=== PATIENT | male | born 1955 | race Caucasian/White ===

== ENCOUNTER 2020-11-24 17:05 | Inpatient (IN) ==
--- NOTE | 2020-11-24 17:19 | DR.FEVERAD ---
HPI Time seen Time Seen by Provider: 11/24/20 17:16 HPI Comment HPI Comment: PATIENT IS 65YR OLD MALE IN ER WITH GENERALIZED WEAKNESS, FEVER AND ANOREXIA TIMES 6 DAYS THAT IS WORSE TODAY. HE HAS HISTORY OF COPD, CAD, DM, HTN AND SLEEP APNEA. HE HAS SLIGHT COUGH AND CONGESTION. NO DYSURIA, NAUSEA,VOMITING OR DIARRHEA. HAVE NOT BEING AROUND SOME ONE SICK WITH COVID 19 VIRUS INFECTION. PATIENT HAVE NOT HAD COVID IMMUNIZATION. Complaints/Symptoms Chief Complaint Doctor Comments: FEVER, POOR APPETITE AND GENERALIZED WEAKNESS TIMES 6 DAYS. COVID-19 Coronavirus risk:travel/contact w/high risk person: No Has patient experienced Coronavirus symptoms: No Coronavirus symptoms experienced: Fever, Coughing and Shortness of Breath Nurses notes reviewed Nurses Notes Review: Yes Source History Provided: Patient Mode of Arrival Mode of Arrival: Wheelchair Timing Came on: Suddenly Duration Duration: Constant Duration: Days Severity Fever Severity/Quality: greater than 100.5 F Context Recent: None Symptoms: Fever and SOB (ON EXERTION.) History of: Diabetes and Chronic Illness Modifying factors Modifying factors: Tylenol Associated signs and symptoms Associated signs and symptoms: Weakness Other history Other history: DM, CAD, COPD, HTN. ROS Review of Systems Constitutional: See HPI, Fever, Malaise, Weakness, Fatigue and Loss of Appetite Eyes: No Symptoms Reported and See HPI ENTM: See HPI and Nose Congestion; negative Nose Discharge Respiratoy: No Symptoms Reported, See HPI, Moist Cough and Short of Breath (ON E XERTION.); negative Wheezing Cardiovascular: No Symptoms Reported and See HPI; negative Chest Pain Gastrointestinal/Abdominal: No Symptoms Reported and See HPI; negative Abdominal Pain, Diarrhea, Nausea and Vomiting Genitourinary: No Symptoms Reported and See HPI; negative Dysuria and Hematuria Neurological: See HPI and Weakness; negative Headache and Dizziness Musculoskeletal: See HPI and Muscle Pain; negative Back Pain Integumentary: No Symptoms Reported and See HPI; negative Change in Color, Rash and Juandice Hematologic/Lymphatic: See HPI, Easy Bleeding and Easy Bruising; negative Swollen Glands Endocrine: No Symptoms Reported and See HPI; negative Increased Thirst and Increased Urine Psychiatric: No Symptoms Reported and See HPI All Other Systems: Reviewed and Negative PE Vital Signs Vitals: Temperature 98.7 F Pulse Rate 69 Respiratory Rate 26 Blood Pressure [Left Arm] 149/71 Blood Pressure 126/70 O2 Sat by Pulse Oximetry 90 General Limitations: No Limitations General Appearance: Alert and In No Apparent Distress Head Head Exam: Normal Inspection; negative Atraumatic Eyes Eye exam: Normal Appearance and PERRL; negative Scleral Icterus and Conjunctival Injection ENT ENT Exam: Normal Exam, Normal Oropharynx, Normal External Ear Exam and TM's Normal Bilaterally External Ear Exam: Normal External Inspection; negative Mastoid Tenderness TM/Canal Exam: Bilateral: Normal Nose Exam: Normal Nose Exam Mouth Exam: Normal Inspection; negative Lip Swelling and Tongue Swelling Teeth Exam: Dental Caries; negative Dental Tenderness # and Gingival Swelling Throat Exam: Normal Inspection; negative Tonsillar Erythema, Tonsillomegaly and Tonsillar Exudate Neck Neck Exam: Normal Inspection and Trachea Midline; negative Tenderness and Lymphadenopathy Respiratory Respiratory Exam: Normal Lung Sounds Bilat; negative Accessory Muscle Use, Chest Wall Tenderness and Respiratory Distress Respiratory Exam: Bilateral: Rhonchi and Lower: Rhonchi Cardiovascular Cardiovascular Exam: Regular Rate, Normal Rhythm and Normal Heart Sounds; negative Systolic Murmur and Diastolic Murmur Abdominal Exam Abdominal Exam: Normal Inspection, Normal Bowel Sounds and Soft; negative Tenderness Extremities Extremities Exam: Normal Inspection and Normal Capillary Refill Back Back Exam: Normal Inspection; negative (R) CVA Tenderness and (L) CVA Tenderness Neurologic Neurological Exam: Alert and Oriented X3; negative Motor Sensory Deficit Psychiatric Psychiatric Exam: Normal Affect and Normal Mood Skin Skin Exam: Dry MDM Differential Diagnosis Differential Diagnosis: Dehydration, Electrolyte disorder, Influenza, Myocardial Infarction, Pneumonia, UTI and Viral syndrome COURSE Treatment Treatment: SEE ORDERS. MORPHIN 4MG IV, ZOFRAN 4MG IV, ROCEPHIN 1GM IVPB AND REMDISIVIR 200MG IVPB IN ER. PATIENT ADMITED TO HOSPITAL FOR FURTHER MANAGEMENT. Consultation Consultation Comments: DISCUSSED PATIENT WITH DR. MUNOZ. SHE WILL ADMIT PATIENT . Education/Counseling Education/Counseling: Patient Educated On: Diagnosis ROR Labs Reviewed Laboratory Results Reviewed?: Yes Result Diagrams: 12/21/20 09:49 12/21/20 09:49 Laboratory: 11/24/20 17:25 Blood Blood Culture - Final 11/24/20 17:25 Blood Blood Culture - Final WBC 4.3 X10^3/uL (3.6-10.0) 11/24/20 17:25 RBC 5.34 X10^6/uL (4.7-6.0) 11/24/20 17:25 Hgb 15.7 g/dL (13.5-18.0) 11/24/20 17:25 Hct 46.1 % (42.0-54.0) 11/24/20 17:25 MCV 86.2 fL (80.0-100.0) 11/24/20 17:25 MCH 29.4 pg (27.0-34.0) 11/24/20 17:25 MCHC 34.1 g/dL (33.0-35.0) 11/24/20 17:25 RDW 14.3 % (11.6-16.5) 11/24/20 17:25 Plt Count 144 X10^3/uL (150.0-450.0) L 11/24/20:25 MPV 8.6 fL (7.4-11.0) 11/24/20 17:25 Neut % (Auto) 73.5 % (42.0-75.0) 11/24/20 17:25 Lymph % (Auto) 14.7 % (21.0-51.0) L 11/24/20 17:25 [place] % (Auto) 11.4 % (0.0-13.0) 11/24/20 17:25 Eos % (Auto) 0.0 % (0.9-2.9) L 11/24/20 17:25 Baso % (Auto) 0.4 % (0.2-1.0) 11/24/20:25 Neut # (Auto) 3.2 x10^3/uL (2.2-4.8) 11/24/20 17:25 Lymph # (Auto) 0.6 X10^3/uL (1.3-2.9) L 11/24/20 17:25 [place] # (Auto) 0.5 x10^3/uL (0.3-0.8) 11/24/20:25 Eos # (Auto) 0.0 x10^3/uL (0.0-0.2) 11/24/20 17:25 Baso # (Auto) 0.0 X10^3/uL (0.0-0.1) 11/24/20 17:25 Absolute Nucleated RBC 0.1 /100WBC 11/24/20 17:25 Sample Site Rr 11/24/20 20:45 ABG pH 7.420 (7.35-7.45) 11/24/20 20:45 ABG pCO2 30.0 mmHg (35.0-45.0) L 11/24/20 20:45 ABG pO2 54.0 mmHg (80.0-100.0) L 11/24/20 20:45 ABG HCO3 19.5 mmol/L (22-26) L 11/24/20 20:45 ABG O2 Saturation 88.0 % (90-100) L 11/24/20 20:45 ABG Base Excess -4.0 mmol/L (-2.0-2.0) L 11/24/20 20:45 Bernardo Test Pos 11/24/20 20:45 A-a Gradient 108.0 mmHg 11/24/20 20:45 FiO2 28.0 11/24/20 20:45 Blood Gas Comments Kandy well sw 11/24/20 20:45 Sodium 133 mmol/L (136-145) L 11/24/20 17:25 Corrected Sodium 136 mmol/L (136-145) 11/24/20 17:25 Potassium 4.7 mmol/L (3.5-5.1) 11/24/20 17:25 Chloride 97 mmol/L (98-107) L 11/24/20 17:25 Carbon Dioxide 22.7 mmol/L (21-32) 11/24/20 17:25 BUN 26 mg/dL (7-18) H 11/24/20 17:25 Creatinine 1.58 mg/dL (0.70-1.30) H 11/24/20 17:25 Est GFR (MDRD) Af Amer 57 (>60) L 11/24/20 17:25 Est GFR (MDRD) Non-Af 47 (>60) L 11/24/20 17:25 Glucose 226 mg/dL (65-99) H 11/24/20 17:25 Lactic Acid 2.0 mmol/L (0.4-2.0) 11/24/20 17:25 Calcium 8.7 mg/dL (8.5-10.1) 11/24/20 17:25 Corrected Calcium TNP 11/24/20 17:25 Total Bilirubin 0.90 mg/dL (0.2-1.0) 11/24/20 17:25 AST 198 Units/L (15-37) H 11/24/20 17:25 ALT 148 Units/L (12-78) H 11/24/20 17:25 Alkaline Phosphatase 88 Units/L (46-116) 11/24/20 17:25 Creatine Kinase 79 Units/L (39-308) 11/24/20 17:25 CK-MB (CK-2) < 1.0 ng/mL (0-4.0) 11/24/20 17:25 CK/CKMB % Calc 1.3 % (<4) 11/24/20 17:25 Troponin I < 0.02 ng/mL (0-1.5) 11/24/20 17:25 Total Protein 7.9 g/dL (6.4-8.2) 11/24/20 17:25 Albumin 3.6 g/dL (3.4-5.0) 11/24/20 17:25 Globulin 4.3 g/dL (2.5-4.5) 11/24/20 17:25 Albumin/Globulin Ratio 0.8 Ratio (1.1-2.1) L 11/24/20 17:25 Amylase 48 Units/L (25-115) 11/24/20 17:25 Lipase 220 Units/L (73-393) 11/24/20 17:25 Specimen Type Clean catch urine 11/24/20 18:16 Urine Color Yellow (YELLOW) 11/24/20 18:16 Urine Appearance Clear (CLEAR) 11/24/20 18:16 Urine pH 5.0 (5.0 - 8.0) 11/24/20 18:16 Ur Specific [place] 1.025 (1.000-1.030) 11/24/20 18:16 Urine Protein 3+ (NEGATIVE) 11/24/20 18:16 Urine Glucose (UA) 4+ (NEGATIVE) 11/24/20 18:16 Urine Ketones 1+ (NEGATIVE) 11/24/20 18:16 Urine Occult Blood Negative (NEGATIVE) 11/24/20 18:16 Urine Nitrite Negative (NEGATIVE) 11/24/20 18:16 Urine Bilirubin Negative (NEGATIVE) 11/24/20 18:16 Urine Urobilinogen Normal (NORMAL) 11/24/20 18:16 Ur Leukocyte Esterase Negative (NEGATIVE) 11/24/20 18:16 Urine RBC None seen /HPF (0-3) 11/24/20 18:16 Urine WBC None seen /HPF (0-5) 11/24/20 18:16 Ur Squamous Epith Cells Rare /HPF (NEGATIVE) 11/24/20 18:16 Urine Bacteria Negative /HPF (NEGATIVE) 11/24/20 18:16 Ur Culture Indicated? No/not indicated 11/24/20 18:16 Acetone, Semi-Quant Negative (NEGATIVE) 11/24/20 17:30 SARS-CoV-2 (PCR) Positive (NEGATIVE) A 11/24/20 20:17 Influenza Type A (PCR) Negative (NEGATIVE) 11/24/20 20:17 Influenza Type B (PCR) Negative (NEGATIVE) 11/24/20 20:17 RSV (PCR) Negative (NEGATIVE) 11/24/20 20:17 S. pyogenes (TEM-PCR) Not detected (NOT DETECT) 11/24/20 20:17 Opioid Opioid Risk Tool Age (Saravanan box if 16-45): No Total: 0 Total Score Risk Category: Low Risk Copyright: [facility] predicting aberrant behaviors Diagnosis Discharge Problem: Suspected COVID-19 virus infection, Hypoxia, Generalized weakness Pneumonia Qualifiers: Pneumonia type: due to unspecified organism Laterality: right Lung location: upper lobe of lung Qualified Code(s): J18.9 - Pneumonia, unspecified organism Instructions Instructions: Viral Respiratory Infection, Eflc-Dp-Ywfr Home Oxygen Use, Adult Hand Washing, Fjjw-be-Cfsp Form - Daily Diabetes Record Type 2 Diabetes Mellitus, Self Care, Adult, Llhu-qk-Jloo Droplet Precautions, Ijrq-au-Uust Contact Precautions, Vbdu-sl-Dggj How to Use a Nebulizer, Adult Hypertension, Bbqg-uo-Xxoy Blood Glucose Monitoring, Adult Community-Acquired Pneumonia, Adult, Janr-nk-Jqjb Forms: Precautions for COVID19 Patient Portal Social Distancing
[2020-11-24 17:53] LABS: BASOPHILS % (AUTO) 0.4 % (0.2-1.0); HEMATOCRIT 46.1 % (42.0-54.0); HEMOGLOBIN 15.7 g/dL (13.5-18.0); LYMPHOCYTES # (AUTO) 0.6 X10^3/uL (1.3-2.9); LYMPHOCYTES % (AUTO) 14.7 % (21.0-51.0); MEAN CORPUSCULAR HEMOGLOBIN 29.4 pg (27.0-34.0); MEAN CORPUSCULAR HGB CONC 34.1 g/dL (33.0-35.0); MEAN CORPUSCULAR VOLUME 86.2 fL (80.0-100.0); MEAN PLATELET VOLUME 8.6 fL (7.4-11.0); MONOCYTES # (AUTO) 0.5 x10^3/uL (0.3-0.8); MONOCYTES % (AUTO) 11.4 % (0.0-13.0); NEUTROPHILS # (AUTO) 3.2 x10^3/uL (2.2-4.8); NEUTROPHILS % (AUTO) 73.5 % (42.0-75.0); PLATELET COUNT 144 X10^3/uL (150.0-450.0); RED BLOOD COUNT 5.34 X10^6/uL (4.7-6.0); RED CELL DISTRIBUTION WIDTH 14.3 % (11.6-16.5); WHITE BLOOD COUNT 4.3 X10^3/uL (3.6-10.0)
[2020-11-24 18:19] LABS: ALANINE AMINOTRANSFERASE 148 Units/L (12-78); ALBUMIN 3.6 g/dL (3.4-5.0); ALKALINE PHOSPHATASE 88 Units/L (46-116); AMYLASE 48 Units/L (25-115); ASPARTATE AMINO TRANSFERASE 198 Units/L (15-37); BLOOD UREA NITROGEN 26 mg/dL (7-18); CALCIUM 8.7 mg/dL (8.5-10.1); CARBON DIOXIDE 22.7 mmol/L (21-32); CHLORIDE 97 mmol/L (98-107); CKMB % 1.3 % (<4); COR NA(FOR HYPERGLY) 136 mmol/L (136-145); CREATINE KINASE 79 Units/L (39-308); CREATINE KINASE MB < 1.0 ng/mL (0-4.0); CREATININE 1.58 mg/dL (0.70-1.30); LIPASE 220 Units/L (73-393); SODIUM 133 mmol/L (136-145); TOTAL PROTEIN 7.9 g/dL (6.4-8.2); TROPONIN I < 0.02 ng/mL (0-1.5); eGFR NON BLACK RACES 47 (>60)
[2020-11-24 18:34] LABS: BILIRUBIN,URINE NEGATIVE (NEGATIVE); BLOOD/HEMOGLOBIN,URINE NEGATIVE (NEGATIVE); GLUCOSE, URINE 4+ (NEGATIVE); KETONES,URINE 1+ (NEGATIVE); LEUKOCYTE ESTERASE ,URINE NEGATIVE (NEGATIVE); NITRITES,URINE NEGATIVE (NEGATIVE); PROTEIN,URINE 3+ (NEGATIVE); UROBILINOGEN,URINE NORMAL (NORMAL)
[2020-11-24 18:50] LABS: APPEARANCE,URINE CLEAR (CLEAR); BACTERIA,URINE NEGATIVE /HPF (NEGATIVE); COLOR,URINE YELLOW (YELLOW); RBC,URINE NONE SEEN /HPF (0-3); SQUAMOUS EPITHELIAL CELL,UR RARE /HPF (NEGATIVE)
[2020-11-24 20:55] LABS: STREP A BY PCR NOT DETECTED (NOT DETECT)
[2020-11-24 21:03] LABS: ABG ALLEN TEST POS; ABG HCO3 19.5 mmol/L (22-26)
--- NOTE | 2020-11-24 21:50 | RAD ---
PROCEDURE: Chest X-ray 1 View .HISTORY: Short of breath and weakness.TECHNIQUE: AP view .COMPARISON: None .TECHNICAL QUALITY: Satisfactory .FINDINGS:Normal size heart with previous sternotomy.Mediastinum and hilar regions show no masses or lymphadenopathy .Normal central vascularity .Patchy consolidation right upper lobe consistent with pneumonia. No pleural fluid or pneumothorax. No pulmonary masses.No acute bony abnormality .IMPRESSION:Right upper lobe pneumonia.Electronically signed by: Vinicius Carpio (Nov 24, 2020 21:48:27)
[2020-11-24] MEDS ORDERED: REMDESIVIR 200 MG in NS 250 ML IV 250 ML IV ONE (22:06)
[2020-11-24] MEDS ORDERED: NS 250 ML IV 250 ML IV ONE (22:21)
[2020-11-24] MEDS ORDERED: REMDESIVIR IV ONE (22:21)
[2020-11-24] MEDS ORDERED: ROCEPHIN VIAL 1 GRAM ONE (23:24)
[2020-11-24] MEDS ORDERED: NS 100 ML IV + SPIKE MINIBAG* 100 ML IV ONE (23:24)
[2020-11-24] MEDS ORDERED: NS 1/2 1000 ML IV 1,000 ML IV ONE (23:25)
[2020-11-24] MEDS: NS 1/2 1000 ML IV 1,000 ML IV SCH (23:25)
[2020-11-24] MEDS: ROCEPHIN 1 GRAM IV PREMIX 1 G/50 ML IV.SOLN. IV SCH (23:25)
[2020-11-25] MEDS ORDERED: ZOCOR TAB 10 MG PO SCH (01:05)
[2020-11-25] MEDS ORDERED: ZOFRAN INJ 4 MG VIAL IVP PRN (02:28)
[2020-11-25] MEDS ORDERED: MORPHINE SULFATE INJ 4 MG IVP PRN (02:29)
[2020-11-25] MEDS ORDERED: MORPHINE SULFATE INJ 4 MG ONE (02:46)
[2020-11-25] MEDS ORDERED: ZOFRAN INJ 4 MG VIAL ONE (02:47)
[2020-11-25] MEDS: ASCORBIC ACID INJ MULTI-DOSE VIAL 1,500 MG in NS 100 ML IV 100 ML IV SCH ×4 (03:20→20:25)
[2020-11-25 04:39] LABS: BASOPHILS % (AUTO) 0.6 % (0.2-1.0); HEMATOCRIT 45.8 % (42.0-54.0); HEMOGLOBIN 15.7 g/dL (13.5-18.0); LYMPHOCYTES # (AUTO) 0.9 X10^3/uL (1.3-2.9); LYMPHOCYTES % (AUTO) 24.4 % (21.0-51.0); MEAN CORPUSCULAR HEMOGLOBIN 29.3 pg (27.0-34.0); MEAN CORPUSCULAR HGB CONC 34.4 g/dL (33.0-35.0); MEAN CORPUSCULAR VOLUME 85.2 fL (80.0-100.0); MEAN PLATELET VOLUME 8.3 fL (7.4-11.0); MONOCYTES # (AUTO) 0.5 x10^3/uL (0.3-0.8); MONOCYTES % (AUTO) 15.3 % (0.0-13.0); NEUTROPHILS # (AUTO) 2.1 x10^3/uL (2.2-4.8); NEUTROPHILS % (AUTO) 59.7 % (42.0-75.0); PLATELET COUNT 139 X10^3/uL (150.0-450.0); RED BLOOD COUNT 5.38 X10^6/uL (4.7-6.0); RED CELL DISTRIBUTION WIDTH 14.5 % (11.6-16.5); WHITE BLOOD COUNT 3.5 X10^3/uL (3.6-10.0)
[2020-11-25 04:50] LABS: ALANINE AMINOTRANSFERASE 166 Units/L (12-78); ALBUMIN 3.3 g/dL (3.4-5.0); ALKALINE PHOSPHATASE 84 Units/L (46-116); ASPARTATE AMINO TRANSFERASE 198 Units/L (15-37); BLOOD UREA NITROGEN 22 mg/dL (7-18); CALCIUM 8.4 mg/dL (8.5-10.1); CARBON DIOXIDE 26.8 mmol/L (21-32); CHLORIDE 99 mmol/L (98-107); COR NA(FOR HYPERGLY) 137 mmol/L (136-145); CREATININE 1.31 mg/dL (0.70-1.30); SODIUM 135 mmol/L (136-145); TOTAL PROTEIN 7.6 g/dL (6.4-8.2); eGFR NON BLACK RACES 59 (>60)
[2020-11-25] MEDS: APRESOLINE TAB 25 MG PO SCH ×2 (06:03→13:42)
[2020-11-25] MEDS ORDERED: VITAMIN D (1.25MG) PO SCH (09:00)
[2020-11-25] MEDS ORDERED: PATIENT'S HOME MEDICATION (Cholecalciferol (Vitamin D3) [Vitamin D3] 50 mcg (2,000 unit) C PO SCH (09:00)
[2020-11-25] MEDS ORDERED: VITAMIN A PO SCH (09:00)
[2020-11-25] MEDS ORDERED: TRICOR TAB 160 MG PO SCH (09:00)
[2020-11-25] MEDS ORDERED: PULMICORT NEB TX 0.5 MG NEB SCH ×2 (09:00)
[2020-11-25] MEDS ORDERED: COREG TAB 25 MG PO SCH (09:00)
[2020-11-25] MEDS ORDERED: ALPHA LIPOIC ACID 200 MG PO SCH (09:00)
[2020-11-25] MEDS ORDERED: THIAMINE HCL INJ IVP SCH (09:00)
[2020-11-25] MEDS: ROBITUSSIN DM PO SCH ×4 (09:08→20:27)
[2020-11-25] MEDS: TUSSIONEX PENNKINETIC SUSP PO PRN (09:08)
[2020-11-25] MEDS: PULMICORT NEB TX 0.5 MG NEB SCH ×2 (09:08→21:23)
[2020-11-25] MEDS: DUONEB 0.5 MG/3 MG (3 mL) NEB SCH ×4 (09:09→21:23)
[2020-11-25] MEDS: ROCEPHIN 1 GRAM IV PREMIX 1 G/50 ML IV.SOLN. IV SCH (09:09)
[2020-11-25] MEDS: DECADRON TAB PO SCH (09:10)
[2020-11-25] MEDS: VSL#3 PO SCH (09:10)
[2020-11-25] MEDS: ZINC SULFATE PO SCH ×2 (09:12→20:27)
[2020-11-25] MEDS: COZAAR PO SCH (09:13)
[2020-11-25] MEDS: LIPITOR TAB 80 MG PO SCH (09:13)
[2020-11-25] MEDS: ISOSORBIDE MONONITRATE ER 24-HR PO SCH (09:14)
[2020-11-25] MEDS: PEPCID TAB 40 MG PO SCH ×2 (09:15→20:27)
[2020-11-25] MEDS: LOVENOX INJ 30 MG SYR SC SCH ×2 (09:16→20:26)
--- NOTE | 2020-11-25 09:16 | DR.H&P ---
H&P History & Physical for Day of: H&P Date: 11/25/20 Chief Complaint Chief Complaint: weakness, dyspnea, cough Allergies Allergies Allergy/AdvReac Type Severity Reaction Status Date / Time No Known Drug Allergies Allergy Verified 11/24/20 20:28 History of Present Illness History of Present Illness: Mr. Mcclure is a 65y/o male with a PMH of CABG, Type2 DM, HTN, HLD, COPD and TEENA presented with generalized weakness, chills and bodyaches. He also felt dizzy with walking. He reports non-productive cough and dyspnea on exertion. His Sx started 1 week ago. He denies sick contact at home, he lives alone. Denies known exposure. Denies recent travel. He has not taken the COVID-19 vaccine. In the ER, he was found to be positive for COVID-19 and admitted to ICU for further management. He is currently on 3L NC. Labs: WBC 3.5 Plt 139 BUN/Cr: 22/1.31 Glucose 204 Lactic acid 2 AST/ALT: 198/166 AB.42/30/54/19.5 on 2L Trop(-) CXR: RUL pneumonia Plan: continue Remdesivir and IV Rocephin. Continue PO decadron. Continue duonebs and pulmicort. Continue vitamin support. Continue gentle hydration. Will check d-dimer and CRP, if d-dimer elevated then follow up with CTA chest to rule out PE. Continue lovenox BID for DVT ppx. Resume home medications. Wean O2 as tolerated to keep sats > 92%. IS as tolerated. Continue telemetry and ICU monitoring. Monitor AM labs and imaging. Time spent for clinical assessment, reviewing labs/imaging, management, physical exam, decision making and documentation greater than 75 mins. Past Medical History Past Medical History: COPD, Coronary Artery Disease, Diabetes, Hypertension and Sleep Apnea Past Surgical History Surgical History: CABG/Valve Surgery, Carotid Endarterectomy and Ortho Surgery Family History Family Medical History: Diabetes Mellitus and Cancer Social History Does patient currently use any type of tobacco product: No Have you used tobacco products in the last 12 months: No Type of Tobacco Use: None Does any household member use tobacco: No Alcohol Use: None Drug Use: None Prescription drug monitoring program results: PDMP reviewed and no concerns identified Medications Home Medications: No Known Drug Allergies Allergy (Verified 11/24/20 20:28) CONTINUE taking the following medications alpha lipoic acid 200 mg PO DAILY 11/24/20 [History] carvedilol [Coreg] 25 mg PO BID 11/24/20 [History] cholecalciferol (vitamin D3) [Vitamin D3] 50 mcg PO DAILY 11/24/20 [History] cinnamon bark [Cinnamon] 500 mg PO DAILY 11/24/20 [History] dapagliflozin [Farxiga] 5 mg PO QAM 11/24/20 [History] hydralazine 50 mg PO TID 11/24/20 [History] isosorbide mononitrate 60 mg PO QAM 11/24/20 [History] losartan 100 mg PO DAILY 11/24/20 [History] simvastatin 10 mg PO QHS 11/24/20 [History] Labs Result Diagrams: 11/25/20 04:18 11/25/20 04:18 Labs: Laboratory WBC 3.5 X10^3/uL (3.6-10.0) L 11/25/20 04:18 RBC 5.38 X10^6/uL (4.7-6.0) 11/25/20 04:18 Hgb 15.7 g/dL (13.5-18.0) 11/25/20 04:18 Hct 45.8 % (42.0-54.0) 11/25/20 04:18 MCV 85.2 fL (80.0-100.0) 11/25/20 04:18 MCH 29.3 pg (27.0-34.0) 11/25/20 04:18 MCHC 34.4 g/dL (33.0-35.0) 11/25/20 04:18 RDW 14.5 % (11.6-16.5) 11/25/20 04:18 Plt Count 139 X10^3/uL (150.0-450.0) L 11/25/20 04:18 MPV 8.3 fL (7.4-11.0) 11/25/20 04:18 Neut % (Auto) 59.7 % (42.0-75.0) 11/25/20 04:18 Lymph % (Auto) 24.4 % (21.0-51.0) 11/25/20 04:18 [place] % (Auto) 15.3 % (0.0-13.0) H 11/25/20 04:18 Eos % (Auto) 0.0 % (0.9-2.9) L 11/25/20 04:18 Baso % (Auto) 0.6 % (0.2-1.0) 11/25/20 04:18 Neut # (Auto) 2.1 x10^3/uL (2.2-4.8) L 11/25/20 04:18 Lymph # (Auto) 0.9 X10^3/uL (1.3-2.9) L 11/25/20 04:18 [place] # (Auto) 0.5 x10^3/uL (0.3-0.8) 11/25/20 04:18 Eos # (Auto) 0.0 x10^3/uL (0.0-0.2) 11/25/20 04:18 Baso # (Auto) 0.0 X10^3/uL (0.0-0.1) 11/25/20 04:18 Absolute Nucleated RBC 0.2 /100WBC 11/25/20 04:18 D-Dimer 1.54 ug/ml (0.0-0.57) H* 11/25/20 08:11 Sample Site Rr 11/24/20 20:45 ABG pH 7.420 (7.35-7.45) 11/24/20 20:45 ABG pCO2 30.0 mmHg (35.0-45.0) L 11/24/20 20:45 ABG pO2 54.0 mmHg (80.0-100.0) L 11/24/20 20:45 ABG HCO3 19.5 mmol/L (22-26) L 11/24/20 20:45 ABG O2 Saturation 88.0 % (90-100) L 11/24/20 20:45 ABG Base Excess -4.0 mmol/L (-2.0-2.0) L 11/24/20 20:45 Bernardo Test Pos 11/24/20 20:45 A-a Gradient 108.0 mmHg 11/24/20 20:45 FiO2 28.0 11/24/20 20:45 Blood Gas Comments Kandy well sw 11/24/20 20:45 Sodium 135 mmol/L (136-145) L 11/25/20 04:18 Corrected Sodium 137 mmol/L (136-145) 11/25/20 04:18 Potassium 4.9 mmol/L (3.5-5.1) 11/25/20 04:18 Chloride 99 mmol/L (98-107) 11/25/20 04:18 Carbon Dioxide 26.8 mmol/L (21-32) 11/25/20 04:18 BUN 22 mg/dL (7-18) H 11/25/20 04:18 Creatinine 1.31 mg/dL (0.70-1.30) H 11/25/20 04:18 Est GFR (MDRD) Af Amer > 60 (>60) 11/25/20 04:18 Est GFR (MDRD) Non-Af 59 (>60) 11/25/20 04:18 Glucose 204 mg/dL (65-99) H 11/25/20 04:18 Lactic Acid 2.0 mmol/L (0.4-2.0) 11/24/20 17:25 Calcium 8.4 mg/dL (8.5-10.1) L 11/25/20 04:18 Corrected Calcium 9.0 mg/dL (8.5-10.1) 11/25/20 04:18 Total Bilirubin 0.70 mg/dL (0.2-1.0) 11/25/20 04:18 AST 198 Units/L (15-37) H 11/25/20 04:18 ALT 166 Units/L (12-78) H 11/25/20 04:18 Alkaline Phosphatase 84 Units/L (46-116) 11/25/20 04:18 Creatine Kinase 79 Units/L (39-308) 11/24/20 17:25 CK-MB (CK-2) < 1.0 ng/mL (0-4.0) 11/24/20 17:25 CK/CKMB % Calc 1.3 % (<4) 11/24/20 17:25 Troponin I < 0.02 ng/mL (0-1.5) 11/24/20 17:25 C-Reactive Protein 22.30 mg/L (0-3.0) H 11/25/20 04:18 Total Protein 7.6 g/dL (6.4-8.2) 11/25/20 04:18 Albumin 3.3 g/dL (3.4-5.0) L 11/25/20 04:18 Globulin 4.3 g/dL (2.5-4.5) 11/25/20 04:18 Albumin/Globulin Ratio 0.8 Ratio (1.1-2.1) L 11/25/20 04:18 Amylase 48 Units/L (25-115) 11/24/20 17:25 Lipase 220 Units/L (73-393) 11/24/20 17:25 Specimen Type Clean catch urine 11/24/20 18:16 Urine Color Yellow (YELLOW) 11/24/20 18:16 Urine Appearance Clear (CLEAR) 11/24/20 18:16 Urine pH 5.0 (5.0 - 8.0) 11/24/20 18:16 Ur Specific [place] 1.025 (1.000-1.030) 11/24/20 18:16 Urine Protein 3+ (NEGATIVE) 11/24/20 18:16 Urine Glucose (UA) 4+ (NEGATIVE) 11/24/20 18:16 Urine Ketones 1+ (NEGATIVE) 11/24/20 18:16 Urine Occult Blood Negative (NEGATIVE) 11/24/20 18:16 Urine Nitrite Negative (NEGATIVE) 11/24/20 18:16 Urine Bilirubin Negative (NEGATIVE) 11/24/20 18:16 Urine Urobilinogen Normal (NORMAL) 11/24/20 18:16 Ur Leukocyte Esterase Negative (NEGATIVE) 11/24/20 18:16 Urine RBC None seen /HPF (0-3) 11/24/20 18:16 Urine WBC None seen /HPF (0-5) 11/24/20 18:16 Ur Squamous Epith Cells Rare /HPF (NEGATIVE) 11/24/20 18:16 Urine Bacteria Negative /HPF (NEGATIVE) 11/24/20 18:16 Ur Culture Indicated? No/not indicated 11/24/20 18:16 Acetone, Semi-Quant Negative (NEGATIVE) 11/24/20 17:30 SARS-CoV-2 (PCR) Positive (NEGATIVE) A 11/24/20 20:17 Influenza Type A (PCR) Negative (NEGATIVE) 11/24/20 20:17 Influenza Type B (PCR) Negative (NEGATIVE) 11/24/20 20:17 RSV (PCR) Negative (NEGATIVE) 11/24/20 20:17 S. pyogenes (TEM-PCR) Not detected (NOT DETECT) 11/24/20 20:17 Review of Systems Constitutional: Fever, Chills, Weakness and Malaise Eyes: No Symptoms Reported ENT: No Symptoms Reported Respiratory: Cough, Shortness of Breath and SOB with Excertion Cardiovascular: No Symptoms Reported Gastrointestinal: Diarrhea Genitourinary: No Symptoms Reported Musculoskeletal: No Symptoms Reported Skin: No Symptoms Reported Neurological: Confusion Physical Exam Vital Signs: Temperature 98.7 F Pulse Rate [Left Brachial] 75 Pulse Rate 71 Respiratory Rate 22 Blood Pressure [Left Arm] 170/74 Blood Pressure 126/70 O2 Sat by Pulse Oximetry 93 Oriented: Normal Eyes: Normal Ear: Normal Nose: Normal Throat: Normal Respiratory: Diminished Throughout Cardiovascular: Normal Auscultation: Bowel Sounds: Normal Palpation: Normal Tenderness: Normal Skin: Normal Mood Description: Calm Affect: Normal Speech Pattern: Clear and Appropriate Assessment/Plan (1) Pneumonia: Qualifiers: Laterality: right Lung location: upper lobe of lung Pneumonia type: due to unspecified organism Qualified Code(s): J18.9 - Pneumonia, unspecified organism Status: Acute (2) COVID-19 virus infection: Status: Acute (3) Acute respiratory failure with hypoxia: Status: Acute (4) HTN (hypertension): Qualifiers: Hypertension type: essential hypertension Qualified Code(s): I10 - Esse ntial (primary) hypertension Status: Acute (5) Hx of CABG: Status: Acute (6) Diabetes: Qualifiers: Diabetes mellitus complication status: without complication Diabetes mellitus [facility] insulin use: without tank terminal gauger use Diabetes mellitus type: type 2 Qualified Code(s): E11.9 - Type 2 diabetes mellitus without complications Status: Acute (7) FRANCIS (acute kidney injury): Status: Acute (8) Thrombocytopenia: Status: Acute Review H&P Reviewed: Yes Patient was examined?: Yes
[2020-11-25] MEDS: PATIENT'S HOME MEDICATION (Cinnamon Bark [Cinnamon] 500 mg Capsule) PO SCH (09:22)
[2020-11-25] MEDS: ALPHA LIPOIC ACID 200 MG PO SCH (09:22)
[2020-11-25] MEDS: PATIENT'S HOME MEDICATION (Dapagliflozin [Farxiga] 5 mg Tablet) PO SCH (09:22)
[2020-11-25] MEDS ORDERED: NS 100 ML IV 100 ML ONE (09:31)
--- NOTE | 2020-11-25 10:59 | CT ---
HISTORYCOVID-19STUDYCTA chest with contrast for pulmonary embolusTechnique: Axial post-contrast images with coronal, sagittal, and 3 dimensional maximum intensity projection images obtained and evaluated. Dose reduction procedures were used with mA/kv adjusted for body size.COMPARISONNoneFINDINGSThere is no evidence for acute pulmonary thromboembolic disease. Examination of the mediastinum demonstrated no evidence for mediastinal masses, no definitely enlarged mediastinal or hilar adenopathy is identified. There are multiple nonenlarged mediastinal sub carinal and right hilar lymph node present. There are likely reactive. No aortic abnormality is identified. Coronary artery calcifications are present. No pleural effusions are identified. No chest wall or axillary abnormality is identified. Those portions of the upper abdominal organs visualized were within normal limits. Examination of the lung russell demonstrated multiple bilateral predominantly peripheral andjuxtafissural ground-glass infiltrates involving the upper and lower lobes bilaterally most prominently in the right upper lobe.. There is subpleural sparing. Findings are consistent with multifocal pneumonia which could be bacterial, viral, or atypical viral in origin. COVID lung involvement can have this appearance. There are no focal areas of consolidation, nodules, masses, or areas of significant bronchiectasis or peribronchial thickening.IMPRESSIONExam negative for acute pulmonary thromboembolic diseaseFindings consistent with multifocal pneumonia which could be bacterial, viral, or atypical viral in origin. COVID lung involvement can have this appearance.Electronically signed by: HENNY BASURTO (Nov 25, 2020 10:56:41)
[2020-11-25] MEDS: NS 1/2 1000 ML IV 1,000 ML IV SCH (13:26)
[2020-11-25] MEDS: NS 1000 ML 1,000 ML IV SCH ×2 (15:00→22:01)
[2020-11-25] MEDS ORDERED: NS 500 ML IV 500 ML IV ONE (17:13)
[2020-11-25] MEDS: HumuLIN R SUBCUT PRN ×2 (17:25→20:27)
[2020-11-25] MEDS: SNACK - Diabetic Appropriate PO SCH (20:25)
[2020-11-25] MEDS: REMDESIVIR 100 MG in NS 250 ML IV 250 ML IV SCH (20:27)
[2020-11-25] MEDS ORDERED: MELATONIN PO SCH (21:00)
[2020-11-26] MEDS: ASCORBIC ACID INJ MULTI-DOSE VIAL 1,500 MG in NS 100 ML IV 100 ML IV SCH ×4 (02:46→20:24)
[2020-11-26 04:59] LABS: BASOPHILS % (AUTO) 0.1 % (0.2-1.0); HEMATOCRIT 40.3 % (42.0-54.0); LYMPHOCYTES # (AUTO) 0.5 X10^3/uL (1.3-2.9); LYMPHOCYTES % (AUTO) 21.5 % (21.0-51.0); MEAN CORPUSCULAR HEMOGLOBIN 29.3 pg (27.0-34.0); MEAN CORPUSCULAR HGB CONC 34.6 g/dL (33.0-35.0); MEAN CORPUSCULAR VOLUME 84.5 fL (80.0-100.0); MEAN PLATELET VOLUME 8.3 fL (7.4-11.0); MONOCYTES # (AUTO) 0.4 x10^3/uL (0.3-0.8); MONOCYTES % (AUTO) 16.6 % (0.0-13.0); NEUTROPHILS # (AUTO) 1.5 x10^3/uL (2.2-4.8); NEUTROPHILS % (AUTO) 61.8 % (42.0-75.0); PLATELET COUNT 140 X10^3/uL (150.0-450.0); RED BLOOD COUNT 4.77 X10^6/uL (4.7-6.0); RED CELL DISTRIBUTION WIDTH 14.5 % (11.6-16.5); WHITE BLOOD COUNT 2.4 X10^3/uL (3.6-10.0)
[2020-11-26 05:13] LABS: ALANINE AMINOTRANSFERASE 126 Units/L (12-78); ALKALINE PHOSPHATASE 79 Units/L (46-116); ASPARTATE AMINO TRANSFERASE 109 Units/L (15-37); BLOOD UREA NITROGEN 23 mg/dL (7-18); CALCIUM 8.3 mg/dL (8.5-10.1); CARBON DIOXIDE 25.2 mmol/L (21-32); CHLORIDE 105 mmol/L (98-107); COR CA(FOR HYPOALB) 9.1 mg/dL (8.5-10.1); COR NA(FOR HYPERGLY) 143 mmol/L (136-145); CREATININE 1.26 mg/dL (0.70-1.30); SODIUM 140 mmol/L (136-145); eGFR NON BLACK RACES > 60 (>60)
[2020-11-26 05:20] LABS: BAND NEUTROPHILS % 4 % (0-10); PLATELET MORPHOLOGY COMMENT NORMAL (NORMAL)
[2020-11-26] MEDS: HumuLIN R SUBCUT PRN ×4 (06:09→20:26)
[2020-11-26] MEDS: NS 1000 ML 1,000 ML IV SCH (08:11)
[2020-11-26] MEDS: ROCEPHIN 1 GRAM IV PREMIX 1 G/50 ML IV.SOLN. IV SCH (08:50)
[2020-11-26] MEDS: PEPCID TAB 40 MG PO SCH ×2 (08:52→20:27)
[2020-11-26] MEDS: VITAMIN D3 125 mcg (5,000 UNITS) PO SCH (08:52)
[2020-11-26] MEDS: LIPITOR TAB 80 MG PO SCH (08:53)
[2020-11-26] MEDS: COZAAR PO SCH (08:53)
[2020-11-26] MEDS: ROBITUSSIN DM PO SCH ×4 (08:54→20:27)
[2020-11-26] MEDS: VSL#3 PO SCH (08:54)
[2020-11-26] MEDS: DECADRON TAB PO SCH (08:55)
[2020-11-26] MEDS: ISOSORBIDE MONONITRATE ER 24-HR PO SCH (08:55)
[2020-11-26] MEDS: ZINC SULFATE PO SCH ×2 (08:55→20:28)
[2020-11-26] MEDS: LOVENOX INJ 30 MG SYR SC SCH ×2 (08:57→20:25)
[2020-11-26] MEDS: PATIENT'S HOME MEDICATION (Dapagliflozin [Farxiga] 5 mg Tablet) PO SCH (08:59)
[2020-11-26] MEDS: ALPHA LIPOIC ACID 200 MG PO SCH (09:00)
[2020-11-26] MEDS: PATIENT'S HOME MEDICATION (Cinnamon Bark [Cinnamon] 500 mg Capsule) PO SCH (09:00)
[2020-11-26] MEDS: ZITHROMAX TAB 250 MG PO SCH (09:01)
[2020-11-26] MEDS: VITAMIN A PO SCH (09:01)
[2020-11-26] MEDS: PULMICORT NEB TX 0.5 MG NEB SCH ×2 (09:19→21:54)
[2020-11-26] MEDS: DUONEB 0.5 MG/3 MG (3 mL) NEB SCH ×4 (09:19→21:54)
--- NOTE | 2020-11-26 11:58 | PCM.PROG ---
Progress Note Progress Note for Day of Date of Exam: 11/26/20 Subjective Subjective: Patient seen at bedside, reports feeling better. He is still on 3L NC. He reports non-productive cough. He states diarrhea is better and is appetite is good. Denies abdominal pain or nausea. He did have low BP yesterday, SBP in the 80s. He was given NS bolus and increased maintenance fluids to 125cc/hr. This morning his BP has improved and has been elevated to 160s. His anti-hypertensives were held in the afternoon yesterday. He did work with PT yesterday and would like to have a walker and ambulate in the room as tolerated. He did not sleep much last night and felt restless. Labs: WBC 2.4 Hgb 14 Plt 140 BUN/Cr: 23/1.26 Glucose 234 AST/ALT: 109/126 CRP 22.30 CTA chest: no PE, bilateral multifocal patchy pneumonia, worse in RUL consistent with COVID-19 infection Plan: Continue Remdesivir and Decadron. Continue Rocephin, will add azithromycin. Continue duonebs and pulmicort. Continue IS. Wean O2 as tolerated. Will resume losartan and isosorbide mononitrate. Patient's HR has been in the 50s, will decrease coreg to 12.5 mg BID and resume this evening. Continue to hold hydralazine. Will DC IVF, patient has been eating all his meals. PT/OT as tolerated. Continue vitamin support. Will add Restoril qHS. Continue to monitor patient in the ICU with telemetry and COVID protocol. Monitor AM labs and imaging. Time spent for clinical assessment, reviewing labs/imaging, physical exam, decision making and documentation greater than 75 mins. Past Medical Family Social History Past Med/Fam/Surg Hx: No changes since H&P Allergies: Allergies No Known Drug Allergies Allergy (Verified 11/24/20 20:28) Review of Systems ROS: No change since H&P Vital Signs and I&O's Vital Signs: Temperature 97.9 F Pulse Rate [Left Brachial] 68 Pulse Rate 62 Respiratory Rate 20 Blood Pressure [Left Arm] 167/72 Blood Pressure 126/70 O2 Sat by Pulse Oximetry 92 Intake and Output: Intake & Output 11/23/20 11/24/20 11/25/20 11/26/20 23:59 23:59 23:59 23:59 Intake Total 7795 / 6495 1264 / 1264 Output Total 2470 / 2470 2100 / 2100 Balance 4025 / 4025 -836 / -836 Physical Exam Oriented: Normal Eyes: Normal Ear: Normal Nose: Normal Throat: Normal Respiratory: Generalized, Diminished and Rales Cardiovascular: Normal Auscultation: Bowel Sounds: Normal Tenderness: Normal Skin: Normal Mood Description: Calm Affect: Normal Speech Pattern: Clear and Appropriate Laboratory and Diagnostics Result Diagrams: 11/26/20 04:16 11/26/20 04:16 Labs: 11/25/20 06:08 Sputum - Expectorated Sputum Sputum Culture - Preliminary 11/25/20 06:08 Sputum - Expectorated Sputum - Final Laboratory WBC 2.4 X10^3/uL (3.6-10.0) L 11/26/20 04:16 RBC 4.77 X10^6/uL (4.7-6.0) 11/26/20 04:16 Hgb 14.0 g/dL (13.5-18.0) 11/26/20 04:16 Hct 40.3 % (42.0-54.0) L 11/26/20 04:16 MCV 84.5 fL (80.0-100.0) 11/26/20 04:16 MCH 29.3 pg (27.0-34.0) 11/26/20 04:16 MCHC 34.6 g/dL (33.0-35.0) 11/26/20 04:16 RDW 14.5 % (11.6-16.5) 11/26/20 04:16 Plt Count 140 X10^3/uL (150.0-450.0) L 11/26/20 04:16 Plt Count Comment Decreased (ADEQUATE) 11/26/20 04:16 MPV 8.3 fL (7.4-11.0) 11/26/20 04:16 Neut % (Auto) 61.8 % (42.0-75.0) 11/26/20 04:16 Lymph % (Auto) 21.5 % (21.0-51.0) 11/26/20 04:16 [place] % (Auto) 16.6 % (0.0-13.0) H 11/26/20 04:16 Eos % (Auto) 0.0 % (0.9-2.9) L 11/26/20 04:16 Baso % (Auto) 0.1 % (0.2-1.0) L 11/26/20 04:16 Neut # (Auto) 1.5 x10^3/uL (2.2-4.8) L 11/26/20 04:16 Lymph # (Auto) 0.5 X10^3/uL (1.3-2.9) L 11/26/20 04:16 [place] # (Auto) 0.4 x10^3/uL (0.3-0.8) 11/26/20 04:16 Eos # (Auto) 0.0 x10^3/uL (0.0-0.2) 11/26/20 04:16 Baso # (Auto) 0.0 X10^3/uL (0.0-0.1) 11/26/20 04:16 Absolute Nucleated RBC 0.1 /100WBC 11/26/20 04:16 Total Counted 100 11/26/20 04:16 Neutrophils % (Manual) 63 % (39-76) 11/26/20 04:16 Band Neutrophils % 4 % (0-10) 11/26/20 04:16 Lymphocytes % (Manual) 18 % (13-43) 11/26/20 04:16 Monocytes % (Manual) 15 % (4-9) H 11/26/20 04:16 Plt Morphology Comment Normal (NORMAL) 11/26/20 04:16 RBC Morphology Normal (NORMAL) 11/26/20 04:16 D-Dimer 1.54 ug/ml (0.0-0.57) H* 11/25/20 08:11 Sample Site Rr 11/24/20 20:45 ABG pH 7.420 (7.35-7.45) 11/24/20 20:45 ABG pCO2 30.0 mmHg (35.0-45.0) L 11/24/20 20:45 ABG pO2 54.0 mmHg (80.0-100.0) L 11/24/20 20:45 ABG HCO3 19.5 mmol/L (22-26) L 11/24/20 20:45 ABG O2 Saturation 88.0 % (90-100) L 11/24/20 20:45 ABG Base Excess -4.0 mmol/L (-2.0-2.0) L 11/24/20 20:45 Bernardo Test Pos 11/24/20 20:45 A-a Gradient 108.0 mmHg 11/24/20 20:45 FiO2 28.0 11/24/20 20:45 Blood Gas Comments Kandy well sw 11/24/20 20:45 Sodium 140 mmol/L (136-145) 11/26/20 04:16 Corrected Sodium 143 mmol/L (136-145) 11/26/20 04:16 Potassium 4.6 mmol/L (3.5-5.1) 11/26/20 04:16 Chloride 105 mmol/L (98-107) 11/26/20 04:16 Carbon Dioxide 25.2 mmol/L (21-32) 11/26/20 04:16 BUN 23 mg/dL (7-18) H 11/26/20 04:16 Creatinine 1.26 mg/dL (0.70-1.30) 11/26/20 04:16 Est GFR (MDRD) Af Amer > 60 (>60) 11/26/20 04:16 Est GFR (MDRD) Non-Af > 60 (>60) 11/26/20 04:16 Glucose 234 mg/dL (65-99) H 11/26/20 04:16 POC Glucose (mg/dL) 227 mg/dL (65-99) H 11/26/20 11:29 Lactic Acid 2.0 mmol/L (0.4-2.0) 11/24/20 17:25 Calcium 8.3 mg/dL (8.5-10.1) L 11/26/20 04:16 Corrected Calcium 9.1 mg/dL (8.5-10.1) 11/26/20 04:16 Total Bilirubin 0.50 mg/dL (0.2-1.0) 11/26/20 04:16 AST 109 Units/L (15-37) H 11/26/20 04:16 ALT 126 Units/L (12-78) H 11/26/20 04:16 Alkaline Phosphatase 79 Units/L (46-116) 11/26/20 04:16 Creatine Kinase 79 Units/L (39-308) 11/24/20 17:25 CK-MB (CK-2) < 1.0 ng/mL (0-4.0) 11/24/20 17:25 CK/CKMB % Calc 1.3 % (<4) 11/24/20 17:25 Troponin I < 0.02 ng/mL (0-1.5) 11/24/20 17:25 C-Reactive Protein 22.30 mg/L (0-3.0) H 11/25/20 04:18 Total Protein 7.0 g/dL (6.4-8.2) 11/26/20 04:16 Albumin 3.0 g/dL (3.4-5.0) L 11/26/20 04:16 Globulin 4.0 g/dL (2.5-4.5) 11/26/20 04:16 Albumin/Globulin Ratio 0.8 Ratio (1.1-2.1) L 11/26/20 04:16 Amylase 48 Units/L (25-115) 11/24/20 17:25 Lipase 220 Units/L (73-393) 11/24/20 17:25 Specimen Type Clean catch urine 11/24/20 18:16 Urine Color Yellow (YELLOW) 11/24/20 18:16 Urine Appearance Clear (CLEAR) 11/24/20 18:16 Urine pH 5.0 (5.0 - 8.0) 11/24/20 18:16 Ur Specific [place] 1.025 (1.000-1.030) 11/24/20 18:16 Urine Protein 3+ (NEGATIVE) 11/24/20 18:16 Urine Glucose (UA) 4+ (NEGATIVE) 11/24/20 18:16 Urine Ketones 1+ (NEGATIVE) 11/24/20 18:16 Urine Occult Blood Negative (NEGATIVE) 11/24/20 18:16 Urine Nitrite Negative (NEGATIVE) 11/24/20 18:16 Urine Bilirubin Negative (NEGATIVE) 11/24/20 18:16 Urine Urobilinogen Normal (NORMAL) 11/24/20 18:16 Ur Leukocyte Esterase Negative (NEGATIVE) 11/24/20 18:16 Urine RBC None seen /HPF (0-3) 11/24/20 18:16 Urine WBC None seen /HPF (0-5) 11/24/20 18:16 Ur Squamous Epith Cells Rare /HPF (NEGATIVE) 11/24/20 18:16 Urine Bacteria Negative /HPF (NEGATIVE) 11/24/20 18:16 Ur Culture Indicated? No/not indicated 11/24/20 18:16 Acetone, Semi-Quant Negative (NEGATIVE) 11/24/20 17:30 SARS-CoV-2 (PCR) Positive (NEGATIVE) A 11/24/20 20:17 Influenza Type A (PCR) Negative (NEGATIVE) 11/24/20 20:17 Influenza Type B (PCR) Negative (NEGATIVE) 11/24/20 20:17 RSV (PCR) Negative (NEGATIVE) 11/24/20 20:17 S. pyogenes (TEM-PCR) Not detected (NOT DETECT) 11/24/20 20:17 Plan (1) Pneumonia: Status: Acute Qualifiers: Laterality: right Lung location: upper lobe of lung Pneumonia type: due to unspecified organism Qualified Code(s): J18.9 - Pneumonia, unspecified organism (2) COVID-19 virus infection: Status: Acute (3) Acute respiratory failure with hypoxia: Status: Acute (4) HTN (hypertension): Status: Acute Qualifiers: Hypertension type: essential hypertension Qualified Code(s): I10 - Essential (primary) hypertension (5) Hx of CABG: Status: Acute (6) Diabetes: Status: Acute Qualifiers: Diabetes mellitus complication status: without complication Diabetes mellitus data entry coordinator insulin use: without [facility] use Diabetes mellitus type: type 2 Qualified Code(s): E11.9 - Type 2 diabetes mellitus without complications (7) FRANCIS (acute kidney injury): Status: Acute (8) Thrombocytopenia: Status: Acute
[2020-11-26] MEDS ORDERED: NS 1000 ML 1,000 ML ONE (14:08)
[2020-11-26] MEDS: SNACK - Diabetic Appropriate PO SCH (20:24)
[2020-11-26] MEDS: COREG TAB 12.5 MG PO SCH (20:25)
[2020-11-26] MEDS: REMDESIVIR 100 MG in NS 250 ML IV 250 ML IV SCH (20:27)
[2020-11-27] MEDS: ASCORBIC ACID INJ MULTI-DOSE VIAL 1,500 MG in NS 100 ML IV 100 ML IV SCH ×4 (03:26→20:40)
[2020-11-27] MEDS: HumuLIN R SUBCUT PRN ×4 (05:59→20:41)
[2020-11-27] MEDS: TUSSIONEX PENNKINETIC SUSP PO PRN (06:01)
[2020-11-27 08:27] LABS: BASOPHILS % (AUTO) 0.1 % (0.2-1.0); HEMATOCRIT 40.8 % (42.0-54.0); HEMOGLOBIN 13.9 g/dL (13.5-18.0); LYMPHOCYTES # (AUTO) 0.5 X10^3/uL (1.3-2.9); LYMPHOCYTES % (AUTO) 12.7 % (21.0-51.0); MEAN CORPUSCULAR HEMOGLOBIN 28.9 pg (27.0-34.0); MEAN CORPUSCULAR HGB CONC 34.1 g/dL (33.0-35.0); MEAN CORPUSCULAR VOLUME 84.9 fL (80.0-100.0); MEAN PLATELET VOLUME 8.3 fL (7.4-11.0); MONOCYTES # (AUTO) 0.5 x10^3/uL (0.3-0.8); MONOCYTES % (AUTO) 11.4 % (0.0-13.0); NEUTROPHILS # (AUTO) 3.3 x10^3/uL (2.2-4.8); NEUTROPHILS % (AUTO) 75.8 % (42.0-75.0); PLATELET COUNT 171 X10^3/uL (150.0-450.0); RED CELL DISTRIBUTION WIDTH 14.7 % (11.6-16.5); WHITE BLOOD COUNT 4.3 X10^3/uL (3.6-10.0)
[2020-11-27 08:38] LABS: ALANINE AMINOTRANSFERASE 92 Units/L (12-78); ALKALINE PHOSPHATASE 76 Units/L (46-116); ASPARTATE AMINO TRANSFERASE 65 Units/L (15-37); BLOOD UREA NITROGEN 20 mg/dL (7-18); CALCIUM 8.4 mg/dL (8.5-10.1); CARBON DIOXIDE 24.6 mmol/L (21-32); CHLORIDE 104 mmol/L (98-107); COR CA(FOR HYPOALB) 9.2 mg/dL (8.5-10.1); COR NA(FOR HYPERGLY) 143 mmol/L (136-145); CREATININE 1.15 mg/dL (0.70-1.30); SODIUM 139 mmol/L (136-145); TOTAL PROTEIN 6.9 g/dL (6.4-8.2); eGFR NON BLACK RACES > 60 (>60)
[2020-11-27] MEDS: ROBITUSSIN DM PO SCH ×4 (08:53→20:43)
[2020-11-27] MEDS: LOVENOX INJ 30 MG SYR SC SCH ×2 (08:54→20:40)
[2020-11-27] MEDS: DECADRON TAB PO SCH (08:55)
[2020-11-27] MEDS: ROCEPHIN 1 GRAM IV PREMIX 1 G/50 ML IV.SOLN. IV SCH (08:55)
[2020-11-27] MEDS: VSL#3 PO SCH (08:56)
[2020-11-27] MEDS: ZINC SULFATE PO SCH ×2 (08:57→20:43)
[2020-11-27] MEDS: APRESOLINE TAB 10 MG PO SCH ×3 (08:57→21:02)
[2020-11-27] MEDS: VITAMIN D3 125 mcg (5,000 UNITS) PO SCH (08:57)
[2020-11-27] MEDS: LIPITOR TAB 80 MG PO SCH (08:57)
[2020-11-27] MEDS: PEPCID TAB 40 MG PO SCH ×2 (08:58→20:42)
[2020-11-27] MEDS: ZITHROMAX TAB 250 MG PO SCH (08:58)
[2020-11-27] MEDS: COZAAR PO SCH (08:58)
[2020-11-27] MEDS: VITAMIN A PO SCH (08:59)
[2020-11-27] MEDS: PATIENT'S HOME MEDICATION (Dapagliflozin [Farxiga] 5 mg Tablet) PO SCH (09:01)
[2020-11-27] MEDS: PATIENT'S HOME MEDICATION (Cinnamon Bark [Cinnamon] 500 mg Capsule) PO SCH (09:01)
[2020-11-27] MEDS: ALPHA LIPOIC ACID 200 MG PO SCH (09:02)
[2020-11-27] MEDS: LASIX IVP SCH (09:05)
[2020-11-27] MEDS: ISOSORBIDE MONONITRATE ER 24-HR PO SCH (09:07)
[2020-11-27] MEDS: COREG TAB 12.5 MG PO SCH ×2 (09:07→20:40)
[2020-11-27] MEDS: PULMICORT NEB TX 0.5 MG NEB SCH ×2 (09:33→21:31)
[2020-11-27] MEDS: DUONEB 0.5 MG/3 MG (3 mL) NEB SCH ×4 (09:33→21:31)
--- NOTE | 2020-11-27 09:53 | RAD ---
HISTORYCOVID PNEUMONIA, HYPOXIASTUDYCHEST, 1 VIEWCOMPARISONPortable chest November 24, 2020FINDINGSThe trachea is midline. The cardiac silhouette is unremarkable. There are sternotomy wires from CABG surgery. The left lung is clear but the infiltrate in the right upper lobe shows increased density/consolidation compared to the film of November 25, 1999 21.. The bony thorax is unremarkable.IMPRESSIONIncreasing consolidation in the right upper lobe compared to the last film November 24, 2020. No pneumothorax or effusions are observed. Status post sternotomy for CABG surgery.Electronically signed by: OTILIA INMAN (Nov 27, 2020 09:51:26)
--- NOTE | 2020-11-27 11:00 | PCM.PROG ---
Progress Note Progress Note for Day of Date of Exam: 11/27/20 Subjective Subjective: Patient seen at bedside, reports feeling well. He has been ambulating in the room and states his dizziness has resolved. He still gets dyspnea on exertion. His O2 was increased to 4L when he got up at night to use the bathroom. He states his cough is loosening up. Denies fever or chills. His appetite is great, denies N/V. He states stool is starting to form and not as watery as before. Labs: WBC 4.3 Plt 171 BUN/Cr: 20/1.15 Glucose 267 AST/ALT:65/92 CRP 8 Sputum: Gram (-) rods, no yeast Blood Cx: negative CTA chest: no PE, bilateral multifocal patchy pneumonia, worse in RUL consistent with COVID-19 infection Plan: Follow up CXR from today, will give one dose IV lasix 20 mg due to signs of overload on exam. Order echo. Continue Remdesivir and Decadron. Continue Rocephin and azithromycin. Continue duonebs and pulmicort. Continue IS. Wean O2 as tolerated. Follow up cultures. Continue losartan and isosorbide mononitrate. Continue low dose coreg and hydralazine.PT/OT as tolerated. Continue to monitor patient in the ICU with telemetry and COVID protocol. Monitor AM labs and imaging. Time spent for clinical assessment, reviewing labs/imaging, physical exam, decision making and documentation greater than 75 mins. Past Medical Family Social History Past Med/Fam/Surg Hx: No changes since H&P Allergies: Allergies No Known Drug Allergies Allergy (Verified 11/24/20 20:28) Review of Systems ROS: No change since H&P Vital Signs and I&O's Vital Signs: Temperature 98.1 F Pulse Rate [Left Brachial] 67 Pulse Rate 65 Respiratory Rate 23 Blood Pressure [Left Arm] 144/66 Blood Pressure 126/70 O2 Sat by Pulse Oximetry 89 Intake and Output: Intake & Output 11/24/20 11/25/20 11/26/20 11/27/20 23:59 23:59 23:59 23:59 Intake Total 6495 / 6495 4451 / 4451 1140 / 1140 Output Total 2470 / 2470 6425 / 6425 1175 / 1175 Balance 4025 / 4025 -1973 / -1973 - / -35 Physical Exam Oriented: Normal Eyes: Normal Ear: Normal Nose: Normal Throat: Normal Respiratory: Right, Left, Generalized and Rales Cardiovascular: Normal Auscultation: Bowel Sounds: Normal Tenderness: Normal Skin: Normal Musculoskeletal: Normal Mood Description: Calm Affect: Normal Speech Pattern: Clear and Appropriate Laboratory and Diagnostics Result Diagrams: 11/27/20 08:10 11/27/20 08:10 Labs: 11/25/20 06:08 Sputum - Expectorated Sputum Sputum Culture - Final Pseudomonas Aeruginosa 11/25/20 06:08 Sputum - Expectorated Sputum - Final 11/24/20 17:25 Blood Blood Culture - Preliminary 11/24/20 17:25 Blood Blood Culture - Preliminary Laboratory WBC 4.3 X10^3/uL (3.6-10.0) 11/27/20 08:10 RBC 4.80 X10^6/uL (4.7-6.0) 11/27/20 08:10 Hgb 13.9 g/dL (13.5-18.0) 11/27/20 08:10 Hct 40.8 % (42.0-54.0) L 11/27/20 08:10 MCV 84.9 fL (80.0-100.0) 11/27/20 08:10 MCH 28.9 pg (27.0-34.0) 11/27/20 08:10 MCHC 34.1 g/dL (33.0-35.0) 11/27/20 08:10 RDW 14.7 % (11.6-16.5) 11/27/20 08:10 Plt Count 171 X10^3/uL (150.0-450.0) 11/27/20 08:10 Plt Count Comment Decreased (ADEQUATE) 11/26/20 04:16 MPV 8.3 fL (7.4-11.0) 11/27/20 08:10 Neut % (Auto) 75.8 % (42.0-75.0) H 11/27/20 08:10 Lymph % (Auto) 12.7 % (21.0-51.0) L 11/27/20 08:10 [place] % (Auto) 11.4 % (0.0-13.0) 11/27/20 08:10 Eos % (Auto) 0.0 % (0.9-2.9) L 11/27/20 08:10 Baso % (Auto) 0.1 % (0.2-1.0) L 11/27/20 08:10 Neut # (Auto) 3.3 x10^3/uL (2.2-4.8) 11/27/20 08:10 Lymph # (Auto) 0.5 X10^3/uL (1.3-2.9) L 11/27/20 08:10 [place] # (Auto) 0.5 x10^3/uL (0.3-0.8) 11/27/20 08:10 Eos # (Auto) 0.0 x10^3/uL (0.0-0.2) 11/27/20 08:10 Baso # (Auto) 0.0 X10^3/uL (0.0-0.1) 11/27/20 08:10 Absolute Nucleated RBC 0.1 /100WBC 11/27/20 08:10 Total Counted 100 11/26/20 04:16 Neutrophils % (Manual) 63 % (39-76) 11/26/20 04:16 Band Neutrophils % 4 % (0-10) 11/26/20 04:16 Lymphocytes % (Manual) 18 % (13-43) 11/26/20 04:16 Monocytes % (Manual) 15 % (4-9) H 11/26/20 04:16 Plt Morphology Comment Normal (NORMAL) 11/26/20 04:16 RBC Morphology Normal (NORMAL) 11/26/20 04:16 D-Dimer 1.54 ug/ml (0.0-0.57) H* 11/25/20 08:11 Sample Site Rr 11/24/20 20:45 ABG pH 7.420 (7.35-7.45) 11/24/20 20:45 ABG pCO2 30.0 mmHg (35.0-45.0) L 11/24/20 20:45 ABG pO2 54.0 mmHg (80.0-100.0) L 11/24/20 20:45 ABG HCO3 19.5 mmol/L (22-26) L 11/24/20 20:45 ABG O2 Saturation 88.0 % (90-100) L 11/24/20 20:45 ABG Base Excess -4.0 mmol/L (-2.0-2.0) L 11/24/20 20:45 Bernardo Test Pos 11/24/20 20:45 A-a Gradient 108.0 mmHg 11/24/20 20:45 FiO2 28.0 11/24/20 20:45 Blood Gas Comments Kandy well sw 11/24/20 20:45 Sodium 139 mmol/L (136-145) 11/27/20 08:10 Corrected Sodium 143 mmol/L (136-145) 11/27/20 08:10 Potassium 4.3 mmol/L (3.5-5.1) 11/27/20 08:10 Chloride 104 mmol/L (98-107) 11/27/20 08:10 Carbon Dioxide 24.6 mmol/L (21-32) 11/27/20 08:10 BUN 20 mg/dL (7-18) H 11/27/20 08:10 Creatinine 1.15 mg/dL (0.70-1.30) 11/27/20 08:10 Est GFR (MDRD) Af Amer > 60 (>60) 11/27/20 08:10 Est GFR (MDRD) Non-Af > 60 (>60) 11/27/20 08:10 Glucose 267 mg/dL (65-99) H 11/27/20 08:10 POC Glucose (mg/dL) 306 mg/dL (65-99) H 11/27/20 05:52 Lactic Acid 2.0 mmol/L (0.4-2.0) 11/24/20 17:25 Calcium 8.4 mg/dL (8.5-10.1) L 11/27/20 08:10 Corrected Calcium 9.2 mg/dL (8.5-10.1) 11/27/20 08:10 Total Bilirubin 0.70 mg/dL (0.2-1.0) 11/27/20 08:10 AST 65 Units/L (15-37) H 11/27/20 08:10 ALT 92 Units/L (12-78) H 11/27/20 08:10 Alkaline Phosphatase 76 Units/L (46-116) 11/27/20 08:10 Creatine Kinase 79 Units/L (39-308) 11/24/20 17:25 CK-MB (CK-2) < 1.0 ng/mL (0-4.0) 11/24/20 17:25 CK/CKMB % Calc 1.3 % (<4) 11/24/20 17:25 Troponin I < 0.02 ng/mL (0-1.5) 11/24/20 17:25 C-Reactive Protein 8.90 mg/L (0-3.0) H 11/27/20 08:10 Total Protein 6.9 g/dL (6.4-8.2) 11/27/20 08:10 Albumin 3.0 g/dL (3.4-5.0) L 11/27/20 08:10 Globulin 3.9 g/dL (2.5-4.5) 11/27/20 08:10 Albumin/Globulin Ratio 0.8 Ratio (1.1-2.1) L 11/27/20 08:10 Amylase 48 Units/L (25-115) 11/24/20 17:25 Lipase 220 Units/L (73-393) 11/24/20 17:25 Specimen Type Clean catch urine 11/24/20 18:16 Urine Color Yellow (YELLOW) 11/24/20 18:16 Urine Appearance Clear (CLEAR) 11/24/20 18:16 Urine pH 5.0 (5.0 - 8.0) 11/24/20 18:16 Ur Specific [place] 1.025 (1.000-1.030) 11/24/20 18:16 Urine Protein 3+ (NEGATIVE) 11/24/20 18:16 Urine Glucose (UA) 4+ (NEGATIVE) 11/24/20 18:16 Urine Ketones 1+ (NEGATIVE) 11/24/20 18:16 Urine Occult Blood Negative (NEGATIVE) 11/24/20 18:16 Urine Nitrite Negative (NEGATIVE) 11/24/20 18:16 Urine Bilirubin Negative (NEGATIVE) 11/24/20 18:16 Urine Urobilinogen Normal (NORMAL) 11/24/20 18:16 Ur Leukocyte Esterase Negative (NEGATIVE) 11/24/20 18:16 Urine RBC None seen /HPF (0-3) 11/24/20 18:16 Urine WBC None seen /HPF (0-5) 11/24/20 18:16 Ur Squamous Epith Cells Rare /HPF (NEGATIVE) 11/24/20 18:16 Urine Bacteria Negative /HPF (NEGATIVE) 11/24/20 18:16 Ur Culture Indicated? No/not indicated 11/24/20 18:16 Acetone, Semi-Quant Negative (NEGATIVE) 11/24/20 17:30 SARS-CoV-2 (PCR) Positive (NEGATIVE) A 11/24/20 20:17 Influenza Type A (PCR) Negative (NEGATIVE) 11/24/20 20:17 Influenza Type B (PCR) Negative (NEGATIVE) 11/24/20 20:17 RSV (PCR) Negative (NEGATIVE) 11/24/20 20:17 S. pyogenes (TEM-PCR) Not detected (NOT DETECT) 11/24/20 20:17 Plan (1) Pulmonary edema: Status: Acute Qualifiers: Chronicity: chronic Qualified Code(s): J81.1 - Chronic pulmonary edema (2) Pneumonia: Status: Acute Qualifiers: Laterality: right Lung location: upper lobe of lung Pneumonia type: due to unspecified organism Qualified Code(s): J18.9 - Pneumonia, unspecified organism (3) COVID-19 virus infection: Status: Acute (4) Acute respiratory failure with hypoxia: Status: Acute (5) HTN (hypertension): Status: Acute Qualifiers: Hypertension type: essential hypertension Qualified Code(s): I10 - Essential (primary) hypertension (6) Hx of CABG: Status: Acute (7) Diabetes: Status: Acute Qualifiers: Diabetes mellitus complication status: without complication Diabetes mellitus bed bug exterminator insulin use: without nursing home use Diabetes mellitus type: type 2 Qualified Code(s): E11.9 - Type 2 diabetes mellitus without complications (8) FRANCIS (acute kidney injury): Status: Acute (9) Thrombocytopenia: Status: Acute
[2020-11-27] MEDS: SNACK - Diabetic Appropriate PO SCH (20:40)
[2020-11-27] MEDS: RESTORIL CAP 15 MG PO PRN (20:42)
[2020-11-27] MEDS: REMDESIVIR 100 MG in NS 250 ML IV 250 ML IV SCH (20:43)
[2020-11-28] MEDS: ASCORBIC ACID INJ MULTI-DOSE VIAL 1,500 MG in NS 100 ML IV 100 ML IV SCH ×4 (02:49→20:45)
[2020-11-28 05:07] LABS: BASOPHILS % (AUTO) 0.3 % (0.2-1.0); HEMOGLOBIN 13.4 g/dL (13.5-18.0); LYMPHOCYTES # (AUTO) 0.4 X10^3/uL (1.3-2.9); LYMPHOCYTES % (AUTO) 9.8 % (21.0-51.0); MEAN CORPUSCULAR HEMOGLOBIN 29.2 pg (27.0-34.0); MEAN CORPUSCULAR HGB CONC 34.3 g/dL (33.0-35.0); MEAN CORPUSCULAR VOLUME 85.1 fL (80.0-100.0); MEAN PLATELET VOLUME 8.7 fL (7.4-11.0); MONOCYTES # (AUTO) 0.7 x10^3/uL (0.3-0.8); MONOCYTES % (AUTO) 15.2 % (0.0-13.0); NEUTROPHILS # (AUTO) 3.4 x10^3/uL (2.2-4.8); NEUTROPHILS % (AUTO) 74.7 % (42.0-75.0); PLATELET COUNT 184 X10^3/uL (150.0-450.0); RED BLOOD COUNT 4.58 X10^6/uL (4.7-6.0); RED CELL DISTRIBUTION WIDTH 14.5 % (11.6-16.5); WHITE BLOOD COUNT 4.5 X10^3/uL (3.6-10.0)
[2020-11-28 05:20] LABS: ALANINE AMINOTRANSFERASE 80 Units/L (12-78); ALBUMIN 2.9 g/dL (3.4-5.0); ALKALINE PHOSPHATASE 74 Units/L (46-116); ASPARTATE AMINO TRANSFERASE 46 Units/L (15-37); BLOOD UREA NITROGEN 24 mg/dL (7-18); CALCIUM 8.6 mg/dL (8.5-10.1); CARBON DIOXIDE 26.8 mmol/L (21-32); CHLORIDE 105 mmol/L (98-107); COR CA(FOR HYPOALB) 9.5 mg/dL (8.5-10.1); COR NA(FOR HYPERGLY) 145 mmol/L (136-145); CREATININE 1.01 mg/dL (0.70-1.30); SODIUM 141 mmol/L (136-145); TOTAL PROTEIN 6.6 g/dL (6.4-8.2); eGFR NON BLACK RACES > 60 (>60)
[2020-11-28] MEDS: APRESOLINE TAB 10 MG PO SCH ×3 (06:05→21:08)
[2020-11-28] MEDS: HumuLIN R SUBCUT PRN ×4 (06:07→21:10)
[2020-11-28] MEDS: PULMICORT NEB TX 0.5 MG NEB SCH ×2 (08:06→21:29)
[2020-11-28] MEDS: DUONEB 0.5 MG/3 MG (3 mL) NEB SCH ×4 (08:06→21:29)
[2020-11-28] MEDS: LOVENOX INJ 30 MG SYR SC SCH ×2 (08:40→21:15)
[2020-11-28] MEDS: ZOSYN VIAL 3.375 GRAMS 3.375 G in NS 100 ML IV + SPIKE MINIBAG* 100 ML IV SCH ×3 (08:42→22:20)
[2020-11-28] MEDS: VSL#3 PO SCH (09:00)
[2020-11-28] MEDS: COZAAR PO SCH (09:00)
[2020-11-28] MEDS: ISOSORBIDE MONONITRATE ER 24-HR PO SCH (09:01)
[2020-11-28] MEDS: ZINC SULFATE PO SCH ×2 (09:01→21:08)
[2020-11-28] MEDS: LASIX IVP SCH (09:01)
[2020-11-28] MEDS: ROBITUSSIN DM PO SCH ×4 (09:02→21:08)
[2020-11-28] MEDS: COREG TAB 12.5 MG PO SCH ×2 (09:02→21:08)
[2020-11-28] MEDS: VITAMIN D3 125 mcg (5,000 UNITS) PO SCH (09:02)
[2020-11-28] MEDS: ZITHROMAX TAB 250 MG PO SCH (09:02)
[2020-11-28] MEDS: LIPITOR TAB 80 MG PO SCH (09:02)
[2020-11-28] MEDS: PATIENT'S HOME MEDICATION (Cinnamon Bark [Cinnamon] 500 mg Capsule) PO SCH (09:12)
[2020-11-28] MEDS: ALPHA LIPOIC ACID 200 MG PO SCH (09:12)
[2020-11-28] MEDS: PEPCID TAB 40 MG PO SCH ×2 (09:13→21:08)
[2020-11-28] MEDS: DECADRON TAB PO SCH (09:13)
[2020-11-28] MEDS: PATIENT'S HOME MEDICATION (Dapagliflozin [Farxiga] 5 mg Tablet) PO SCH (09:13)
[2020-11-28] MEDS: VITAMIN A PO SCH (09:24)
--- NOTE | 2020-11-28 10:29 | PCM.PROG ---
Progress Note Progress Note for Day of Date of Exam: 11/28/20 Subjective Subjective: Patient seen at bedside, reports feeling about the same as yesterday. He is currently on 3L and sats have been between 86-92%. His sats drop to 85% with ambulation and he was put on 4L for that. He has been coughing up sputum. His appetite is great. Denies fever or chills. Labs: WBC 4.5 Plt 184 BUN/Cr: 24/1.01 Glucose 247 AST/ALT: 46/80 CRP 8 Sputum: Pseudomonas Blood Cx: negative CXR(11/27/20): worsening of the RUL consolidation, increase in size. ECHO: EF 60%, normal global wall motion, mild pulmonary HTN CTA chest: no PE, bilateral multifocal patchy pneumonia, worse in RUL consistent with COVID-19 infection Plan: Will DC Rocephin, start Zosyn. Continue Remdesivir, Azithromycin and Decadron. Continue IV lasix 20 mg. Wean O2 as tolerated to keep sats between 88-92%. Continue duonebs and pulmicort. Continue IS. Wean O2 as tolerated. Continue losartan and isosorbide mononitrate. Continue low dose coreg and hydralazine. Continue Lovenox 30 mg BID and vitamin support. PT/OT as tolerated. Continue to monitor patient in the ICU with telemetry and COVID protocol. Monitor AM labs and imaging. Time spent for clinical assessment, reviewing labs/imaging, physical exam, decision making and documentation greater than 75 mins. Past Medical Family Social History Past Med/Fam/Surg Hx: No changes since H&P Allergies: Allergies No Known Drug Allergies Allergy (Verified 11/24/20 20:28) Review of Systems ROS: No change since H&P Vital Signs and I&O's Vital Signs: Temperature 97.7 F Pulse Rate [Left Brachial] 68 Pulse Rate 77 Respiratory Rate 26 Blood Pressure [Left Arm] 147/77 Blood Pressure 126/70 O2 Sat by Pulse Oximetry 86 Intake and Output: Intake & Output 11/25/20 11/26/20 11/27/20 11/28/20 23:59 23:59 23:59 23:59 Intake Total 6495 / 6495 4451 / 4451 3704 / 3704 340 / 340 Output Total 2470 / 2470 6425 / 6425 3625 / 3625 1150 / 1150 Balance 4025 / 4025 -1973 / -1973 79 / 79 -810 / -810 Physical Exam Oriented: Normal Eyes: Normal Ear: Normal Nose: Normal Throat: Normal Respiratory: Generalized and Diminished Cardiovascular: Normal Auscultation: Bowel Sounds: Normal Tenderness: Normal Skin: Normal Musculoskeletal: Normal Mood Description: Calm Affect: Normal Speech Pattern: Clear and Appropriate Laboratory and Diagnostics Result Diagrams: 11/28/20 04:31 11/28/20 04:31 Labs: 11/25/20 06:08 Sputum - Expectorated Sputum Sputum Culture - Final Pseudomonas Aeruginosa 11/25/20 06:08 Sputum - Expectorated Sputum - Final 11/24/20 17:25 Blood Blood Culture - Preliminary 11/24/20 17:25 Blood Blood Culture - Preliminary Laboratory WBC 4.5 X10^3/uL (3.6-10.0) 11/28/20 04:31 RBC 4.58 X10^6/uL (4.7-6.0) L 11/28/20 04:31 Hgb 13.4 g/dL (13.5-18.0) L 11/28/20 04:31 Hct 39.0 % (42.0-54.0) L 11/28/20 04:31 MCV 85.1 fL (80.0-100.0) 11/28/20 04:31 MCH 29.2 pg (27.0-34.0) 11/28/20 04:31 MCHC 34.3 g/dL (33.0-35.0) 11/28/20 04:31 RDW 14.5 % (11.6-16.5) 11/28/20 04:31 Plt Count 184 X10^3/uL (150.0-450.0) 11/28/20 04:31 Plt Count Comment Decreased (ADEQUATE) 11/26/20 04:16 MPV 8.7 fL (7.4-11.0) 11/28/20 04:31 Neut % (Auto) 74.7 % (42.0-75.0) 11/28/20 04:31 Lymph % (Auto) 9.8 % (21.0-51.0) L 11/28/20 04:31 [place] % (Auto) 15.2 % (0.0-13.0) H 11/28/20 04:31 Eos % (Auto) 0.0 % (0.9-2.9) L 11/28/20 04:31 Baso % (Auto) 0.3 % (0.2-1.0) 11/28/20 04:31 Neut # (Auto) 3.4 x10^3/uL (2.2-4.8) 11/28/20 04:31 Lymph # (Auto) 0.4 X10^3/uL (1.3-2.9) L 11/28/20 04:31 [place] # (Auto) 0.7 x10^3/uL (0.3-0.8) 11/28/20 04:31 Eos # (Auto) 0.0 x10^3/uL (0.0-0.2) 11/28/20 04:31 Baso # (Auto) 0.0 X10^3/uL (0.0-0.1) 11/28/20 04:31 Absolute Nucleated RBC 0.0 /100WBC 11/28/20 04:31 Total Counted 100 11/26/20 04:16 Neutrophils % (Manual) 63 % (39-76) 11/26/20 04:16 Band Neutrophils % 4 % (0-10) 11/26/20 04:16 Lymphocytes % (Manual) 18 % (13-43) 11/26/20 04:16 Monocytes % (Manual) 15 % (4-9) H 11/26/20 04:16 Plt Morphology Comment Normal (NORMAL) 11/26/20 04:16 RBC Morphology Normal (NORMAL) 11/26/20 04:16 D-Dimer 1.54 ug/ml (0.0-0.57) H* 11/25/20 08:11 Sample Site Rr 11/24/20 20:45 ABG pH 7.420 (7.35-7.45) 11/24/20 20:45 ABG pCO2 30.0 mmHg (35.0-45.0) L 11/24/20 20:45 ABG pO2 54.0 mmHg (80.0-100.0) L 11/24/20 20:45 ABG HCO3 19.5 mmol/L (22-26) L 11/24/20 20:45 ABG O2 Saturation 88.0 % (90-100) L 11/24/20 20:45 ABG Base Excess -4.0 mmol/L (-2.0-2.0) L 11/24/20 20:45 Bernardo Test Pos 11/24/20 20:45 A-a Gradient 108.0 mmHg 11/24/20 20:45 FiO2 28.0 11/24/20 20:45 Blood Gas Comments Kandy well sw 11/24/20 20:45 Sodium 141 mmol/L (136-145) 11/28/20 04:31 Corrected Sodium 145 mmol/L (136-145) 11/28/20 04:31 Potassium 4.5 mmol/L (3.5-5.1) 11/28/20 04:31 Chloride 105 mmol/L (98-107) 11/28/20 04:31 Carbon Dioxide 26.8 mmol/L (21-32) 11/28/20 04:31 BUN 24 mg/dL (7-18) H 11/28/20 04:31 Creatinine 1.01 mg/dL (0.70-1.30) 11/28/20 04:31 Est GFR (MDRD) Af Amer > 60 (>60) 11/28/20 04:31 Est GFR (MDRD) Non-Af > 60 (>60) 11/28/20 04:31 Glucose 247 mg/dL (65-99) H 11/28/20 04:31 POC Glucose (mg/dL) 332 mg/dL (65-99) H 11/27/20 19:33 Lactic Acid 2.0 mmol/L (0.4-2.0) 11/24/20 17:25 Calcium 8.6 mg/dL (8.5-10.1) 11/28/20 04:31 Corrected Calcium 9.5 mg/dL (8.5-10.1) 11/28/20 04:31 Total Bilirubin 0.70 mg/dL (0.2-1.0) 11/28/20 04:31 AST 46 Units/L (15-37) H 11/28/20 04:31 ALT 80 Units/L (12-78) H 11/28/20 04:31 Alkaline Phosphatase 74 Units/L (46-116) 11/28/20 04:31 Creatine Kinase 79 Units/L (39-308) 11/24/20 17:25 CK-MB (CK-2) < 1.0 ng/mL (0-4.0) 11/24/20 17:25 CK/CKMB % Calc 1.3 % (<4) 11/24/20 17:25 Troponin I < 0.02 ng/mL (0-1.5) 11/24/20 17:25 C-Reactive Protein 8.90 mg/L (0-3.0) H 11/27/20 08:10 Total Protein 6.6 g/dL (6.4-8.2) 11/28/20 04:31 Albumin 2.9 g/dL (3.4-5.0) L 11/28/20 04:31 Globulin 3.7 g/dL (2.5-4.5) 11/28/20 04:31 Albumin/Globulin Ratio 0.8 Ratio (1.1-2.1) L 11/28/20 04:31 Amylase 48 Units/L (25-115) 11/24/20 17:25 Lipase 220 Units/L (73-393) 11/24/20 17:25 Specimen Type Clean catch urine 11/24/20 18:16 Urine Color Yellow (YELLOW) 11/24/20 18:16 Urine Appearance Clear (CLEAR) 11/24/20 18:16 Urine pH 5.0 (5.0 - 8.0) 11/24/20 18:16 Ur Specific [place] 1.025 (1.000-1.030) 11/24/20 18:16 Urine Protein 3+ (NEGATIVE) 11/24/20 18:16 Urine Glucose (UA) 4+ (NEGATIVE) 11/24/20 18:16 Urine Ketones 1+ (NEGATIVE) 11/24/20 18:16 Urine Occult Blood Negative (NEGATIVE) 11/24/20 18:16 Urine Nitrite Negative (NEGATIVE) 11/24/20 18:16 Urine Bilirubin Negative (NEGATIVE) 11/24/20 18:16 Urine Urobilinogen Normal (NORMAL) 11/24/20 18:16 Ur Leukocyte Esterase Negative (NEGATIVE) 11/24/20 18:16 Urine RBC None seen /HPF (0-3) 11/24/20 18:16 Urine WBC None seen /HPF (0-5) 11/24/20 18:16 Ur Squamous Epith Cells Rare /HPF (NEGATIVE) 11/24/20 18:16 Urine Bacteria Negative /HPF (NEGATIVE) 11/24/20 18:16 Ur Culture Indicated? No/not indicated 11/24/20 18:16 Acetone, Semi-Quant Negative (NEGATIVE) 11/24/20 17:30 SARS-CoV-2 (PCR) Positive (NEGATIVE) A 11/24/20 20:17 Influenza Type A (PCR) Negative (NEGATIVE) 11/24/20 20:17 Influenza Type B (PCR) Negative (NEGATIVE) 11/24/20 20:17 RSV (PCR) Negative (NEGATIVE) 11/24/20 20:17 S. pyogenes (TEM-PCR) Not detected (NOT DETECT) 11/24/20 20:17 Plan (1) Pulmonary edema: Status: Acute Qualifiers: Chronicity: chronic Qualified Code(s): J81.1 - Chronic pulmonary edema (2) Pneumonia: Status: Acute Qualifiers: Laterality: right Lung location: upper lobe of lung Pneumonia type: due to unspecified organism Qualified Code(s): J18.9 - Pneumonia, unspecified organism (3) COVID-19 virus infection: Status: Acute (4) Acute respiratory failure with hypoxia: Status: Acute (5) HTN (hypertension): Status: Acute Qualifiers: Hypertension type: essential hypertension Qualified Code(s): I10 - Essential (primary) hypertension (6) Hx of CABG: Status: Acute (7) Diabetes: Status: Acute Qualifiers: Diabetes mellitus complication status: without complication Diabetes mellitus community service technician insulin use: without fdc use Diabetes mellitus type: type 2 Qualified Code(s): E11.9 - Type 2 diabetes mellitus without complication s (8) FRANCIS (acute kidney injury): Status: Acute (9) Thrombocytopenia: Status: Acute
[2020-11-28] MEDS: SNACK - Diabetic Appropriate PO SCH (20:00)
[2020-11-28] MEDS: REMDESIVIR 100 MG in NS 250 ML IV 250 ML IV SCH (21:07)
[2020-11-28] MEDS: RESTORIL CAP 15 MG PO PRN (21:08)
[2020-11-29] MEDS: RESTORIL CAP 15 MG PO PRN (01:26)
[2020-11-29] MEDS: ASCORBIC ACID INJ MULTI-DOSE VIAL 1,500 MG in NS 100 ML IV 100 ML IV SCH ×4 (03:42→21:15)
[2020-11-29 04:34] LABS: BASOPHILS % (AUTO) 0 % (0.2-1.0); EOSINOPHILS % (AUTO) 0.1 % (0.9-2.9); HEMOGLOBIN 13.4 g/dL (13.5-18.0); LYMPHOCYTES # (AUTO) 0.4 X10^3/uL (1.3-2.9); LYMPHOCYTES % (AUTO) 6.9 % (21.0-51.0); MEAN CORPUSCULAR HEMOGLOBIN 29.4 pg (27.0-34.0); MEAN CORPUSCULAR HGB CONC 34.4 g/dL (33.0-35.0); MEAN CORPUSCULAR VOLUME 85.4 fL (80.0-100.0); MEAN PLATELET VOLUME 8.9 fL (7.4-11.0); MONOCYTES # (AUTO) 0.8 x10^3/uL (0.3-0.8); MONOCYTES % (AUTO) 14.5 % (0.0-13.0); NEUTROPHILS # (AUTO) 4.4 x10^3/uL (2.2-4.8); NEUTROPHILS % (AUTO) 78.5 % (42.0-75.0); PLATELET COUNT 206 X10^3/uL (150.0-450.0); RED BLOOD COUNT 4.57 X10^6/uL (4.7-6.0); RED CELL DISTRIBUTION WIDTH 14.1 % (11.6-16.5); WHITE BLOOD COUNT 5.7 X10^3/uL (3.6-10.0)
[2020-11-29 05:05] LABS: ALANINE AMINOTRANSFERASE 62 Units/L (12-78); ALBUMIN 2.9 g/dL (3.4-5.0); ALKALINE PHOSPHATASE 82 Units/L (46-116); ASPARTATE AMINO TRANSFERASE 33 Units/L (15-37); BLOOD UREA NITROGEN 25 mg/dL (7-18); CALCIUM 8.3 mg/dL (8.5-10.1); CARBON DIOXIDE 26.1 mmol/L (21-32); CHLORIDE 105 mmol/L (98-107); COR CA(FOR HYPOALB) 9.2 mg/dL (8.5-10.1); COR NA(FOR HYPERGLY) 147 mmol/L (136-145); CREATININE 1.34 mg/dL (0.70-1.30); SODIUM 142 mmol/L (136-145); TOTAL PROTEIN 6.4 g/dL (6.4-8.2); eGFR NON BLACK RACES 57 (>60)
[2020-11-29] MEDS: HumuLIN R SUBCUT PRN ×4 (05:51→21:30)
[2020-11-29] MEDS: ZOSYN VIAL 3.375 GRAMS 3.375 G in NS 100 ML IV + SPIKE MINIBAG* 100 ML IV SCH ×3 (05:52→22:00)
[2020-11-29] MEDS: APRESOLINE TAB 10 MG PO SCH ×3 (05:55→21:55)
[2020-11-29] MEDS: PULMICORT NEB TX 0.5 MG NEB SCH ×2 (08:44→21:00)
[2020-11-29] MEDS: DUONEB 0.5 MG/3 MG (3 mL) NEB SCH ×4 (08:44→21:00)
[2020-11-29] MEDS: PATIENT'S HOME MEDICATION (Cinnamon Bark [Cinnamon] 500 mg Capsule) PO SCH (09:07)
[2020-11-29] MEDS: VITAMIN A PO SCH (09:08)
[2020-11-29] MEDS: ALPHA LIPOIC ACID 200 MG PO SCH (09:09)
[2020-11-29] MEDS: ZyrTEC SYRUP 1 MG/ML 5ml unit dose PO SCH (09:20)
[2020-11-29] MEDS: FLONASE NASAL SPRAY ENOSTRIL SCH (09:21)
[2020-11-29] MEDS: SOLU-Medrol 40 MG VIAL IVP SCH ×3 (09:23→22:18)
--- NOTE | 2020-11-29 09:31 | PCM.PROG ---
Progress Note Progress Note for Day of Date of Exam: 11/29/20 Subjective Subjective: Patient seen at bedside, patient was slightly restless last night and took Restoril to sleep. He states he feels ok this morning. He is currently on 3L with sats in the low 80s. He states his nose is stuffed up and he doesn't feel the O2 going in. O2 increased to 5L, sats mid 80s. He is not in any respiratory distress. He has been coughing up sputum. He states he still feels short of breath with exertion. He did not work with PT yesterday. Labs: WBC 5.7 Plt 206 BUN/Cr: 25/1.34 Glucose 311 LFTs normal, CRP 4 Sputum: Pseudomonas Blood Cx: negative CXR(11/27/20): worsening of the RUL consolidation, increase in size. ECHO: EF 60%, normal global wall motion, mild pulmonary HTN CTA chest: no PE, bilateral multifocal patchy pneumonia, worse in RUL consistent with COVID-19 infection Plan: Follow up CXR and ABG. Will let RT know to check nasal canula and if patient's sats continue to remain in mid 80s then titrate O2 up to keep sats between 88-92%. Continue Zosyn and Zithromax. Continue Remdesivir. Will DC Decadron and switch to Solumedrol. Add flonase and Cetirizine. DC IV lasix. Continue duonebs and pulmicort. Continue IS. Continue losartan and isosorbide mononitrate. Continue low dose coreg and hydralazine. Continue Lovenox 30 mg BID and vitamin support. PT/OT as tolerated. Continue to monitor patient in the ICU with telemetry and COVID protocol. Monitor AM labs and imaging. Time spent for clinical assessment, reviewing labs/imaging, physical exam, deci angie making and documentation greater than 75 mins. Past Medical Family Social History Past Med/Fam/Surg Hx: No changes since H&P Allergies: Allergies No Known Drug Allergies Allergy (Verified 11/24/20 20:28) Review of Systems ROS: No change since H&P Vital Signs and I&O's Vital Signs: Temperature 98.1 F Pulse Rate [Left Brachial] 62 Pulse Rate 60 Respiratory Rate 26 Blood Pressure [Left Arm] 182/81 Blood Pressure 126/70 O2 Sat by Pulse Oximetry 84 Intake and Output: Intake & Output 11/26/20 11/27/20 11/28/20 11/29/20 23:59 23:59 23:59 23:59 Intake Total 4451 / 4451 3704 / 3704 2150 / 2150 430 / 430 Output Total 6425 / 6425 3625 / 3625 4050 / 4050 1450 / 1450 Balance -1973 / -1973 79 / 79 -1900 / -1900 -1020 / -1020 Physical Exam Oriented: Normal Eyes: Normal Ear: Normal Nose: Normal Throat: Normal Respiratory: Generalized and Diminished Cardiovascular: Normal Auscultation: Bowel Sounds: Normal Tenderness: Normal Skin: Normal Musculoskeletal: Normal Mood Description: Calm Affect: Normal Speech Pattern: Clear and Appropriate Laboratory and Diagnostics Result Diagrams: 11/29/20 04:03 11/29/20 04:03 Labs: 11/25/20 06:08 Sputum - Expectorated Sputum Sputum Culture - Final Pseudomonas Aeruginosa 11/25/20 06:08 Sputum - Expectorated Sputum - Final 11/24/20 17:25 Blood Blood Culture - Preliminary 11/24/20 17:25 Blood Blood Culture - Preliminary Laboratory WBC 5.7 X10^3/uL (3.6-10.0) 11/29/20 04:03 RBC 4.57 X10^6/uL (4.7-6.0) L 11/29/20 04:03 Hgb 13.4 g/dL (13.5-18.0) L 11/29/20 04:03 Hct 39.0 % (42.0-54.0) L 11/29/20 04:03 MCV 85.4 fL (80.0-100.0) 11/29/20 04:03 MCH 29.4 pg (27.0-34.0) 11/29/20 04:03 MCHC 34.4 g/dL (33.0-35.0) 11/29/20 04:03 RDW 14.1 % (11.6-16.5) 11/29/20 04:03 Plt Count 206 X10^3/uL (150.0-450.0) 11/29/20 04:03 Plt Count Comment Decreased (ADEQUATE) 11/26/20 04:16 MPV 8.9 fL (7.4-11.0) 11/29/20 04:03 Neut % (Auto) 78.5 % (42.0-75.0) H 11/29/20 04:03 Lymph % (Auto) 6.9 % (21.0-51.0) L 11/29/20 04:03 [place] % (Auto) 14.5 % (0.0-13.0) H 11/29/20 04:03 Eos % (Auto) 0.1 % (0.9-2.9) L 11/29/20 04:03 Baso % (Auto) 0 % (0.2-1.0) L 11/29/20 04:03 Neut # (Auto) 4.4 x10^3/uL (2.2-4.8) 11/29/20 04:03 Lymph # (Auto) 0.4 X10^3/uL (1.3-2.9) L 11/29/20 04:03 [place] # (Auto) 0.8 x10^3/uL (0.3-0.8) 11/29/20 04:03 Eos # (Auto) 0.0 x10^3/uL (0.0-0.2) 11/29/20 04:03 Baso # (Auto) 0.0 X10^3/uL (0.0-0.1) 11/29/20 04:03 Absolute Nucleated RBC 0.0 /100WBC 11/29/20 04:03 Total Counted 100 11/26/20 04:16 Neutrophils % (Manual) 63 % (39-76) 11/26/20 04:16 Band Neutrophils % 4 % (0-10) 11/26/20 04:16 Lymphocytes % (Manual) 18 % (13-43) 11/26/20 04:16 Monocytes % (Manual) 15 % (4-9) H 11/26/20 04:16 Plt Morphology Comment Normal (NORMAL) 11/26/20 04:16 RBC Morphology Normal (NORMAL) 11/26/20 04:16 D-Dimer 1.54 ug/ml (0.0-0.57) H* 11/25/20 08:11 Sample Site Rr 11/24/20 20:45 ABG pH 7.420 (7.35-7.45) 11/24/20 20:45 ABG pCO2 30.0 mmHg (35.0-45.0) L 11/24/20 20:45 ABG pO2 54.0 mmHg (80.0-100.0) L 11/24/20 20:45 ABG HCO3 19.5 mmol/L (22-26) L 11/24/20 20:45 ABG O2 Saturation 88.0 % (90-100) L 11/24/20 20:45 ABG Base Excess -4.0 mmol/L (-2.0-2.0) L 11/24/20 20:45 Bernardo Test Pos 11/24/20 20:45 A-a Gradient 108.0 mmHg 11/24/20 20:45 FiO2 28.0 11/24/20 20:45 Blood Gas Comments Kandy well sw 11/24/20 20:45 Sodium 142 mmol/L (136-145) 11/29/20 04:03 Corrected Sodium 147 mmol/L (136-145) H 11/29/20 04:03 Potassium 4.3 mmol/L (3.5-5.1) 11/29/20 04:03 Chloride 105 mmol/L (98-107) 11/29/20 04:03 Carbon Dioxide 26.1 mmol/L (21-32) 11/29/20 04:03 BUN 25 mg/dL (7-18) H 11/29/20 04:03 Creatinine 1.34 mg/dL (0.70-1.30) H 11/29/20 04:03 Est GFR (MDRD) Af Amer > 60 (>60) 11/29/20 04:03 Est GFR (MDRD) Non-Af 57 (>60) L 11/29/20 04:03 Glucose 311 mg/dL (65-99) H 11/29/20 04:03 POC Glucose (mg/dL) 372 mg/dL (65-99) H 11/28/20 20:41 Lactic Acid 2.0 mmol/L (0.4-2.0) 11/24/20 17:25 Calcium 8.3 mg/dL (8.5-10.1) L 11/29/20 04:03 Corrected Calcium 9.2 mg/dL (8.5-10.1) 11/29/20 04:03 Total Bilirubin 0.80 mg/dL (0.2-1.0) 11/29/20 04:03 AST 33 Units/L (15-37) 11/29/20 04:03 ALT 62 Units/L (12-78) 11/29/20 04:03 Alkaline Phosphatase 82 Units/L (46-116) 11/29/20 04:03 Creatine Kinase 79 Units/L (39-308) 11/24/20 17:25 CK-MB (CK-2) < 1.0 ng/mL (0-4.0) 11/24/20 17:25 CK/CKMB % Calc 1.3 % (<4) 11/24/20 17:25 Troponin I < 0.02 ng/mL (0-1.5) 11/24/20 17:25 C-Reactive Protein 4.10 mg/L (0-3.0) H 11/29/20 04:03 Total Protein 6.4 g/dL (6.4-8.2) 11/29/20 04:03 Albumin 2.9 g/dL (3.4-5.0) L 11/29/20 04:03 Globulin 3.5 g/dL (2.5-4.5) 11/29/20 04:03 Albumin/Globulin Ratio 0.8 Ratio (1.1-2.1) L 11/29/20 04:03 Amylase 48 Units/L (25-115) 11/24/20 17:25 Lipase 220 Units/L (73-393) 11/24/20 17:25 Specimen Type Clean catch urine 11/24/20 18:16 Urine Color Yellow (YELLOW) 11/24/20 18:16 Urine Appearance Clear (CLEAR) 11/24/20 18:16 Urine pH 5.0 (5.0 - 8.0) 11/24/20 18:16 Ur Specific [place] 1.025 (1.000-1.030) 11/24/20 18:16 Urine Protein 3+ (NEGATIVE) 11/24/20 18:16 Urine Glucose (UA) 4+ (NEGATIVE) 11/24/20 18:16 Urine Ketones 1+ (NEGATIVE) 11/24/20 18:16 Urine Occult Blood Negative (NEGATIVE) 11/24/20 18:16 Urine Nitrite Negative (NEGATIVE) 11/24/20 18:16 Urine Bilirubin Negative (NEGATIVE) 11/24/20 18:16 Urine Urobilinogen Normal (NORMAL) 11/24/20 18:16 Ur Leukocyte Esterase Negative (NEGATIVE) 11/24/20 18:16 Urine RBC None seen /HPF (0-3) 11/24/20 18:16 Urine WBC None seen /HPF (0-5) 11/24/20 18:16 Ur Squamous Epith Cells Rare /HPF (NEGATIVE) 11/24/20 18:16 Urine Bacteria Negative /HPF (NEGATIVE) 11/24/20 18:16 Ur Culture Indicated? No/not indicated 11/24/20 18:16 Acetone, Semi-Quant Negative (NEGATIVE) 11/24/20 17:30 SARS-CoV-2 (PCR) Positive (NEGATIVE) A 11/24/20 20:17 Influenza Type A (PCR) Negative (NEGATIVE) 11/24/20 20:17 Influenza Type B (PCR) Negative (NEGATIVE) 11/24/20 20:17 RSV (PCR) Negative (NEGATIVE) 11/24/20 20:17 S. pyogenes (TEM-PCR) Not detected (NOT DETECT) 11/24/20 20:17 Plan (1) COVID-19 virus infection: Status: Acute (2) Pulmonary edema: Status: Acute Qualifiers: Chronicity: chronic Qualified Code(s): J81.1 - Chronic pulmonary edema (3) Pneumonia: Status: Acute Qualifiers: Laterality: right Lung location: upper lobe of lung Pneumonia type: due to unspecified organism Qualified Code(s): J18.9 - Pneumonia, unspecified organism (4) Acute respiratory failure with hypoxia: Status: Acute (5) HTN (hypertension): Status: Acute Qualifiers: Hypertension type: essential hypertension Qualified Code(s): I10 - Essential (primary) hypertension (6) Hx of CABG: Status: Acute (7) Diabetes: Status: Acute Qualifiers: Diabetes mellitus complication status: without complication Diabetes mellitus terminal manager insulin use: without senior care use Diabetes mellitus type: type 2 Qualified Code(s): E11.9 - Type 2 diabetes mellitus without complications (8) FRANCIS (acute kidney injury): Status: Acute (9) Thrombocytopenia: Status: Acute
[2020-11-29 09:32] LABS: ABG ALLEN TEST POS; ABG BASE EXCESS 3.3 mmol/L (-2.0-2.0); ABG HCO3 26.8 mmol/L (22-26)
[2020-11-29] MEDS: ROBITUSSIN DM PO SCH ×4 (09:40→21:55)
[2020-11-29] MEDS: LIPITOR TAB 80 MG PO SCH (09:40)
[2020-11-29] MEDS: VSL#3 PO SCH (09:40)
[2020-11-29] MEDS: ZINC SULFATE PO SCH ×2 (09:41→21:55)
[2020-11-29] MEDS: LOVENOX INJ 30 MG SYR SC SCH ×2 (09:41→21:52)
[2020-11-29] MEDS: VITAMIN D3 125 mcg (5,000 UNITS) PO SCH (09:41)
[2020-11-29] MEDS: ZITHROMAX TAB 250 MG PO SCH (09:41)
[2020-11-29] MEDS: PEPCID TAB 40 MG PO SCH ×2 (09:42→21:55)
[2020-11-29] MEDS: COZAAR PO SCH (09:42)
[2020-11-29] MEDS: COREG TAB 12.5 MG PO SCH ×2 (09:42→21:55)
[2020-11-29] MEDS: ISOSORBIDE MONONITRATE ER 24-HR PO SCH (09:42)
[2020-11-29] MEDS: LANTUS SC SCH (10:00)
[2020-11-29] MEDS: PATIENT'S HOME MEDICATION (Dapagliflozin [Farxiga] 5 mg Tablet) PO SCH (10:02)
--- NOTE | 2020-11-29 10:15 | RAD ---
CHEST, 1 VIEWHISTORY: COVID PNEUMONIA, HYPOXIAStudy: Single view of the chest.Comparison:11/27/2020Findings:Cardiomegaly.Possible mild improvement of the right lung aeration . Osseous structures demonstrate no acute abnormality.IMPRESSION:1. Possible mild improvement of righ t lung opacity.Electronically signed by: ZAY CAMERON (Nov 29, 2020 10:13:47)
[2020-11-29] MEDS: SNACK - Diabetic Appropriate PO SCH (20:00)
[2020-11-29] MEDS ORDERED: SNACK - Diabetic Appropriate PO SCH (20:00)
[2020-11-30] MEDS: ASCORBIC ACID INJ MULTI-DOSE VIAL 1,500 MG in NS 100 ML IV 100 ML IV SCH ×4 (03:08→21:28)
[2020-11-30] MEDS: HumuLIN R SUBCUT PRN ×4 (06:00→21:16)
[2020-11-30] MEDS: ZOSYN VIAL 3.375 GRAMS 3.375 G in NS 100 ML IV + SPIKE MINIBAG* 100 ML IV SCH ×3 (06:00→21:30)
[2020-11-30] MEDS: SOLU-Medrol 40 MG VIAL IVP SCH ×3 (06:00→21:16)
[2020-11-30] MEDS: APRESOLINE TAB 10 MG PO SCH ×3 (06:00→23:02)
[2020-11-30] MEDS: PATIENT'S HOME MEDICATION (Dapagliflozin [Farxiga] 5 mg Tablet) PO SCH (09:01)
[2020-11-30] MEDS: PATIENT'S HOME MEDICATION (Cinnamon Bark [Cinnamon] 500 mg Capsule) PO SCH (09:03)
[2020-11-30] MEDS: ALPHA LIPOIC ACID 200 MG PO SCH ×3 (09:05→21:17)
[2020-11-30] MEDS: ZyrTEC SYRUP 1 MG/ML 5ml unit dose PO SCH (09:08)
[2020-11-30] MEDS: VSL#3 PO SCH (09:10)
[2020-11-30] MEDS: ROBITUSSIN DM PO SCH ×4 (09:10→21:16)
[2020-11-30] MEDS: LANTUS SC SCH (09:11)
[2020-11-30] MEDS: VITAMIN D3 125 mcg (5,000 UNITS) PO SCH (09:11)
[2020-11-30] MEDS: ZITHROMAX TAB 250 MG PO SCH (09:14)
[2020-11-30] MEDS: FLONASE NASAL SPRAY ENOSTRIL SCH (09:15)
[2020-11-30] MEDS: LIPITOR TAB 80 MG PO SCH ×2 (09:15→21:15)
[2020-11-30] MEDS: PEPCID TAB 40 MG PO SCH ×2 (09:15→21:14)
[2020-11-30] MEDS: COREG TAB 12.5 MG PO SCH ×2 (09:15→21:15)
[2020-11-30] MEDS: ZINC SULFATE PO SCH ×2 (09:16→21:14)
[2020-11-30] MEDS: COZAAR PO SCH (09:16)
[2020-11-30] MEDS: VITAMIN A PO SCH (09:17)
[2020-11-30] MEDS: LOVENOX INJ 30 MG SYR SC SCH ×2 (09:17→21:15)
[2020-11-30] MEDS: ISOSORBIDE MONONITRATE ER 24-HR PO SCH (09:22)
[2020-11-30] MEDS: PULMICORT NEB TX 0.5 MG NEB SCH ×2 (09:52→21:30)
[2020-11-30] MEDS: DUONEB 0.5 MG/3 MG (3 mL) NEB SCH ×4 (09:52→21:30)
--- NOTE | 2020-11-30 17:21 | PCM.PROG ---
Progress Note Progress Note for Day of Date of Exam: 11/30/20 Subjective Subjective: In bed on phone with twin sister; still sob with exertion; no cough, fever or chills; he is eating well. Labs: WBC 5.7 Plt 206 BUN/Cr: 25/1.34 Glucose 311 LFTs normal, CRP 4 Sputum: Pseudomonas Blood Cx: negative CXR(11/27/20): worsening of the RUL consolidation, increase in size. ECHO: EF 60%, normal global wall motion, mild pulmonary HTN CTA chest: no PE, bilateral multifocal patchy pneumonia, worse in RUL consistent with COVID-19 infection Plan: Follow up CXR and ABG. Will let RT know to check nasal canula and if patient's sats continue to remain in mid 80s then titrate O2 up to keep sats between 88-92%. Continue Zosyn and Zithromax. Continue Remdesivir. Continue duonebs and pulmicort. Continue IS. Continue losartan and isosorbide mononitrate. Continue low dose coreg and hydralazine. Continue Lovenox 30 mg BID and vitamin support. PT/OT as tolerated. Continue to monitor patient in the ICU with telemetry and COVID protocol. Monitor AM labs and imaging. Past Medical Family Social History Past Med/Fam/Surg Hx: No changes since H&P Allergies: Allergies No Known Drug Allergies Allergy (Verified 11/24/20 20:28) Review of Systems ROS: No change since H&P Vital Signs and I&O's Vital Signs: Temperature 98.5 F Pulse Rate [Left Brachial] 74 Pulse Rate 70 Respiratory Rate 21 Blood Pressure [Left Arm] 121/58 Blood Pressure 126/70 O2 Sat by Pulse Oximetry 90 Intake and Output: Intake & Output 11/27/20 11/28/20 11/29/20 11/30/20 23:59 23:59 23:59 23:59 Intake Total 3704 / 3704 2150 / 2150 2250 / 2250 420 / 420 Output Total 3625 / 3625 4050 / 4050 4000 / 4000 1150 / 1150 Balance 79 / 79 -1900 / -1900 -1750 / -1750 -730 / -730 Physical Exam Oriented: Normal Eyes: Normal Ear: Normal Nose: Normal Throat: Normal Respiratory: Generalized and Diminished Cardiovascular: Normal Auscultation: Bowel Sounds: Normal Tenderness: Normal Skin: Normal Musculoskeletal: Normal Mood Description: Calm Affect: Normal Speech Pattern: Clear and Appropriate Laboratory and Diagnostics Result Diagrams: 11/29/20 04:03 11/29/20 04:03 Labs: 11/24/20 17:25 Blood Blood Culture - Final 11/24/20 17:25 Blood Blood Culture - Final 11/25/20 06:08 Sputum - Expectorated Sputum Sputum Culture - Final Pseudomonas Aeruginosa 11/25/20 06:08 Sputum - Expectorated Sputum - Final Laboratory WBC 5.7 X10^3/uL (3.6-10.0) 11/29/20 04:03 RBC 4.57 X10^6/uL (4.7-6.0) L 11/29/20 04:03 Hgb 13.4 g/dL (13.5-18.0) L 11/29/20 04:03 Hct 39.0 % (42.0-54.0) L 11/29/20 04:03 MCV 85.4 fL (80.0-100.0) 11/29/20 04:03 MCH 29.4 pg (27.0-34.0) 11/29/20 04:03 MCHC 34.4 g/dL (33.0-35.0) 11/29/20 04:03 RDW 14.1 % (11.6-16.5) 11/29/20 04:03 Plt Count 206 X10^3/uL (150.0-450.0) 11/29/20 04:03 Plt Count Comment Decreased (ADEQUATE) 11/26/20 04:16 MPV 8.9 fL (7.4-11.0) 11/29/20 04:03 Neut % (Auto) 78.5 % (42.0-75.0) H 11/29/20 04:03 Lymph % (Auto) 6.9 % (21.0-51.0) L 11/29/20 04:03 [place] % (Auto) 14.5 % (0.0-13.0) H 11/29/20 04:03 Eos % (Auto) 0.1 % (0.9-2.9) L 11/29/20 04:03 Baso % (Auto) 0 % (0.2-1.0) L 11/29/20 04:03 Neut # (Auto) 4.4 x10^3/uL (2.2-4.8) 11/29/20 04:03 Lymph # (Auto) 0.4 X10^3/uL (1.3-2.9) L 11/29/20 04:03 [place] # (Auto) 0.8 x10^3/uL (0.3-0.8) 11/29/20 04:03 Eos # (Auto) 0.0 x10^3/uL (0.0-0.2) 11/29/20 04:03 Baso # (Auto) 0.0 X10^3/uL (0.0-0.1) 11/29/20 04:03 Absolute Nucleated RBC 0.0 /100WBC 11/29/20 04:03 Total Counted 100 11/26/20 04:16 Neutrophils % (Manual) 63 % (39-76) 11/26/20 04:16 Band Neutrophils % 4 % (0-10) 11/26/20 04:16 Lymphocytes % (Manual) 18 % (13-43) 11/26/20 04:16 Monocytes % (Manual) 15 % (4-9) H 11/26/20 04:16 Plt Morphology Comment Normal (NORMAL) 11/26/20 04:16 RBC Morphology Normal (NORMAL) 11/26/20 04:16 D-Dimer 1.54 ug/ml (0.0-0.57) H* 11/25/20 08:11 Sample Site Rr 11/29/20 09:26 ABG pH 7.480 (7.35-7.45) H 11/29/20 09:26 ABG pCO2 36.0 mmHg (35.0-45.0) 11/29/20 09:26 ABG pO2 49.0 mmHg (80.0-100.0) L* 11/29/20 09:26 ABG HCO3 26.8 mmol/L (22-26) H 11/29/20 09:26 ABG O2 Saturation 87.0 % (90-100) L 11/29/20 09:26 ABG Base Excess 3.3 mmol/L (-2.0-2.0) H 11/29/20 09:26 Bernardo Test Pos 11/29/20 09:26 A-a Gradient 134.0 mmHg 11/29/20 09:26 FiO2 32.0 11/29/20 09:26 Blood Gas Comments Pt galina well cdn 11/29/20 09:26 Sodium 142 mmol/L (136-145) 11/29/20 04:03 Corrected Sodium 147 mmol/L (136-145) H 11/29/20 04:03 Potassium 4.3 mmol/L (3.5-5.1) 11/29/20 04:03 Chloride 105 mmol/L (98-107) 11/29/20 04:03 Carbon Dioxide 26.1 mmol/L (21-32) 11/29/20 04:03 BUN 25 mg/dL (7-18) H 11/29/20 04:03 Creatinine 1.34 mg/dL (0.70-1.30) H 11/29/20 04:03 Est GFR (MDRD) Af Amer > 60 (>60) 11/29/20 04:03 Est GFR (MDRD) Non-Af 57 (>60) L 11/29/20 04:03 Glucose 311 mg/dL (65-99) H 11/29/20 04:03 POC Glucose (mg/dL) 296 mg/dL (65-99) H 11/30/20 16:25 Lactic Acid 2.0 mmol/L (0.4-2.0) 11/24/20 17:25 Calcium 8.3 mg/dL (8.5-10.1) L 11/29/20 04:03 Corrected Calcium 9.2 mg/dL (8.5-10.1) 11/29/20 04:03 Total Bilirubin 0.80 mg/dL (0.2-1.0) 11/29/20 04:03 AST 33 Units/L (15-37) 11/29/20 04:03 ALT 62 Units/L (12-78) 11/29/20 04:03 Alkaline Phosphatase 82 Units/L (46-116) 11/29/20 04:03 Creatine Kinase 79 Units/L (39-308) 11/24/20 17:25 CK-MB (CK-2) < 1.0 ng/mL (0-4.0) 11/24/20 17:25 CK/CKMB % Calc 1.3 % (<4) 11/24/20 17:25 Troponin I < 0.02 ng/mL (0-1.5) 11/24/20 17:25 C-Reactive Protein 4.10 mg/L (0-3.0) H 11/29/20 04:03 Total Protein 6.4 g/dL (6.4-8.2) 11/29/20 04:03 Albumin 2.9 g/dL (3.4-5.0) L 11/29/20 04:03 Globulin 3.5 g/dL (2.5-4.5) 11/29/20 04:03 Albumin/Globulin Ratio 0.8 Ratio (1.1-2.1) L 11/29/20 04:03 Amylase 48 Units/L (25-115) 11/24/20 17:25 Lipase 220 Units/L (73-393) 11/24/20 17:25 Specimen Type Clean catch urine 11/24/20 18:16 Urine Color Yellow (YELLOW) 11/24/20 18:16 Urine Appearance Clear (CLEAR) 11/24/20 18:16 Urine pH 5.0 (5.0 - 8.0) 11/24/20 18:16 Ur Specific [place] 1.025 (1.000-1.030) 11/24/20 18:16 Urine Protein 3+ (NEGATIVE) 11/24/20 18:16 Urine Glucose (UA) 4+ (NEGATIVE) 11/24/20 18:16 Urine Ketones 1+ (NEGATIVE) 11/24/20 18:16 Urine Occult Blood Negative (NEGATIVE) 11/24/20 18:16 Urine Nitrite Negative (NEGATIVE) 11/24/20 18:16 Urine Bilirubin Negative (NEGATIVE) 11/24/20 18:16 Urine Urobilinogen Normal (NORMAL) 11/24/20 18:16 Ur Leukocyte Esterase Negative (NEGATIVE) 11/24/20 18:16 Urine RBC None seen /HPF (0-3) 11/24/20 18:16 Urine WBC None seen /HPF (0-5) 11/24/20 18:16 Ur Squamous Epith Cells Rare /HPF (NEGATIVE) 11/24/20 18:16 Urine Bacteria Negative /HPF (NEGATIVE) 11/24/20 18:16 Ur Culture Indicated? No/not indicated 11/24/20 18:16 Acetone, Semi-Quant Negative (NEGATIVE) 11/24/20 17:30 SARS-CoV-2 (PCR) Positive (NEGATIVE) A 11/24/20 20:17 Influenza Type A (PCR) Negative (NEGATIVE) 11/24/20 20:17 Influenza Type B (PCR) Negative (NEGATIVE) 11/24/20 20:17 RSV (PCR) Negative (NEGATIVE) 11/24/20 20:17 S. pyogenes (TEM-PCR) Not detected (NOT DETECT) 11/24/20 20:17 Plan (1) COVID-19 virus infection: Status: Acute Plan: Still hypoxic and sob; unable to wean oxygen; continue current mgmt. (2) Pulmonary edema: Status: Acute Qualifiers: Chronicity: chronic Qualified Code(s): J81.1 - Chronic pulmonary edema (3) Pneumonia: Status: Acute Qualifiers: Laterality: right Lung location: upper lobe of lung Pneumonia type: due to unspecified organism Qualified Code(s): J18.9 - Pneumonia, unspecified organism (4) Acute respiratory failure with hypoxia: Status: Acute (5) HTN (hypertension): Status: Acute Qualifiers: Hypertension type: essential hypertension Qualified Code(s): I10 - Essential (primary) hypertension Plan: Remains elevated; increase apresoline and follow. (6) Hx of CABG: Status: Acute (7) Diabetes: Status: Acute Qualifiers: Diabetes mellitus type: type 2 Diabetes mellitus correction insulin use: without bed bug exterminator use Diabetes mellitus complication status: without complication Qualified Code(s): E11.9 - Type 2 diabetes mellitus without complications (8) FRANCIS (acute kidney injury): Status: Acute (9) Thrombocytopenia: Status: Acute
[2020-11-30] MEDS: SNACK - Diabetic Appropriate PO SCH (19:21)
[2020-11-30] MEDS: CINNAMON BARK 1000 MG PO SCH (21:17)
[2020-12-01] MEDS: ASCORBIC ACID INJ MULTI-DOSE VIAL 1,500 MG in NS 100 ML IV 100 ML IV SCH ×4 (02:16→20:56)
[2020-12-01 05:18] LABS: BASOPHILS % (AUTO) 0.1 % (0.2-1.0); EOSINOPHILS % (AUTO) 0.6 % (0.9-2.9); HEMATOCRIT 39.9 % (42.0-54.0); HEMOGLOBIN 13.6 g/dL (13.5-18.0); LYMPHOCYTES # (AUTO) 0.3 X10^3/uL (1.3-2.9); LYMPHOCYTES % (AUTO) 4.1 % (21.0-51.0); MEAN CORPUSCULAR HEMOGLOBIN 29.3 pg (27.0-34.0); MEAN CORPUSCULAR VOLUME 86.4 fL (80.0-100.0); MEAN PLATELET VOLUME 8.8 fL (7.4-11.0); MONOCYTES # (AUTO) 0.5 x10^3/uL (0.3-0.8); MONOCYTES % (AUTO) 6.6 % (0.0-13.0); NEUTROPHILS # (AUTO) 7.1 x10^3/uL (2.2-4.8); NEUTROPHILS % (AUTO) 88.6 % (42.0-75.0); PLATELET COUNT 238 X10^3/uL (150.0-450.0); RED BLOOD COUNT 4.62 X10^6/uL (4.7-6.0); RED CELL DISTRIBUTION WIDTH 14.3 % (11.6-16.5)
[2020-12-01] MEDS: APRESOLINE TAB 10 MG PO SCH ×3 (05:31→22:04)
[2020-12-01] MEDS: ALPHA LIPOIC ACID 200 MG PO SCH ×3 (05:31→21:00)
[2020-12-01] MEDS: SOLU-Medrol 40 MG VIAL IVP SCH ×3 (05:32→21:00)
[2020-12-01] MEDS: ZOSYN VIAL 3.375 GRAMS 3.375 G in NS 100 ML IV + SPIKE MINIBAG* 100 ML IV SCH ×3 (05:32→21:49)
[2020-12-01 05:43] LABS: ALANINE AMINOTRANSFERASE 56 Units/L (12-78); ALBUMIN 2.8 g/dL (3.4-5.0); ALKALINE PHOSPHATASE 83 Units/L (46-116); ASPARTATE AMINO TRANSFERASE 35 Units/L (15-37); BLOOD UREA NITROGEN 24 mg/dL (7-18); CALCIUM 8.3 mg/dL (8.5-10.1); CARBON DIOXIDE 25.2 mmol/L (21-32); CHLORIDE 107 mmol/L (98-107); COR CA(FOR HYPOALB) 9.3 mg/dL (8.5-10.1); COR NA(FOR HYPERGLY) 147 mmol/L (136-145); CREATININE 1.25 mg/dL (0.70-1.30); SODIUM 141 mmol/L (136-145); TOTAL PROTEIN 6.3 g/dL (6.4-8.2); eGFR NON BLACK RACES > 60 (>60)
[2020-12-01] MEDS: HumuLIN R SUBCUT PRN ×4 (05:55→20:57)
[2020-12-01] MEDS: APRESOLINE INJ 20 MG VIAL IVP PRN (06:32)
[2020-12-01] MEDS ORDERED: NS 100 ML IV 100 ML ONE (08:10)
[2020-12-01] MEDS: DAPAGLIFLOZIN 5 MG PO SCH (08:45)
[2020-12-01] MEDS: FLONASE NASAL SPRAY ENOSTRIL SCH (08:46)
[2020-12-01] MEDS: CINNAMON BARK 1000 MG PO SCH ×2 (08:47→20:58)
[2020-12-01] MEDS: VSL#3 PO SCH (09:09)
[2020-12-01] MEDS: ROBITUSSIN DM PO SCH ×4 (09:15→20:56)
[2020-12-01] MEDS: ZyrTEC SYRUP 1 MG/ML 5ml unit dose PO SCH (09:16)
[2020-12-01] MEDS: LANTUS SC SCH (09:17)
[2020-12-01] MEDS: COZAAR PO SCH (09:17)
[2020-12-01] MEDS: LOVENOX INJ 30 MG SYR SC SCH ×2 (09:17→20:57)
[2020-12-01] MEDS: COREG TAB 12.5 MG PO SCH ×2 (09:18→20:56)
[2020-12-01] MEDS: ZITHROMAX TAB 250 MG PO SCH (09:18)
[2020-12-01] MEDS: PEPCID TAB 40 MG PO SCH ×2 (09:18→20:56)
[2020-12-01] MEDS: ISOSORBIDE MONONITRATE ER 24-HR PO SCH (09:18)
[2020-12-01] MEDS: ZINC SULFATE PO SCH ×2 (09:18→20:56)
[2020-12-01] MEDS: VITAMIN D3 125 mcg (5,000 UNITS) PO SCH (09:19)
[2020-12-01] MEDS: VITAMIN A PO SCH (09:20)
[2020-12-01] MEDS: DUONEB 0.5 MG/3 MG (3 mL) NEB SCH ×4 (09:31→21:37)
[2020-12-01] MEDS: PULMICORT NEB TX 0.5 MG NEB SCH ×2 (09:31→21:37)
--- NOTE | 2020-12-01 16:45 | PCM.PROG ---
Progress Note Progress Note for Day of Date of Exam: 12/01/20 Subjective Subjective: Resting quietly in bed; still on high flow oxygen with sob with exertion; no cough, fever or chills; no abd pain, n/v/d; last bm today wnl. Labs: WBC 5.7 Plt 206 BUN/Cr: 25/1.34 Glucose 311 LFTs normal, CRP 4 Sputum: Pseudomonas Blood Cx: negative CXR(11/27/20): worsening of the RUL consolidation, increase in size. ECHO: EF 60%, normal global wall motion, mild pulmonary HTN CTA chest: no PE, bilateral multifocal patchy pneumonia, worse in RUL consistent with COVID-19 infection Plan: Follow up CXR and ABG. Will let RT know to check nasal canula and if patient's sats continue to remain in mid 80s then titrate O2 up to keep sats between 88-92%. Continue Zosyn and Zithromax. Continue Remdesivir. Continue duonebs and pulmicort. Continue IS. Continue losartan and isosorbide mononitrate. Continue low dose coreg and hydralazine. Continue Lovenox 30 mg BID and vitamin support. PT/OT as tolerated. Continue to monitor patient in the ICU with telemetry and COVID protocol. Monitor AM labs and imaging. Past Medical Family Social History Past Med/Fam/Surg Hx: No changes since H&P Allergies: Allergies No Known Drug Allergies Allergy (Verified 11/24/20 20:28) Review of Systems ROS: No change since H&P Vital Signs and I&O's Vital Signs: Temperature 98.1 F Pulse Rate [Left Brachial] 54 Pulse Rate 63 Respiratory Rate 19 Blood Pressure [Left Arm] 163/77 Blood Pressure 126/70 O2 Sat by Pulse Oximetry 92 Intake and Output: Intake & Output 11/28/20 11/29/20 11/30/20 12/01/20 23:59 23:59 23:59 23:59 Intake Total 2150 / 2150 2250 / 2250 3040 / 3040 575 / 575 Output Total 4050 / 4050 4000 / 4000 3750 / 3750 1100 / 1100 Balance -1900 / -1900 -1750 / -1750 -710 / -710 -525 / -525 Physical Exam Oriented: Normal Eyes: Normal Ear: Normal Nose: Normal Throat: Normal Respiratory: Generalized and Diminished Cardiovascular: Normal Auscultation: Bowel Sounds: Normal Tenderness: Normal Skin: Normal Musculoskeletal: Normal Mood Description: Calm Affect: Normal Speech Pattern: Clear and Appropriate Laboratory and Diagnostics Result Diagrams: 12/01/20 04:40 12/01/20 04:40 Labs: 11/24/20 17:25 Blood Blood Culture - Final 11/24/20 17:25 Blood Blood Culture - Final 11/25/20 06:08 Sputum - Expectorated Sputum Sputum Culture - Final Pseudomonas Aeruginosa 11/25/20 06:08 Sputum - Expectorated Sputum - Final Laboratory WBC 8.0 X10^3/uL (3.6-10.0) 12/01/20 04:40 RBC 4.62 X10^6/uL (4.7-6.0) L 12/01/20 04:40 Hgb 13.6 g/dL (13.5-18.0) 12/01/20 04:40 Hct 39.9 % (42.0-54.0) L 12/01/20 04:40 MCV 86.4 fL (80.0-100.0) 12/01/20 04:40 MCH 29.3 pg (27.0-34.0) 12/01/20 04:40 MCHC 34.0 g/dL (33.0-35.0) 12/01/20 04:40 RDW 14.3 % (11.6-16.5) 12/01/20 04:40 Plt Count 238 X10^3/uL (150.0-450.0) 12/01/20 04:40 Plt Count Comment Decreased (ADEQUATE) 11/26/20 04:16 MPV 8.8 fL (7.4-11.0) 12/01/20 04:40 Neut % (Auto) 88.6 % (42.0-75.0) H 12/01/20 04:40 Lymph % (Auto) 4.1 % (21.0-51.0) L 12/01/20 04:40 [place] % (Auto) 6.6 % (0.0-13.0) 12/01/20 04:40 Eos % (Auto) 0.6 % (0.9-2.9) L 12/01/20 04:40 Baso % (Auto) 0.1 % (0.2-1.0) L 12/01/20 04:40 Neut # (Auto) 7.1 x10^3/uL (2.2-4.8) H 12/01/20 04:40 Lymph # (Auto) 0.3 X10^3/uL (1.3-2.9) L 12/01/20 04:40 [place] # (Auto) 0.5 x10^3/uL (0.3-0.8) 12/01/20 04:40 Eos # (Auto) 0.0 x10^3/uL (0.0-0.2) 12/01/20 04:40 Baso # (Auto) 0.0 X10^3/uL (0.0-0.1) 12/01/20 04:40 Absolute Nucleated RBC 0.0 /100WBC 12/01/20 04:40 Total Counted 100 11/26/20 04:16 Neutrophils % (Manual) 63 % (39-76) 11/26/20 04:16 Band Neutrophils % 4 % (0-10) 11/26/20 04:16 Lymphocytes % (Manual) 18 % (13-43) 11/26/20 04:16 Monocytes % (Manual) 15 % (4-9) H 11/26/20 04:16 Plt Morphology Comment Normal (NORMAL) 11/26/20 04:16 RBC Morphology Normal (NORMAL) 11/26/20 04:16 D-Dimer 1.54 ug/ml (0.0-0.57) H* 11/25/20 08:11 Sample Site Rr 11/29/20 09:26 ABG pH 7.480 (7.35-7.45) H 11/29/20 09:26 ABG pCO2 36.0 mmHg (35.0-45.0) 11/29/20 09: ABG pO2 49.0 mmHg (80.0-100.0) L* 11/29/20 09:26 ABG HCO3 26.8 mmol/L (22-26) H 11/29/20 09:26 ABG O2 Saturation 87.0 % (90-100) L 11/29/20 09:26 ABG Base Excess 3.3 mmol/L (-2.0-2.0) H 11/29/20 09:26 Bernardo Test Pos 11/29/20 09:26 A-a Gradient 134.0 mmHg 11/29/20 09:26 FiO2 32.0 11/29/20 09:26 Blood Gas Comments Pt galina well cdn 11/29/20 09:26 Sodium 141 mmol/L (136-145) 12/01/20 04:40 Corrected Sodium 147 mmol/L (136-145) H 12/01/20 04:40 Potassium 4.2 mmol/L (3.5-5.1) 12/01/20 04:40 Chloride 107 mmol/L (98-107) 12/01/20 04:40 Carbon Dioxide 25.2 mmol/L (21-32) 12/01/20 04:40 BUN 24 mg/dL (7-18) H 12/01/20 04:40 Creatinine 1.25 mg/dL (0.70-1.30) 12/01/20 04:40 Est GFR (MDRD) Af Amer > 60 (>60) 12/01/20 04:40 Est GFR (MDRD) Non-Af > 60 (>60) 12/01/20 04:40 Glucose 353 mg/dL (65-99) H 12/01/20 04:40 POC Glucose (mg/dL) 321 mg/dL (65-99) H 12/01/20 11:35 Lactic Acid 2.0 mmol/L (0.4-2.0) 11/24/20 17:25 Calcium 8.3 mg/dL (8.5-10.1) L 12/01/20 04:40 Corrected Calcium 9.3 mg/dL (8.5-10.1) 12/01/20 04:40 Total Bilirubin 1.00 mg/dL (0.2-1.0) 12/01/20 04:40 AST 35 Units/L (15-37) 12/01/20 04:40 ALT 56 Units/L (12-78) 12/01/20 04:40 Alkaline Phosphatase 83 Units/L (46-116) 12/01/20 04:40 Creatine Kinase 79 Units/L (39-308) 11/24/20 17:25 CK-MB (CK-2) < 1.0 ng/mL (0-4.0) 11/24/20 17:25 CK/CKMB % Calc 1.3 % (<4) 11/24/20 17:25 Troponin I < 0.02 ng/mL (0-1.5) 11/24/20 17:25 C-Reactive Protein 4.10 mg/L (0-3.0) H 11/29/20 04:03 Total Protein 6.3 g/dL (6.4-8.2) L 12/01/20 04:40 Albumin 2.8 g/dL (3.4-5.0) L 12/01/20 04:40 Globulin 3.5 g/dL (2.5-4.5) 12/01/20 04:40 Albumin/Globulin Ratio 0.8 Ratio (1.1-2.1) L 12/01/20 04:40 Amylase 48 Units/L (25-115) 11/24/20 17:25 Lipase 220 Units/L (73-393) 11/24/20 17:25 Specimen Type Clean catch urine 11/24/20 18:16 Urine Color Yellow (YELLOW) 11/24/20 18:16 Urine Appearance Clear (CLEAR) 11/24/20 18:16 Urine pH 5.0 (5.0 - 8.0) 11/24/20 18:16 Ur Specific [place] 1.025 (1.000-1.030) 11/24/20 18:16 Urine Protein 3+ (NEGATIVE) 11/24/20 18:16 Urine Glucose (UA) 4+ (NEGATIVE) 11/24/20 18:16 Urine Ketones 1+ (NEGATIVE) 11/24/20 18:16 Urine Occult Blood Negative (NEGATIVE) 11/24/20 18:16 Urine Nitrite Negative (NEGATIVE) 11/24/20 18:16 Urine Bilirubin Negative (NEGATIVE) 11/24/20 18:16 Urine Urobilinogen Normal (NORMAL) 11/24/20 18:16 Ur Leukocyte Esterase Negative (NEGATIVE) 11/24/20 18:16 Urine RBC None seen /HPF (0-3) 11/24/20 18:16 Urine WBC None seen /HPF (0-5) 11/24/20 18:16 Ur Squamous Epith Cells Rare /HPF (NEGATIVE) 11/24/20 18:16 Urine Bacteria Negative /HPF (NEGATIVE) 11/24/20 18:16 Ur Culture Indicated? No/not indicated 11/24/20 18:16 Acetone, Semi-Quant Negative (NEGATIVE) 11/24/20 17:30 SARS-CoV-2 (PCR) Positive (NEGATIVE) A 11/24/20 20:17 Influenza Type A (PCR) Negative (NEGATIVE) 11/24/20 20:17 Influenza Type B (PCR) Negative (NEGATIVE) 11/24/20 20:17 RSV (PCR) Negative (NEGATIVE) 11/24/20 20:17 S. pyogenes (TEM-PCR) Not detected (NOT DETECT) 11/24/20 20:17 Plan (1) COVID-19 virus infection: Status: Acute Plan: Still hypoxic and sob; unable to wean oxygen; repeat cxr; continue current mgmt. (2) Pulmonary edema: Status: Acute Qualifiers: Chronicity: chronic Qualified Code(s): J81.1 - Chronic pulmonary edema (3) Pneumonia: Status: Acute Qualifiers: Laterality: right Lung location: upper lobe of lung Pneumonia type: due to unspecified organism Qualified Code(s): J18.9 - Pneumonia, unspecified organism (4) Acute respiratory failure with hypoxia: Status: Acute Plan: Improving slowly; wean oxygen as tolerated. (5) HTN (hypertension): Status: Acute Qualifiers: Hypertension type: essential hypertension Qualified Code(s): I10 - Essential (primary) hypertension Plan: Remains elevated; increase apresoline and follow. (6) Hx of CABG: Status: Acute (7) Diabetes: Status: Acute Qualifiers: Diabetes mellitus type: type 2 Diabetes mellitus hairspring assembler insulin use: without jail use Diabetes mellitus complication status: without complication Qualified Code(s): E11.9 - Type 2 diabetes mellitus without complications (8) FRANCIS (acute kidney injury): Status: Acute (9) Thrombocytopenia: Status: Acute
[2020-12-01] MEDS: LIPITOR TAB 80 MG PO SCH (20:56)
[2020-12-01] MEDS: SNACK - Diabetic Appropriate PO SCH (20:58)
[2020-12-01] MEDS: RESTORIL CAP 15 MG PO PRN (23:09)
[2020-12-02] MEDS: ASCORBIC ACID INJ MULTI-DOSE VIAL 1,500 MG in NS 100 ML IV 100 ML IV SCH ×4 (02:50→21:09)
--- NOTE | 2020-12-02 05:23 | RAD ---
PROCEDURE: Chest X-ray 1 View .HISTORY: HYPOXIA .TECHNIQUE: AP view .COMPARISON: 11/29/2020.TECHNICAL QUALITY: Poor inspiratory effort.FINDINGS:Unchanged heart size upper limits of normal may be related to poor inspiration with previous sternotomy.Normal central vascularity.Pneumonia left upper lobe appears increased since previous study. Probably unchanged on the right allowing for technical differences. No pleural fluid or pneumothorax.IMPRESSION:Increase pneumonia on the left and unchanged on the right.Electronically signed by: Vinicius Carpio (Dec 02, 2020 05:21:27)
[2020-12-02] MEDS: APRESOLINE TAB 10 MG PO SCH ×3 (05:34→22:02)
[2020-12-02] MEDS: ALPHA LIPOIC ACID 200 MG PO SCH ×3 (05:34→21:15)
[2020-12-02] MEDS: SOLU-Medrol 40 MG VIAL IVP SCH ×2 (05:34→21:16)
[2020-12-02] MEDS: ZOSYN VIAL 3.375 GRAMS 3.375 G in NS 100 ML IV + SPIKE MINIBAG* 100 ML IV SCH (05:35)
[2020-12-02] MEDS: HumuLIN R SUBCUT PRN ×4 (05:44→21:35)
[2020-12-02] MEDS ORDERED: FORTAZ or TAZICEF VIAL INJ 1 G in NS 100 ML IV + SPIKE MINIBAG* 100 ML IV SCH (08:01)
[2020-12-02] MEDS: PULMICORT NEB TX 0.5 MG NEB SCH ×2 (08:27→21:31)
[2020-12-02] MEDS: DUONEB 0.5 MG/3 MG (3 mL) NEB SCH ×4 (08:27→21:31)
[2020-12-02 08:33] LABS: BASOPHILS % (AUTO) 0.1 % (0.2-1.0); HEMATOCRIT 40.5 % (42.0-54.0); HEMOGLOBIN 13.9 g/dL (13.5-18.0); LYMPHOCYTES # (AUTO) 0.2 X10^3/uL (1.3-2.9); LYMPHOCYTES % (AUTO) 3.2 % (21.0-51.0); MEAN CORPUSCULAR HEMOGLOBIN 29.6 pg (27.0-34.0); MEAN CORPUSCULAR HGB CONC 34.2 g/dL (33.0-35.0); MEAN CORPUSCULAR VOLUME 86.6 fL (80.0-100.0); MEAN PLATELET VOLUME 8.2 fL (7.4-11.0); MONOCYTES # (AUTO) 0.6 x10^3/uL (0.3-0.8); MONOCYTES % (AUTO) 7.7 % (0.0-13.0); NEUTROPHILS # (AUTO) 6.6 x10^3/uL (2.2-4.8); PLATELET COUNT 215 X10^3/uL (150.0-450.0); RED BLOOD COUNT 4.67 X10^6/uL (4.7-6.0); RED CELL DISTRIBUTION WIDTH 14.4 % (11.6-16.5); WHITE BLOOD COUNT 7.4 X10^3/uL (3.6-10.0)
[2020-12-02 08:47] LABS: ALANINE AMINOTRANSFERASE 53 Units/L (12-78); ALBUMIN 2.8 g/dL (3.4-5.0); ALKALINE PHOSPHATASE 81 Units/L (46-116); ASPARTATE AMINO TRANSFERASE 31 Units/L (15-37); BLOOD UREA NITROGEN 25 mg/dL (7-18); CALCIUM 8.3 mg/dL (8.5-10.1); CARBON DIOXIDE 25.3 mmol/L (21-32); CHLORIDE 108 mmol/L (98-107); COR CA(FOR HYPOALB) 9.3 mg/dL (8.5-10.1); COR NA(FOR HYPERGLY) 146 mmol/L (136-145); SODIUM 142 mmol/L (136-145); TOTAL PROTEIN 6.3 g/dL (6.4-8.2); eGFR NON BLACK RACES > 60 (>60)
--- NOTE | 2020-12-02 09:11 | PCM.PROG ---
Progress Note Progress Note for Day of Date of Exam: 12/02/20 Subjective Subjective: Patient seen at bedside, no acute events overnight. Patient's BP was elevated earlier this morning and he did receive IV hydralazine. Patient was placed on HHFNC over the weekend, currently on FiO2 70% with sats between 90- 91%, RR in 20s. He denies any respiratory distress. He is still having productive cough. He has been afebrile, no chills. He seems to be upset about being on HHFNC as it restricts his movement in the room. He would like to be placed back on the nasal canula so he can get up and move around. His appetite has been normal. Labs pending Sputum: Pseudomonas Blood Cx: negative CXR(12/02/20): worsening of the left consolidation, right similar size. ECHO: EF 60%, normal global wall motion, mild pulmonary HTN CTA chest: no PE, bilateral multifocal patchy pneumonia, worse in RUL consistent with COVID-19 infection Plan: morning labs pending. Wean O2 as tolerated to keep sats > 88%. Will check with RT to try placing patient back on nasal canula and see how he does. Encouraged patient to ambulate in the room, sit up on the chair and work with PT/OT as tolerated. Patient completed course of Remdesivir and Azithromycin. Will switch Zosyn to Fortaz. Continue solumedrol. Continue duonebs and pulmicort. Continue IS. Continue losartan and isosorbide mononitrate. Continue low dose coreg and hydralazine 20 mg TID. Continue Lovenox 30 mg BID and vitamin support. PT/OT as tolerated. Continue to monitor patient in the ICU with telemetry and COVID protocol. Monitor AM labs and imaging. Time spent for clinical assessment, reviewing labs/imaging, physical exam, management, decision making and documentation greater than 75 mins. Past Medical Family Social History Past Med/Fam/Surg Hx: No changes since H&P Allergies: Allergies No Known Drug Allergies Allergy (Verified 11/24/20 20:28) Review of Systems ROS: No change since H&P Vital Signs and I&O's Vital Signs: Temperature 97.8 F Pulse Rate [Left Brachial] 53 Pulse Rate 56 Respiratory Rate 21 Blood Pressure [Left Arm] 167/70 Blood Pressure 126/70 O2 Sat by Pulse Oximetry 90 Intake and Output: Intake & Output 11/29/20 11/30/20 12/01/20 12/02/20 23:59 23:59 23:59 23:59 Intake Total 2250 / 2250 3040 / 3040 3740 / 3740 695 / 695 Output Total 4000 / 4000 3750 / 3750 4200 / 4200 1300 / 1300 Balance -1750 / -1750 -710 / -710 -460 / -460 -605 / -605 Physical Exam Oriented: Normal Eyes: Normal Ear: Normal Nose: Normal Throat: Normal Respiratory: Generalized and Diminished Cardiovascular: Normal Auscultation: Bowel Sounds: Normal Tenderness: Normal Skin: Normal Musculoskeletal: Normal Mood Description: Calm Affect: Normal Speech Pattern: Clear and Appropriate Laboratory and Diagnostics Result Diagrams: 12/02/20 08:23 12/02/20 08:23 Labs: 11/24/20 17:25 Blood Blood Culture - Final 11/24/20 17:25 Blood Blood Culture - Final 11/25/20 06:08 Sputum - Expectorated Sputum Sputum Culture - Final Pseudomonas Aeruginosa 11/25/20 06:08 Sputum - Expectorated Sputum - Final Laboratory WBC 8.0 X10^3/uL (3.6-10.0) 12/01/20 04:40 RBC 4.62 X10^6/uL (4.7-6.0) L 12/01/20 04:40 Hgb 13.6 g/dL (13.5-18.0) 12/01/20 04:40 Hct 39.9 % (42.0-54.0) L 12/01/20 04:40 MCV 86.4 fL (80.0-100.0) 12/01/20 04:40 MCH 29.3 pg (27.0-34.0) 12/01/20 04:40 MCHC 34.0 g/dL (33.0-35.0) 12/01/20 04:40 RDW 14.3 % (11.6-16.5) 12/01/20 04:40 Plt Count 238 X10^3/uL (150.0-450.0) 12/01/20 04:40 Plt Count Comment Decreased (ADEQUATE) 11/26/20 04:16 MPV 8.8 fL (7.4-11.0) 12/01/20 04:40 Neut % (Auto) 88.6 % (42.0-75.0) H 12/01/20 04:40 Lymph % (Auto) 4.1 % (21.0-51.0) L 12/01/20 04:40 [place] % (Auto) 6.6 % (0.0-13.0) 12/01/20 04:40 Eos % (Auto) 0.6 % (0.9-2.9) L 12/01/20 04:40 Baso % (Auto) 0.1 % (0.2-1.0) L 12/01/20 04:40 Neut # (Auto) 7.1 x10^3/uL (2.2-4.8) H 12/01/20 04:40 Lymph # (Auto) 0.3 X10^3/uL (1.3-2.9) L 12/01/20 04:40 [place] # (Auto) 0.5 x10^3/uL (0.3-0.8) 12/01/20 04:40 Eos # (Auto) 0.0 x10^3/uL (0.0-0.2) 12/01/20 04:40 Baso # (Auto) 0.0 X10^3/uL (0.0-0.1) 12/01/20 04:40 Absolute Nucleated RBC 0.0 /100WBC 12/01/20 04:40 Total Counted 100 11/26/20 04:16 Neutrophils % (Manual) 63 % (39-76) 11/26/20 04:16 Band Neutrophils % 4 % (0-10) 11/26/20 04:16 Lymphocytes % (Manual) 18 % (13-43) 11/26/20 04:16 Monocytes % (Manual) 15 % (4-9) H 11/26/20 04:16 Plt Morphology Comment Normal (NORMAL) 11/26/20 04:16 RBC Morphology Normal (NORMAL) 11/26/20 04:16 D-Dimer 1.54 ug/ml (0.0-0.57) H* 11/25/20 08:11 Sample Site Rr 11/29/20 09:26 ABG pH 7.480 (7.35-7.45) H 11/29/20 09:26 ABG pCO2 36.0 mmHg (35.0-45.0) 11/29/20 09:26 ABG pO2 49.0 mmHg (80.0-100.0) L* 11/29/20 09:26 ABG HCO3 26.8 mmol/L (22-26) H 11/29/20 09:26 ABG O2 Saturation 87.0 % (90-100) L 11/29/20 09:26 ABG Base Excess 3.3 mmol/L (-2.0-2.0) H 11/29/20 09:26 Bernardo Test Pos 11/29/20 09:26 A-a Gradient 134.0 mmHg 11/29/20 09:26 FiO2 32.0 11/29/20 09:26 Blood Gas Comments Pt galina well cdn 11/29/20 09:26 Sodium 142 mmol/L (136-145) 12/02/20 08:23 Corrected Sodium 146 mmol/L (136-145) H 12/02/20 08:23 Potassium 4.4 mmol/L (3.5-5.1) 12/02/20 08:23 Chloride 108 mmol/L (98-107) H 12/02/20 08:23 Carbon Dioxide 25.3 mmol/L (21-32) 12/02/20 08:23 BUN 25 mg/dL (7-18) H 12/02/20 08:23 Creatinine 1.10 mg/dL (0.70-1.30) 12/02/20 08:23 Est GFR (MDRD) Af Amer > 60 (>60) 12/02/20 08:23 Est GFR (MDRD) Non-Af > 60 (>60) 12/02/20 08:23 Glucose 279 mg/dL (65-99) H 12/02/20 08:23 POC Glucose (mg/dL) 320 mg/dL (65-99) H 12/02/20 05:42 Lactic Acid 2.0 mmol/L (0.4-2.0) 11/24/20 17:25 Calcium 8.3 mg/dL (8.5-10.1) L 12/02/20 08:23 Corrected Calcium 9.3 mg/dL (8.5-10.1) 12/02/20 08:23 Total Bilirubin 1.10 mg/dL (0.2-1.0) H 12/02/20 08:23 AST 31 Units/L (15-37) 12/02/20 08:23 ALT 53 Units/L (12-78) 12/02/20 08:23 Alkaline Phosphatase 81 Units/L (46-116) 12/02/20 08:23 Creatine Kinase 79 Units/L (39-308) 11/24/20 17:25 CK-MB (CK-2) < 1.0 ng/mL (0-4.0) 11/24/20 17:25 CK/CKMB % Calc 1.3 % (<4) 11/24/20 17:25 Troponin I < 0.02 ng/mL (0-1.5) 11/24/20 17:25 C-Reactive Protein 1.00 mg/L (0-3.0) 12/02/20 08:23 Total Protein 6.3 g/dL (6.4-8.2) L 12/02/20 08:23 Albumin 2.8 g/dL (3.4-5.0) L 12/02/20 08:23 Globulin 3.5 g/dL (2.5-4.5) 12/02/20 08:23 Albumin/Globulin Ratio 0.8 Ratio (1.1-2.1) L 12/02/20 08:23 Amylase 48 Units/L (25-115) 11/24/20 17:25 Lipase 220 Units/L (73-393) 11/24/20 17:25 Specimen Type Clean catch urine 11/24/20 18:16 Urine Color Yellow (YELLOW) 11/24/20 18:16 Urine Appearance Clear (CLEAR) 11/24/20 18:16 Urine pH 5.0 (5.0 - 8.0) 11/24/20 18:16 Ur Specific [place] 1.025 (1.000-1.030) 11/24/20 18:16 Urine Protein 3+ (NEGATIVE) 11/24/20 18:16 Urine Glucose (UA) 4+ (NEGATIVE) 11/24/20 18:16 Urine Ketones 1+ (NEGATIVE) 11/24/20 18:16 Urine Occult Blood Negative (NEGATIVE) 11/24/20 18:16 Urine Nitrite Negative (NEGATIVE) 11/24/20 18:16 Urine Bilirubin Negative (NEGATIVE) 11/24/20 18:16 Urine Urobilinogen Normal (NORMAL) 11/24/20 18:16 Ur Leukocyte Esterase Negative (NEGATIVE) 11/24/20 18:16 Urine RBC None seen /HPF (0-3) 11/24/20 18:16 Urine WBC None seen /HPF (0-5) 11/24/20 18:16 Ur Squamous Epith Cells Rare /HPF (NEGATIVE) 11/24/20 18:16 Urine Bacteria Negative /HPF (NEGATIVE) 11/24/20 18:16 Ur Culture Indicated? No/not indicated 11/24/20 18:16 Acetone, Semi-Quant Negative (NEGATIVE) 11/24/20 17:30 SARS-CoV-2 (PCR) Positive (NEGATIVE) A 11/24/20 20:17 Influenza Type A (PCR) Negative (NEGATIVE) 11/24/20 20:17 Influenza Type B (PCR) Negative (NEGATIVE) 11/24/20 20:17 RSV (PCR) Negative (NEGATIVE) 11/24/20 20:17 S. pyogenes (TEM-PCR) Not detected (NOT DETECT) 11/24/20 20:17 Plan (1) COVID-19 virus infection: Status: Acute Plan: Still hypoxic and sob; unable to wean oxygen; repeat cxr; continue current mgmt. (2) Pulmonary edema: Status: Acute Qualifiers: Chronicity: chronic Qualified Code(s): J81.1 - Chronic pulmonary edema (3) Pneumonia: Status: Acute Qualifiers: Laterality: right Lung location: upper lobe of lung Pneumonia type: due to unspecified organism Qualified Code(s): J18.9 - Pneumonia, unspecified organism (4) Acute respiratory failure with hypoxia: Status: Acute Plan: Improving slowly; wean oxygen as tolerated. (5) HTN (hypertension): Status: Acute Qualifiers: Hypertension type: essential hypertension Qualified Code(s): I10 - Essential (primary) hypertension Plan: Remains elevated; increase apresoline and follow. (6) Hx of CABG: Status: Acute (7) Diabetes: Status: Acute Qualifiers: Diabetes mellitus complication status: without complication Diabetes mellitus custodial insulin use: without custodial use Diabetes mellitus type: type 2 Qualified Code(s): E11.9 - Type 2 diabetes mellitus without complications (8) FRANCIS (acute kidney injury): Status: Acute (9) Thrombocytopenia: Status: Acute
[2020-12-02 09:41] VITALS: BMI 31.5
[2020-12-02] MEDS: VITAMIN D3 125 mcg (5,000 UNITS) PO SCH (10:00)
[2020-12-02] MEDS: ZyrTEC SYRUP 1 MG/ML 5ml unit dose PO SCH (10:00)
[2020-12-02] MEDS: ZINC SULFATE PO SCH ×2 (10:00→21:14)
[2020-12-02] MEDS: ROBITUSSIN DM PO SCH ×4 (10:00→21:12)
[2020-12-02] MEDS: COREG TAB 12.5 MG PO SCH ×2 (10:00→21:13)
[2020-12-02] MEDS: DAPAGLIFLOZIN 5 MG PO SCH (10:00)
[2020-12-02] MEDS: COZAAR PO SCH (10:00)
[2020-12-02] MEDS: CINNAMON BARK 1000 MG PO SCH ×2 (10:00→21:15)
[2020-12-02] MEDS: FLONASE NASAL SPRAY ENOSTRIL SCH (10:00)
[2020-12-02] MEDS: ISOSORBIDE MONONITRATE ER 24-HR PO SCH (10:00)
[2020-12-02] MEDS: VITAMIN A PO SCH (10:00)
[2020-12-02] MEDS: PEPCID TAB 40 MG PO SCH ×2 (10:00→21:14)
[2020-12-02] MEDS: VSL#3 PO SCH (10:22)
[2020-12-02] MEDS: LOVENOX INJ 30 MG SYR SC SCH ×2 (10:23→21:33)
[2020-12-02] MEDS: LANTUS SC SCH (10:25)
[2020-12-02] MEDS: FORTAZ or TAZICEF VIAL INJ 2 G in NS 100 ML IV + SPIKE MINIBAG* 100 ML IV SCH ×3 (10:30→22:02)
[2020-12-02] MEDS: APRESOLINE INJ 20 MG VIAL IVP PRN (14:24)
[2020-12-02] MEDS: SNACK - Diabetic Appropriate PO SCH (21:08)
[2020-12-02] MEDS: LIPITOR TAB 80 MG PO SCH (21:14)
[2020-12-03] MEDS: APRESOLINE INJ 20 MG VIAL IVP PRN (00:04)
[2020-12-03] MEDS: ASCORBIC ACID INJ MULTI-DOSE VIAL 1,500 MG in NS 100 ML IV 100 ML IV SCH ×4 (02:35→20:05)
[2020-12-03] MEDS ORDERED: NS 100 ML IV 100 ML ONE (05:33)
[2020-12-03] MEDS: ALPHA LIPOIC ACID 200 MG PO SCH ×3 (05:50→21:01)
[2020-12-03] MEDS: APRESOLINE TAB 10 MG PO SCH ×3 (05:50→21:01)
[2020-12-03] MEDS: FORTAZ or TAZICEF VIAL INJ 2 G in NS 100 ML IV + SPIKE MINIBAG* 100 ML IV SCH ×3 (05:51→21:01)
[2020-12-03] MEDS: HumuLIN R SUBCUT PRN ×4 (06:12→20:13)
[2020-12-03] MEDS: DUONEB 0.5 MG/3 MG (3 mL) NEB SCH ×4 (08:06→21:40)
[2020-12-03] MEDS: PULMICORT NEB TX 0.5 MG NEB SCH ×2 (08:06→21:40)
[2020-12-03 08:19] LABS: BASOPHILS % (AUTO) 0.1 % (0.2-1.0); EOSINOPHILS % (AUTO) 0.1 % (0.9-2.9); HEMATOCRIT 41.9 % (42.0-54.0); HEMOGLOBIN 14.2 g/dL (13.5-18.0); LYMPHOCYTES # (AUTO) 0.2 X10^3/uL (1.3-2.9); LYMPHOCYTES % (AUTO) 2.7 % (21.0-51.0); MEAN CORPUSCULAR HEMOGLOBIN 29.4 pg (27.0-34.0); MEAN CORPUSCULAR HGB CONC 33.9 g/dL (33.0-35.0); MEAN CORPUSCULAR VOLUME 86.7 fL (80.0-100.0); MEAN PLATELET VOLUME 8.2 fL (7.4-11.0); MONOCYTES # (AUTO) 0.5 x10^3/uL (0.3-0.8); MONOCYTES % (AUTO) 6.2 % (0.0-13.0); NEUTROPHILS # (AUTO) 7.9 x10^3/uL (2.2-4.8); NEUTROPHILS % (AUTO) 90.9 % (42.0-75.0); PLATELET COUNT 235 X10^3/uL (150.0-450.0); RED BLOOD COUNT 4.84 X10^6/uL (4.7-6.0); RED CELL DISTRIBUTION WIDTH 14.5 % (11.6-16.5); WHITE BLOOD COUNT 8.7 X10^3/uL (3.6-10.0)
[2020-12-03] MEDS: COZAAR PO SCH (08:23)
[2020-12-03] MEDS: VITAMIN D3 125 mcg (5,000 UNITS) PO SCH (08:23)
[2020-12-03] MEDS: VSL#3 PO SCH (08:23)
[2020-12-03] MEDS: ISOSORBIDE MONONITRATE ER 24-HR PO SCH (08:23)
[2020-12-03] MEDS: ZINC SULFATE PO SCH ×2 (08:24→20:10)
[2020-12-03] MEDS: SOLU-Medrol 40 MG VIAL IVP SCH (08:24)
[2020-12-03] MEDS: COREG TAB 12.5 MG PO SCH ×2 (08:24→20:06)
[2020-12-03] MEDS: ROBITUSSIN DM PO SCH ×4 (08:24→20:09)
[2020-12-03] MEDS: ZyrTEC SYRUP 1 MG/ML 5ml unit dose PO SCH (08:25)
[2020-12-03] MEDS: LOVENOX INJ 30 MG SYR SC SCH ×2 (08:25→20:07)
[2020-12-03] MEDS: VITAMIN A PO SCH (08:27)
[2020-12-03] MEDS: FLONASE NASAL SPRAY ENOSTRIL SCH (08:27)
[2020-12-03] MEDS: CINNAMON BARK 1000 MG PO SCH ×2 (08:27→20:06)
[2020-12-03] MEDS: PEPCID TAB 40 MG PO SCH ×2 (08:27→20:08)
[2020-12-03] MEDS: DAPAGLIFLOZIN 10 MG PO SCH (08:27)
[2020-12-03 08:32] LABS: ALANINE AMINOTRANSFERASE 59 Units/L (12-78); ALBUMIN 2.8 g/dL (3.4-5.0); ALKALINE PHOSPHATASE 92 Units/L (46-116); ASPARTATE AMINO TRANSFERASE 31 Units/L (15-37); BLOOD UREA NITROGEN 22 mg/dL (7-18); CALCIUM 8.4 mg/dL (8.5-10.1); CARBON DIOXIDE 26.3 mmol/L (21-32); CHLORIDE 106 mmol/L (98-107); COR CA(FOR HYPOALB) 9.4 mg/dL (8.5-10.1); COR NA(FOR HYPERGLY) 148 mmol/L (136-145); CREATININE 1.23 mg/dL (0.70-1.30); PLATELET MORPHOLOGY COMMENT NORMAL (NORMAL); SODIUM 142 mmol/L (136-145); TOTAL PROTEIN 6.5 g/dL (6.4-8.2); eGFR NON BLACK RACES > 60 (>60)
[2020-12-03] MEDS ORDERED: LANTUS SC SCH (09:00)
[2020-12-03] MEDS ORDERED: LASIX IVP ONE (09:29)
--- NOTE | 2020-12-03 11:36 | PCM.PROG ---
Progress Note Progress Note for Day of Date of Exam: 12/03/20 Subjective Subjective: Patient seen at bedside, no acute events overnight. He states he feels much better today. He slept on the recliner. He has been on 3-4L NC since yesterday morning. His sats have been between 84-91% depending on what he's doing. He is no respiratory distress, RR has been in the 20s. He is currently on 3L NC at sats in mid 80s. He has been afebrile. He did work with PT/OT and has been mobile in the room. He has been doing light exercises. Labs pending Sputum: Pseudomonas Blood Cx: negative CXR(12/02/20): worsening of the left consolidation, right similar size. ECHO: EF 60%, normal global wall motion, mild pulmonary HTN CTA chest: no PE, bilateral multifocal patchy pneumonia, worse in RUL consistent with COVID-19 infection Plan: morning labs pending. Wean O2 as tolerated to keep sats > 88%. Will give one dose of IV lasix due to crackles on exam, worse on the right side. Encouraged patient to ambulate in the room, sit up on the chair and work with PT/OT as tolerated. Patient completed course of Remdesivir and Azithromycin. Continue Fortaz. Continue solumedrol, taper to daily dose. Continue duonebs and pulmicort. Continue IS. Continue losartan and isosorbide mononitrate. Continue low dose coreg and hydralazine 20 mg TID. Continue Lovenox 30 mg BID and vitamin support. Increase Lantus to 15 units QAM, increase Farxiga to 10 mg daily. Continue to monitor patient in the ICU with telemetry and COVID protocol. Monitor AM labs and imaging. Time spent for clinical assessment, reviewing labs/imaging, physical exam, management, decision making and documentation greater than 75 mins. Past Medical Family Social History Past Med/Fam/Surg Hx: No changes since H&P Allergies: Allergies No Known Drug Allergies Allergy (Verified 11/24/20 20:28) Review of Systems ROS: No change since H&P Vital Signs and I&O's Vital Signs: Temperature 97.8 F Pulse Rate [Left Brachial] 79 Pulse Rate 78 Respiratory Rate 30 Blood Pressure [Left Arm] 178/81 Blood Pressure 126/70 O2 Sat by Pulse Oximetry 87 Intake and Output: Intake & Output 11/30/20 12/01/20 12/02/20 12/03/20 23:59 23:59 23:59 23:59 Intake Total 3040 / 3040 3740 / 3740 2361 / 2361 580 / 580 Output Total 3750 / 3750 4200 / 4200 4150 / 4150 700 / 700 Balance -710 / -710 -460 / -460 -1789 / -1789 -120 / -120 Physical Exam Oriented: Normal Eyes: Normal Ear: Normal Nose: Normal Throat: Normal Respiratory: Right, Generalized, Inferior, Diminished and [place] Cardiovascular: Normal Auscultation: Bowel Sounds: Normal Tenderness: Normal Skin: Normal Musculoskeletal: Normal Mood Description: Calm Affect: Normal Speech Pattern: Clear and Appropriate Laboratory and Diagnostics Result Diagrams: 12/03/20 08:12 12/03/20 08:12 Labs: 11/24/20 17:25 Blood Blood Culture - Final 11/24/20 17:25 Blood Blood Culture - Final 11/25/20 06:08 Sputum - Expectorated Sputum Sputum Culture - Final Pseudomonas Aeruginosa 11/25/20 06:08 Sputum - Expectorated Sputum - Final Laboratory WBC 8.7 X10^3/uL (3.6-10.0) 12/03/20 08:12 RBC 4.84 X10^6/uL (4.7-6.0) 12/03/20 08:12 Hgb 14.2 g/dL (13.5-18.0) 12/03/20 08:12 Hct 41.9 % (42.0-54.0) L 12/03/20 08:12 MCV 86.7 fL (80.0-100.0) 12/03/20 08:12 MCH 29.4 pg (27.0-34.0) 12/03/20 08:12 MCHC 33.9 g/dL (33.0-35.0) 12/03/20 08:12 RDW 14.5 % (11.6-16.5) 12/03/20 08:12 Plt Count 235 X10^3/uL (150.0-450.0) 12/03/20 08:12 Plt Count Comment Adequate (ADEQUATE) 12/03/20 08:12 MPV 8.2 fL (7.4-11.0) 12/03/20 08:12 Neut % (Auto) 90.9 % (42.0-75.0) H 12/03/20 08:12 Lymph % (Auto) 2.7 % (21.0-51.0) L 12/03/20 08:12 [place] % (Auto) 6.2 % (0.0-13.0) 12/03/20 08:12 Eos % (Auto) 0.1 % (0.9-2.9) L 12/03/20 08:12 Baso % (Auto) 0.1 % (0.2-1.0) L 12/03/20 08:12 Neut # (Auto) 7.9 x10^3/uL (2.2-4.8) H 12/03/20 08:12 Lymph # (Auto) 0.2 X10^3/uL (1.3-2.9) L 12/03/20 08:12 [place] # (Auto) 0.5 x10^3/uL (0.3-0.8) 12/03/20 08:12 Eos # (Auto) 0.0 x10^3/uL (0.0-0.2) 12/03/20 08:12 Baso # (Auto) 0.0 X10^3/uL (0.0-0.1) 12/03/20 08:12 Absolute Nucleated RBC 0.1 /100WBC 12/03/20 08:12 Total Counted 100 12/03/20 08:12 Neutrophils % (Manual) 92 % (39-76) H 12/03/20 08:12 Band Neutrophils % 4 % (0-10) 11/26/20 04:16 Lymphocytes % (Manual) 4 % (13-43) L 12/03/20 08:12 Monocytes % (Manual) 4 % (4-9) 12/03/20 08:12 Plt Morphology Comment Normal (NORMAL) 12/03/20 08:12 RBC Morphology Normal (NORMAL) 12/03/20 08:12 D-Dimer 1.54 ug/ml (0.0-0.57) H* 11/25/20 08:11 Sample Site Rr 11/29/20 09:26 ABG pH 7.480 (7.35-7.45) H 11/29/20 09:26 ABG pCO2 36.0 mmHg (35.0-45.0) 11/29/20 09:26 ABG pO2 49.0 mmHg (80.0-100.0) L* 11/29/20 09:26 ABG HCO3 26.8 mmol/L (22-26) H 11/29/20 09:26 ABG O2 Saturation 87.0 % (90-100) L 11/29/20 09:26 ABG Base Excess 3.3 mmol/L (-2.0-2.0) H 11/29/20 09:26 Bernardo Test Pos 11/29/20 09:26 A-a Gradient 134.0 mmHg 11/29/20 09:26 FiO2 32.0 11/29/20 09:26 Blood Gas Comments Pt galina well cdn 11/29/20 09:26 Sodium 142 mmol/L (136-145) 12/03/20 08:12 Corrected Sodium 148 mmol/L (136-145) H 12/03/20 08:12 Potassium 4.4 mmol/L (3.5-5.1) 12/03/20 08:12 Chloride 106 mmol/L (98-107) 12/03/20 08:12 Carbon Dioxide 26.3 mmol/L (21-32) 12/03/20 08:12 BUN 22 mg/dL (7-18) H 12/03/20 08:12 Creatinine 1.23 mg/dL (0.70-1.30) 12/03/20 08:12 Est GFR (MDRD) Af Amer > 60 (>60) 12/03/20 08:12 Est GFR (MDRD) Non-Af > 60 (>60) 12/03/20 08:12 Glucose 362 mg/dL (65-99) H 12/03/20 08:12 POC Glucose (mg/dL) 364 mg/dL (65-99) H 12/03/20 11:13 Lactic Acid 2.0 mmol/L (0.4-2.0) 11/24/20 17:25 Calcium 8.4 mg/dL (8.5-10.1) L 12/03/20 08:12 Corrected Calcium 9.4 mg/dL (8.5-10.1) 12/03/20 08:12 Total Bilirubin 1.00 mg/dL (0.2-1.0) 12/03/20 08:12 AST 31 Units/L (15-37) 12/03/20 08:12 ALT 59 Units/L (12-78) 12/03/20 08:12 Alkaline Phosphatase 92 Units/L (46-116) 12/03/20 08:12 Creatine Kinase 79 Units/L (39-308) 11/24/20 17:25 CK-MB (CK-2) < 1.0 ng/mL (0-4.0) 11/24/20 17:25 CK/CKMB % Calc 1.3 % (<4) 11/24/20 17:25 Troponin I < 0.02 ng/mL (0-1.5) 11/24/20 17:25 C-Reactive Protein 1.00 mg/L (0-3.0) 12/02/20 08:23 Total Protein 6.5 g/dL (6.4-8.2) 12/03/20 08:12 Albumin 2.8 g/dL (3.4-5.0) L 12/03/20 08:12 Globulin 3.7 g/dL (2.5-4.5) 12/03/20 08:12 Albumin/Globulin Ratio 0.8 Ratio (1.1-2.1) L 12/03/20 08:12 Amylase 48 Units/L (25-115) 11/24/20 17:25 Lipase 220 Units/L (73-393) 11/24/20 17:25 Specimen Type Clean catch urine 11/24/20 18:16 Urine Color Yellow (YELLOW) 11/24/20 18:16 Urine Appearance Clear (CLEAR) 11/24/20 18:16 Urine pH 5.0 (5.0 - 8.0) 11/24/20 18:16 Ur Specific [place] 1.025 (1.000-1.030) 11/24/20 18:16 Urine Protein 3+ (NEGATIVE) 11/24/20 18:16 Urine Glucose (UA) 4+ (NEGATIVE) 11/24/20 18:16 Urine Ketones 1+ (NEGATIVE) 11/24/20 18:16 Urine Occult Blood Negative (NEGATIVE) 11/24/20 18:16 Urine Nitrite Negative (NEGATIVE) 11/24/20 18:16 Urine Bilirubin Negative (NEGATIVE) 11/24/20 18:16 Urine Urobilinogen Normal (NORMAL) 11/24/20 18:16 Ur Leukocyte Esterase Negative (NEGATIVE) 11/24/20 18:16 Urine RBC None seen /HPF (0-3) 11/24/20 18:16 Urine WBC None seen /HPF (0-5) 11/24/20 18:16 Ur Squamous Epith Cells Rare /HPF (NEGATIVE) 11/24/20 18:16 Urine Bacteria Negative /HPF (NEGATIVE) 11/24/20 18:16 Ur Culture Indicated? No/not indicated 11/24/20 18:16 Acetone, Semi-Quant Negative (NEGATIVE) 11/24/20 17:30 SARS-CoV-2 (PCR) Positive (NEGATIVE) A 11/24/20 20:17 Influenza Type A (PCR) Negative (NEGATIVE) 11/24/20 20:17 Influenza Type B (PCR) Negative (NEGATIVE) 11/24/20 20:17 RSV (PCR) Negative (NEGATIVE) 11/24/20 20:17 S. pyogenes (TEM-PCR) Not detected (NOT DETECT) 11/24/20 20:17 Plan (1) COVID-19 virus infection: Status: Acute Plan: Still hypoxic and sob; unable to wean oxygen; repeat cxr; continue current mgmt. (2) Pulmonary edema: Status: Acute Qualifiers: Chronicity: chronic Qualified Code(s): J81.1 - Chronic pulmonary edema (3) Pneumonia: Status: Acute Qualifiers: Laterality: right Lung location: upper lobe of lung Pneumonia type: due to unspecified organism Qualified Code(s): J18.9 - Pneumonia, unspecified organism (4) Acute respiratory failure with hypoxia: Status: Acute Plan: Improving slowly; wean oxygen as tolerated. (5) HTN (hypertension): Status: Acute Qualifiers: Hypertension type: essential hypertension Qualified Code(s): I10 - Essential (primary) hypertension Plan: Remains elevated; increase apresoline and follow. (6) Hx of CABG: Status: Acute (7) Diabetes: Status: Acute Qualifiers: Diabetes mellitus complication status: without complication Diabetes mellitus long-term insulin use: without long-term use Diabetes mellitus type: type 2 Qualified Code(s): E11.9 - Type 2 diabetes mellitus without complications (8) FRANCIS (acute kidney injury): Status: Acute (9) Thrombocytopenia: Status: Acute
[2020-12-03] MEDS: SNACK - Diabetic Appropriate PO SCH (20:04)
[2020-12-03] MEDS: LIPITOR TAB 80 MG PO SCH (20:07)
[2020-12-04] MEDS ORDERED: NS 100 ML IV 100 ML ONE ×3 (01:29→20:17)
[2020-12-04] MEDS: ASCORBIC ACID INJ MULTI-DOSE VIAL 1,500 MG in NS 100 ML IV 100 ML IV SCH ×4 (02:19→20:19)
[2020-12-04 05:14] LABS: BASOPHILS % (AUTO) 0.1 % (0.2-1.0); EOSINOPHILS % (AUTO) 0.2 % (0.9-2.9); HEMATOCRIT 40.1 % (42.0-54.0); HEMOGLOBIN 13.6 g/dL (13.5-18.0); LYMPHOCYTES # (AUTO) 0.5 X10^3/uL (1.3-2.9); LYMPHOCYTES % (AUTO) 6.7 % (21.0-51.0); MEAN CORPUSCULAR HEMOGLOBIN 29.4 pg (27.0-34.0); MEAN CORPUSCULAR VOLUME 86.3 fL (80.0-100.0); MEAN PLATELET VOLUME 8.6 fL (7.4-11.0); MONOCYTES # (AUTO) 0.4 x10^3/uL (0.3-0.8); MONOCYTES % (AUTO) 4.9 % (0.0-13.0); NEUTROPHILS % (AUTO) 88.1 % (42.0-75.0); PLATELET COUNT 200 X10^3/uL (150.0-450.0); RED BLOOD COUNT 4.64 X10^6/uL (4.7-6.0); RED CELL DISTRIBUTION WIDTH 14.3 % (11.6-16.5); WHITE BLOOD COUNT 7.9 X10^3/uL (3.6-10.0)
[2020-12-04] MEDS ORDERED: NS 100 ML IV + SPIKE MINIBAG* 100 ML IV ONE (05:16)
[2020-12-04 05:20] LABS: ALANINE AMINOTRANSFERASE 56 Units/L (12-78); ALBUMIN 2.5 g/dL (3.4-5.0); ALKALINE PHOSPHATASE 77 Units/L (46-116); ASPARTATE AMINO TRANSFERASE 30 Units/L (15-37); BLOOD UREA NITROGEN 25 mg/dL (7-18); CALCIUM 8.2 mg/dL (8.5-10.1); CARBON DIOXIDE 26.5 mmol/L (21-32); CHLORIDE 107 mmol/L (98-107); COR CA(FOR HYPOALB) 9.4 mg/dL (8.5-10.1); COR NA(FOR HYPERGLY) 145 mmol/L (136-145); CREATININE 0.92 mg/dL (0.70-1.30); SODIUM 141 mmol/L (136-145); eGFR NON BLACK RACES > 60 (>60)
[2020-12-04] MEDS: ALPHA LIPOIC ACID 200 MG PO SCH ×3 (05:23→21:17)
[2020-12-04] MEDS: FORTAZ or TAZICEF VIAL INJ 2 G in NS 100 ML IV + SPIKE MINIBAG* 100 ML IV SCH ×3 (05:24→21:17)
[2020-12-04] MEDS: APRESOLINE TAB 10 MG PO SCH ×3 (05:24→21:17)
[2020-12-04] MEDS: HumuLIN R SUBCUT PRN ×4 (05:44→20:27)
[2020-12-04] MEDS: DUONEB 0.5 MG/3 MG (3 mL) NEB SCH ×4 (08:08→20:23)
[2020-12-04] MEDS: PULMICORT NEB TX 0.5 MG NEB SCH ×2 (08:09→20:23)
[2020-12-04] MEDS: CINNAMON BARK 1000 MG PO SCH ×2 (08:51→20:21)
[2020-12-04] MEDS: VSL#3 PO SCH (08:53)
[2020-12-04] MEDS: SOLU-Medrol 40 MG VIAL IVP SCH (08:54)
[2020-12-04] MEDS: LOVENOX INJ 30 MG SYR SC SCH ×2 (08:54→20:23)
[2020-12-04] MEDS: PEPCID TAB 40 MG PO SCH ×2 (08:55→20:25)
[2020-12-04] MEDS: COREG TAB 12.5 MG PO SCH ×2 (08:55→20:21)
[2020-12-04] MEDS: VITAMIN D3 125 mcg (5,000 UNITS) PO SCH (08:55)
[2020-12-04] MEDS: COZAAR PO SCH (08:55)
[2020-12-04] MEDS: ZINC SULFATE PO SCH ×2 (08:55→20:25)
[2020-12-04] MEDS: ZyrTEC TAB 10 MG PO SCH (08:56)
[2020-12-04] MEDS: ISOSORBIDE MONONITRATE ER 24-HR PO SCH (08:56)
[2020-12-04] MEDS: LANTUS SC SCH (08:57)
[2020-12-04] MEDS: DAPAGLIFLOZIN 10 MG PO SCH (08:57)
[2020-12-04] MEDS: FLONASE NASAL SPRAY ENOSTRIL SCH (08:58)
[2020-12-04] MEDS: VITAMIN A PO SCH (09:19)
[2020-12-04] MEDS: ROBITUSSIN DM PO SCH ×4 (09:19→20:25)
--- NOTE | 2020-12-04 11:28 | RAD ---
HISTORYHYPOXIA, COVID PNEUMONIASTUDYCHEST x-ray, 1 VIEWCOMPARISONX-ray 12/02/2020FINDINGSBilateral lung infiltrates are seen with predilection towards the periphery of the lungs. Findings suggest COVID-19 pneumonia. Appearance is unchanged from prior study. Prior cardiac surgery. Heart is probably normal in size. No pneumothorax or pleural effusion is seen.IMPRESSIONAppearance of the chest is unchanged.Electronically signed by: Stephane Gonzalez (Dec 04, 2020 11:27:07)
--- NOTE | 2020-12-04 12:21 | PCM.PROG ---
Progress Note Progress Note for Day of Date of Exam: 12/04/20 Subjective Subjective: Patient seen at bedside, no acute events overnight. He states he feels better. His sats have been in the mid 80son 3L. He feels dyspnea on exertion. His sats drop into the high 70s with ambulation but he recovers back quickly. He states his cough is almost gone, not coughing up sputum. He has been afebrile. He continues to work with PT/OT and RT. He has been doing exercises on the recliner as well as ambulating in the room. He has normal appetite. Labs WBC 13.6 BUN/Cr: 25/0.92 Sputum: Pseudomonas Blood Cx: negative ECHO: EF 60%, normal global wall motion, mild pulmonary HTN CTA chest: no PE, bilateral multifocal patchy pneumonia, worse in RUL consistent with COVID-19 infection Plan: Will repeat CXR, patient continues to improve slowly. He appears to be in no respiratory distress. His sats do increase if he is just sitting and resting. He does still have some dyspnea on exertion. Titrate O2 as tolerated to keep sats > 88%. Continue to ambulate in the room, sit up on the chair and work with PT/OT as tolerated. Patient completed course of Remdesivir and Azithromycin. Continue Fortaz. Continue solumedrol 60 mg IV daily. Continue duonebs and pulmicort. Continue IS. Continue losartan and isosorbide mononitrate. Continue low dose coreg and hydralazine 20 mg TID. Continue Lovenox 30 mg BID and vitamin support. Increase Lantus to 18 units QAM, continue Farxiga 10 mg daily. Continue to monitor patient in the ICU with telemetry and COVID protocol. Monitor AM labs and imaging. Time spent for clinical assessment, reviewing labs/imaging, physical exam, management, decision making and documentation greater than 75 mins. Past Medical Family Social History Past Med/Fam/Surg Hx: No changes since H&P Allergies: Allergies No Known Drug Allergies Allergy (Verified 11/24/20 20:28) Review of Systems ROS: No change since H&P Vital Signs and I&O's Vital Signs: Temperature 98.3 F Pulse Rate [Left] 74 Pulse Rate [Left Brachial] 60 Pulse Rate 69 Respiratory Rate 21 Blood Pressure [Left Arm] 151/70 Blood Pressure 126/70 O2 Sat by Pulse Oximetry 85 Intake and Output: Intake & Output 12/01/20 12/02/20 12/03/20 12/04/20 23:59 23:59 23:59 23:59 Intake Total 3740 / 3740 2361 / 2361 3175 / 3175 838 / 838 Output Total 4200 / 4200 4150 / 4150 4850 / 4850 700 / 700 Balance -460 / -460 -1789 / -1789 -1675 / -1675 138 / 138 Physical Exam Oriented: Normal Eyes: Normal Ear: Normal Nose: Normal Throat: Normal Respiratory: Generalized and Diminished Cardiovascular: Normal Auscultation: Bowel Sounds: Normal Tenderness: Normal Skin: Normal Musculoskeletal: Normal Mood Description: Calm Affect: Normal Speech Pattern: Clear and Appropriate Laboratory and Diagnostics Result Diagrams: 12/04/20 04:45 12/04/20 04:45 Labs: 11/24/20 17:25 Blood Blood Culture - Final 11/24/20 17:25 Blood Blood Culture - Final 11/25/20 06:08 Sputum - Expectorated Sputum Sputum Culture - Final Pseudomonas Aeruginosa 11/25/20 06:08 Sputum - Expectorated Sputum - Final Laboratory WBC 7.9 X10^3/uL (3.6-10.0) 12/04/20 04:45 RBC 4.64 X10^6/uL (4.7-6.0) L 12/04/20 04:45 Hgb 13.6 g/dL (13.5-18.0) 12/04/20 04:45 Hct 40.1 % (42.0-54.0) L 12/04/20 04:45 MCV 86.3 fL (80.0-100.0) 12/04/20 04:45 MCH 29.4 pg (27.0-34.0) 12/04/20 04:45 MCHC 34.0 g/dL (33.0-35.0) 12/04/20 04:45 RDW 14.3 % (11.6-16.5) 12/04/20 04:45 Plt Count 200 X10^3/uL (150.0-450.0) 12/04/20 04:45 Plt Count Comment Adequate (ADEQUATE) 12/03/20 08:12 MPV 8.6 fL (7.4-11.0) 12/04/20 04:45 Neut % (Auto) 88.1 % (42.0-75.0) H 12/04/20 04:45 Lymph % (Auto) 6.7 % (21.0-51.0) L 12/04/20 04:45 [place] % (Auto) 4.9 % (0.0-13.0) 12/04/20 04:45 Eos % (Auto) 0.2 % (0.9-2.9) L 12/04/20 04:45 Baso % (Auto) 0.1 % (0.2-1.0) L 12/04/20 04:45 Neut # (Auto) 7.0 x10^3/uL (2.2-4.8) H 12/04/20 04:45 Lymph # (Auto) 0.5 X10^3/uL (1.3-2.9) L 12/04/20 04:45 [place] # (Auto) 0.4 x10^3/uL (0.3-0.8) 12/04/20 04:45 Eos # (Auto) 0.0 x10^3/uL (0.0-0.2) 12/04/20 04:45 Baso # (Auto) 0.0 X10^3/uL (0.0-0.1) 12/04/20 04:45 Absolute Nucleated RBC 0.1 /100WBC 12/04/20 04:45 Total Counted 100 12/03/20 08:12 Neutrophils % (Manual) 92 % (39-76) H 12/03/20 08:12 Band Neutrophils % 4 % (0-10) 11/26/20 04:16 Lymphocytes % (Manual) 4 % (13-43) L 12/03/20 08:12 Monocytes % (Manual) 4 % (4-9) 12/03/20 08:12 Plt Morphology Comment Normal (NORMAL) 12/03/20 08:12 RBC Morphology Normal (NORMAL) 12/03/20 08:12 D-Dimer 1.54 ug/ml (0.0-0.57) H* 11/25/20 08:11 Sample Site Rr 11/29/20 09:26 ABG pH 7.480 (7.35-7.45) H 11/29/20 09:26 ABG pCO2 36.0 mmHg (35.0-45.0) 11/29/20 09:26 ABG pO2 49.0 mmHg (80.0-100.0) L* 11/29/20 09:26 ABG HCO3 26.8 mmol/L (22-26) H 11/29/20 09:26 ABG O2 Saturation 87.0 % (90-100) L 11/29/20 09:26 ABG Base Excess 3.3 mmol/L (-2.0-2.0) H 11/29/20 09:26 Bernardo Test Pos 11/29/20 09:26 A-a Gradient 134.0 mmHg 11/29/20 09:26 FiO2 32.0 11/29/20 09:26 Blood Gas Comments Pt galina well cdn 11/29/20 09:26 Sodium 141 mmol/L (136-145) 12/04/20 04:45 Corrected Sodium 145 mmol/L (136-145) 12/04/20 04:45 Potassium 4.0 mmol/L (3.5-5.1) 12/04/20 04:45 Chloride 107 mmol/L (98-107) 12/04/20 04:45 Carbon Dioxide 26.5 mmol/L (21-32) 12/04/20 04:45 BUN 25 mg/dL (7-18) H 12/04/20 04:45 Creatinine 0.92 mg/dL (0.70-1.30) 12/04/20 04:45 Est GFR (MDRD) Af Amer > 60 (>60) 12/04/20 04:45 Est GFR (MDRD) Non-Af > 60 (>60) 12/04/20 04:45 Glucose 281 mg/dL (65-99) H 12/04/20 04:45 POC Glucose (mg/dL) 227 mg/dL (65-99) H 12/04/20 11:43 Lactic Acid 2.0 mmol/L (0.4-2.0) 11/24/20 17:25 Calcium 8.2 mg/dL (8.5-10.1) L 12/04/20 04:45 Corrected Calcium 9.4 mg/dL (8.5-10.1) 12/04/20 04:45 Total Bilirubin 0.90 mg/dL (0.2-1.0) 12/04/20 04:45 AST 30 Units/L (15-37) 12/04/20 04:45 ALT 56 Units/L (12-78) 12/04/20 04:45 Alkaline Phosphatase 77 Units/L (46-116) 12/04/20 04:45 Creatine Kinase 79 Units/L (39-308) 11/24/20 17:25 CK-MB (CK-2) < 1.0 ng/mL (0-4.0) 11/24/20 17:25 CK/CKMB % Calc 1.3 % (<4) 11/24/20 17:25 Troponin I < 0.02 ng/mL (0-1.5) 11/24/20 17:25 C-Reactive Protein 1.00 mg/L (0-3.0) 12/02/20 08:23 Total Protein 6.0 g/dL (6.4-8.2) L 12/04/20 04:45 Albumin 2.5 g/dL (3.4-5.0) L 12/04/20 04:45 Globulin 3.5 g/dL (2.5-4.5) 12/04/20 04:45 Albumin/Globulin Ratio 0.7 Ratio (1.1-2.1) L 12/04/20 04:45 Amylase 48 Units/L (25-115) 11/24/20 17:25 Lipase 220 Units/L (73-393) 11/24/20 17:25 Specimen Type Clean catch urine 11/24/20 18:16 Urine Color Yellow (YELLOW) 11/24/20 18:16 Urine Appearance Clear (CLEAR) 11/24/20 18:16 Urine pH 5.0 (5.0 - 8.0) 11/24/20 18:16 Ur Specific [place] 1.025 (1.000-1.030) 11/24/20 18:16 Urine Protein 3+ (NEGATIVE) 11/24/20 18:16 Urine Glucose (UA) 4+ (NEGATIVE) 11/24/20 18:16 Urine Ketones 1+ (NEGATIVE) 11/24/20 18:16 Urine Occult Blood Negative (NEGATIVE) 11/24/20 18:16 Urine Nitrite Negative (NEGATIVE) 11/24/20 18:16 Urine Bilirubin Negative (NEGATIVE) 11/24/20 18:16 Urine Urobilinogen Normal (NORMAL) 11/24/20 18:16 Ur Leukocyte Esterase Negative (NEGATIVE) 11/24/20 18:16 Urine RBC None seen /HPF (0-3) 11/24/20 18:16 Urine WBC None seen /HPF (0-5) 11/24/20 18:16 Ur Squamous Epith Cells Rare /HPF (NEGATIVE) 11/24/20 18:16 Urine Bacteria Negative /HPF (NEGATIVE) 11/24/20 18:16 Ur Culture Indicated? No/not indicated 11/24/20 18:16 Acetone, Semi-Quant Negative (NEGATIVE) 11/24/20 17:30 SARS-CoV-2 (PCR) Positive (NEGATIVE) A 11/24/20 20:17 Influenza Type A (PCR) Negative (NEGATIVE) 11/24/20 20:17 Influenza Type B (PCR) Negative (NEGATIVE) 11/24/20 20:17 RSV (PCR) Negative (NEGATIVE) 11/24/20 20:17 S. pyogenes (TEM-PCR) Not detected (NOT DETECT) 11/24/20 20:17 Plan (1) Acute respiratory failure with hypoxia: Status: Acute Plan: Improving slowly; wean oxygen as tolerated. (2) COVID-19 virus infection: Status: Acute Plan: Still hypoxic and sob; unable to wean oxygen; repeat cxr; continue current mgmt. (3) Pulmonary edema: Status: Acute Qualifiers: Chronicity: chronic Qualified Code(s): J81.1 - Chronic pulmonary edema (4) Pneumonia: Status: Acute Qualifiers: Laterality: right Lung location: upper lobe of lung Pneumonia type: due to unspecified organism Qualified Code(s): J18.9 - Pneumonia, unspecified organism (5) HTN (hypertension): Status: Acute Qualifiers: Hypertension type: essential hypertension Qualified Code(s): I10 - Esse ntial (primary) hypertension Plan: Remains elevated; increase apresoline and follow. (6) Hx of CABG: Status: Acute (7) Diabetes: Status: Acute Qualifiers: Diabetes mellitus complication status: without complication Diabetes mellitus snf insulin use: without superintendent container terminal use Diabetes mellitus type: type 2 Qualified Code(s): E11.9 - Type 2 diabetes mellitus without complications (8) FRANCIS (acute kidney injury): Status: Acute (9) Thrombocytopenia: Status: Acute
[2020-12-04] MEDS: SNACK - Diabetic Appropriate PO SCH (20:19)
[2020-12-04] MEDS: LIPITOR TAB 80 MG PO SCH (20:22)
[2020-12-04] MEDS ORDERED: FORTAZ or TAZICEF VIAL INJ ONE (20:31)
[2020-12-05] MEDS: ASCORBIC ACID INJ MULTI-DOSE VIAL 1,500 MG in NS 100 ML IV 100 ML IV SCH ×2 (03:02→09:05)
[2020-12-05] MEDS: TUSSIONEX PENNKINETIC SUSP PO PRN (03:11)
[2020-12-05] MEDS: APRESOLINE TAB 10 MG PO SCH ×3 (06:20→21:05)
[2020-12-05] MEDS: ALPHA LIPOIC ACID 200 MG PO SCH ×3 (06:20→21:05)
[2020-12-05 06:22] LABS: BASOPHILS % (AUTO) 0.2 % (0.2-1.0); EOSINOPHILS % (AUTO) 0.7 % (0.9-2.9); HEMATOCRIT 39.1 % (42.0-54.0); HEMOGLOBIN 13.4 g/dL (13.5-18.0); LYMPHOCYTES # (AUTO) 0.6 X10^3/uL (1.3-2.9); LYMPHOCYTES % (AUTO) 8.1 % (21.0-51.0); MEAN CORPUSCULAR HEMOGLOBIN 29.6 pg (27.0-34.0); MEAN CORPUSCULAR HGB CONC 34.2 g/dL (33.0-35.0); MEAN CORPUSCULAR VOLUME 86.5 fL (80.0-100.0); MEAN PLATELET VOLUME 8.7 fL (7.4-11.0); MONOCYTES # (AUTO) 0.4 x10^3/uL (0.3-0.8); MONOCYTES % (AUTO) 5.1 % (0.0-13.0); NEUTROPHILS # (AUTO) 6.1 x10^3/uL (2.2-4.8); NEUTROPHILS % (AUTO) 85.9 % (42.0-75.0); PLATELET COUNT 188 X10^3/uL (150.0-450.0); RED BLOOD COUNT 4.52 X10^6/uL (4.7-6.0); RED CELL DISTRIBUTION WIDTH 14.7 % (11.6-16.5); WHITE BLOOD COUNT 7.1 X10^3/uL (3.6-10.0)
[2020-12-05] MEDS: FORTAZ or TAZICEF VIAL INJ 2 G in NS 100 ML IV + SPIKE MINIBAG* 100 ML IV SCH ×3 (06:22→21:05)
[2020-12-05] MEDS: HumuLIN R SUBCUT PRN ×4 (06:39→20:53)
[2020-12-05 06:55] LABS: ALANINE AMINOTRANSFERASE 58 Units/L (12-78); ALBUMIN 2.4 g/dL (3.4-5.0); ALKALINE PHOSPHATASE 71 Units/L (46-116); ASPARTATE AMINO TRANSFERASE 28 Units/L (15-37); BLOOD UREA NITROGEN 24 mg/dL (7-18); CALCIUM 8.2 mg/dL (8.5-10.1); CARBON DIOXIDE 27.9 mmol/L (21-32); CHLORIDE 107 mmol/L (98-107); COR CA(FOR HYPOALB) 9.5 mg/dL (8.5-10.1); COR NA(FOR HYPERGLY) 144 mmol/L (136-145); SODIUM 142 mmol/L (136-145); TOTAL PROTEIN 5.9 g/dL (6.4-8.2); eGFR NON BLACK RACES > 60 (>60)
[2020-12-05] MEDS: VSL#3 PO SCH (09:05)
[2020-12-05] MEDS: ROBITUSSIN DM PO SCH ×4 (09:05→20:55)
[2020-12-05] MEDS: ISOSORBIDE MONONITRATE ER 24-HR PO SCH (09:06)
[2020-12-05] MEDS: COZAAR PO SCH (09:06)
[2020-12-05] MEDS: VITAMIN D3 125 mcg (5,000 UNITS) PO SCH (09:07)
[2020-12-05] MEDS: COREG TAB 12.5 MG PO SCH ×2 (09:08→20:52)
[2020-12-05] MEDS: ZyrTEC TAB 10 MG PO SCH (09:08)
[2020-12-05] MEDS: SOLU-Medrol 40 MG VIAL IVP SCH (09:08)
[2020-12-05] MEDS: ZINC SULFATE PO SCH ×2 (09:09→20:54)
[2020-12-05] MEDS: VITAMIN A PO SCH (09:09)
[2020-12-05] MEDS: LANTUS SC SCH (09:10)
[2020-12-05] MEDS: PEPCID TAB 40 MG PO SCH ×2 (09:10→20:52)
[2020-12-05] MEDS: FLONASE NASAL SPRAY ENOSTRIL SCH (09:11)
[2020-12-05] MEDS: LOVENOX INJ 30 MG SYR SC SCH ×2 (09:12→21:05)
[2020-12-05] MEDS: CINNAMON BARK 1000 MG PO SCH ×2 (09:13→21:04)
[2020-12-05] MEDS: DAPAGLIFLOZIN 10 MG PO SCH (09:13)
[2020-12-05] MEDS: PULMICORT NEB TX 0.5 MG NEB SCH ×2 (09:39→20:38)
[2020-12-05] MEDS: DUONEB 0.5 MG/3 MG (3 mL) NEB SCH ×4 (09:39→20:38)
[2020-12-05] MEDS ORDERED: NS 100 ML IV 100 ML ONE (11:22)
--- NOTE | 2020-12-05 12:36 | CT ---
HISTORYCOVID +STUDYCTA CHESTCOMPARISONChest radiograph from 12/04/2020.TECHNIQUECTA chest protocol with axial images from the thoracic inlet to upper abdomen with IV contrast. Sagittal and coronal reformats and MIP images were created. Automated exposure control was utilized.FINDINGSThe visualized thyroid gland appears benign. Mildly atherosclerotic normal caliber thoracic aorta. Pulmonary artery is normal in caliber centrally. No filling defect is identified to suggest pulmonary embolism. Heart is borderline in size. Status post median sternotomy and CABG.No pericardial effusion. Mildly enlarged right hilar lymph node measuring 1 cm short axis image 57 series 4. Left paratracheal 1.1 cm short axis lymph node image 45 series 4. Cholecystectomy. The trachea and mainstem bronchi appear patent. No acute osseous abnormality. Moderate bilateral mainly peripheral distribution of ground-glass opacities. No pleural effusion or pneumothorax.IMPRESSIONNegative for pulmonary embolism. Moderate peripheral ground-glass opacities consistent with COVID 19. Likely reactive mild mediastinal and hilar adenopathy.Electronically signed by: Scott Vogel (Dec 05, 2020 12:33:55)
--- NOTE | 2020-12-05 13:04 | PCM.PROG ---
Progress Note Progress Note for Day of Date of Exam: 12/05/20 Subjective Subjective: Patient seen at bedside, no acute events overnight. His O2 was turned up to 4 and then 5L overnight due to sats remaining in the low to mid 80s. His sats came up to 93% on 5L and then was weaned down to 4.5L nasal canula. He is currently eating breakfast, sats in the mid 80s. He denies SOB at rest or any respiratory distress. He still does have dyspnea on exertion. He continues to work with PT and RT. He has been doing exercises while sitting. He continues to use the spirometer. He has been afebrile. His appetite is normal. Labs Hgb 13.4 WBC:7.1 BUN/Cr: 27/0.80 Sputum: Pseudomonas Blood Cx: negative ECHO: EF 60%, normal global wall motion, mild pulmonary HTN CXR (12/04/20): unchanged from prev imaging. Plan: Will repeat d-dimer and if continues to remain elevated then repeat CTA to rule out PE. Patient continues to improve very slowly. He appears to be in no respiratory distress. His sats do increase if he is just sitting and resting. He does still have some dyspnea on exertion. Titrate O2 as tolerated to keep sats > 88%. Continue to ambulate in the room, sit up on the chair and work with PT/OT as tolerated. Patient completed course of Remdesivir and Azithromycin. Continue Fortaz. Continue solumedrol 60 mg IV daily. Continue duonebs and pulmicort. Continue IS. Continue losartan and isosorbide mononitrate. Continue low dose coreg and hydralazine 20 mg TID. Continue Lovenox 30 mg BID and vitamin support. Continue Lantus 18 units QAM, continue Farxiga 10 mg daily. Continue to monitor patient in the ICU with telemetry and COVID protocol. CM working on setting up home oxygen. Patient does live alone. Monitor AM labs and imaging. Time spent for clinical assessment, reviewing labs/imaging, physical exam, management, decision making and documentation greater than 75 mins. Past Medical Family Social History Past Med/Fam/Surg Hx: No changes since H&P Allergies: Allergies No Known Drug Allergies Allergy (Verified 11/24/20 20:28) Review of Systems ROS: No change since H&P Vital Signs and I&O's Vital Signs: Temperature 97.3 F Pulse Rate [Left] 87 Pulse Rate [Left Brachial] 60 Pulse Rate 73 Respiratory Rate 24 Blood Pressure [Left Arm] 127/70 Blood Pressure 126/70 O2 Sat by Pulse Oximetry 89 Intake and Output: Intake & Output 12/02/20 12/03/20 12/04/20 12/05/20 23:59 23:59 23:59 23:59 Intake Total 2361 / 2361 3175 / 3175 3245 / 3245 871 / 871 Output Total 4150 / 4150 4850 / 4850 3225 / 3225 950 / 950 Balance -1789 / -1789 -1675 / -1675 / Physical Exam Oriented: Normal Eyes: Normal Ear: Normal Nose: Normal Throat: Normal Respiratory: Generalized, Diminished and Rales Cardiovascular: Normal; negative Edema Auscultation: Bowel Sounds: Normal Tenderness: Normal Skin: Normal Musculoskeletal: Normal Mood Description: Calm Affect: Normal Speech Pattern: Clear and Appropriate Laboratory and Diagnostics Result Diagrams: 12/05/20 04:55 12/05/20 04:55 Labs: 11/24/20 17:25 Blood Blood Culture - Final 11/24/20 17:25 Blood Blood Culture - Final 11/25/20 06:08 Sputum - Expectorated Sputum Sputum Culture - Final Pseudomonas Aeruginosa 11/25/20 06:08 Sputum - Expectorated Sputum - Final Laboratory WBC 7.1 X10^3/uL (3.6-10.0) 12/05/20 04:55 RBC 4.52 X10^6/uL (4.7-6.0) L 12/05/20 04:55 Hgb 13.4 g/dL (13.5-18.0) L 12/05/20 04:55 Hct 39.1 % (42.0-54.0) L 12/05/20 04:55 MCV 86.5 fL (80.0-100.0) 12/05/20 04:55 MCH 29.6 pg (27.0-34.0) 12/05/20 04:55 MCHC 34.2 g/dL (33.0-35.0) 12/05/20 04:55 RDW 14.7 % (11.6-16.5) 12/05/20 04:55 Plt Count 188 X10^3/uL (150.0-450.0) 12/05/20 04:55 Plt Count Comment Adequate (ADEQUATE) 12/03/20 08:12 MPV 8.7 fL (7.4-11.0) 12/05/20 04:55 Neut % (Auto) 85.9 % (42.0-75.0) H 12/05/20 04:55 Lymph % (Auto) 8.1 % (21.0-51.0) L 12/05/20 04:55 [place] % (Auto) 5.1 % (0.0-13.0) 12/05/20 04:55 Eos % (Auto) 0.7 % (0.9-2.9) L 12/05/20 04:55 Baso % (Auto) 0.2 % (0.2-1.0) 12/05/20 04:55 Neut # (Auto) 6.1 x10^3/uL (2.2-4.8) H 12/05/20 04:55 Lymph # (Auto) 0.6 X10^3/uL (1.3-2.9) L 12/05/20 04:55 [place] # (Auto) 0.4 x10^3/uL (0.3-0.8) 12/05/20 04:55 Eos # (Auto) 0.0 x10^3/uL (0.0-0.2) 12/05/20 04:55 Baso # (Auto) 0.0 X10^3/uL (0.0-0.1) 12/05/20 04:55 Absolute Nucleated RBC 0.1 /100WBC 12/05/20 04:55 Total Counted 100 12/03/20 08:12 Neutrophils % (Manual) 92 % (39-76) H 12/03/20 08:12 Band Neutrophils % 4 % (0-10) 11/26/20 04:16 Lymphocytes % (Manual) 4 % (13-43) L 12/03/20 08:12 Monocytes % (Manual) 4 % (4-9) 12/03/20 08:12 Plt Morphology Comment Normal (NORMAL) 12/03/20 08:12 RBC Morphology Normal (NORMAL) 12/03/20 08:12 D-Dimer 1.13 ug/ml (0.0-0.57) H* 12/05/20 08:47 Sample Site Rr 11/29/20 09:26 ABG pH 7.480 (7.35-7.45) H 11/29/20 09:26 ABG pCO2 36.0 mmHg (35.0-45.0) 11/29/20 09:26 ABG pO2 49.0 mmHg (80.0-100.0) L* 11/29/20 09:26 ABG HCO3 26.8 mmol/L (22-26) H 11/29/20 09:26 ABG O2 Saturation 87.0 % (90-100) L 11/29/20 09:26 ABG Base Excess 3.3 mmol/L (-2.0-2.0) H 11/29/20 09:26 Bernardo Test Pos 11/29/20 09:26 A-a Gradient 134.0 mmHg 11/29/20 09:26 FiO2 32.0 11/29/20 09:26 Blood Gas Comments Pt galina well cdn 11/29/20 09:26 Sodium 142 mmol/L (136-145) 12/05/20 04:55 Corrected Sodium 144 mmol/L (136-145) 12/05/20 04:55 Potassium 3.9 mmol/L (3.5-5.1) 12/05/20 04:55 Chloride 107 mmol/L (98-107) 12/05/20 04:55 Carbon Dioxide 27.9 mmol/L (21-32) 12/05/20 04:55 BUN 24 mg/dL (7-18) H 12/05/20 04:55 Creatinine 0.80 mg/dL (0.70-1.30) 12/05/20 04:55 Est GFR (MDRD) Af Amer > 60 (>60) 12/05/20 04:55 Est GFR (MDRD) Non-Af > 60 (>60) 12/05/20 04:55 Glucose 203 mg/dL (65-99) H 12/05/20 04:55 POC Glucose (mg/dL) 235 mg/dL (65-99) H 12/05/20 11:26 Lactic Acid 2.0 mmol/L (0.4-2.0) 11/24/20 17:25 Calcium 8.2 mg/dL (8.5-10.1) L 12/05/20 04:55 Corrected Calcium 9.5 mg/dL (8.5-10.1) 12/05/20 04:55 Total Bilirubin 0.90 mg/dL (0.2-1.0) 12/05/20 04:55 AST 28 Units/L (15-37) 12/05/20 04:55 ALT 58 Units/L (12-78) 12/05/20 04:55 Alkaline Phosphatase 71 Units/L (46-116) 12/05/20 04:55 Creatine Kinase 79 Units/L (39-308) 11/24/20 17:25 CK-MB (CK-2) < 1.0 ng/mL (0-4.0) 11/24/20 17:25 CK/CKMB % Calc 1.3 % (<4) 11/24/20 17:25 Troponin I < 0.02 ng/mL (0-1.5) 11/24/20 17:25 C-Reactive Protein 1.00 mg/L (0-3.0) 12/02/20 08:23 Total Protein 5.9 g/dL (6.4-8.2) L 12/05/20 04:55 Albumin 2.4 g/dL (3.4-5.0) L 12/05/20 04:55 Globulin 3.5 g/dL (2.5-4.5) 12/05/20 04:55 Albumin/Globulin Ratio 0.7 Ratio (1.1-2.1) L 12/05/20 04:55 Amylase 48 Units/L (25-115) 11/24/20 17:25 Lipase 220 Units/L (73-393) 11/24/20 17:25 Specimen Type Clean catch urine 11/24/20 18:16 Urine Color Yellow (YELLOW) 11/24/20 18:16 Urine Appearance Clear (CLEAR) 11/24/20 18:16 Urine pH 5.0 (5.0 - 8.0) 11/24/20 18:16 Ur Specific [place] 1.025 (1.000-1.030) 11/24/20 18:16 Urine Protein 3+ (NEGATIVE) 11/24/20 18:16 Urine Glucose (UA) 4+ (NEGATIVE) 11/24/20 18:16 Urine Ketones 1+ (NEGATIVE) 11/24/20 18:16 Urine Occult Blood Negative (NEGATIVE) 11/24/20 18:16 Urine Nitrite Negative (NEGATIVE) 11/24/20 18:16 Urine Bilirubin Negative (NEGATIVE) 11/24/20 18:16 Urine Urobilinogen Normal (NORMAL) 11/24/20 18:16 Ur Leukocyte Esterase Negative (NEGATIVE) 11/24/20 18:16 Urine RBC None seen /HPF (0-3) 11/24/20 18:16 Urine WBC None seen /HPF (0-5) 11/24/20 18:16 Ur Squamous Epith Cells Rare /HPF (NEGATIVE) 11/24/20 18:16 Urine Bacteria Negative /HPF (NEGATIVE) 11/24/20 18:16 Ur Culture Indicated? No/not indicated 11/24/20 18:16 Acetone, Semi-Quant Negative (NEGATIVE) 11/24/20 17:30 SARS-CoV-2 (PCR) Positive (NEGATIVE) A 11/24/20 20:17 Influenza Type A (PCR) Negative (NEGATIVE) 11/24/20 20:17 Influenza Type B (PCR) Negative (NEGATIVE) 11/24/20 20:17 RSV (PCR) Negative (NEGATIVE) 11/24/20 20:17 S. pyogenes (TEM-PCR) Not detected (NOT DETECT) 11/24/20 20:17 Plan (1) Acute respiratory failure with hypoxia: Status: Acute Plan: Improving slowly; wean oxygen as tolerated. (2) COVID-19 virus infection: Status: Acute Plan: Still hypoxic and sob; unable to wean oxygen; repeat cxr; continue current mgmt. (3) Pulmonary edema: Status: Acute Qualifiers: Chronicity: chronic Qualified Code(s): J81.1 - Chronic pulmonary edema (4) Pneumonia: Status: Acute Qualifiers: Laterality: right Lung location: upper lobe of lung Pneumonia type: due to unspecified organism Qualified Code(s): J18.9 - Pneumonia, unspecified organism (5) HTN (hypertension): Status: Acute Qualifiers: Hypertension type: essential hypertension Qualified Code(s): I10 - Essential (primary) hypertension Plan: Remains elevated; increase apresoline and follow. (6) Hx of CABG: Status: Acute (7) Diabetes: Status: Acute Qualifiers: Diabetes mellitus complication status: without complication Diabetes mellitus intermediate insulin use: without continuous churn buttermaker use Diabetes mellitus type: type 2 Qualified Code(s): E11.9 - Type 2 diabetes mellitus without complications (8) FRANCIS (acute kidney injury): Status: Acute (9) Thrombocytopenia: Status: Acute
[2020-12-05] MEDS: SNACK - Diabetic Appropriate PO SCH (20:52)
[2020-12-05] MEDS: LIPITOR TAB 80 MG PO SCH (21:05)
[2020-12-05] MEDS: RESTORIL CAP 15 MG PO PRN (21:25)
[2020-12-06] MEDS: FORTAZ or TAZICEF VIAL INJ 2 G in NS 100 ML IV + SPIKE MINIBAG* 100 ML IV SCH ×3 (05:05→21:08)
[2020-12-06] MEDS: ALPHA LIPOIC ACID 200 MG PO SCH ×3 (05:05→21:08)
[2020-12-06] MEDS: APRESOLINE TAB 10 MG PO SCH ×3 (05:05→21:55)
[2020-12-06 05:11] LABS: BASOPHILS % (AUTO) 0.1 % (0.2-1.0); EOSINOPHILS % (AUTO) 0.2 % (0.9-2.9); HEMATOCRIT 40.2 % (42.0-54.0); HEMOGLOBIN 13.8 g/dL (13.5-18.0); LYMPHOCYTES # (AUTO) 0.5 X10^3/uL (1.3-2.9); LYMPHOCYTES % (AUTO) 5.9 % (21.0-51.0); MEAN CORPUSCULAR HEMOGLOBIN 29.4 pg (27.0-34.0); MEAN CORPUSCULAR HGB CONC 34.2 g/dL (33.0-35.0); MONOCYTES # (AUTO) 0.5 x10^3/uL (0.3-0.8); NEUTROPHILS # (AUTO) 7.8 x10^3/uL (2.2-4.8); NEUTROPHILS % (AUTO) 87.8 % (42.0-75.0); PLATELET COUNT 181 X10^3/uL (150.0-450.0); RED BLOOD COUNT 4.68 X10^6/uL (4.7-6.0); RED CELL DISTRIBUTION WIDTH 14.6 % (11.6-16.5); WHITE BLOOD COUNT 8.9 X10^3/uL (3.6-10.0)
[2020-12-06 05:25] LABS: ALANINE AMINOTRANSFERASE 55 Units/L (12-78); ALBUMIN 2.4 g/dL (3.4-5.0); ALKALINE PHOSPHATASE 72 Units/L (46-116); ASPARTATE AMINO TRANSFERASE 24 Units/L (15-37); BLOOD UREA NITROGEN 24 mg/dL (7-18); CALCIUM 8.5 mg/dL (8.5-10.1); CARBON DIOXIDE 26.3 mmol/L (21-32); CHLORIDE 106 mmol/L (98-107); COR CA(FOR HYPOALB) 9.8 mg/dL (8.5-10.1); COR NA(FOR HYPERGLY) 143 mmol/L (136-145); CREATININE 0.71 mg/dL (0.70-1.30); SODIUM 141 mmol/L (136-145); TOTAL PROTEIN 6.2 g/dL (6.4-8.2); eGFR NON BLACK RACES > 60 (>60)
[2020-12-06] MEDS: HumuLIN R SUBCUT PRN ×4 (05:46→21:09)
[2020-12-06] MEDS: VITAMIN C PO SCH (09:13)
[2020-12-06] MEDS: ROBITUSSIN DM PO SCH ×4 (09:13→20:50)
[2020-12-06] MEDS: VSL#3 PO SCH (09:13)
[2020-12-06] MEDS: ZINC SULFATE PO SCH ×2 (09:14→20:49)
[2020-12-06] MEDS: ZyrTEC TAB 10 MG PO SCH (09:14)
[2020-12-06] MEDS: PEPCID TAB 40 MG PO SCH ×2 (09:14→20:50)
[2020-12-06] MEDS: COREG TAB 12.5 MG PO SCH ×2 (09:14→20:48)
[2020-12-06] MEDS: ISOSORBIDE MONONITRATE ER 24-HR PO SCH (09:14)
[2020-12-06] MEDS: COZAAR PO SCH (09:15)
[2020-12-06] MEDS: VITAMIN D3 125 mcg (5,000 UNITS) PO SCH (09:16)
[2020-12-06] MEDS: DUONEB 0.5 MG/3 MG (3 mL) NEB SCH ×4 (09:21→20:15)
[2020-12-06] MEDS: PULMICORT NEB TX 0.5 MG NEB SCH ×2 (09:21→20:15)
[2020-12-06] MEDS: CINNAMON BARK 1000 MG PO SCH ×2 (09:22→20:47)
[2020-12-06] MEDS: LOVENOX INJ 30 MG SYR SC SCH ×2 (09:28→20:50)
[2020-12-06] MEDS: LANTUS SC SCH (09:29)
[2020-12-06] MEDS: DAPAGLIFLOZIN 10 MG PO SCH (09:29)
[2020-12-06] MEDS: FLONASE NASAL SPRAY ENOSTRIL SCH (09:30)
[2020-12-06] MEDS: VITAMIN A PO SCH (09:30)
--- NOTE | 2020-12-06 11:55 | W.DIS.FURT ---
Summary of Discharge Admission Diagnosis Patient Problems (Updated 12/04/20 @ 12:54 by Peggy Hopson) Pneumonia (Acute) J18.9 Vital Signs: Vital Signs (72 hours) 12/03/20 12:00 12/03/20 12:19 12/03/20 13:00 Temperature 98.0 F Pulse Rate Pulse Rate [Left Brachial] 80 79 Pulse Rate [Left] Respiratory Rate 28 H 27 H Blood Pressure [Left Arm] 150/67 142/69 O2 Sat by Pulse Oximetry 85 L 86 L 84 L 12/03/20 14:00 12/03/20 15:01 12/03/20 16:00 Temperature 97.9 F Pulse Rate Pulse Rate [Left Brachial] 73 72 72 Pulse Rate [Left] Respiratory Rate 22 21 28 H Blood Pressure [Left Arm] 149/68 151/67 160/74 O2 Sat by Pulse Oximetry 89 L 88 L 92 L 12/03/20 16:08 12/03/20 17:00 12/03/20 18:00 Temperature Pulse Rate Pulse Rate [Left Brachial] 75 73 Pulse Rate [Left] Respiratory Rate 29 H 23 Blood Pressure [Left Arm] 136/66 118/73 O2 Sat by Pulse Oximetry 86 L 85 L 87 L 12/03/20 19:00 12/03/20 20:00 12/03/20 21:00 Temperature 97.7 F Pulse Rate Pulse Rate [Left Brachial] 75 83 77 Pulse Rate [Left] Respiratory Rate 17 23 25 H Blood Pressure [Left Arm] 129/61 155/71 156/72 O2 Sat by Pulse Oximetry 87 L 87 L 87 L 12/03/20 21:41 12/03/20 22:00 12/03/20 23:00 Temperature Pulse Rate 69 Pulse Rate [Left Brachial] 61 70 Pulse Rate [Left] Respiratory Rate 18 20 Blood Pressure [Left Arm] 151/70 160/72 O2 Sat by Pulse Oximetry 88 L 85 L 85 L 12/04/20 00:00 12/04/20 01:00 12/04/20 02:00 Temperature 97.5 F L Pulse Rate Pulse Rate [Left Brachial] 61 56 L 61 Pulse Rate [Left] Respiratory Rate 15 13 17 Blood Pressure [Left Arm] 168/78 173/83 172/81 O2 Sat by Pulse Oximetry 88 L 88 L 87 L 12/04/20 03:00 12/04/20 04:00 12/04/20 05:00 Temperature 98.1 F Pulse Rate Pulse Rate [Left Brachial] 60 61 60 Pulse Rate [Left] Respiratory Rate 14 14 24 Blood Pressure [Left Arm] 176/80 144/67 153/70 O2 Sat by Pulse Oximetry 88 L 88 L 88 L 12/04/20 06:00 12/04/20 07:00 12/04/20 08:00 Temperature 98.3 F Pulse Rate Pulse Rate [Left Brachial] 60 Pulse Rate [Left] 77 78 Respiratory Rate 18 18 21 Blood Pressure [Left Arm] 162/75 173/81 153/69 O2 Sat by Pulse Oximetry 87 L 88 L 91 L 12/04/20 09:00 12/04/20 10:00 12/04/20 11:00 Temperature Pulse Rate Pulse Rate [Left Brachial] Pulse Rate [Left] 80 76 74 Respiratory Rate 27 H 21 21 Blood Pressure [Left Arm] 153/66 146/70 151/70 O2 Sat by Pulse Oximetry 85 L 85 L 85 L 12/04/20 12:00 12/04/20 13:00 12/04/20 14:00 Temperature 98.2 F Pulse Rate Pulse Rate [Left Brachial] Pulse Rate [Left] 88 82 78 Respiratory Rate 21 21 23 Blood Pressure [Left Arm] 143/70 121/56 119/56 O2 Sat by Pulse Oximetry 85 L 86 L 85 L 12/04/20 15:00 12/04/20 16:00 12/04/20 17:00 Temperature 97.9 F Pulse Rate Pulse Rate [Left Brachial] Pulse Rate [Left] 74 71 70 Respiratory Rate 17 13 17 Blood Pressure [Left Arm] 122/60 134/69 154/74 O2 Sat by Pulse Oximetry 89 L 94 L 88 L 12/04/20 18:00 12/04/20 19:00 12/04/20 20:00 Temperature 97.7 F Pulse Rate Pulse Rate [Left Brachial] Pulse Rate [Left] 73 72 76 Respiratory Rate 20 20 24 Blood Pressure [Left Arm] 142/69 153/66 140/67 O2 Sat by Pulse Oximetry 88 L 85 L 82 L 12/04/20 20:24 12/04/20 21:00 12/04/20 22:00 Temperature Pulse Rate 75 Pulse Rate [Left Brachial] Pulse Rate [Left] 80 66 Respiratory Rate 20 18 Blood Pressure [Left Arm] 165/75 156/74 O2 Sat by Pulse Oximetry 87 L 93 L 90 L 12/04/20 23:00 12/05/20 00:00 12/05/20 01:00 Temperature 98.2 F Pulse Rate Pulse Rate [Left Brachial] Pulse Rate [Left] 69 63 60 Respiratory Rate 23 15 16 Blood Pressure [Left Arm] 167/85 154/77 169/77 O2 Sat by Pulse Oximetry 89 L 90 L 88 L 12/05/20 02:00 12/05/20 03:00 12/05/20 04:00 Temperature 98 F Pulse Rate Pulse Rate [Left Brachial] Pulse Rate [Left] 60 65 56 L Respiratory Rate 15 19 12 Blood Pressure [Left Arm] 154/74 151/75 162/74 O2 Sat by Pulse Oximetry 89 L 87 L 89 L 12/05/20 05:00 12/05/20 06:00 12/05/20 07:00 Temperature Pulse Rate Pulse Rate [Left Brachial] Pulse Rate [Left] 52 L 53 L 56 L Respiratory Rate 12 13 16 Blood Pressure [Left Arm] 157/74 153/71 146/71 O2 Sat by Pulse Oximetry 86 L 87 L 88 L 12/05/20 08:00 12/05/20 09:00 12/05/20 09:39 Temperature 97.3 F L Pulse Rate 73 Pulse Rate [Left Brachial] Pulse Rate [Left] 75 74 Respiratory Rate 22 21 Blood Pressure [Left Arm] 172/80 131/58 O2 Sat by Pulse Oximetry 84 L 86 L 81 L 12/05/20 10:00 12/05/20 11:00 12/05/20 12:00 Temperature 98.3 F Pulse Rate Pulse Rate [Left Brachial] Pulse Rate [Left] 71 80 87 Respiratory Rate 18 20 24 Blood Pressure [Left Arm] 142/65 140/65 127/70 O2 Sat by Pulse Oximetry 86 L 84 L 89 L 12/05/20 13:00 12/05/20 14:00 12/05/20 15:00 Temperature Pulse Rate 85 Pulse Rate [Left Brachial] Pulse Rate [Left] 81 77 75 Respiratory Rate 20 22 23 Blood Pressure [Left Arm] 123/58 119/59 121/60 O2 Sat by Pulse Oximetry 91 L 89 L 90 L 12/05/20 16:00 12/05/20 17:00 12/05/20 17:03 Temperature 98.0 F Pulse Rate 73 Pulse Rate [Left Brachial] Pulse Rate [Left] 76 73 Respiratory Rate 20 23 Blood Pressure [Left Arm] 125/60 131/60 O2 Sat by Pulse Oximetry 92 L 92 L 92 L 12/05/20 18:00 12/05/20 19:00 12/05/20 20:00 Temperature 97.7 F Pulse Rate Pulse Rate [Left Brachial] Pulse Rate [Left] 77 77 71 Respiratory Rate 22 19 18 Blood Pressure [Left Arm] 124/76 127/58 140/64 O2 Sat by Pulse Oximetry 90 L 92 L 92 L 12/05/20 20:38 12/05/20 21:00 12/05/20 22:00 Temperature Pulse Rate 71 Pulse Rate [Left Brachial] Pulse Rate [Left] 75 74 Respiratory Rate 16 21 Blood Pressure [Left Arm] 130/63 145/70 O2 Sat by Pulse Oximetry 92 L 90 L 91 L 12/05/20 23:00 12/06/20 00:00 12/06/20 01:00 Temperature 97.6 F Pulse Rate Pulse Rate [Left Brachial] Pulse Rate [Left] 66 64 64 Respiratory Rate 17 17 18 Blood Pressure [Left Arm] 147/72 156/76 140/67 O2 Sat by Pulse Oximetry 92 L 90 L 91 L 12/06/20 02:00 12/06/20 03:00 12/06/20 04:00 Temperature Pulse Rate Pulse Rate [Left Brachial] Pulse Rate [Left] 60 58 L 59 L Respiratory Rate 16 21 17 Blood Pressure [Left Arm] 159/77 181/83 151/72 O2 Sat by Pulse Oximetry 91 L 91 L 91 L 12/06/20 05:00 12/06/20 06:00 12/06/20 07:00 Temperature 97.7 F Pulse Rate Pulse Rate [Left Brachial] Pulse Rate [Left] 63 61 64 Respiratory Rate 20 17 18 Blood Pressure [Left Arm] 152/72 136/66 146/67 O2 Sat by Pulse Oximetry 89 L 91 L 90 L 12/06/20 08:00 12/06/20 09:00 12/06/20 09:21 Temperature 97.8 F Pulse Rate 62 Pulse Rate [Left Brachial] Pulse Rate [Left] 74 72 Respiratory Rate 25 H 33 H Blood Pressure [Left Arm] 161/77 137/63 O2 Sat by Pulse Oximetry 85 L 83 L 88 L Labs: Laboratory Last Values WBC 8.9 X10^3/uL (3.6-10.0) 12/06/20 04:25 RBC 4.68 X10^6/uL (4.7-6.0) L 12/06/20 04:25 Hgb 13.8 g/dL (13.5-18.0) 12/06/20 04:25 Hct 40.2 % (42.0-54.0) L 12/06/20 04:25 MCV 86.0 fL (80.0-100.0) 12/06/20 04:25 MCH 29.4 pg (27.0-34.0) 12/06/20 04:25 MCHC 34.2 g/dL (33.0-35.0) 12/06/20 04:25 RDW 14.6 % (11.6-16.5) 12/06/20 04:25 Plt Count 181 X10^3/uL (150.0-450.0) 12/06/20 04:25 Plt Count Comment Adequate (ADEQUATE) 12/03/20 08:12 MPV 9.0 fL (7.4-11.0) 12/06/20 04:25 Neut % (Auto) 87.8 % (42.0-75.0) H 12/06/20 04:25 Lymph % (Auto) 5.9 % (21.0-51.0) L 12/06/20 04:25 [place] % (Auto) 6.0 % (0.0-13.0) 12/06/20 04:25 Eos % (Auto) 0.2 % (0.9-2.9) L 12/06/20 04:25 Baso % (Auto) 0.1 % (0.2-1.0) L 12/06/20 04:25 Neut # (Auto) 7.8 x10^3/uL (2.2-4.8) H 12/06/20 04:25 Lymph # (Auto) 0.5 X10^3/uL (1.3-2.9) L 12/06/20 04:25 [place] # (Auto) 0.5 x10^3/uL (0.3-0.8) 12/06/20 04:25 Eos # (Auto) 0.0 x10^3/uL (0.0-0.2) 12/06/20 04:25 Baso # (Auto) 0.0 X10^3/uL (0.0-0.1) 12/06/20 04:25 Absolute Nucleated RBC 0.0 /100WBC 12/06/20 04:25 Total Counted 100 12/03/20 08:12 Neutrophils % (Manual) 92 % (39-76) H 12/03/20 08:12 Band Neutrophils % 4 % (0-10) 11/26/20 04:16 Lymphocytes % (Manual) 4 % (13-43) L 12/03/20 08:12 Monocytes % (Manual) 4 % (4-9) 12/03/20 08:12 Plt Morphology Comment Normal (NORMAL) 12/03/20 08:12 RBC Morphology Normal (NORMAL) 12/03/20 08:12 D-Dimer 1.13 ug/ml (0.0-0.57) H* 12/05/20 08:47 Sample Site Rr 11/29/20 09:26 ABG pH 7.480 (7.35-7.45) H 11/29/20 09:26 ABG pCO2 36.0 mmHg (35.0-45.0) 11/29/20 09:26 ABG pO2 49.0 mmHg (80.0-100.0) L* 11/29/20 09:26 ABG HCO3 26.8 mmol/L (22-26) H 11/29/20 09:26 ABG O2 Saturation 87.0 % (90-100) L 11/29/20 09:26 ABG Base Excess 3.3 mmol/L (-2.0-2.0) H 11/29/20 09:26 Bernardo Test Pos 11/29/20 09:26 A-a Gradient 134.0 mmHg 11/29/20 09:26 FiO2 32.0 11/29/20 09:26 Blood Gas Comments Pt galina well cdn 11/29/20 09:26 Sodium 141 mmol/L (136-145) 12/06/20 04:25 Corrected Sodium 143 mmol/L (136-145) 12/06/20 04:25 Potassium 4.0 mmol/L (3.5-5.1) 12/06/20 04:25 Chloride 106 mmol/L (98-107) 12/06/20 04:25 Carbon Dioxide 26.3 mmol/L (21-32) 12/06/20 04:25 BUN 24 mg/dL (7-18) H 12/06/20 04:25 Creatinine 0.71 mg/dL (0.70-1.30) 12/06/20 04:25 Est GFR (MDRD) Af Amer > 60 (>60) 12/06/20 04:25 Est GFR (MDRD) Non-Af > 60 (>60) 12/06/20 04:25 Glucose 203 mg/dL (65-99) H 12/06/20 04:25 POC Glucose (mg/dL) 232 mg/dL (65-99) H 12/06/20 11:08 Lactic Acid 2.0 mmol/L (0.4-2.0) 11/24/20 17:25 Calcium 8.5 mg/dL (8.5-10.1) 12/06/20 04:25 Corrected Calcium 9.8 mg/dL (8.5-10.1) 12/06/20 04:25 Total Bilirubin 0.90 mg/dL (0.2-1.0) 12/06/20 04:25 AST 24 Units/L (15-37) 12/06/20 04:25 ALT 55 Units/L (12-78) 12/06/20 04:25 Alkaline Phosphatase 72 Units/L (46-116) 12/06/20 04:25 Creatine Kinase 79 Units/L (39-308) 11/24/20 17:25 CK-MB (CK-2) < 1.0 ng/mL (0-4.0) 11/24/20 17:25 CK/CKMB % Calc 1.3 % (<4) 11/24/20 17:25 Troponin I < 0.02 ng/mL (0-1.5) 11/24/20 17:25 C-Reactive Protein 1.00 mg/L (0-3.0) 12/02/20 08:23 Total Protein 6.2 g/dL (6.4-8.2) L 12/06/20 04:25 Albumin 2.4 g/dL (3.4-5.0) L 12/06/20 04:25 Globulin 3.8 g/dL (2.5-4.5) 12/06/20 04:25 Albumin/Globulin Ratio 0.6 Ratio (1.1-2.1) L 12/06/20 04:25 Amylase 48 Units/L (25-115) 11/24/20 17:25 Lipase 220 Units/L (73-393) 11/24/20 17:25 Specimen Type Clean catch urine 11/24/20 18:16 Urine Color Yellow (YELLOW) 11/24/20 18:16 Urine Appearance Clear (CLEAR) 11/24/20 18:16 Urine pH 5.0 (5.0 - 8.0) 11/24/20 18:16 Ur Specific [place] 1.025 (1.000-1.030) 11/24/20 18:16 Urine Protein 3+ (NEGATIVE) 11/24/20 18:16 Urine Glucose (UA) 4+ (NEGATIVE) 11/24/20 18:16 Urine Ketones 1+ (NEGATIVE) 11/24/20 18:16 Urine Occult Blood Negative (NEGATIVE) 11/24/20 18:16 Urine Nitrite Negative (NEGATIVE) 11/24/20 18:16 Urine Bilirubin Negative (NEGATIVE) 11/24/20 18:16 Urine Urobilinogen Normal (NORMAL) 11/24/20 18:16 Ur Leukocyte Esterase Negative (NEGATIVE) 11/24/20 18:16 Urine RBC None seen /HPF (0-3) 11/24/20 18:16 Urine WBC None seen /HPF (0-5) 11/24/20 18:16 Ur Squamous Epith Cells Rare /HPF (NEGATIVE) 11/24/20 18:16 Urine Bacteria Negative /HPF (NEGATIVE) 11/24/20 18:16 Ur Culture Indicated? No/not indicated 11/24/20 18:16 Acetone, Semi-Quant Negative (NEGATIVE) 11/24/20 17:30 SARS-CoV-2 (PCR) Positive (NEGATIVE) A 11/24/20 20:17 Influenza Type A (PCR) Negative (NEGATIVE) 11/24/20 20:17 Influenza Type B (PCR) Negative (NEGATIVE) 11/24/20 20:17 RSV (PCR) Negative (NEGATIVE) 11/24/20 20:17 S. pyogenes (TEM-PCR) Not detected (NOT DETECT) 11/24/20 20:17 Reason For Visit: PNEUMONIA, COVID 19 VIRUS INFECTION, HYPOXIA, GENE Discharge Diagnosis All Active Problems (Updated 12/04/20 @ 12:54 by Peggy Hopson) Pulmonary edema (Acute) Thrombocytopenia (Acute) FRANCIS (acute kidney injury) (Acute) Diabetes (Acute) Hx of CABG (Acute) HTN (hypertension) (Acute) Acute respiratory failure with hypoxia (Acute) COVID-19 virus infection (Acute) Pneumonia (Acute) Plan of Treatment: Continue with present treatment and follow up plan. Pt is to keep follow up appointment as instructed and take medications as ordered. Discharge Medications Discharge Medications: No Known Drug Allergies Allergy (Verified 11/24/20 20:28) CONTINUE taking the following medications alpha lipoic acid 200 mg PO DAILY 11/24/20 [History] cholecalciferol (vitamin D3) [Vitamin D3] 50 mcg PO DAILY 11/24/20 [History] cinnamon bark [Cinnamon] 500 mg PO DAILY 11/24/20 [History] isosorbide mononitrate 60 mg PO QAM 11/24/20 [History] losartan 100 mg PO DAILY 11/24/20 [History] simvastatin 10 mg PO QHS 11/24/20 [History] New Prescriptions Dapagliflozin [Farxiga] 10 mg PO QAM 30 Days #30 tab 12/06/20 [Rx] albuterol sulfate 2 puff INHALATION Q4-6H PRN #6.7 g 12/06/20 [Rx] carvedilol 12.5 mg PO BID 30 Days #60 tab 12/06/20 [Rx] glipizide 5 mg PO BID 30 Days #60 tab 12/06/20 [Rx] hydralazine 25 mg PO TID 30 Days #90 tab 12/06/20 [Rx] ipratropium-albuterol 3 ml NEB QID 30 Days #30 vial 12/06/20 [Rx] Discharge Plan Discharge Plan Patient Disposition: 01 HOME, SELF-CARE Condition: Stable Health Concerns: Post Hospitalization: new medications and changes needed to prevent readmission or further decline. Pt educated and given instructions on all concerns. Care Plan Goals: Problem: Respiratory Complications Goal: Improved Uncomplicated Respiratory Status Instructions: Follow provided instructions. Follow up with primary physician as directed. Contact primary care physician or report to the closest Emergency Room if condition worsens. Plan of Treatment: Continue with present treatment and follow up plan. Pt is to keep follow up appointment as instructed and take medications as ordered. Prescription drug monitoring program results: PDMP reviewed and no concerns identified Prescriptions: New Dapagliflozin [Farxiga] 10 mg PO QAM 30 Days Qty: 30 RF: 1 hydralazine 25 mg tablet 25 mg PO TID 30 Days Qty: 90 RF: 1 carvedilol 12.5 mg Tablet 12.5 mg PO BID 30 Days Qty: 60 RF: 1 ipratropium-albuterol 0.5 mg-3 mg(2.5 mg base)/3 mL Solution For Nebulization 3 ml NEB QID 30 Days Qty: 30 RF: 1 glipizide 5 mg tablet 5 mg PO BID 30 Days Qty: 60 RF: 1 albuterol sulfate 90 mcg/actuation HFA aerosol inhaler 2 puff inhalation Q4-6H PRN (Reason: shortness of breath or wheezing) Qty: 6.7 RF: 1 Continued simvastatin 10 mg Tablet 10 mg PO QHS RF: 0 isosorbide mononitrate 60 mg Tablet Extended Release 24 Hr 60 mg PO QAM RF: 0 losartan 100 mg Tablet 100 mg PO DAILY RF: 0 cinnamon bark [Cinnamon] 500 mg Capsule 500 mg PO DAILY RF: 0 cholecalciferol (vitamin D3) [Vitamin D3] 50 mcg (2,000 unit) Capsule 50 mcg PO DAILY RF: 0 alpha lipoic acid 200 mg Capsule 200 mg PO DAILY RF: 0 Discontinued carvedilol [Coreg] 25 mg Tablet 25 mg PO BID RF: 0 hydralazine 50 mg Tablet 50 mg PO TID RF: 0 Farxiga 5 mg Tablet 5 mg PO QAM RF: 0 Follow ups/Referrals Follow ups/Referrals: LYNNE ALDRIDGE [Primary Care Provider] - 12/10/20 10:00 am (telemedicine visit for 12/10/20 for hospital follow up and diabetes management ) Instructions Activity Restrictions/Additional Instructions: Take Farxiga 10 mg daily Take glipizide 5 mg twice a day with food Check finger stick glucose twice a day and discuss with primary care provider during the telemed visit Continue to take over the counter vitamins including Vitamin C and D. Can also take Zinc daily. Return to ER if having worsening shortness of breath, chest pain or tightness. Stand Alone Forms: Excuse From Work or School, Precautions for COVID19, Patient Portal, Social Distancing
[2020-12-06] MEDS: SNACK - Diabetic Appropriate PO SCH (20:06)
[2020-12-06] MEDS: LIPITOR TAB 80 MG PO SCH (20:48)
[2020-12-07] MEDS ORDERED: NS 100 ML IV 100 ML ONE (04:36)
[2020-12-07] MEDS: ALPHA LIPOIC ACID 200 MG PO SCH ×3 (06:05→21:24)
[2020-12-07] MEDS: FORTAZ or TAZICEF VIAL INJ 2 G in NS 100 ML IV + SPIKE MINIBAG* 100 ML IV SCH ×3 (06:05→21:24)
[2020-12-07] MEDS: APRESOLINE TAB 10 MG PO SCH ×2 (06:29→14:26)
[2020-12-07] MEDS: DAPAGLIFLOZIN 10 MG PO SCH (08:27)
[2020-12-07] MEDS: CINNAMON BARK 1000 MG PO SCH ×2 (08:27→20:23)
[2020-12-07] MEDS: VITAMIN A PO SCH (08:28)
[2020-12-07] MEDS: FLONASE NASAL SPRAY ENOSTRIL SCH (08:28)
[2020-12-07] MEDS: LOVENOX INJ 30 MG SYR SC SCH (08:32)
[2020-12-07] MEDS: LANTUS SC SCH (08:32)
[2020-12-07] MEDS: ZINC SULFATE PO SCH ×2 (08:50→20:10)
[2020-12-07] MEDS: VSL#3 PO SCH (08:50)
[2020-12-07] MEDS: COZAAR PO SCH (08:51)
[2020-12-07] MEDS: ZyrTEC TAB 10 MG PO SCH (08:51)
[2020-12-07] MEDS: ISOSORBIDE MONONITRATE ER 24-HR PO SCH (08:51)
[2020-12-07] MEDS: PEPCID TAB 40 MG PO SCH ×2 (08:51→20:09)
[2020-12-07] MEDS: VITAMIN D3 125 mcg (5,000 UNITS) PO SCH (08:52)
[2020-12-07] MEDS: COREG TAB 12.5 MG PO SCH ×2 (08:52→20:10)
[2020-12-07] MEDS: VITAMIN C PO SCH (08:52)
[2020-12-07] MEDS: PULMICORT NEB TX 0.5 MG NEB SCH ×2 (08:59→20:20)
[2020-12-07] MEDS: DUONEB 0.5 MG/3 MG (3 mL) NEB SCH ×4 (08:59→20:20)
[2020-12-07] MEDS: ROBITUSSIN DM PO SCH ×4 (09:00→20:10)
[2020-12-07] MEDS ORDERED: IVERMECTIN PO ONE (12:48)
[2020-12-07] MEDS ORDERED: LANTUS SC SCH (12:54)
[2020-12-07 13:11] LABS: BASOPHILS % (AUTO) 0.2 % (0.2-1.0); EOSINOPHILS # (AUTO) 0.2 x10^3/uL (0.0-0.2); EOSINOPHILS % (AUTO) 1.5 % (0.9-2.9); HEMATOCRIT 44.6 % (42.0-54.0); HEMOGLOBIN 15.1 g/dL (13.5-18.0); LYMPHOCYTES # (AUTO) 0.7 X10^3/uL (1.3-2.9); LYMPHOCYTES % (AUTO) 7.3 % (21.0-51.0); MEAN CORPUSCULAR HEMOGLOBIN 29.2 pg (27.0-34.0); MEAN CORPUSCULAR VOLUME 86.1 fL (80.0-100.0); MONOCYTES # (AUTO) 0.5 x10^3/uL (0.3-0.8); MONOCYTES % (AUTO) 5.2 % (0.0-13.0); NEUTROPHILS # (AUTO) 8.6 x10^3/uL (2.2-4.8); NEUTROPHILS % (AUTO) 85.8 % (42.0-75.0); PLATELET COUNT 187 X10^3/uL (150.0-450.0); RED BLOOD COUNT 5.18 X10^6/uL (4.7-6.0); RED CELL DISTRIBUTION WIDTH 14.6 % (11.6-16.5)
[2020-12-07 13:19] LABS: ALANINE AMINOTRANSFERASE 70 Units/L (12-78); ALBUMIN 2.4 g/dL (3.4-5.0); ALKALINE PHOSPHATASE 95 Units/L (46-116); ASPARTATE AMINO TRANSFERASE 33 Units/L (15-37); BLOOD UREA NITROGEN 20 mg/dL (7-18); CALCIUM 8.2 mg/dL (8.5-10.1); CHLORIDE 106 mmol/L (98-107); COR CA(FOR HYPOALB) 9.5 mg/dL (8.5-10.1); COR NA(FOR HYPERGLY) 143 mmol/L (136-145); CREATININE 0.88 mg/dL (0.70-1.30); SODIUM 141 mmol/L (136-145); TOTAL PROTEIN 6.3 g/dL (6.4-8.2); eGFR NON BLACK RACES > 60 (>60)
[2020-12-07] MEDS: ELIQUIS PO SCH ×2 (14:26→20:10)
[2020-12-07] MEDS: ACTOS PO SCH (14:26)
[2020-12-07] MEDS: CIPRO TAB 500 MG PO SCH ×2 (14:27→20:10)
[2020-12-07] MEDS: GLUCOPHAGE XR 24-HR PO SCH ×3 (14:41→20:25)
[2020-12-07] MEDS: HumuLIN R SUBCUT PRN ×2 (16:54→20:28)
[2020-12-07] MEDS: LIPITOR TAB 80 MG PO SCH (20:10)
[2020-12-07] MEDS: SNACK - Diabetic Appropriate PO SCH (20:23)
[2020-12-07] MEDS: TYLENOL 325 MG TAB PO PRN (22:00)
[2020-12-08] MEDS: APRESOLINE TAB 10 MG PO SCH ×3 (01:18→21:17)
[2020-12-08 04:43] LABS: BASOPHILS % (AUTO) 0.4 % (0.2-1.0); EOSINOPHILS # (AUTO) 0.1 x10^3/uL (0.0-0.2); HEMATOCRIT 40.4 % (42.0-54.0); HEMOGLOBIN 13.8 g/dL (13.5-18.0); LYMPHOCYTES # (AUTO) 0.9 X10^3/uL (1.3-2.9); LYMPHOCYTES % (AUTO) 12.3 % (21.0-51.0); MEAN CORPUSCULAR HEMOGLOBIN 29.4 pg (27.0-34.0); MEAN CORPUSCULAR HGB CONC 34.2 g/dL (33.0-35.0); MEAN CORPUSCULAR VOLUME 86.2 fL (80.0-100.0); MEAN PLATELET VOLUME 9.1 fL (7.4-11.0); MONOCYTES # (AUTO) 0.4 x10^3/uL (0.3-0.8); NEUTROPHILS # (AUTO) 5.9 x10^3/uL (2.2-4.8); NEUTROPHILS % (AUTO) 79.3 % (42.0-75.0); PLATELET COUNT 161 X10^3/uL (150.0-450.0); RED BLOOD COUNT 4.69 X10^6/uL (4.7-6.0); RED CELL DISTRIBUTION WIDTH 14.5 % (11.6-16.5); WHITE BLOOD COUNT 7.5 X10^3/uL (3.6-10.0)
[2020-12-08 04:52] LABS: ALANINE AMINOTRANSFERASE 61 Units/L (12-78); ALBUMIN 2.2 g/dL (3.4-5.0); ALKALINE PHOSPHATASE 81 Units/L (46-116); ASPARTATE AMINO TRANSFERASE 27 Units/L (15-37); BLOOD UREA NITROGEN 20 mg/dL (7-18); CALCIUM 8.3 mg/dL (8.5-10.1); CARBON DIOXIDE 29.9 mmol/L (21-32); CHLORIDE 108 mmol/L (98-107); COR CA(FOR HYPOALB) 9.7 mg/dL (8.5-10.1); COR NA(FOR HYPERGLY) 147 mmol/L (136-145); SODIUM 146 mmol/L (136-145); eGFR NON BLACK RACES > 60 (>60)
[2020-12-08] MEDS: ALPHA LIPOIC ACID 200 MG PO SCH ×3 (05:04→21:18)
[2020-12-08] MEDS: FORTAZ or TAZICEF VIAL INJ 2 G in NS 100 ML IV + SPIKE MINIBAG* 100 ML IV SCH ×3 (05:05→21:18)
[2020-12-08] MEDS: CINNAMON BARK 1000 MG PO SCH ×2 (09:19→20:40)
[2020-12-08] MEDS: DAPAGLIFLOZIN 10 MG PO SCH (09:20)
[2020-12-08] MEDS: VITAMIN A PO SCH (09:21)
[2020-12-08] MEDS: ACTOS PO SCH (09:22)
[2020-12-08] MEDS: CIPRO TAB 500 MG PO SCH ×2 (09:23→20:36)
[2020-12-08] MEDS: COZAAR PO SCH (09:24)
[2020-12-08] MEDS: COREG TAB 12.5 MG PO SCH ×2 (09:24→20:41)
[2020-12-08] MEDS: ZyrTEC TAB 10 MG PO SCH (09:26)
[2020-12-08] MEDS: VITAMIN C PO SCH (09:26)
[2020-12-08] MEDS: VITAMIN D3 125 mcg (5,000 UNITS) PO SCH (09:27)
[2020-12-08] MEDS: ZINC SULFATE PO SCH ×2 (09:27→20:40)
[2020-12-08] MEDS: ROBITUSSIN DM PO SCH ×4 (09:28→20:38)
[2020-12-08] MEDS: VSL#3 PO SCH (09:28)
[2020-12-08] MEDS: PEPCID TAB 40 MG PO SCH ×2 (09:29→20:37)
[2020-12-08] MEDS: ELIQUIS PO SCH ×2 (09:31→20:41)
[2020-12-08] MEDS: ISOSORBIDE MONONITRATE ER 24-HR PO SCH (09:33)
[2020-12-08] MEDS: FLONASE NASAL SPRAY ENOSTRIL SCH (09:34)
[2020-12-08] MEDS: PULMICORT NEB TX 0.5 MG NEB SCH ×2 (09:37→20:30)
[2020-12-08] MEDS: DUONEB 0.5 MG/3 MG (3 mL) NEB SCH ×4 (09:37→20:30)
[2020-12-08] MEDS: TYLENOL 325 MG TAB PO PRN (11:00)
[2020-12-08] MEDS ORDERED: POTASSIUM CHL 60 MEQ/NS 0.45% 500 ML IV PRN (15:02)
[2020-12-08] MEDS ORDERED: KLOR-CON PO PRN (15:02)
[2020-12-08] MEDS ORDERED: MICRO K EXTEN CAP 10 MEQ PO PRN (15:02)
[2020-12-08] MEDS ORDERED: K-DUR TAB 20 MEQ PO PRN (15:02)
[2020-12-08] MEDS ORDERED: POTASSIUM CHL 40 MEQ/NS 0.45% 500 ML IV PRN (15:02)
[2020-12-08] MEDS ORDERED: POTASSIUM CHLORIDE LIQ 20 MEQ UDC PO PRN (15:02)
[2020-12-08] MEDS ORDERED: K-RIDER 10 MEQ/NS 100 ML 10 MEQ/100 ML BAG IV PRN (15:02)
[2020-12-08] MEDS: MAGNESIUM SULFATE 1 GRAM/100 mL PREMIX 1 G/100 ML BAG IV SCH ×2 (15:55→17:00)
[2020-12-08] MEDS: TUSSIONEX PENNKINETIC SUSP PO PRN (20:06)
[2020-12-08] MEDS: SNACK - Diabetic Appropriate PO SCH (20:38)
[2020-12-08] MEDS: RESTORIL CAP 15 MG PO PRN (20:39)
[2020-12-08] MEDS: LIPITOR TAB 80 MG PO SCH (20:41)
[2020-12-09] MEDS: ALPHA LIPOIC ACID 200 MG PO SCH ×3 (05:39→21:05)
[2020-12-09] MEDS: FORTAZ or TAZICEF VIAL INJ 2 G in NS 100 ML IV + SPIKE MINIBAG* 100 ML IV SCH ×3 (05:39→21:04)
[2020-12-09] MEDS: APRESOLINE TAB 10 MG PO SCH ×4 (05:39→21:04)
[2020-12-09] MEDS: HumuLIN R SUBCUT PRN ×4 (05:40→21:07)
[2020-12-09 05:42] LABS: BASOPHILS % (AUTO) 0.4 % (0.2-1.0); EOSINOPHILS # (AUTO) 0.2 x10^3/uL (0.0-0.2); HEMATOCRIT 40.2 % (42.0-54.0); HEMOGLOBIN 13.8 g/dL (13.5-18.0); LYMPHOCYTES # (AUTO) 0.9 X10^3/uL (1.3-2.9); LYMPHOCYTES % (AUTO) 10.7 % (21.0-51.0); MEAN CORPUSCULAR HEMOGLOBIN 29.6 pg (27.0-34.0); MEAN CORPUSCULAR HGB CONC 34.3 g/dL (33.0-35.0); MEAN CORPUSCULAR VOLUME 86.4 fL (80.0-100.0); MEAN PLATELET VOLUME 8.9 fL (7.4-11.0); MONOCYTES # (AUTO) 0.5 x10^3/uL (0.3-0.8); MONOCYTES % (AUTO) 6.3 % (0.0-13.0); NEUTROPHILS # (AUTO) 6.5 x10^3/uL (2.2-4.8); NEUTROPHILS % (AUTO) 80.6 % (42.0-75.0); PLATELET COUNT 164 X10^3/uL (150.0-450.0); RED BLOOD COUNT 4.66 X10^6/uL (4.7-6.0); RED CELL DISTRIBUTION WIDTH 14.5 % (11.6-16.5)
[2020-12-09 05:53] LABS: ALANINE AMINOTRANSFERASE 50 Units/L (12-78); ALBUMIN 2.2 g/dL (3.4-5.0); ALKALINE PHOSPHATASE 86 Units/L (46-116); ASPARTATE AMINO TRANSFERASE 23 Units/L (15-37); BLOOD UREA NITROGEN 17 mg/dL (7-18); CARBON DIOXIDE 27.7 mmol/L (21-32); CHLORIDE 106 mmol/L (98-107); COR CA(FOR HYPOALB) 9.4 mg/dL (8.5-10.1); COR NA(FOR HYPERGLY) 144 mmol/L (136-145); CREATININE 0.87 mg/dL (0.70-1.30); SODIUM 141 mmol/L (136-145); TOTAL PROTEIN 6.1 g/dL (6.4-8.2); eGFR NON BLACK RACES > 60 (>60)
[2020-12-09] MEDS: TYLENOL 325 MG TAB PO PRN ×2 (06:12→21:08)
[2020-12-09] MEDS: VITAMIN C PO SCH (08:35)
[2020-12-09] MEDS: COZAAR PO SCH (08:35)
[2020-12-09] MEDS: ROBITUSSIN DM PO SCH ×4 (08:35→21:06)
[2020-12-09] MEDS: ACTOS PO SCH (08:35)
[2020-12-09] MEDS: ZINC SULFATE PO SCH ×2 (08:36→21:06)
[2020-12-09] MEDS: ZyrTEC TAB 10 MG PO SCH (08:36)
[2020-12-09] MEDS: ELIQUIS PO SCH ×2 (08:37→21:05)
[2020-12-09] MEDS: COREG TAB 12.5 MG PO SCH ×2 (08:37→21:05)
[2020-12-09] MEDS: CIPRO TAB 500 MG PO SCH ×2 (08:37→21:05)
[2020-12-09] MEDS: ISOSORBIDE MONONITRATE ER 24-HR PO SCH (08:37)
[2020-12-09] MEDS: VITAMIN D3 125 mcg (5,000 UNITS) PO SCH (08:37)
[2020-12-09] MEDS: PEPCID TAB 40 MG PO SCH ×2 (08:37→21:06)
[2020-12-09] MEDS: DAPAGLIFLOZIN 10 MG PO SCH (08:38)
[2020-12-09] MEDS: CINNAMON BARK 1000 MG PO SCH ×2 (08:38→21:04)
[2020-12-09] MEDS: FLONASE NASAL SPRAY ENOSTRIL SCH (08:38)
[2020-12-09] MEDS: VITAMIN A PO SCH (08:38)
[2020-12-09] MEDS: VSL#3 PO SCH (08:39)
[2020-12-09] MEDS: DUONEB 0.5 MG/3 MG (3 mL) NEB SCH ×5 (09:10→20:20)
[2020-12-09] MEDS: PULMICORT NEB TX 0.5 MG NEB SCH ×2 (09:10→20:20)
[2020-12-09] MEDS: DECADRON TAB PO SCH (09:30)
[2020-12-09] MEDS: TUSSIONEX PENNKINETIC SUSP PO PRN (09:31)
[2020-12-09] MEDS: SNACK - Diabetic Appropriate PO SCH (21:04)
[2020-12-09] MEDS: LIPITOR TAB 80 MG PO SCH (21:06)
[2020-12-09] MEDS: RESTORIL CAP 15 MG PO PRN (21:08)
[2020-12-10] MEDS ORDERED: BUTT CREAM (COMPOUND) ONE (05:30)
[2020-12-10 05:33] LABS: BASOPHILS % (AUTO) 0.4 % (0.2-1.0); HEMATOCRIT 41.9 % (42.0-54.0); HEMOGLOBIN 14.4 g/dL (13.5-18.0); LYMPHOCYTES # (AUTO) 0.5 X10^3/uL (1.3-2.9); LYMPHOCYTES % (AUTO) 5.1 % (21.0-51.0); MEAN CORPUSCULAR HEMOGLOBIN 29.7 pg (27.0-34.0); MEAN CORPUSCULAR HGB CONC 34.4 g/dL (33.0-35.0); MEAN CORPUSCULAR VOLUME 86.5 fL (80.0-100.0); MONOCYTES # (AUTO) 0.3 x10^3/uL (0.3-0.8); MONOCYTES % (AUTO) 2.9 % (0.0-13.0); NEUTROPHILS # (AUTO) 8.2 x10^3/uL (2.2-4.8); NEUTROPHILS % (AUTO) 91.6 % (42.0-75.0); PLATELET COUNT 182 X10^3/uL (150.0-450.0); RED BLOOD COUNT 4.85 X10^6/uL (4.7-6.0); RED CELL DISTRIBUTION WIDTH 14.7 % (11.6-16.5); WHITE BLOOD COUNT 8.9 X10^3/uL (3.6-10.0)
[2020-12-10 05:42] LABS: ALANINE AMINOTRANSFERASE 53 Units/L (12-78); ALBUMIN 2.3 g/dL (3.4-5.0); ALKALINE PHOSPHATASE 108 Units/L (46-116); ASPARTATE AMINO TRANSFERASE 29 Units/L (15-37); BLOOD UREA NITROGEN 23 mg/dL (7-18); CALCIUM 8.6 mg/dL (8.5-10.1); CARBON DIOXIDE 27.1 mmol/L (21-32); CHLORIDE 104 mmol/L (98-107); COR NA(FOR HYPERGLY) 141 mmol/L (136-145); CREATININE 1.04 mg/dL (0.70-1.30); SODIUM 137 mmol/L (136-145); TOTAL PROTEIN 6.9 g/dL (6.4-8.2); eGFR NON BLACK RACES > 60 (>60)
[2020-12-10 05:52] LABS: BAND NEUTROPHILS % 4 % (0-10); PLATELET MORPHOLOGY COMMENT NORMAL (NORMAL)
[2020-12-10] MEDS: ALPHA LIPOIC ACID 200 MG PO SCH ×2 (06:04→13:08)
[2020-12-10] MEDS: APRESOLINE TAB 10 MG PO SCH ×3 (06:05→21:00)
[2020-12-10] MEDS: FORTAZ or TAZICEF VIAL INJ 2 G in NS 100 ML IV + SPIKE MINIBAG* 100 ML IV SCH ×3 (06:06→21:00)
[2020-12-10] MEDS: HumuLIN R SUBCUT PRN ×4 (06:07→21:00)
[2020-12-10] MEDS: BUTT CREAM (COMPOUND) TOP PRN (06:09)
--- NOTE | 2020-12-10 07:37 | RAD ---
HISTORYPNEUMONIASTUDYCHEST, 1 [id number]/30/2021.TECHNIQUEAP view of the chestFINDINGSCardiac and mediastinal contours are within normal limits. Post median sternotomy and CABG. Similar appearance of bilateral airspace and interstitial opacities worse on the right. No definite pleural effusion or pneumothorax. Soft tissue attenuation limits evaluation.IMPRESSIONNo significant change in bilateral pneumonia.Electronically signed by: Scott Vogel (Dec 10, 2020 07:35:57)
[2020-12-10] MEDS: ACTOS PO SCH (08:20)
[2020-12-10] MEDS: ROBITUSSIN DM PO SCH ×4 (08:20→20:40)
[2020-12-10] MEDS: CINNAMON BARK 1000 MG PO SCH ×2 (08:21→20:38)
[2020-12-10] MEDS: CIPRO TAB 500 MG PO SCH ×2 (08:21→20:39)
[2020-12-10] MEDS: DECADRON TAB PO SCH ×2 (08:21→08:45)
[2020-12-10] MEDS: ZINC SULFATE PO SCH ×2 (08:22→20:40)
[2020-12-10] MEDS: ZyrTEC TAB 10 MG PO SCH (08:22)
[2020-12-10] MEDS: VITAMIN C PO SCH (08:23)
[2020-12-10] MEDS: ISOSORBIDE MONONITRATE ER 24-HR PO SCH (08:23)
[2020-12-10] MEDS: VITAMIN D3 125 mcg (5,000 UNITS) PO SCH (08:23)
[2020-12-10] MEDS: FLONASE NASAL SPRAY ENOSTRIL SCH (08:24)
[2020-12-10] MEDS: ELIQUIS PO SCH ×2 (08:24→20:40)
[2020-12-10] MEDS: VITAMIN A PO SCH (08:24)
[2020-12-10] MEDS: COZAAR PO SCH (08:25)
[2020-12-10] MEDS: PEPCID TAB 40 MG PO SCH ×2 (08:25→20:41)
[2020-12-10] MEDS: COREG TAB 12.5 MG PO SCH ×2 (08:25→20:39)
[2020-12-10] MEDS: VSL#3 PO SCH (08:26)
[2020-12-10] MEDS: DAPAGLIFLOZIN 10 MG PO SCH (08:26)
[2020-12-10] MEDS: DUONEB 0.5 MG/3 MG (3 mL) NEB SCH ×4 (09:33→20:59)
[2020-12-10] MEDS: PULMICORT NEB TX 0.5 MG NEB SCH ×2 (09:33→20:59)
[2020-12-10] MEDS: VISTARIL PO PRN ×2 (13:07→20:38)
[2020-12-10] MEDS ORDERED: NS 250 ML IV 250 ML IV PRN (13:36)
[2020-12-10] MEDS ORDERED: NS 250 ML IV 250 ML IV ONE (13:38)
--- NOTE | 2020-12-10 14:43 | PCM.PROG ---
Progress Note Progress Note for Day of Date of Exam: 12/10/20 Subjective Subjective: Patient seen at bedside, no acute events overnight. Over the weekend, patient's O2 had to be increased to 5L due to low saturations. Patient desaturates to the 70s with exertion. He has been remaining in mid 80s to 91% on 5L. He denies respiratory distress. He states he is feeling better. He still has some productive cough. He was restarted on decadron over the weekend and Cipro was also added for double Pseudomonal coverage. He was also started on Eliquis. Labs: WBC 8.9 Hgb: 14.4 Plt 182 K: 5.1 BUN/Cr: 23/1.04 Sputum: Pseudomonas Blood Cx: negative ECHO: EF 60%, normal global wall motion, mild pulmonary HTN CXR (12/10/20): stable bilateral pneumonia CTA (12/06/20): neg for PE, multifocal pneumonia present Plan: Wean O2 as tolerated. Continue current treatment with Decadron, IV Fortaz and Ciprofloxacin. Continue Eliquis. PT/OT as tolerated. Encouraged patient to a mbulate in the room. Will check with RT about adding smart vest. Continue duonebs and pulmicort treatments. Continue vitamin support. Continue to monitor patient in the ICU with telemetry and COVID protocol. Time spent for clinical assessment, reviewing labs/imaging, physical exam, management, decision making and documentation greater than 75 mins. Past Medical Family Social History Past Med/Fam/Surg Hx: No changes since H&P Allergies: Allergies No Known Drug Allergies Allergy (Verified 11/24/20 20:28) Review of Systems ROS: No change since H&P Vital Signs and I&O's Vital Signs: Temperature 97.3 F Pulse Rate [Left] 66 Pulse Rate [Left Brachial] 60 Pulse Rate 64 Respiratory Rate 21 Blood Pressure [Left Arm] 118/55 Blood Pressure 126/70 O2 Sat by Pulse Oximetry 89 Intake and Output: Intake & Output 12/07/20 12/08/20 12/09/20 12/10/20 23:59 23:59 23:59 23:59 Intake Total 1590 / 1590 1905 / 1905 3703 / 3703 635 / 635 Output Total 2350 / 2350 2150 / 2150 3250 / 3250 3125 / 3125 Balance -760 / -760 -245 / -245 453 / 453 -2490 / -2490 Physical Exam Oriented: Normal Eyes: Normal Ear: Normal Nose: Normal Throat: Normal Respiratory: Generalized, Diminished and [place] Cardiovascular: Normal; negative Edema Auscultation: Bowel Sounds: Normal Tenderness: Normal Skin: Normal Musculoskeletal: Normal Mood Description: Calm Affect: Normal Speech Pattern: Clear and Appropriate Laboratory and Diagnostics Result Diagrams: 12/10/20 04:57 12/10/20 04:57 Labs: 11/24/20 17:25 Blood Blood Culture - Final 11/24/20 17:25 Blood Blood Culture - Final 11/25/20 06:08 Sputum - Expectorated Sputum Sputum Culture - Final Pseudomonas Aeruginosa 11/25/20 06:08 Sputum - Expectorated Sputum - Final Laboratory WBC 8.9 X10^3/uL (3.6-10.0) 12/10/20 04:57 RBC 4.85 X10^6/uL (4.7-6.0) 12/10/20 04:57 Hgb 14.4 g/dL (13.5-18.0) 12/10/20 04:57 Hct 41.9 % (42.0-54.0) L 12/10/20 04:57 MCV 86.5 fL (80.0-100.0) 12/10/20 04:57 MCH 29.7 pg (27.0-34.0) 12/10/20 04:57 MCHC 34.4 g/dL (33.0-35.0) 12/10/20 04:57 RDW 14.7 % (11.6-16.5) 12/10/20 04:57 Plt Count 182 X10^3/uL (150.0-450.0) 12/10/20 04:57 Plt Count Comment Adequate (ADEQUATE) 12/10/20 04:57 MPV 9.0 fL (7.4-11.0) 12/10/20 04:57 Neut % (Auto) 91.6 % (42.0-75.0) H 12/10/20 04:57 Lymph % (Auto) 5.1 % (21.0-51.0) L 12/10/20 04:57 [place] % (Auto) 2.9 % (0.0-13.0) 12/10/20 04:57 Eos % (Auto) 0.0 % (0.9-2.9) L 12/10/20 04:57 Baso % (Auto) 0.4 % (0.2-1.0) 12/10/20 04:57 Neut # (Auto) 8.2 x10^3/uL (2.2-4.8) H 12/10/20 04:57 Lymph # (Auto) 0.5 X10^3/uL (1.3-2.9) L 12/10/20 04:57 [place] # (Auto) 0.3 x10^3/uL (0.3-0.8) 12/10/20 04:57 Eos # (Auto) 0.0 x10^3/uL (0.0-0.2) 12/10/20 04:57 Baso # (Auto) 0.0 X10^3/uL (0.0-0.1) 12/10/20 04:57 Absolute Nucleated RBC 0.0 /100WBC 12/10/20 04:57 Total Counted 100 12/10/20 04:57 Neutrophils % (Manual) 89 % (39-76) H 12/10/20 04:57 Band Neutrophils % 4 % (0-10) 12/10/20 04:57 Lymphocytes % (Manual) 4 % (13-43) L 12/10/20 04:57 Monocytes % (Manual) 3 % (4-9) L 12/10/20 04:57 Plt Morphology Comment Normal (NORMAL) 12/10/20 04:57 RBC Morphology Normal (NORMAL) 12/10/20 04:57 D-Dimer 1.13 ug/ml (0.0-0.57) H* 12/05/20 08:47 Sample Site Rr 11/29/20 09:26 ABG pH 7.480 (7.35-7.45) H 11/29/20 09:26 ABG pCO2 36.0 mmHg (35.0-45.0) 11/29/20 09:26 ABG pO2 49.0 mmHg (80.0-100.0) L* 11/29/20 09:26 ABG HCO3 26.8 mmol/L (22-26) H 11/29/20 09:26 ABG O2 Saturation 87.0 % (90-100) L 11/29/20 09:26 ABG Base Excess 3.3 mmol/L (-2.0-2.0) H 11/29/20 09:26 Bernardo Test Pos 11/29/20 09:26 A-a Gradient 134.0 mmHg 11/29/20 09:26 FiO2 32.0 11/29/20 09:26 Blood Gas Comments Pt galina well cdn 11/29/20 09:26 Sodium 137 mmol/L (136-145) 12/10/20 04:57 Corrected Sodium 141 mmol/L (136-145) 12/10/20 04:57 Potassium 5.1 mmol/L (3.5-5.1) 12/10/20 04:57 Chloride 104 mmol/L (98-107) 12/10/20 04:57 Carbon Dioxide 27.1 mmol/L (21-32) 12/10/20 04:57 BUN 23 mg/dL (7-18) H 12/10/20 04:57 Creatinine 1.04 mg/dL (0.70-1.30) 12/10/20 04:57 Est GFR (MDRD) Af Amer > 60 (>60) 12/10/20 04:57 Est GFR (MDRD) Non-Af > 60 (>60) 12/10/20 04:57 Glucose 258 mg/dL (65-99) H 12/10/20 04:57 POC Glucose (mg/dL) 216 mg/dL (65-99) H 12/10/20 11:07 Lactic Acid 2.0 mmol/L (0.4-2.0) 11/24/20 17:25 Calcium 8.6 mg/dL (8.5-10.1) 12/10/20 04:57 Corrected Calcium 10.0 mg/dL (8.5-10.1) 12/10/20 04:57 Magnesium 2.0 mg/dL (1.7-2.9) 12/09/20 05:13 Total Bilirubin 0.90 mg/dL (0.2-1.0) 12/10/20 04:57 AST 29 Units/L (15-37) 12/10/20 04:57 ALT 53 Units/L (12-78) 12/10/20 04:57 Alkaline Phosphatase 108 Units/L (46-116) 12/10/20 04:57 Creatine Kinase 79 Units/L (39-308) 11/24/20 17:25 CK-MB (CK-2) < 1.0 ng/mL (0-4.0) 11/24/20 17:25 CK/CKMB % Calc 1.3 % (<4) 11/24/20 17:25 Troponin I < 0.02 ng/mL (0-1.5) 11/24/20 17:25 C-Reactive Protein 1.00 mg/L (0-3.0) 12/02/20 08:23 Total Protein 6.9 g/dL (6.4-8.2) 12/10/20 04:57 Albumin 2.3 g/dL (3.4-5.0) L 12/10/20 04:57 Globulin 4.6 g/dL (2.5-4.5) H 12/10/20 04:57 Albumin/Globulin Ratio 0.5 Ratio (1.1-2.1) L 12/10/20 04:57 Amylase 48 Units/L (25-115) 11/24/20 17:25 Lipase 220 Units/L (73-393) 11/24/20 17:25 Specimen Type Clean catch urine 11/24/20 18:16 Urine Color Yellow (YELLOW) 11/24/20 18:16 Urine Appearance Clear (CLEAR) 11/24/20 18:16 Urine pH 5.0 (5.0 - 8.0) 11/24/20 18:16 Ur Specific [place] 1.025 (1.000-1.030) 11/24/20 18:16 Urine Protein 3+ (NEGATIVE) 11/24/20 18:16 Urine Glucose (UA) 4+ (NEGATIVE) 11/24/20 18:16 Urine Ketones 1+ (NEGATIVE) 11/24/20 18:16 Urine Occult Blood Negative (NEGATIVE) 11/24/20 18:16 Urine Nitrite Negative (NEGATIVE) 11/24/20 18:16 Urine Bilirubin Negative (NEGATIVE) 11/24/20 18:16 Urine Urobilinogen Normal (NORMAL) 11/24/20 18:16 Ur Leukocyte Esterase Negative (NEGATIVE) 11/24/20 18:16 Urine RBC None seen /HPF (0-3) 11/24/20 18:16 Urine WBC None seen /HPF (0-5) 11/24/20 18:16 Ur Squamous Epith Cells Rare /HPF (NEGATIVE) 11/24/20 18:16 Urine Bacteria Negative /HPF (NEGATIVE) 11/24/20 18:16 Ur Culture Indicated? No/not indicated 11/24/20 18:16 Acetone, Semi-Quant Negative (NEGATIVE) 11/24/20 17:30 SARS-CoV-2 (PCR) Positive (NEGATIVE) A 11/24/20 20:17 Influenza Type A (PCR) Negative (NEGATIVE) 11/24/20 20:17 Influenza Type B (PCR) Negative (NEGATIVE) 11/24/20 20:17 RSV (PCR) Negative (NEGATIVE) 11/24/20 20:17 S. pyogenes (TEM-PCR) Not detected (NOT DETECT) 11/24/20 20:17 Plan (1) Acute respiratory failure with hypoxia: Status: Acute Plan: Improving slowly; wean oxygen as tolerated. (2) COVID-19 virus infection: Status: Acute Plan: Still hypoxic and sob; unable to wean oxygen; repeat cxr; continue current mgmt. (3) Pulmonary edema: Status: Acute Qualifiers: Chronicity: chronic Qualified Code(s): J81.1 - Chronic pulmonary edema (4) Pneumonia: Status: Acute Qualifiers: Laterality: right Lung location: upper lobe of lung Pneumonia type: due to unspecified organism Qualified Code(s): J18.9 - Pneumonia, unspecified organism (5) HTN (hypertension): Status: Acute Qualifiers: Hypertension type: essential hypertension Qualified Code(s): I10 - Essential (primary) hypertension Plan: Remains elevated; increase apresoline and follow. (6) Hx of CABG: Status: Acute (7) Diabetes: Status: Acute Qualifiers: Diabetes mellitus complication status: without complication Diabetes mellitus mcc insulin use: without mcc use Diabetes mellitus type: type 2 Qualified Code(s): E11.9 - Type 2 diabetes mellitus without complications (8) FRANCIS (acute kidney injury): Status: Acute (9) Thrombocytopenia: Status: Acute
[2020-12-10] MEDS: SNACK - Diabetic Appropriate PO SCH (20:38)
[2020-12-10] MEDS: RESTORIL CAP 15 MG PO PRN (20:38)
[2020-12-10] MEDS: LIPITOR TAB 80 MG PO SCH (20:40)
[2020-12-11] MEDS: ALPHA LIPOIC ACID 200 MG PO SCH ×2 (00:26→05:57)
[2020-12-11] MEDS ORDERED: DUONEB 0.5 MG/3 MG (3 mL) NEB ONE (05:45)
[2020-12-11] MEDS: TUSSIONEX PENNKINETIC SUSP PO PRN ×2 (05:50→21:38)
[2020-12-11] MEDS: FORTAZ or TAZICEF VIAL INJ 2 G in NS 100 ML IV + SPIKE MINIBAG* 100 ML IV SCH (05:57)
[2020-12-11] MEDS: APRESOLINE TAB 10 MG PO SCH ×3 (05:57→21:38)
[2020-12-11] MEDS: DUONEB 0.5 MG/3 MG (3 mL) NEB SCH ×5 (06:00→21:45)
[2020-12-11] MEDS: HumuLIN R SUBCUT PRN ×4 (06:04→21:58)
[2020-12-11] MEDS: CIPRO TAB 500 MG PO SCH ×2 (08:13→21:38)
[2020-12-11] MEDS: ZyrTEC TAB 10 MG PO SCH (08:13)
[2020-12-11] MEDS: VITAMIN C PO SCH (08:13)
[2020-12-11] MEDS: ACTOS PO SCH (08:23)
[2020-12-11] MEDS: ROBITUSSIN DM PO SCH ×4 (08:23→21:38)
[2020-12-11] MEDS: ZINC SULFATE PO SCH ×2 (08:24→21:38)
[2020-12-11] MEDS: ISOSORBIDE MONONITRATE ER 24-HR PO SCH (08:24)
[2020-12-11] MEDS: COREG TAB 12.5 MG PO SCH ×2 (08:24→21:38)
[2020-12-11] MEDS: VITAMIN D3 125 mcg (5,000 UNITS) PO SCH (08:25)
[2020-12-11] MEDS: ELIQUIS PO SCH ×2 (08:25→21:38)
[2020-12-11] MEDS: DECADRON TAB PO SCH (08:25)
[2020-12-11] MEDS: COZAAR PO SCH (08:26)
[2020-12-11] MEDS: CINNAMON BARK 1000 MG PO SCH ×2 (08:26→21:38)
[2020-12-11] MEDS: PEPCID TAB 40 MG PO SCH ×2 (08:26→21:38)
[2020-12-11] MEDS: DAPAGLIFLOZIN 10 MG PO SCH (08:27)
[2020-12-11] MEDS: FLONASE NASAL SPRAY ENOSTRIL SCH (08:27)
[2020-12-11] MEDS: VITAMIN A PO SCH (08:27)
[2020-12-11] MEDS: VSL#3 PO SCH (08:28)
[2020-12-11] MEDS: PULMICORT NEB TX 0.5 MG NEB SCH ×2 (10:04→21:45)
[2020-12-11] MEDS: VISTARIL PO PRN ×2 (13:10→21:38)
--- NOTE | 2020-12-11 13:14 | PCM.PROG ---
Progress Note Progress Note for Day of Date of Exam: 12/11/20 Subjective Subjective: Patient seen at bedside, no acute events overnight. He states he feels better today after using the smart vest yesterday. He states he felt some discomfort in his chest but the smart vest helped and he doesn't feel it anymore. He has been having dry cough. He remains on 5L, sats between 85-91%. Patient's sats drop with any exertion. He did not work much with PT yesterday, sats dropped to mid 70s. He denies any respiratory distress or SOB. Labs: WBC 8.9 Hgb: 14.4 Plt 182 K: 5.1 BUN/Cr: 23/1.04 Sputum: Pseudomonas Blood Cx: negative ECHO: EF 60%, normal global wall motion, mild pulmonary HTN CXR (12/10/20): stable bilateral pneumonia CTA (12/06/20): neg for PE, multifocal pneumonia present Plan: Wean O2 as tolerated. Continue current treatment with Decadron and Ciprof loxacin. Will DC Fortaz. Continue Eliquis. PT/OT as tolerated. Encouraged patient to ambulate in the room. Continue smart vest as per RT. Continue duonebs and pulmicort treatments. Continue vitamin support. Continue to monitor patient in the ICU with telemetry and COVID protocol. Patient does not want to go into any alf or rehab. He would like to go home once he is stable. Time spent for clinical assessment, reviewing labs/imaging, physical exam, management, decision making and documentation greater than 75 mins. Past Medical Family Social History Past Med/Fam/Surg Hx: No changes since H&P Allergies: Allergies No Known Drug Allergies Allergy (Verified 11/24/20 20:28) Review of Systems ROS: No change since H&P Vital Signs and I&O's Vital Signs: Temperature 97.3 F Pulse Rate [Left] 75 Pulse Rate [Left Brachial] 60 Pulse Rate 64 Respiratory Rate 25 Blood Pressure [Left Arm] 149/67 Blood Pressure 126/70 O2 Sat by Pulse Oximetry 84 Intake and Output: Intake & Output 12/08/20 12/09/20 12/10/20 12/11/20 23:59 23:59 23:59 23:59 Intake Total 1905 / 1905 3703 / 3703 1638 / 1638 100 / 100 Output Total 2150 / 2150 3250 / 3250 4875 / 4875 2575 / 2575 Balance -245 / -245 453 / 453 -3237 / -3237 -2475 / -2475 Physical Exam Oriented: Normal Eyes: Normal Ear: Normal Nose: Normal Throat: Normal Respiratory: Generalized and Diminished (improved air entry ) Cardiovascular: Normal; negative Edema Auscultation: Bowel Sounds: Normal Tenderness: Normal Skin: Normal Musculoskeletal: Normal Mood Description: Calm Affect: Normal Speech Pattern: Clear and Appropriate Laboratory and Diagnostics Result Diagrams: 12/10/20 04:57 12/10/20 04:57 Labs: 11/24/20 17:25 Blood Blood Culture - Final 11/24/20 17:25 Blood Blood Culture - Final 11/25/20 06:08 Sputum - Expectorated Sputum Sputum Culture - Final Pseudomonas Aeruginosa 11/25/20 06:08 Sputum - Expectorated Sputum - Final Laboratory WBC 8.9 X10^3/uL (3.6-10.0) 12/10/20 04:57 RBC 4.85 X10^6/uL (4.7-6.0) 12/10/20 04:57 Hgb 14.4 g/dL (13.5-18.0) 12/10/20 04:57 Hct 41.9 % (42.0-54.0) L 12/10/20 04:57 MCV 86.5 fL (80.0-100.0) 12/10/20 04:57 MCH 29.7 pg (27.0-34.0) 12/10/20 04:57 MCHC 34.4 g/dL (33.0-35.0) 12/10/20 04:57 RDW 14.7 % (11.6-16.5) 12/10/20 04:57 Plt Count 182 X10^3/uL (150.0-450.0) 12/10/20 04:57 Plt Count Comment Adequate (ADEQUATE) 12/10/20 04:57 MPV 9.0 fL (7.4-11.0) 12/10/20 04:57 Neut % (Auto) 91.6 % (42.0-75.0) H 12/10/20 04:57 Lymph % (Auto) 5.1 % (21.0-51.0) L 12/10/20 04:57 [place] % (Auto) 2.9 % (0.0-13.0) 12/10/20 04:57 Eos % (Auto) 0.0 % (0.9-2.9) L 12/10/20 04:57 Baso % (Auto) 0.4 % (0.2-1.0) 12/10/20 04:57 Neut # (Auto) 8.2 x10^3/uL (2.2-4.8) H 12/10/20 04:57 Lymph # (Auto) 0.5 X10^3/uL (1.3-2.9) L 12/10/20 04:57 [place] # (Auto) 0.3 x10^3/uL (0.3-0.8) 12/10/20 04:57 Eos # (Auto) 0.0 x10^3/uL (0.0-0.2) 12/10/20 04:57 Baso # (Auto) 0.0 X10^3/uL (0.0-0.1) 12/10/20 04:57 Absolute Nucleated RBC 0.0 /100WBC 12/10/20 04:57 Total Counted 100 12/10/20 04:57 Neutrophils % (Manual) 89 % (39-76) H 12/10/20 04:57 Band Neutrophils % 4 % (0-10) 12/10/20 04:57 Lymphocytes % (Manual) 4 % (13-43) L 12/10/20 04:57 Monocytes % (Manual) 3 % (4-9) L 12/10/20 04:57 Plt Morphology Comment Normal (NORMAL) 12/10/20 04:57 RBC Morphology Normal (NORMAL) 12/10/20 04:57 D-Dimer 1.13 ug/ml (0.0-0.57) H* 12/05/20 08:47 Sample Site Rr 11/29/20 09:26 ABG pH 7.480 (7.35-7.45) H 11/29/20 09:26 ABG pCO2 36.0 mmHg (35.0-45.0) 11/29/20 09:26 ABG pO2 49.0 mmHg (80.0-100.0) L* 11/29/20 09:26 ABG HCO3 26.8 mmol/L (22-26) H 11/29/20 09:26 ABG O2 Saturation 87.0 % (90-100) L 11/29/20 09:26 ABG Base Excess 3.3 mmol/L (-2.0-2.0) H 11/29/20 09:26 Bernardo Test Pos 11/29/20 09:26 A-a Gradient 134.0 mmHg 11/29/20 09:26 FiO2 32.0 11/29/20 09:26 Blood Gas Comments Pt galina well cdn 11/29/20 09:26 Sodium 137 mmol/L (136-145) 12/10/20 04:57 Corrected Sodium 141 mmol/L (136-145) 12/10/20 04:57 Potassium 5.1 mmol/L (3.5-5.1) 12/10/20 04:57 Chloride 104 mmol/L (98-107) 12/10/20 04:57 Carbon Dioxide 27.1 mmol/L (21-32) 12/10/20 04:57 BUN 23 mg/dL (7-18) H 12/10/20 04:57 Creatinine 1.04 mg/dL (0.70-1.30) 12/10/20 04:57 Est GFR (MDRD) Af Amer > 60 (>60) 12/10/20 04:57 Est GFR (MDRD) Non-Af > 60 (>60) 12/10/20 04:57 Glucose 258 mg/dL (65-99) H 12/10/20 04:57 POC Glucose (mg/dL) 251 mg/dL (65-99) H 12/11/20 11:13 Lactic Acid 2.0 mmol/L (0.4-2.0) 11/24/20 17:25 Calcium 8.6 mg/dL (8.5-10.1) 12/10/20 04:57 Corrected Calcium 10.0 mg/dL (8.5-10.1) 12/10/20 04:57 Magnesium 2.0 mg/dL (1.7-2.9) 12/09/20 05:13 Total Bilirubin 0.90 mg/dL (0.2-1.0) 12/10/20 04:57 AST 29 Units/L (15-37) 12/10/20 04:57 ALT 53 Units/L (12-78) 12/10/20 04:57 Alkaline Phosphatase 108 Units/L (46-116) 12/10/20 04:57 Creatine Kinase 79 Units/L (39-308) 11/24/20 17:25 CK-MB (CK-2) < 1.0 ng/mL (0-4.0) 11/24/20 17:25 CK/CKMB % Calc 1.3 % (<4) 11/24/20 17:25 Troponin I < 0.02 ng/mL (0-1.5) 11/24/20 17:25 C-Reactive Protein 1.00 mg/L (0-3.0) 12/02/20 08:23 Total Protein 6.9 g/dL (6.4-8.2) 12/10/20 04:57 Albumin 2.3 g/dL (3.4-5.0) L 12/10/20 04:57 Globulin 4.6 g/dL (2.5-4.5) H 12/10/20 04:57 Albumin/Globulin Ratio 0.5 Ratio (1.1-2.1) L 12/10/20 04:57 Amylase 48 Units/L (25-115) 11/24/20 17:25 Lipase 220 Units/L (73-393) 11/24/20 17:25 Specimen Type Clean catch urine 11/24/20 18:16 Urine Color Yellow (YELLOW) 11/24/20 18:16 Urine Appearance Clear (CLEAR) 11/24/20 18:16 Urine pH 5.0 (5.0 - 8.0) 11/24/20 18:16 Ur Specific [place] 1.025 (1.000-1.030) 11/24/20 18:16 Urine Protein 3+ (NEGATIVE) 11/24/20 18:16 Urine Glucose (UA) 4+ (NEGATIVE) 11/24/20 18:16 Urine Ketones 1+ (NEGATIVE) 11/24/20 18:16 Urine Occult Blood Negative (NEGATIVE) 11/24/20 18:16 Urine Nitrite Negative (NEGATIVE) 11/24/20 18:16 Urine Bilirubin Negative (NEGATIVE) 11/24/20 18:16 Urine Urobilinogen Normal (NORMAL) 11/24/20 18:16 Ur Leukocyte Esterase Negative (NEGATIVE) 11/24/20 18:16 Urine RBC None seen /HPF (0-3) 11/24/20 18:16 Urine WBC None seen /HPF (0-5) 11/24/20 18:16 Ur Squamous Epith Cells Rare /HPF (NEGATIVE) 11/24/20 18:16 Urine Bacteria Negative /HPF (NEGATIVE) 11/24/20 18:16 Ur Culture Indicated? No/not indicated 11/24/20 18:16 Acetone, Semi-Quant Negative (NEGATIVE) 11/24/20 17:30 SARS-CoV-2 (PCR) Positive (NEGATIVE) A 11/24/20 20:17 Influenza Type A (PCR) Negative (NEGATIVE) 11/24/20 20:17 Influenza Type B (PCR) Negative (NEGATIVE) 11/24/20 20:17 RSV (PCR) Negative (NEGATIVE) 11/24/20 20:17 S. pyogenes (TEM-PCR) Not detected (NOT DETECT) 11/24/20 20:17 Plan (1) Acute respiratory failure with hypoxia: Status: Acute Plan: Improving slowly; wean oxygen as tolerated. (2) Pseudomonal pneumonia: Status: Acute Qualifiers: Laterality: bilateral Lung location: unspecified part of lung Qualified Code(s): J15.1 - Pneumonia due to Pseudomonas (3) COVID-19 virus infection: Status: Acute Plan: Still hypoxic and sob; unable to wean oxygen; repeat cxr; continue current mgmt. (4) Pulmonary edema: Status: Acute Qualifiers: Chronicity: chronic Qualified Code(s): J81.1 - Chronic pulmonary edema (5) HTN (hypertension): Status: Acute Qualifiers: Hypertension type: essential hypertension Qualified Code(s): I10 - Essential (primary) hypertension Plan: Remains elevated; increase apresoline and follow. (6) Hx of CABG: Status: Acute (7) Diabetes: Status: Acute Qualifiers: Diabetes mellitus type: type 2 Diabetes mellitus detention insulin use: without detention use Diabetes mellitus complication status: without complication Qualified Code(s): E11.9 - Type 2 diabetes mellitus without complications (8) FRANCIS (acute kidney injury): Status: Acute (9) Thrombocytopenia: Status: Acute (10) Oxygen dependent: Status: Acute
[2020-12-11] MEDS: TYLENOL 325 MG TAB PO PRN (21:38)
[2020-12-11] MEDS: LIPITOR TAB 80 MG PO SCH (21:38)
[2020-12-11] MEDS: RESTORIL CAP 15 MG PO PRN (21:38)
[2020-12-11] MEDS: BUTT CREAM (COMPOUND) TOP PRN (21:38)
[2020-12-11] MEDS: SNACK - Diabetic Appropriate PO SCH (22:07)
[2020-12-12] MEDS: APRESOLINE TAB 10 MG PO SCH ×3 (05:54→21:01)
[2020-12-12 06:33] LABS: BASOPHILS % (AUTO) 0.3 % (0.2-1.0); EOSINOPHILS % (AUTO) 0.1 % (0.9-2.9); HEMATOCRIT 41.6 % (42.0-54.0); HEMOGLOBIN 14.2 g/dL (13.5-18.0); LYMPHOCYTES # (AUTO) 0.8 X10^3/uL (1.3-2.9); LYMPHOCYTES % (AUTO) 7.5 % (21.0-51.0); MEAN CORPUSCULAR HEMOGLOBIN 29.7 pg (27.0-34.0); MEAN CORPUSCULAR VOLUME 87.4 fL (80.0-100.0); MEAN PLATELET VOLUME 8.7 fL (7.4-11.0); MONOCYTES # (AUTO) 0.7 x10^3/uL (0.3-0.8); MONOCYTES % (AUTO) 6.8 % (0.0-13.0); NEUTROPHILS # (AUTO) 9.3 x10^3/uL (2.2-4.8); NEUTROPHILS % (AUTO) 85.3 % (42.0-75.0); PLATELET COUNT 192 X10^3/uL (150.0-450.0); RED BLOOD COUNT 4.76 X10^6/uL (4.7-6.0); RED CELL DISTRIBUTION WIDTH 14.4 % (11.6-16.5); WHITE BLOOD COUNT 10.9 X10^3/uL (3.6-10.0)
[2020-12-12] MEDS: HumuLIN R SUBCUT PRN ×4 (06:35→20:26)
[2020-12-12 06:46] LABS: ALANINE AMINOTRANSFERASE 60 Units/L (12-78); ALBUMIN 2.6 g/dL (3.4-5.0); ALKALINE PHOSPHATASE 99 Units/L (46-116); ASPARTATE AMINO TRANSFERASE 28 Units/L (15-37); BLOOD UREA NITROGEN 31 mg/dL (7-18); CARBON DIOXIDE 27.6 mmol/L (21-32); CHLORIDE 104 mmol/L (98-107); COR CA(FOR HYPOALB) 10.1 mg/dL (8.5-10.1); COR NA(FOR HYPERGLY) 141 mmol/L (136-145); CREATININE 1.01 mg/dL (0.70-1.30); SODIUM 138 mmol/L (136-145); TOTAL PROTEIN 6.8 g/dL (6.4-8.2); eGFR NON BLACK RACES > 60 (>60)
[2020-12-12] MEDS: ACTOS PO SCH (08:42)
[2020-12-12] MEDS: CIPRO TAB 500 MG PO SCH ×2 (08:43→20:24)
[2020-12-12] MEDS: COZAAR PO SCH (08:43)
[2020-12-12] MEDS: COREG TAB 12.5 MG PO SCH ×2 (08:43→20:25)
[2020-12-12] MEDS: ISOSORBIDE MONONITRATE ER 24-HR PO SCH (08:43)
[2020-12-12] MEDS: VITAMIN D3 125 mcg (5,000 UNITS) PO SCH (08:43)
[2020-12-12] MEDS: ZINC SULFATE PO SCH ×2 (08:43→20:26)
[2020-12-12] MEDS: VITAMIN C PO SCH (08:44)
[2020-12-12] MEDS: ZyrTEC TAB 10 MG PO SCH (08:44)
[2020-12-12] MEDS: PEPCID TAB 40 MG PO SCH ×2 (08:45→20:26)
[2020-12-12] MEDS: CINNAMON BARK 1000 MG PO SCH ×2 (08:45→20:24)
[2020-12-12] MEDS: ROBITUSSIN DM PO SCH ×4 (08:45→20:26)
[2020-12-12] MEDS: ELIQUIS PO SCH ×2 (08:45→20:25)
[2020-12-12] MEDS: VSL#3 PO SCH (08:46)
[2020-12-12] MEDS: DAPAGLIFLOZIN 10 MG PO SCH (08:46)
[2020-12-12] MEDS: VITAMIN A PO SCH (08:48)
[2020-12-12] MEDS: FLONASE NASAL SPRAY ENOSTRIL SCH (08:48)
[2020-12-12] MEDS: DECADRON TAB PO SCH (08:52)
[2020-12-12] MEDS: DUONEB 0.5 MG/3 MG (3 mL) NEB SCH ×4 (08:55→21:00)
[2020-12-12] MEDS: PULMICORT NEB TX 0.5 MG NEB SCH ×2 (08:56→21:00)
--- NOTE | 2020-12-12 09:23 | PCM.PROG ---
Progress Note Progress Note for Day of Date of Exam: 12/12/20 Subjective Subjective: Patient seen at bedside, no acute events overnight. Patient states yesterday evening was a little but rough. He went to have a BM and his sats dropped into the 50s. It took a while for him to recover. He states he felt tired yesterday. He remains on 5L, sats 85-91%. He states it was 93% earlier this morning. He still has dry cough. He has been using the smart vest and IS. He denies respiratory distress. His sats during exam remained between 83-87%. They tend to drop with minimal exertion. His appetite is normal. He did work with PT a little bit but sats dropped into 70s so therapy was ended. Labs: WBC 10.9 Hgb: 14.2 Plt 182 K: 5.1 BUN/Cr: 31/1.01 Sputum: Pseudomonas Blood Cx: negative ECHO: EF 60%, normal global wall motion, mild pulmonary HTN CXR (12/10/20): stable bilateral pneumonia CTA (12/06/20): neg for PE, multifocal pneumonia present Plan: Repeat CXR. Wean O2 as tolerated. Continue current treatment with tapered Decadron and Ciprofloxacin. Continue Eliquis. PT/OT as tolerated. Encouraged patient to ambulate in the room. Continue smart vest as per RT. Continue duonebs and pulmicort treatments. Continue vitamin support. Patient can be removed from isolation room since it's been Day 18 since admission. He will remain in the ICU for closer monitoring. Patient does not want to go into any [facility] or rehab. He would like to go home once he is stable. Time spent for clinical assessment, reviewing labs/imaging, physical exam, management, decision making and documentation greater than 75 mins. Past Medical Family Social History Past Med/Fam/Surg Hx: No changes since H&P Allergies: Allergies No Known Drug Allergies Allergy (Verified 11/24/20 20:28) Review of Systems ROS: No change since H&P Vital Signs and I&O's Vital Signs: Temperature 97.7 F Pulse Rate [Left] 64 Pulse Rate [Left Brachial] 60 Pulse Rate 76 Respiratory Rate 26 Blood Pressure [Left Arm] 156/74 Blood Pressure 126/70 O2 Sat by Pulse Oximetry 85 Intake and Output: Intake & Output 07/10/2512/10/20 12/11/20 12/12/20 23:59 23:59 23:59 23:59 Intake Total 3703 / 3703 1638 / 1638 1040 / 1040 480 / 480 Output Total 3250 / 3250 4875 / 4875 3400 / 3400 1000 / 1000 Balance 453 / 453 -3237 / -3237 -2360 / -2360 -520 / -520 Physical Exam Oriented: Normal Eyes: Normal Ear: Normal Nose: Normal Throat: Normal Respiratory: Generalized, Diminished (improved air entry ) and [place] Cardiovascular: Normal; negative Edema Auscultation: Bowel Sounds: Normal Tenderness: Normal Skin: Normal Musculoskeletal: Normal Mood Description: Calm Affect: Normal Speech Pattern: Clear and Appropriate Laboratory and Diagnostics Result Diagrams: 12/12/20 05:25 12/12/20 05:25 Labs: 11/24/20 17:25 Blood Blood Culture - Final 11/24/20 17:25 Blood Blood Culture - Final 11/25/20 06:08 Sputum - Expectorated Sputum Sputum Culture - Final Pseudomonas Aeruginosa 11/25/20 06:08 Sputum - Expectorated Sputum - Final Laboratory WBC 10.9 X10^3/uL (3.6-10.0) H 12/12/20 05:25 RBC 4.76 X10^6/uL (4.7-6.0) 12/12/20 05:25 Hgb 14.2 g/dL (13.5-18.0) 12/12/20 05:25 Hct 41.6 % (42.0-54.0) L 12/12/20 05:25 MCV 87.4 fL (80.0-100.0) 12/12/20 05:25 MCH 29.7 pg (27.0-34.0) 12/12/20 05:25 MCHC 34.0 g/dL (33.0-35.0) 12/12/20 05:25 RDW 14.4 % (11.6-16.5) 12/12/20 05:25 Plt Count 192 X10^3/uL (150.0-450.0) 12/12/20 05:25 Plt Count Comment Adequate (ADEQUATE) 12/10/20 04:57 MPV 8.7 fL (7.4-11.0) 12/12/20 05:25 Neut % (Auto) 85.3 % (42.0-75.0) H 12/12/20 05:25 Lymph % (Auto) 7.5 % (21.0-51.0) L 12/12/20 05:25 [place] % (Auto) 6.8 % (0.0-13.0) 12/12/20 05:25 Eos % (Auto) 0.1 % (0.9-2.9) L 12/12/20 05:25 Baso % (Auto) 0.3 % (0.2-1.0) 12/12/20 05:25 Neut # (Auto) 9.3 x10^3/uL (2.2-4.8) H 12/12/20 05:25 Lymph # (Auto) 0.8 X10^3/uL (1.3-2.9) L 12/12/20 05:25 [place] # (Auto) 0.7 x10^3/uL (0.3-0.8) 12/12/20 05:25 Eos # (Auto) 0.0 x10^3/uL (0.0-0.2) 12/12/20 05:25 Baso # (Auto) 0.0 X10^3/uL (0.0-0.1) 12/12/20 05:25 Absolute Nucleated RBC 0.0 /100WBC 12/12/20 05:25 Total Counted 100 12/10/20 04:57 Neutrophils % (Manual) 89 % (39-76) H 12/10/20 04:57 Band Neutrophils % 4 % (0-10) 12/10/20 04:57 Lymphocytes % (Manual) 4 % (13-43) L 12/10/20 04:57 Monocytes % (Manual) 3 % (4-9) L 12/10/20 04:57 Plt Morphology Comment Normal (NORMAL) 12/10/20 04:57 RBC Morphology Normal (NORMAL) 12/10/20 04:57 D-Dimer 1.13 ug/ml (0.0-0.57) H* 12/05/20 08:47 Sample Site Rr 11/29/20 09:26 ABG pH 7.480 (7.35-7.45) H 11/29/20 09:26 ABG pCO2 36.0 mmHg (35.0-45.0) 11/29/20 09:26 ABG pO2 49.0 mmHg (80.0-100.0) L* 11/29/20 09:26 ABG HCO3 26.8 mmol/L (22-26) H 11/29/20 09:26 ABG O2 Saturation 87.0 % (90-100) L 11/29/20 09:26 ABG Base Excess 3.3 mmol/L (-2.0-2.0) H 11/29/20 09:26 Bernardo Test Pos 11/29/20 09:26 A-a Gradient 134.0 mmHg 11/29/20 09:26 FiO2 32.0 11/29/20 09:26 Blood Gas Comments Pt galina well cdn 11/29/20 09:26 Sodium 138 mmol/L (136-145) 12/12/20 05:25 Corrected Sodium 141 mmol/L (136-145) 12/12/20 05:25 Potassium 5.1 mmol/L (3.5-5.1) 12/12/20 05:25 Chloride 104 mmol/L (98-107) 12/12/20 05:25 Carbon Dioxide 27.6 mmol/L (21-32) 12/12/20 05:25 BUN 31 mg/dL (7-18) H 12/12/20 05:25 Creatinine 1.01 mg/dL (0.70-1.30) 12/12/20 05:25 Est GFR (MDRD) Af Amer > 60 (>60) 12/12/20 05:25 Est GFR (MDRD) Non-Af > 60 (>60) 12/12/20 05:25 Glucose 214 mg/dL (65-99) H 12/12/20 05:25 POC Glucose (mg/dL) 279 mg/dL (65-99) H 12/12/20 05:52 Lactic Acid 2.0 mmol/L (0.4-2.0) 11/24/20 17:25 Calcium 9.0 mg/dL (8.5-10.1) 12/12/20 05:25 Corrected Calcium 10.1 mg/dL (8.5-10.1) 12/12/20 05:25 Magnesium 2.0 mg/dL (1.7-2.9) 12/09/20 05:13 Total Bilirubin 0.60 mg/dL (0.2-1.0) 12/12/20 05:25 AST 28 Units/L (15-37) 12/12/20 05:25 ALT 60 Units/L (12-78) 12/12/20 05:25 Alkaline Phosphatase 99 Units/L (46-116) 12/12/20 05:25 Creatine Kinase 79 Units/L (39-308) 11/24/20 17:25 CK-MB (CK-2) < 1.0 ng/mL (0-4.0) 11/24/20 17:25 CK/CKMB % Calc 1.3 % (<4) 11/24/20 17:25 Troponin I < 0.02 ng/mL (0-1.5) 11/24/20 17:25 C-Reactive Protein 1.00 mg/L (0-3.0) 12/02/20 08:23 Total Protein 6.8 g/dL (6.4-8.2) 12/12/20 05:25 Albumin 2.6 g/dL (3.4-5.0) L 12/12/20 05:25 Globulin 4.2 g/dL (2.5-4.5) 12/12/20 05:25 Albumin/Globulin Ratio 0.6 Ratio (1.1-2.1) L 12/12/20 05:25 Amylase 48 Units/L (25-115) 11/24/20 17:25 Lipase 220 Units/L (73-393) 11/24/20 17:25 Specimen Type Clean catch urine 11/24/20 18:16 Urine Color Yellow (YELLOW) 11/24/20 18:16 Urine Appearance Clear (CLEAR) 11/24/20 18:16 Urine pH 5.0 (5.0 - 8.0) 11/24/20 18:16 Ur Specific [place] 1.025 (1.000-1.030) 11/24/20 18:16 Urine Protein 3+ (NEGATIVE) 11/24/20 18:16 Urine Glucose (UA) 4+ (NEGATIVE) 11/24/20 18:16 Urine Ketones 1+ (NEGATIVE) 11/24/20 18:16 Urine Occult Blood Negative (NEGATIVE) 11/24/20 18:16 Urine Nitrite Negative (NEGATIVE) 11/24/20 18:16 Urine Bilirubin Negative (NEGATIVE) 11/24/20 18:16 Urine Urobilinogen Normal (NORMAL) 11/24/20 18:16 Ur Leukocyte Esterase Negative (NEGATIVE) 11/24/20 18:16 Urine RBC None seen /HPF (0-3) 11/24/20 18:16 Urine WBC None seen /HPF (0-5) 11/24/20 18:16 Ur Squamous Epith Cells Rare /HPF (NEGATIVE) 11/24/20 18:16 Urine Bacteria Negative /HPF (NEGATIVE) 11/24/20 18:16 Ur Culture Indicated? No/not indicated 11/24/20 18:16 Acetone, Semi-Quant Negative (NEGATIVE) 11/24/20 17:30 SARS-CoV-2 (PCR) Positive (NEGATIVE) A 11/24/20 20:17 Influenza Type A (PCR) Negative (NEGATIVE) 11/24/20 20:17 Influenza Type B (PCR) Negative (NEGATIVE) 11/24/20 20:17 RSV (PCR) Negative (NEGATIVE) 11/24/20 20:17 S. pyogenes (TEM-PCR) Not detected (NOT DETECT) 11/24/20 20:17 Plan (1) Acute respiratory failure with hypoxia: Status: Acute Plan: Improving slowly; wean oxygen as tolerated. (2) Pseudomonal pneumonia: Status: Acute Qualifiers: Laterality: bilateral Lung location: unspecified part of lung Qualified Code(s): J15.1 - Pneumonia due to Pseudomonas (3) COVID-19 virus infection: Status: Acute Plan: Still hypoxic and sob; unable to wean oxygen; repeat cxr; continue current mgmt. (4) Pulmonary edema: Status: Acute Qualifiers: Chronicity: chronic Qualified Code(s): J81.1 - Chronic pulmonary edema (5) HTN (hypertension): Status: Acute Qualifiers: Hypertension type: essential hypertension Qualified Code(s): I10 - Essential (primary) hypertension Plan: Remains elevated; increase apresoline and follow. (6) Hx of CABG: Status: Acute (7) Diabetes: Status: Acute Qualifiers: Diabetes mellitus complication status: without complication Diabetes mellitus retirement insulin use: without slasher use Diabetes mellitus type: type 2 Qualified Code(s): E11.9 - Type 2 diabetes mellitus without complications (8) FRANCIS (acute kidney injury): Status: Acute (9) Thrombocytopenia: Status: Acute (10) Oxygen dependent: Status: Acute
--- NOTE | 2020-12-12 10:40 | RAD ---
HISTORYPNEUMONIA/ [facility] VIEWCOMPARISONX-ray 12/10/2020FINDINGSBilateral lung infiltrates have a peripheral distribution as can be seen with COVID-19 pneumonia findings are similar to prior study given differences in technique. Prior cardiac surgery. Borderline CHF changes. Patient is slightly rotated to the right. Small left pleural effusion may be present. No pneumothorax is seen.IMPRESSIONProminent bilateral COVID-19 pneumonia is suspected, similar to prior study.Electronically signed by: Stephane Gonzalez (Dec 12, 2020 10:39:20)
[2020-12-12] MEDS: VISTARIL PO PRN (11:52)
[2020-12-12] MEDS ORDERED: LASIX IVP ONE (12:15)
[2020-12-12] MEDS ORDERED: PEPCID TAB 20 MG PO PRN (12:17)
[2020-12-12] MEDS: LEVSIN/MAALOX/LIDOC VISC PO PRN (12:46)
[2020-12-12 12:49] LABS: ABG BASE EXCESS 0.9 mmol/L (-2.0-2.0); ABG HCO3 23.8 mmol/L (22-26)
[2020-12-12] MEDS: PROTONIX TAB 40 MG PO SCH (12:50)
[2020-12-12 12:51] LABS: ABG ALLEN TEST N
[2020-12-12] MEDS: SNACK - Diabetic Appropriate PO SCH (20:24)
[2020-12-12] MEDS: LIPITOR TAB 80 MG PO SCH (20:25)
[2020-12-13] MEDS: APRESOLINE TAB 10 MG PO SCH ×3 (06:00→21:57)
[2020-12-13] MEDS: HumuLIN R SUBCUT PRN ×3 (06:06→17:00)
[2020-12-13] MEDS: PEPCID TAB 40 MG PO SCH ×2 (08:27→21:56)
[2020-12-13] MEDS: CIPRO TAB 500 MG PO SCH ×2 (08:27→21:55)
[2020-12-13] MEDS: ZyrTEC TAB 10 MG PO SCH (08:28)
[2020-12-13] MEDS: ACTOS PO SCH (08:28)
[2020-12-13] MEDS: ZINC SULFATE PO SCH ×2 (08:28→21:56)
[2020-12-13] MEDS: COZAAR PO SCH (08:28)
[2020-12-13] MEDS: COREG TAB 12.5 MG PO SCH ×2 (08:28→21:55)
[2020-12-13] MEDS: ISOSORBIDE MONONITRATE ER 24-HR PO SCH (08:28)
[2020-12-13] MEDS: VITAMIN C PO SCH (08:29)
[2020-12-13] MEDS: DECADRON TAB PO SCH (08:29)
[2020-12-13] MEDS: ELIQUIS PO SCH ×2 (08:29→21:56)
[2020-12-13] MEDS: FLONASE NASAL SPRAY ENOSTRIL SCH (08:30)
[2020-12-13] MEDS: PULMICORT NEB TX 0.5 MG NEB SCH ×2 (08:30→20:00)
[2020-12-13] MEDS: DUONEB 0.5 MG/3 MG (3 mL) NEB SCH ×4 (08:30→20:00)
[2020-12-13] MEDS: CINNAMON BARK 1000 MG PO SCH ×2 (08:30→21:55)
[2020-12-13] MEDS: ROBITUSSIN DM PO SCH ×5 (08:30→21:56)
[2020-12-13] MEDS: PROTONIX TAB 40 MG PO SCH (08:30)
[2020-12-13] MEDS: VSL#3 PO SCH (08:31)
[2020-12-13] MEDS: VISTARIL PO PRN (08:32)
[2020-12-13] MEDS: VITAMIN A PO SCH (08:32)
[2020-12-13] MEDS: VITAMIN D3 125 mcg (5,000 UNITS) PO SCH (08:34)
[2020-12-13] MEDS ORDERED: LASIX IVP ONE (10:18)
--- NOTE | 2020-12-13 11:11 | PCM.PROG ---
Progress Note Progress Note for Day of Date of Exam: 12/13/20 Subjective Subjective: Patient seen at bedside. He was placed on HHFNC yesterday evening due to sats remaining in the low 80s. He is currently on 40% FiO2. He states he feels short of breath with any movement or exertion. He did not eat much breakfast this morning due to sats dropping into the high 70s with eating. He feels like he is not getting enough O2 via the nasal canula. He states he had a traumatic nose injury to his right nostril so it's partially open. He has been trying to breath from his left side. He still has non productive cough. He was not able to work much with PT yesterday. He continues to use smart vest. He denies being in respiratory distress at this time. Labs: WBC 10.9 Hgb: 14.2 Plt 182 K: 5.1 BUN/Cr: 31/1.01 Sputum: Pseudomonas Blood Cx: negative ECHO: EF 60%, normal global wall motion, mild pulmonary HTN CXR (12/12/20): stable bilateral pneumonia, no changes noted CTA (12/06/20): neg for PE, multifocal pneumonia present Plan: Patient's sats remained in low 80s during exam ( 81-83%), discussed with RT to adjust FiO2 or to change to NRB if able to tolerate that better. Wean O2 as tolerated. Continue current treatment with tapered Decadron and Ciprofloxacin. Will give another dose of lasix IV 40 mg today. Continue Eliquis. PT/OT as tolerated. Encouraged patient to ambulate in the room. Continue smart vest as per RT. Continue duonebs and pulmicort treatments. Continue vitamin support. Time spent for clinical assessment, reviewing labs/imaging, physical exam, management, decision making and documentation greater than 75 mins. Past Medical Family Social History Past Med/Fam/Surg Hx: No changes since H&P Allergies: Allergies No Known Drug Allergies Allergy (Verified 11/24/20 20:28) Review of Systems ROS: No change since H&P Vital Signs and I&O's Vital Signs: Temperature 97.1 F Pulse Rate [Left] 56 Pulse Rate [Left Brachial] 60 Pulse Rate 76 Respiratory Rate 19 Blood Pressure [Left Arm] 153/71 Blood Pressure 126/70 O2 Sat by Pulse Oximetry 90 Intake and Output: Intake & Output 12/10/20 12/11/20 12/12/20 12/13/20 23:59 23:59 23:59 23:59 Intake Total 1638 / 1638 1040 / 1040 960 / 960 350 / 350 Output Total 4875 / 4875 3400 / 3400 4580 / 4580 200 / 200 Balance -3237 / -3237 -2360 / -2360 -3620 / -3620 150 / 150 Physical Exam Oriented: Normal Eyes: Normal Ear: Normal Nose: Normal Throat: Normal Respiratory: Generalized, Diminished and Rales Cardiovascular: Normal; negative Edema Auscultation: Bowel Sounds: Normal Tenderness: Normal Skin: Normal Musculoskeletal: Normal Mood Description: Calm Affect: Normal Speech Pattern: Clear and Appropriate Laboratory and Diagnostics Result Diagrams: 12/12/20 05:25 12/12/20 05:25 Labs: 11/24/20 17:25 Blood Blood Culture - Final 11/24/20 17:25 Blood Blood Culture - Final 11/25/20 06:08 Sputum - Expectorated Sputum Sputum Culture - Final Pseudomonas Aeruginosa 11/25/20 06:08 Sputum - Expectorated Sputum - Final Laboratory WBC 10.9 X10^3/uL (3.6-10.0) H 12/12/20 05:25 RBC 4.76 X10^6/uL (4.7-6.0) 12/12/20 05:25 Hgb 14.2 g/dL (13.5-18.0) 12/12/20 05:25 Hct 41.6 % (42.0-54.0) L 12/12/20 05:25 MCV 87.4 fL (80.0-100.0) 12/12/20 05:25 MCH 29.7 pg (27.0-34.0) 12/12/20 05:25 MCHC 34.0 g/dL (33.0-35.0) 12/12/20 05:25 RDW 14.4 % (11.6-16.5) 12/12/20 05:25 Plt Count 192 X10^3/uL (150.0-450.0) 12/12/20 05:25 Plt Count Comment Adequate (ADEQUATE) 12/10/20 04:57 MPV 8.7 fL (7.4-11.0) 12/12/20 05:25 Neut % (Auto) 85.3 % (42.0-75.0) H 12/12/20 05:25 Lymph % (Auto) 7.5 % (21.0-51.0) L 12/12/20 05:25 Mccormick % (Auto) 6.8 % (0.0-13.0) 12/12/20 05:25 Eos % (Auto) 0.1 % (0.9-2.9) L 12/12/20 05:25 Baso % (Auto) 0.3 % (0.2-1.0) 12/12/20 05:25 Neut # (Auto) 9.3 x10^3/uL (2.2-4.8) H 12/12/20 05:25 Lymph # (Auto) 0.8 X10^3/uL (1.3-2.9) L 12/12/20 05:25 Mccormick # (Auto) 0.7 x10^3/uL (0.3-0.8) 12/12/20 05:25 Eos # (Auto) 0.0 x10^3/uL (0.0-0.2) 12/12/20 05:25 Baso # (Auto) 0.0 X10^3/uL (0.0-0.1) 12/12/20 05:25 Absolute Nucleated RBC 0.0 /100WBC 12/12/20 05:25 Total Counted 100 12/10/20 04:57 Neutrophils % (Manual) 89 % (39-76) H 12/10/20 04:57 Band Neutrophils % 4 % (0-10) 12/10/20 04:57 Lymphocytes % (Manual) 4 % (13-43) L 12/10/20 04:57 Monocytes % (Manual) 3 % (4-9) L 12/10/20 04:57 Plt Morphology Comment Normal (NORMAL) 12/10/20 04:57 RBC Morphology Normal (NORMAL) 12/10/20 04:57 D-Dimer 1.13 ug/ml (0.0-0.57) H* 12/05/20 08:47 Sample Site Lb 12/12/20 12:40 ABG pH 7.480 (7.35-7.45) H 12/12/20 12:40 ABG pCO2 32.0 mmHg (35.0-45.0) L 12/12/20 12:40 ABG pO2 44.0 mmHg (80.0-100.0) L* 12/12/20 12:40 ABG HCO3 23.8 mmol/L (22-26) 12/12/20 12:40 ABG O2 Saturation 83.0 % (90-100) L* 12/12/20 12:40 ABG Base Excess 0.9 mmol/L (-2.0-2.0) 12/12/20 12:40 Bernardo Test N 12/12/20 12:40 A-a Gradient 201.0 mmHg 12/12/20 12:40 FiO2 40.0 12/12/20 12:40 Blood Gas Comments 12/12/20 12:40 Sodium 138 mmol/L (136-145) 12/12/20 05:25 Corrected Sodium 141 mmol/L (136-145) 12/12/20 05:25 Potassium 5.1 mmol/L (3.5-5.1) 12/12/20 05:25 Chloride 104 mmol/L (98-107) 12/12/20 05:25 Carbon Dioxide 27.6 mmol/L (21-32) 12/12/20 05:25 BUN 31 mg/dL (7-18) H 12/12/20 05:25 Creatinine 1.01 mg/dL (0.70-1.30) 12/12/20 05:25 Est GFR (MDRD) Af Amer > 60 (>60) 12/12/20 05:25 Est GFR (MDRD) Non-Af > 60 (>60) 12/12/20 05:25 Glucose 214 mg/dL (65-99) H 12/12/20 05:25 POC Glucose (mg/dL) 202 mg/dL (65-99) H 12/13/20 05:58 Lactic Acid 2.0 mmol/L (0.4-2.0) 11/24/20 17:25 Calcium 9.0 mg/dL (8.5-10.1) 12/12/20 05:25 Corrected Calcium 10.1 mg/dL (8.5-10.1) 12/12/20 05:25 Magnesium 2.0 mg/dL (1.7-2.9) 12/09/20 05:13 Total Bilirubin 0.60 mg/dL (0.2-1.0) 12/12/20 05:25 AST 28 Units/L (15-37) 12/12/20 05:25 ALT 60 Units/L (12-78) 12/12/20 05:25 Alkaline Phosphatase 99 Units/L (46-116) 12/12/20 05:25 Creatine Kinase 79 Units/L (39-308) 11/24/20 17:25 CK-MB (CK-2) < 1.0 ng/mL (0-4.0) 11/24/20 17:25 CK/CKMB % Calc 1.3 % (<4) 11/24/20 17:25 Troponin I < 0.02 ng/mL (0-1.5) 11/24/20 17:25 C-Reactive Protein 1.00 mg/L (0-3.0) 12/02/20 08:23 Total Protein 6.8 g/dL (6.4-8.2) 12/12/20 05:25 Albumin 2.6 g/dL (3.4-5.0) L 12/12/20 05:25 Globulin 4.2 g/dL (2.5-4.5) 12/12/20 05:25 Albumin/Globulin Ratio 0.6 Ratio (1.1-2.1) L 12/12/20 05:25 Amylase 48 Units/L (25-115) 11/24/20 17:25 Lipase 220 Units/L (73-393) 11/24/20 17:25 Specimen Type Clean catch urine 11/24/20 18:16 Urine Color Yellow (YELLOW) 11/24/20 18:16 Urine Appearance Clear (CLEAR) 11/24/20 18:16 Urine pH 5.0 (5.0 - 8.0) 11/24/20 18:16 Ur Specific Fred 1.025 (1.000-1.030) 11/24/20 18:16 Urine Protein 3+ (NEGATIVE) 11/24/20 18:16 Urine Glucose (UA) 4+ (NEGATIVE) 11/24/20 18:16 Urine Ketones 1+ (NEGATIVE) 11/24/20 18:16 Urine Occult Blood Negative (NEGATIVE) 11/24/20 18:16 Urine Nitrite Negative (NEGATIVE) 11/24/20 18:16 Urine Bilirubin Negative (NEGATIVE) 11/24/20 18:16 Urine Urobilinogen Normal (NORMAL) 11/24/20 18:16 Ur Leukocyte Esterase Negative (NEGATIVE) 11/24/20 18:16 Urine RBC None seen /HPF (0-3) 11/24/20 18:16 Urine WBC None seen /HPF (0-5) 11/24/20 18:16 Ur Squamous Epith Cells Rare /HPF (NEGATIVE) 11/24/20 18:16 Urine Bacteria Negative /HPF (NEGATIVE) 11/24/20 18:16 Ur Culture Indicated? No/not indicated 11/24/20 18:16 Acetone, Semi-Quant Negative (NEGATIVE) 11/24/20 17:30 SARS-CoV-2 (PCR) Positive (NEGATIVE) A 11/24/20 20:17 Influenza Type A (PCR) Negative (NEGATIVE) 11/24/20 20:17 Influenza Type B (PCR) Negative (NEGATIVE) 11/24/20 20:17 RSV (PCR) Negative (NEGATIVE) 11/24/20 20:17 S. pyogenes (TEM-PCR) Not detected (NOT DETECT) 11/24/20 20:17 Plan (1) Acute respiratory failure with hypoxia: Status: Acute Plan: Improving slowly; wean oxygen as tolerated. (2) Pseudomonal pneumonia: Status: Acute Qualifiers: Laterality: bilateral Lung location: unspecified part of lung Qualified Code(s): J15.1 - Pneumonia due to Pseudomonas (3) COVID-19 virus infection: Status: Acute Plan: Still hypoxic and sob; unable to wean oxygen; repeat cxr; continue current mgmt. (4) Pulmonary edema: Status: Acute Qualifiers: Chronicity: chronic Qualified Code(s): J81.1 - Chronic pulmonary edema (5) HTN (hypertension): Status: Acute Qualifiers: Hypertension type: essential hypertension Qualified Code(s): I10 - Essential (primary) hypertension Plan: Remains elevated; increase apresoline and follow. (6) Hx of CABG: Status: Acute (7) Diabetes: Status: Acute Qualifiers: Diabetes mellitus complication status: without complication Diabetes mellitus exterminator termite insulin use: without chcf use Diabetes mellitus type: type 2 Qualified Code(s): E11.9 - Type 2 diabetes mellitus without complications (8) FRANCIS (acute kidney injury): Status: Acute (9) Thrombocytopenia: Status: Acute (10) Oxygen dependent: Status: Acute
[2020-12-13] MEDS: INVOKANA PO SCH (12:17)
[2020-12-13 13:46] LABS: ABG BASE EXCESS 3.6 mmol/L (-2.0-2.0); ABG HCO3 26.3 mmol/L (22-26)
[2020-12-13 13:47] LABS: ABG ALLEN TEST POS
[2020-12-13] MEDS: SNACK - Diabetic Appropriate PO SCH (20:30)
[2020-12-13] MEDS: LIPITOR TAB 80 MG PO SCH (21:56)
[2020-12-14 04:38] LABS: BASOPHILS % (AUTO) 0.4 % (0.2-1.0); EOSINOPHILS # (AUTO) 0.1 x10^3/uL (0.0-0.2); EOSINOPHILS % (AUTO) 1.3 % (0.9-2.9); HEMATOCRIT 45.2 % (42.0-54.0); HEMOGLOBIN 15.5 g/dL (13.5-18.0); LYMPHOCYTES % (AUTO) 9.8 % (21.0-51.0); MEAN CORPUSCULAR HEMOGLOBIN 29.6 pg (27.0-34.0); MEAN CORPUSCULAR HGB CONC 34.3 g/dL (33.0-35.0); MEAN CORPUSCULAR VOLUME 86.3 fL (80.0-100.0); MEAN PLATELET VOLUME 8.5 fL (7.4-11.0); MONOCYTES # (AUTO) 0.5 x10^3/uL (0.3-0.8); MONOCYTES % (AUTO) 4.9 % (0.0-13.0); NEUTROPHILS # (AUTO) 8.9 x10^3/uL (2.2-4.8); NEUTROPHILS % (AUTO) 83.6 % (42.0-75.0); PLATELET COUNT 182 X10^3/uL (150.0-450.0); RED BLOOD COUNT 5.24 X10^6/uL (4.7-6.0); RED CELL DISTRIBUTION WIDTH 14.8 % (11.6-16.5); WHITE BLOOD COUNT 10.7 X10^3/uL (3.6-10.0)
[2020-12-14 04:46] LABS: BLOOD UREA NITROGEN 42 mg/dL (7-18); CARBON DIOXIDE 29.3 mmol/L (21-32); CHLORIDE 102 mmol/L (98-107); COR NA(FOR HYPERGLY) 140 mmol/L (136-145); CREATININE 1.06 mg/dL (0.70-1.30); SODIUM 139 mmol/L (136-145); eGFR NON BLACK RACES > 60 (>60)
[2020-12-14 04:56] LABS: ABG BASE EXCESS 1.3 mmol/L (-2.0-2.0); ABG HCO3 24.9 mmol/L (22-26)
[2020-12-14 04:57] LABS: ABG ALLEN TEST POS
[2020-12-14] MEDS: APRESOLINE TAB 10 MG PO SCH ×3 (06:14→21:11)
[2020-12-14] MEDS: HumuLIN R SUBCUT PRN ×4 (06:15→20:55)
--- NOTE | 2020-12-14 06:18 | RAD ---
HISTORYCOVID PNEUMONIA, HYPOXIASTUDYCHEST, 1 VIEWCOMPARISONChest radiograph dated December 12, 2020.FINDINGSThe trachea is midline. The cardiomediastinal silhouette is enlarged; status post median sternotomy. Patchy bilateral airspace and interstitial opacities are observed which would imply pneumonia; probably reflecting COVID in this setting. Radiographic follow-up to complete resolution is recommended. The lungs are somewhat underinflated as well. No pneumothorax or other changes seen. The bones are stable.IMPRESSIONStable chest with findings of pneumonia without other cardiopulmonary changes.Electronically signed by: LEELA ORDAZ III (Dec 14, 2020 06:16:31)
[2020-12-14] MEDS: ACTOS PO SCH (09:37)
[2020-12-14] MEDS: DECADRON TAB PO SCH (09:37)
[2020-12-14] MEDS: INVOKANA PO SCH (09:37)
[2020-12-14] MEDS: COZAAR PO SCH (09:37)
[2020-12-14] MEDS: PEPCID TAB 40 MG PO SCH ×2 (09:37→20:54)
[2020-12-14] MEDS: CIPRO TAB 500 MG PO SCH ×2 (09:37→20:53)
[2020-12-14] MEDS: VITAMIN C PO SCH (09:37)
[2020-12-14] MEDS: ZINC SULFATE PO SCH ×2 (09:38→20:54)
[2020-12-14] MEDS: ISOSORBIDE MONONITRATE ER 24-HR PO SCH (09:38)
[2020-12-14] MEDS: VITAMIN D3 125 mcg (5,000 UNITS) PO SCH (09:38)
[2020-12-14] MEDS: COREG TAB 12.5 MG PO SCH ×2 (09:38→20:53)
[2020-12-14] MEDS: PROTONIX TAB 40 MG PO SCH (09:38)
[2020-12-14] MEDS: VITAMIN A PO SCH (09:39)
[2020-12-14] MEDS ORDERED: SOLU-Medrol 125 MG VIAL IVP ONE (09:39)
[2020-12-14] MEDS: ROBITUSSIN DM PO SCH ×4 (09:40→20:54)
[2020-12-14] MEDS: VSL#3 PO SCH (09:40)
[2020-12-14] MEDS: CINNAMON BARK 1000 MG PO SCH ×2 (09:42→20:52)
[2020-12-14] MEDS: ZyrTEC TAB 10 MG PO SCH (09:43)
[2020-12-14] MEDS: FLONASE NASAL SPRAY ENOSTRIL SCH (09:44)
[2020-12-14] MEDS: ELIQUIS PO SCH ×2 (09:50→20:53)
[2020-12-14] MEDS: DUONEB 0.5 MG/3 MG (3 mL) NEB SCH ×4 (09:56→20:30)
[2020-12-14] MEDS: PULMICORT NEB TX 0.5 MG NEB SCH ×2 (09:56→20:30)
[2020-12-14] MEDS: SOLU-Medrol 40 MG VIAL IVP SCH ×2 (15:00→21:10)
[2020-12-14] MEDS: SNACK - Diabetic Appropriate PO SCH (19:52)
[2020-12-14] MEDS: LIPITOR TAB 80 MG PO SCH (20:53)
[2020-12-14] MEDS: RESTORIL CAP 15 MG PO PRN (20:55)
[2020-12-14] MEDS: VISTARIL PO PRN (20:56)
[2020-12-15 05:09] LABS: BASOPHILS % (AUTO) 0.2 % (0.2-1.0); EOSINOPHILS % (AUTO) 0.1 % (0.9-2.9); HEMATOCRIT 44.9 % (42.0-54.0); HEMOGLOBIN 15.2 g/dL (13.5-18.0); LYMPHOCYTES # (AUTO) 0.6 X10^3/uL (1.3-2.9); MEAN CORPUSCULAR HEMOGLOBIN 29.2 pg (27.0-34.0); MEAN CORPUSCULAR HGB CONC 33.9 g/dL (33.0-35.0); MEAN PLATELET VOLUME 8.5 fL (7.4-11.0); MONOCYTES # (AUTO) 0.4 x10^3/uL (0.3-0.8); MONOCYTES % (AUTO) 2.6 % (0.0-13.0); NEUTROPHILS # (AUTO) 14.4 x10^3/uL (2.2-4.8); NEUTROPHILS % (AUTO) 93.1 % (42.0-75.0); PLATELET COUNT 178 X10^3/uL (150.0-450.0); RED BLOOD COUNT 5.21 X10^6/uL (4.7-6.0); RED CELL DISTRIBUTION WIDTH 14.8 % (11.6-16.5); WHITE BLOOD COUNT 15.4 X10^3/uL (3.6-10.0)
[2020-12-15 05:26] LABS: ALANINE AMINOTRANSFERASE 77 Units/L (12-78); ALBUMIN 2.7 g/dL (3.4-5.0); ALKALINE PHOSPHATASE 112 Units/L (46-116); ASPARTATE AMINO TRANSFERASE 26 Units/L (15-37); BLOOD UREA NITROGEN 44 mg/dL (7-18); CARBON DIOXIDE 22.4 mmol/L (21-32); CHLORIDE 101 mmol/L (98-107); COR NA(FOR HYPERGLY) 141 mmol/L (136-145); CREATININE 1.12 mg/dL (0.70-1.30); SODIUM 137 mmol/L (136-145); TOTAL PROTEIN 7.1 g/dL (6.4-8.2); eGFR NON BLACK RACES > 60 (>60)
[2020-12-15 06:02] LABS: ABG HCO3 21.6 mmol/L (22-26)
[2020-12-15 06:03] LABS: ABG ALLEN TEST POS
[2020-12-15 06:25] LABS: PLATELET MORPHOLOGY COMMENT NORMAL (NORMAL)
--- NOTE | 2020-12-15 06:33 | RAD ---
HISTORYCOVID PNEUMONIA, HYPOXIASTUDYCHEST, 1 VIEWCOMPARISONChest radiograph dated December 12, 2020.FINDINGSThe trachea is midline. The cardiomediastinal silhouette is enlarged; status post median sternotomy. Patchy bilateral airspace and interstitial opacities are again observed which would imply pneumonia; probably reflecting COVID in this setting. Radiographic follow-up to complete resolution is recommended. There is some improvement of the airspace and interstitial disease in the left lung. The right lung is relatively unchanged from prior, however. No pneumothorax or other acute cardiopulmonary changes seen. The bones are stable.IMPRESSIONSlightly improved left lung ground-glass, interstitial, and airspace disease.Unchanged parenchymal disease and interstitial disease throughout the right lung.Cardiomegaly status post median sternotomy.Electronically signed by: LEELA ORDAZ III (Dec 15, 2020 06:30:39)
[2020-12-15] MEDS: SOLU-Medrol 40 MG VIAL IVP SCH ×3 (06:39→21:45)
[2020-12-15] MEDS: APRESOLINE TAB 10 MG PO SCH ×3 (06:39→21:45)
[2020-12-15] MEDS: HumuLIN R SUBCUT PRN ×4 (06:42→21:00)
[2020-12-15] MEDS: ZINC SULFATE PO SCH ×2 (09:10→21:43)
[2020-12-15] MEDS: ACTOS PO SCH (09:10)
[2020-12-15] MEDS: VSL#3 PO SCH (09:10)
[2020-12-15] MEDS: VITAMIN D3 125 mcg (5,000 UNITS) PO SCH (09:10)
[2020-12-15] MEDS: ZyrTEC TAB 10 MG PO SCH (09:11)
[2020-12-15] MEDS: VITAMIN C PO SCH (09:11)
[2020-12-15] MEDS: PROTONIX TAB 40 MG PO SCH (09:12)
[2020-12-15] MEDS: VITAMIN A PO SCH (09:12)
[2020-12-15] MEDS: PEPCID TAB 40 MG PO SCH ×2 (09:12→21:44)
[2020-12-15] MEDS: ROBITUSSIN DM PO SCH ×4 (09:35→21:45)
[2020-12-15] MEDS: FLONASE NASAL SPRAY ENOSTRIL SCH (09:35)
[2020-12-15] MEDS: ISOSORBIDE MONONITRATE ER 24-HR PO SCH (09:35)
[2020-12-15] MEDS: INVOKANA PO SCH (09:35)
[2020-12-15] MEDS: ELIQUIS PO SCH ×2 (09:36→21:44)
[2020-12-15] MEDS: COREG TAB 12.5 MG PO SCH ×2 (09:37→21:44)
[2020-12-15] MEDS: COZAAR PO SCH (09:37)
[2020-12-15] MEDS: CIPRO TAB 500 MG PO SCH ×2 (09:38→21:43)
[2020-12-15] MEDS: CINNAMON BARK 1000 MG PO SCH (09:39)
[2020-12-15] MEDS: TUSSIONEX PENNKINETIC SUSP PO PRN (09:41)
[2020-12-15] MEDS: PULMICORT NEB TX 0.5 MG NEB SCH ×2 (09:48→21:40)
[2020-12-15] MEDS: DUONEB 0.5 MG/3 MG (3 mL) NEB SCH ×4 (09:48→21:40)
--- NOTE | 2020-12-15 10:31 | PCM.PROG ---
Progress Note - Progress Note for Day of Date of Exam: 12/14/20 - Subjective Subjective: IS A 65 YEAR OLD PATIENT OF . HE HAS BEEN IN THE HOSPITAL SINCE 11/24/20. HE IS BEING TREATED FOR PNEUMONIA DUE TO COVID-19 AND HYPOXIA. HIS PMH INCLUDES: CABG, DM II, HTN, COPD, TEENA, HLD. HE IS CURRENTLY ON HEATED HIGH FLOW OXYGEN AT 93%. PATIENT REPORTS MODERATE SHORTNESS OF BREATH WITH ANY MOVEMENT OR EXERTION. STAFF REPORTS THAT WHILE AMBULATING OR WHEN OXYGEN IS REMOVED, THAT HIS SATURATIONS DROP TO THE LOW 80s AND OCCASIONALLY INTO THE 70s. ON EXAMINATION, HEART IS REGULAR IN RATE AND RHYTHM. BILATERAL LUNGS ARE NOTED TO HAVE DIMINISHED LUNG SOUNDS THROUGHOUT. ABDOMEN IS ROUND, SOFT, AND NON-TENDER WITH NORMAL BOWEL SOUNDS NOTED IN ALL QUADRANTS. BLE TRACE EDEMA NOTED. HIS VITALS THIS MORNING ARE: 98.2-60-18-92%HHF-141/66. LABS WERE OBTAINED. ABNORMAL LAB VALUES INCLUDE THE FOLLOWING: WBC 10.7, BUN 42, GLUCOSE 160, CRP 7.80. ABG REVEALED: PH 7.460, PC02 35, P02 58, HC03 24.9, 02 SAT 91, A- A GRADIENT 561, FI02 93.0. A CHEST XRAY WAS OBTAINED AND REVEALED: Stable chest with findings of pneumonia without other cardiopulmonary changes. TODAY, WE WILL DISCONTINUE THE DECADRON THAT HE IS CURRENTLY ON AND ADD SOLU-MEDROL 80MG IV Q8H. WE WILL ALSO RESTART ELIQUIS 5MG PO BID. OTHERWISE, WE WILL CONTINUE WITH NEB TX, ANTIBIOTICS, AND HIS CURRENT PLAN OF CARE. WE WILL FOLLOW UP WITH AM LABS AND CHEST XRAY AND CONTINUE TO MONITOR. TIME SPENT ON CLINICAL ASSESSMENT, REVIEWING LABS AND IMAGING, DECISION MAKING, AND DOCUMENTATION GREATER THAN 45 MINUTES. - Past Medical Family Social History Past Med/Fam/Surg Hx: No changes since H&P Allergies: Allergies No Known Drug Allergies Allergy (Verified 11/24/20 20:28) - Review of Systems ROS: No change since H&P - Vital Signs and I&O's Vital Signs: Temperature 97.0 F Pulse Rate [Left] 78 Pulse Rate [Left Brachial] 60 Pulse Rate 81 Respiratory Rate 23 Blood Pressure [Left Arm] 149/75 Blood Pressure 126/70 O2 Sat by Pulse Oximetry 88 Intake and Output: Intake & Output 12/12/20 12/13/20 12/14/20 12/15/20 11:59 11:59 11:59 11:59 Intake Total 1450 / 1450 810 / 810 2040 / 2040 1860 / 1860 Output Total 2900 / 2900 3540 / 3540 1351 / 1351 1999 Balance -1450 / -1450 -2730 / -2730 689 / 689 -140 / -140 - Physical Exam Oriented: Normal Eyes: Normal Ear: Normal Nose: Normal Throat: Normal Respiratory: Generalized, Diminished Cardiovascular: Normal. negative: Edema Auscultation: Bowel Sounds: Normal Palpation: Normal Tenderness: Normal Skin: Normal Musculoskeletal: Normal Mood Description: Calm Affect: Normal Speech Pattern: Clear, Appropriate - Laboratory and Diagnostics Result Diagrams: 12/15/20 04:25 12/15/20 04:25 Labs: 11/24/20 17:25 Blood Blood Culture - Final 11/24/20 17:25 Blood Blood Culture - Final 11/25/20 06:08 Sputum - Expectorated Sputum Sputum Culture - Final Pseudomonas Aeruginosa 11/25/20 06:08 Sputum - Expectorated Sputum - Final Laboratory WBC 15.4 X10^3/uL (3.6-10.0) H 12/15/20 04:25 RBC 5.21 X10^6/uL (4.7-6.0) 12/15/20 04:25 Hgb 15.2 g/dL (13.5-18.0) 12/15/20 04:25 Hct 44.9 % (42.0-54.0) 12/15/20 04:25 MCV 86.0 fL (80.0-100.0) 12/15/20 04:25 MCH 29.2 pg (27.0-34.0) 12/15/20 04:25 MCHC 33.9 g/dL (33.0-35.0) 12/15/20 04:25 RDW 14.8 % (11.6-16.5) 12/15/20 04:25 Plt Count 178 X10^3/uL (150.0-450.0) 12/15/20 04:25 Plt Count Comment Adequate (ADEQUATE) 12/15/20 04:25 MPV 8.5 fL (7.4-11.0) 12/15/20 04:25 Neut % (Auto) 93.1 % (42.0-75.0) H 12/15/20 04:25 Lymph % (Auto) 4.0 % (21.0-51.0) L 12/15/20 04:25 [place] % (Auto) 2.6 % (0.0-13.0) 12/15/20 04:25 Eos % (Auto) 0.1 % (0.9-2.9) L 12/15/20 04:25 Baso % (Auto) 0.2 % (0.2-1.0) 12/15/20 04:25 Neut # (Auto) 14.4 x10^3/uL (2.2-4.8) H 12/15/20 04:25 Lymph # (Auto) 0.6 X10^3/uL (1.3-2.9) L 12/15/20 04:25 [place] # (Auto) 0.4 x10^3/uL (0.3-0.8) 12/15/20 04:25 Eos # (Auto) 0.0 x10^3/uL (0.0-0.2) 12/15/20 04:25 Baso # (Auto) 0.0 X10^3/uL (0.0-0.1) 12/15/20 04:25 Absolute Nucleated RBC 0.0 /100WBC 12/15/20 04:25 Total Counted 100 12/15/20 04:25 Neutrophils % (Manual) 94 % (39-76) H 12/15/20 04:25 Band Neutrophils % 4 % (0-10) 12/10/20 04:57 Lymphocytes % (Manual) 3 % (13-43) L 12/15/20 04:25 Monocytes % (Manual) 3 % (4-9) L 12/15/20 04:25 Plt Morphology Comment Normal (NORMAL) 12/15/20 04:25 RBC Morphology Normal (NORMAL) 12/15/20 04:25 D-Dimer 0.34 ug/ml (0.0-0.57) 12/15/20 04:25 Sample Site Rr 12/15/20 05:00 ABG pH 7.480 (7.35-7.45) H 12/15/20 05:00 ABG pCO2 29.0 mmHg (35.0-45.0) L 12/15/20 05:00 ABG pO2 50.0 mmHg (80.0-100.0) L 12/15/20 05:00 ABG HCO3 21.6 mmol/L (22-26) L 12/15/20 05:00 ABG O2 Saturation 88.0 % (90-100) L 12/15/20 05:00 ABG Base Excess -1.0 mmol/L (-2.0-2.0) 12/15/20 05:00 Bernardo Test Pos 12/15/20 05:00 A-a Gradient 570.0 mmHg 12/15/20 05:00 FiO2 92.0 12/15/20 05:00 Blood Gas Comments Kandy well sw 12/15/20 05:00 Sodium 137 mmol/L (136-145) 12/15/20 04:25 Corrected Sodium 141 mmol/L (136-145) 12/15/20 04:25 Potassium 4.4 mmol/L (3.5-5.1) 12/15/20 04:25 Chloride 101 mmol/L (98-107) 12/15/20 04:25 Carbon Dioxide 22.4 mmol/L (21-32) 12/15/20 04:25 BUN 44 mg/dL (7-18) H 12/15/20 04:25 Creatinine 1.12 mg/dL (0.70-1.30) 12/15/20 04:25 Est GFR (MDRD) Af Amer > 60 (>60) 12/15/20 04:25 Est GFR (MDRD) Non-Af > 60 (>60) 12/15/20 04:25 Glucose 254 mg/dL (65-99) H 12/15/20 04:25 POC Glucose (mg/dL) 263 mg/dL (65-99) H 12/14/20 20:05 Lactic Acid 2.0 mmol/L (0.4-2.0) 11/24/20 17:25 Calcium 9.0 mg/dL (8.5-10.1) 12/15/20 04:25 Corrected Calcium 10.0 mg/dL (8.5-10.1) 12/15/20 04:25 Magnesium 2.0 mg/dL (1.7-2.9) 12/09/20 05:13 Total Bilirubin 1.40 mg/dL (0.2-1.0) H 12/15/20 04:25 AST 26 Units/L (15-37) 12/15/20 04:25 ALT 77 Units/L (12-78) 12/15/20 04:25 Alkaline Phosphatase 112 Units/L (46-116) 12/15/20 04:25 Creatine Kinase 79 Units/L (39-308) 11/24/20 17:25 CK-MB (CK-2) < 1.0 ng/mL (0-4.0) 11/24/20 17:25 CK/CKMB % Calc 1.3 % (<4) 11/24/20 17:25 Troponin I < 0.02 ng/mL (0-1.5) 11/24/20 17:25 C-Reactive Protein 12.80 mg/L (0-3.0) H 12/15/20 04:25 B-Natriuretic Peptide 103 pg/mL (0-79) H 12/15/20 04:25 Total Protein 7.1 g/dL (6.4-8.2) 12/15/20 04:25 Albumin 2.7 g/dL (3.4-5.0) L 12/15/20 04:25 Globulin 4.4 g/dL (2.5-4.5) 12/15/20 04:25 Albumin/Globulin Ratio 0.6 Ratio (1.1-2.1) L 12/15/20 04:25 Amylase 48 Units/L (25-115) 11/24/20 17:25 Lipase 220 Units/L (73-393) 11/24/20 17:25 Specimen Type Clean catch urine 11/24/20 18:16 Urine Color Yellow (YELLOW) 11/24/20 18:16 Urine Appearance Clear (CLEAR) 11/24/20 18:16 Urine pH 5.0 (5.0 - 8.0) 11/24/20 18:16 Ur Specific Galt 1.025 (1.000-1.030) 11/24/20 18:16 Urine Protein 3+ (NEGATIVE) 11/24/20 18:16 Urine Glucose (UA) 4+ (NEGATIVE) 11/24/20 18:16 Urine Ketones 1+ (NEGATIVE) 11/24/20 18:16 Urine Occult Blood Negative (NEGATIVE) 11/24/20 18:16 Urine Nitrite Negative (NEGATIVE) 11/24/20 18:16 Urine Bilirubin Negative (NEGATIVE) 11/24/20 18:16 Urine Urobilinogen Normal (NORMAL) 11/24/20 18:16 Ur Leukocyte Esterase Negative (NEGATIVE) 11/24/20 18:16 Urine RBC None seen /HPF (0-3) 11/24/20 18:16 Urine WBC None seen /HPF (0-5) 11/24/20 18:16 Ur Squamous Epith Cells Rare /HPF (NEGATIVE) 11/24/20 18:16 Urine Bacteria Negative /HPF (NEGATIVE) 11/24/20 18:16 Ur Culture Indicated? No/not indicated 11/24/20 18:16 Acetone, Semi-Quant Negative (NEGATIVE) 11/24/20 17:30 SARS-CoV-2 (PCR) Positive (NEGATIVE) A 11/24/20 20:17 Influenza Type A (PCR) Negative (NEGATIVE) 11/24/20 20:17 Influenza Type B (PCR) Negative (NEGATIVE) 11/24/20 20:17 RSV (PCR) Negative (NEGATIVE) 11/24/20 20:17 S. pyogenes (TEM-PCR) Not detected (NOT DETECT) 11/24/20 20:17
--- NOTE | 2020-12-15 10:53 | PCM.PROG ---
Progress Note - Progress Note for Day of Date of Exam: 12/15/20 - Subjective Subjective: IS A 65 YEAR OLD PATIENT OF . HE HAS BEEN IN THE HOSPITAL SINCE 11/24/20. HE IS BEING TREATED FOR PNEUMONIA DUE TO COVID-19 AND HYPOXIA. HIS PMH INCLUDES: CABG, DM II, HTN, COPD, TEENA, HLD. HE IS CURRENTLY ON HEATED HIGH FLOW OXYGEN AT 92%. PATIENT CONTINUES TO REPORT MODERATE SHORTNESS OF BREATH WITH ANY MOVEMENT OR EXERTION. HE REPORTS SLIGHT IMPROVEMENT SINCE YESTERDAY. HE DOES ADMIT TO BEING ABLE TO BREATHE BETTER WHEN HE IS IN THE PRONE POSITION. STAFF REPORTS THAT WHILE AMBULATING OR WHEN OXYGEN IS REMOVED, THAT HIS SATURATIONS DROP TO THE LOW 80s AND OCCASIONALLY INTO THE 70s. ON EXAMINATION, HEART IS REGULAR IN RATE AND RHYTHM. BILATERAL LUNGS ARE NOTED TO HAVE DIMINISHED LUNG SOUNDS THROUGHOUT. ABDOMEN IS ROUND, SOFT, AND NON-TENDER WITH NORMAL BOWEL SOUNDS NOTED IN ALL QUADRANTS. BLE TRACE EDEMA NOTED. HIS VITALS THIS MORNING ARE: 97.0-63-22-84%-166/85. LABS WERE OBTAINED. ABNORMAL LAB VALUES INCLUDE THE FOLLOWING: WBC 15.4, BUN 44, GLUCOSE 254, TOTAL BILI 1.40, CRP 12.80, BNP 103, ALBUMIN 2.7. ABG REVEALED: PH 7.480, PC02 29, P02 50, HC03 21.6, 02 SAT 88, A-A GRADIENT 570, FI02 92.0. A CHEST XRAY WAS OBTAINED AND REVEALED: Slightly improved left lung ground-glass, interstitial, and airspace disease. Unchanged parenchymal disease and interstitial disease throughout the right lung. Cardiomegaly status post median sternotomy. TODAY, WE WILL CONTINUE WITH IV SOLU-MEDROL, NEB TX, ANTIBIOTICS, AND CURRENT PLAN OF CARE. OTHERWISE, WE WILL FOLLOW UP WITH AM LABS AND CHEST XRAY AND CONTINUE TO MONITOR. TIME SPENT ON CLINICAL ASSESSMENT, REVIEWING LABS AND IMAGING, DECISION MAKING, AND DOCUMENTATION GREATER THAN 45 MINUTES. - Past Medical Family Social History Past Med/Fam/Surg Hx: No changes since H&P Allergies: Allergies No Known Drug Allergies Allergy (Verified 11/24/20 20:28) - Review of Systems ROS: No change since H&P - Vital Signs and I&O's Vital Signs: Temperature 97.0 F Pulse Rate [Left] 78 Pulse Rate [Left Brachial] 60 Pulse Rate 81 Respiratory Rate 23 Blood Pressure [Left Arm] 149/75 Blood Pressure 126/70 O2 Sat by Pulse Oximetry 88 Intake and Output: Intake & Output 12/12/20 12/13/20 12/14/20 12/15/20 11:59 11:59 11:59 11:59 Intake Total 1450 / 1450 810 / 810 2040 / 2040 1860 / 1860 Output Total 2900 / 2900 3540 / 3540 1351 / 1351 1999 Balance -1450 / -1450 -2730 / -2730 689 / 689 -140 / -140 - Physical Exam Oriented: Normal Eyes: Normal Ear: Normal Nose: Normal Throat: Normal Respiratory: Generalized, Diminished Cardiovascular: Normal. negative: Edema Auscultation: Bowel Sounds: Normal Tenderness: Normal Skin: Normal Musculoskeletal: Normal Mood Description: Calm Affect: Normal Speech Pattern: Clear, Appropriate - Laboratory and Diagnostics Result Diagrams: 12/15/20 04:25 12/15/20 04:25 Labs: 11/24/20 17:25 Blood Blood Culture - Final 11/24/20 17:25 Blood Blood Culture - Final 11/25/20 06:08 Sputum - Expectorated Sputum Sputum Culture - Final Pseudomonas Aeruginosa 11/25/20 06:08 Sputum - Expectorated Sputum - Final Laboratory WBC 15.4 X10^3/uL (3.6-10.0) H 12/15/20 04:25 RBC 5.21 X10^6/uL (4.7-6.0) 12/15/20 04:25 Hgb 15.2 g/dL (13.5-18.0) 12/15/20 04:25 Hct 44.9 % (42.0-54.0) 12/15/20 04:25 MCV 86.0 fL (80.0-100.0) 12/15/20 04:25 MCH 29.2 pg (27.0-34.0) 12/15/20 04:25 MCHC 33.9 g/dL (33.0-35.0) 12/15/20 04:25 RDW 14.8 % (11.6-16.5) 12/15/20 04:25 Plt Count 178 X10^3/uL (150.0-450.0) 12/15/20 04:25 Plt Count Comment Adequate (ADEQUATE) 12/15/20 04:25 MPV 8.5 fL (7.4-11.0) 12/15/20 04:25 Neut % (Auto) 93.1 % (42.0-75.0) H 12/15/20 04:25 Lymph % (Auto) 4.0 % (21.0-51.0) L 12/15/20 04:25 [place] % (Auto) 2.6 % (0.0-13.0) 12/15/20 04:25 Eos % (Auto) 0.1 % (0.9-2.9) L 12/15/20 04:25 Baso % (Auto) 0.2 % (0.2-1.0) 12/15/20 04:25 Neut # (Auto) 14.4 x10^3/uL (2.2-4.8) H 12/15/20 04:25 Lymph # (Auto) 0.6 X10^3/uL (1.3-2.9) L 12/15/20 04:25 [place] # (Auto) 0.4 x10^3/uL (0.3-0.8) 12/15/20 04:25 Eos # (Auto) 0.0 x10^3/uL (0.0-0.2) 12/15/20 04:25 Baso # (Auto) 0.0 X10^3/uL (0.0-0.1) 12/15/20 04:25 Absolute Nucleated RBC 0.0 /100WBC 12/15/20 04:25 Total Counted 100 12/15/20 04:25 Neutrophils % (Manual) 94 % (39-76) H 12/15/20 04:25 Band Neutrophils % 4 % (0-10) 12/10/20 04:57 Lymphocytes % (Manual) 3 % (13-43) L 12/15/20 04:25 Monocytes % (Manual) 3 % (4-9) L 12/15/20 04:25 Plt Morphology Comment Normal (NORMAL) 12/15/20 04:25 RBC Morphology Normal (NORMAL) 12/15/20 04:25 D-Dimer 0.34 ug/ml (0.0-0.57) 12/15/20 04:25 Sample Site Rr 12/15/20 05:00 ABG pH 7.480 (7.35-7.45) H 12/15/20 05:00 ABG pCO2 29.0 mmHg (35.0-45.0) L 12/15/20 05:00 ABG pO2 50.0 mmHg (80.0-100.0) L 12/15/20 05:00 ABG HCO3 21.6 mmol/L (22-26) L 12/15/20 05:00 ABG O2 Saturation 88.0 % (90-100) L 12/15/20 05:00 ABG Base Excess -1.0 mmol/L (-2.0-2.0) 12/15/20 05:00 Bernardo Test Pos 12/15/20 05:00 A-a Gradient 570.0 mmHg 12/15/20 05:00 FiO2 92.0 12/15/20 05:00 Blood Gas Comments Kandy well sw 12/15/20 05:00 Sodium 137 mmol/L (136-145) 12/15/20 04:25 Corrected Sodium 141 mmol/L (136-145) 12/15/20 04:25 Potassium 4.4 mmol/L (3.5-5.1) 12/15/20 04:25 Chloride 101 mmol/L (98-107) 12/15/20 04:25 Carbon Dioxide 22.4 mmol/L (21-32) 12/15/20 04:25 BUN 44 mg/dL (7-18) H 12/15/20 04:25 Creatinine 1.12 mg/dL (0.70-1.30) 12/15/20 04:25 Est GFR (MDRD) Af Amer > 60 (>60) 12/15/20 04:25 Est GFR (MDRD) Non-Af > 60 (>60) 12/15/20 04:25 Glucose 254 mg/dL (65-99) H 12/15/20 04:25 POC Glucose (mg/dL) 263 mg/dL (65-99) H 12/14/20 20:05 Lactic Acid 2.0 mmol/L (0.4-2.0) 11/24/20 17:25 Calcium 9.0 mg/dL (8.5-10.1) 12/15/20 04:25 Corrected Calcium 10.0 mg/dL (8.5-10.1) 12/15/20 04:25 Magnesium 2.0 mg/dL (1.7-2.9) 12/09/20 05:13 Total Bilirubin 1.40 mg/dL (0.2-1.0) H 12/15/20 04:25 AST 26 Units/L (15-37) 12/15/20 04:25 ALT 77 Units/L (12-78) 12/15/20 04:25 Alkaline Phosphatase 112 Units/L (46-116) 12/15/20 04:25 Creatine Kinase 79 Units/L (39-308) 11/24/20 17:25 CK-MB (CK-2) < 1.0 ng/mL (0-4.0) 11/24/20 17:25 CK/CKMB % Calc 1.3 % (<4) 11/24/20 17:25 Troponin I < 0.02 ng/mL (0-1.5) 11/24/20 17:25 C-Reactive Protein 12.80 mg/L (0-3.0) H 12/15/20 04:25 B-Natriuretic Peptide 103 pg/mL (0-79) H 12/15/20 04:25 Total Protein 7.1 g/dL (6.4-8.2) 12/15/20 04:25 Albumin 2.7 g/dL (3.4-5.0) L 12/15/20 04:25 Globulin 4.4 g/dL (2.5-4.5) 12/15/20 04:25 Albumin/Globulin Ratio 0.6 Ratio (1.1-2.1) L 12/15/20 04:25 Amylase 48 Units/L (25-115) 11/24/20 17:25 Lipase 220 Units/L (73-393) 11/24/20 17:25 Specimen Type Clean catch urine 11/24/20 18:16 Urine Color Yellow (YELLOW) 11/24/20 18:16 Urine Appearance Clear (CLEAR) 11/24/20 18:16 Urine pH 5.0 (5.0 - 8.0) 11/24/20 18:16 Ur Specific [place] 1.025 (1.000-1.030) 11/24/20 18:16 Urine Protein 3+ (NEGATIVE) 11/24/20 18:16 Urine Glucose (UA) 4+ (NEGATIVE) 11/24/20 18:16 Urine Ketones 1+ (NEGATIVE) 11/24/20 18:16 Urine Occult Blood Negative (NEGATIVE) 11/24/20 18:16 Urine Nitrite Negative (NEGATIVE) 11/24/20 18:16 Urine Bilirubin Negative (NEGATIVE) 11/24/20 18:16 Urine Urobilinogen Normal (NORMAL) 11/24/20 18:16 Ur Leukocyte Esterase Negative (NEGATIVE) 11/24/20 18:16 Urine RBC None seen /HPF (0-3) 11/24/20 18:16 Urine WBC None seen /HPF (0-5) 11/24/20 18:16 Ur Squamous Epith Cells Rare /HPF (NEGATIVE) 11/24/20 18:16 Urine Bacteria Negative /HPF (NEGATIVE) 11/24/20 18:16 Ur Culture Indicated? No/not indicated 11/24/20 18:16 Acetone, Semi-Quant Negative (NEGATIVE) 11/24/20 17:30 SARS-CoV-2 (PCR) Positive (NEGATIVE) A 11/24/20 20:17 Influenza Type A (PCR) Negative (NEGATIVE) 11/24/20 20:17 Influenza Type B (PCR) Negative (NEGATIVE) 11/24/20 20:17 RSV (PCR) Negative (NEGATIVE) 11/24/20 20:17 S. pyogenes (TEM-PCR) Not detected (NOT DETECT) 11/24/20 20:17
[2020-12-15] MEDS: CYMBALTA PO SCH (12:08)
[2020-12-15] MEDS: SNACK - Diabetic Appropriate PO SCH (20:00)
[2020-12-15] MEDS: LIPITOR TAB 80 MG PO SCH (21:44)
[2020-12-16 05:13] LABS: BASOPHILS % (AUTO) 0.1 % (0.2-1.0); HEMATOCRIT 44.4 % (42.0-54.0); HEMOGLOBIN 15.3 g/dL (13.5-18.0); LYMPHOCYTES # (AUTO) 0.6 X10^3/uL (1.3-2.9); LYMPHOCYTES % (AUTO) 4.2 % (21.0-51.0); MEAN CORPUSCULAR HEMOGLOBIN 29.3 pg (27.0-34.0); MEAN CORPUSCULAR HGB CONC 34.4 g/dL (33.0-35.0); MEAN PLATELET VOLUME 8.2 fL (7.4-11.0); MONOCYTES # (AUTO) 0.4 x10^3/uL (0.3-0.8); MONOCYTES % (AUTO) 2.8 % (0.0-13.0); NEUTROPHILS # (AUTO) 12.3 x10^3/uL (2.2-4.8); NEUTROPHILS % (AUTO) 92.9 % (42.0-75.0); PLATELET COUNT 162 X10^3/uL (150.0-450.0); RED BLOOD COUNT 5.22 X10^6/uL (4.7-6.0); RED CELL DISTRIBUTION WIDTH 14.3 % (11.6-16.5); WHITE BLOOD COUNT 13.2 X10^3/uL (3.6-10.0)
[2020-12-16 05:20] LABS: ALANINE AMINOTRANSFERASE 111 Units/L (12-78); ALBUMIN 2.7 g/dL (3.4-5.0); ALKALINE PHOSPHATASE 125 Units/L (46-116); ASPARTATE AMINO TRANSFERASE 48 Units/L (15-37); BLOOD UREA NITROGEN 36 mg/dL (7-18); CALCIUM 8.8 mg/dL (8.5-10.1); CARBON DIOXIDE 24.3 mmol/L (21-32); CHLORIDE 102 mmol/L (98-107); COR CA(FOR HYPOALB) 9.8 mg/dL (8.5-10.1); COR NA(FOR HYPERGLY) 139 mmol/L (136-145); CREATININE 0.99 mg/dL (0.70-1.30); SODIUM 136 mmol/L (136-145); TOTAL PROTEIN 6.9 g/dL (6.4-8.2); eGFR NON BLACK RACES > 60 (>60)
[2020-12-16 05:53] LABS: ABG BASE EXCESS -1.1 mmol/L (-2.0-2.0)
[2020-12-16 06:04] LABS: PLATELET MORPHOLOGY COMMENT NORMAL (NORMAL)
[2020-12-16] MEDS: SOLU-Medrol 40 MG VIAL IVP SCH ×3 (06:24→21:51)
[2020-12-16] MEDS: APRESOLINE TAB 10 MG PO SCH ×3 (06:24→21:50)
[2020-12-16] MEDS: HumuLIN R SUBCUT PRN ×4 (06:26→21:00)
--- NOTE | 2020-12-16 07:57 | RAD ---
HISTORYSOB, COVID pneumoniaSTUDYCHEST x-ray, 1 VIEWCOMPARISONX-ray 12/15/2020FINDINGSBilateral peripheral infiltrates are similar to prior study. Patient has had prior cardiac surgery. There is borderline cardiomegaly. No pneumothorax or pleural effusion is seen.IMPRESSIONAppearance of the chest is unchanged.Electronically signed by: Stephane Gonzalez (Dec 16, 2020 07:54:30)
[2020-12-16] MEDS: VSL#3 PO SCH (09:10)
[2020-12-16] MEDS: ZINC SULFATE PO SCH ×2 (09:10→21:50)
[2020-12-16] MEDS: VITAMIN D3 125 mcg (5,000 UNITS) PO SCH (09:10)
[2020-12-16] MEDS: ACTOS PO SCH (09:10)
[2020-12-16] MEDS: PEPCID TAB 40 MG PO SCH ×2 (09:10→21:49)
[2020-12-16] MEDS: VITAMIN C PO SCH (09:10)
[2020-12-16] MEDS: PROTONIX TAB 40 MG PO SCH (09:11)
[2020-12-16] MEDS: VITAMIN A PO SCH (09:11)
[2020-12-16] MEDS: ISOSORBIDE MONONITRATE ER 24-HR PO SCH (09:12)
[2020-12-16] MEDS: ZyrTEC TAB 10 MG PO SCH (09:12)
[2020-12-16] MEDS: ROBITUSSIN DM PO SCH ×4 (09:12→21:49)
[2020-12-16] MEDS: ELIQUIS PO SCH ×2 (09:12→21:48)
[2020-12-16] MEDS: INVOKANA PO SCH (09:13)
[2020-12-16] MEDS: CYMBALTA PO SCH (09:13)
[2020-12-16] MEDS: CIPRO TAB 500 MG PO SCH (09:13)
[2020-12-16] MEDS: COZAAR PO SCH (09:13)
[2020-12-16] MEDS: FLONASE NASAL SPRAY ENOSTRIL SCH (09:14)
[2020-12-16] MEDS: COREG TAB 12.5 MG PO SCH ×2 (09:14→21:46)
--- NOTE | 2020-12-16 09:37 | PCM.PROG ---
Progress Note Progress Note for Day of Date of Exam: 12/16/20 Subjective Subjective: Patient seen at bedside, no acute overnight events. He remains on HHFNC at FiO2 93% with sats between 87-91%. He does go down to mid 80s or even 70s with ambulation or minimal exertion. He states he does feel slightly better. He states he laid on his left side and also his abdomen and that helped him cough up sputum. His appetite is normal. He has been doing light stretches while in bed. He has been afebrile. He was restarted on solumedrol over the weekend. Patient states he does feel slightly better overall. Labs: Hgb 15.3 WBC:13.2 BUN/Cr: 36/0.99 Glucose 241 ALT:111 AST: 48 CRP:12.80 CXR (12/16/20): stable bilateral pneumonia, no changes noted CXR (12/15/20): slight improvement on the left side AB.46/ sats 90% on FiO2 93% Plan: continue solumedrol 80mg q8hrs, Wean O2 as tolerated to keep sats > 88%. Continue smart vest as per RT. PT/OT as tolerated. Encouraged patient to ambulate between chair and bed. Will try prone positioning again to help improve aeration. Will DC Cipro, patient has completed a long course of abx with Mainor, rBian and Opalro. Continue nebs, pulmicort and IS. CM working on LTAC placement, awaiting to hear back from facility. Continue eliquis. Continue vitamin support. Time spent for clinical assessment, reviewing labs and imaging, physical exam, decision making and documentation greater than 75 mins. Past Medical Family Social History Past Med/Fam/Surg Hx: No changes since H&P Allergies: Allergies No Known Drug Allergies Allergy (Verified 11/24/20 20:28) Review of Systems ROS: No change since H&P Vital Signs and I&O's Vital Signs: Temperature 98.0 F Pulse Rate [Left] 69 Pulse Rate [Left Brachial] 60 Pulse Rate 82 Respiratory Rate 22 Blood Pressure [Left Arm] 151/69 Blood Pressure 126/70 O2 Sat by Pulse Oximetry 91 Intake and Output: Intake & Output 12/13/20 12/14/20 12/15/20 12/16/20 23:59 23:59 23:59 23:59 Intake Total 1690 / 1690 2090 / 2090 980 / 980 380 / 380 Output Total 1610 / 1610 1901 / 1901 1400 / 1400 800 / 800 Balance 80 / 80 189 / 189 -420 / -420 -420 / -420 Physical Exam Oriented: Normal Eyes: Normal Ear: Normal Nose: Normal Throat: Normal Respiratory: Generalized, Diminished (improved air entry ) and [place] Cardiovascular: Normal; negative Edema Auscultation: Bowel Sounds: Normal Tenderness: Normal Skin: Normal Musculoskeletal: Normal Mood Description: Calm Affect: Normal Speech Pattern: Clear and Appropriate Laboratory and Diagnostics Result Diagrams: 12/16/20 04:25 12/16/20 04:25 Labs: 11/24/20 17:25 Blood Blood Culture - Final 11/24/20 17:25 Blood Blood Culture - Final 11/25/20 06:08 Sputum - Expectorated Sputum Sputum Culture - Final Pseudomonas Aeruginosa 11/25/20 06:08 Sputum - Expectorated Sputum - Final Laboratory WBC 13.2 X10^3/uL (3.6-10.0) H 12/16/20 04:25 RBC 5.22 X10^6/uL (4.7-6.0) 12/16/20 04:25 Hgb 15.3 g/dL (13.5-18.0) 12/16/20 04:25 Hct 44.4 % (42.0-54.0) 12/16/20 04:25 MCV 85.0 fL (80.0-100.0) 12/16/20 04:25 MCH 29.3 pg (27.0-34.0) 12/16/20 04:25 MCHC 34.4 g/dL (33.0-35.0) 12/16/20 04:25 RDW 14.3 % (11.6-16.5) 12/16/20 04:25 Plt Count 162 X10^3/uL (150.0-450.0) 12/16/20 04:25 Plt Count Comment Adequate (ADEQUATE) 12/16/20 04:25 MPV 8.2 fL (7.4-11.0) 12/16/20 04:25 Neut % (Auto) 92.9 % (42.0-75.0) H 12/16/20 04:25 Lymph % (Auto) 4.2 % (21.0-51.0) L 12/16/20 04:25 [place] % (Auto) 2.8 % (0.0-13.0) 12/16/20 04:25 Eos % (Auto) 0.0 % (0.9-2.9) L 12/16/20 04:25 Baso % (Auto) 0.1 % (0.2-1.0) L 12/16/20 04:25 Neut # (Auto) 12.3 x10^3/uL (2.2-4.8) H 12/16/20 04:25 Lymph # (Auto) 0.6 X10^3/uL (1.3-2.9) L 12/16/20 04:25 [place] # (Auto) 0.4 x10^3/uL (0.3-0.8) 12/16/20 04:25 Eos # (Auto) 0.0 x10^3/uL (0.0-0.2) 12/16/20 04:25 Baso # (Auto) 0.0 X10^3/uL (0.0-0.1) 12/16/20 04:25 Absolute Nucleated RBC 0.0 /100WBC 12/16/20 04:25 Total Counted 100 12/16/20 04:25 Neutrophils % (Manual) 94 % (39-76) H 12/16/20 04:25 Band Neutrophils % 4 % (0-10) 12/10/20 04:57 Lymphocytes % (Manual) 4 % (13-43) L 12/16/20 04:25 Monocytes % (Manual) 2 % (4-9) L 12/16/20 04:25 Plt Morphology Comment Normal (NORMAL) 12/16/20 04:25 RBC Morphology Normal (NORMAL) 12/16/20 04:25 D-Dimer 0.34 ug/ml (0.0-0.57) 12/15/20 04:25 Sample Site [facility] 12/16/20 05:52 ABG pH 7.460 (7.35-7.45) H 12/16/20 05:52 ABG pCO2 31.0 mmHg (35.0-45.0) L 12/16/20 05:52 ABG pO2 55.0 mmHg (80.0-100.0) L 12/16/20 05:52 ABG HCO3 22.0 mmol/L (22-26) 12/16/20 05:52 ABG O2 Saturation 90.0 % (90-100) 12/16/20 05:52 ABG Base Excess -1.1 mmol/L (-2.0-2.0) 12/16/20 05:52 Bernardo Test Na 12/16/20 05:52 A-a Gradient 569.0 mmHg 12/16/20 05:52 FiO2 93.0 12/16/20 05:52 Blood Gas Comments Kandy abg well-mtf 12/16/20 05:52 Sodium 136 mmol/L (136-145) 12/16/20 04:25 Corrected Sodium 139 mmol/L (136-145) 12/16/20 04:25 Potassium 4.6 mmol/L (3.5-5.1) 12/16/20 04:25 Chloride 102 mmol/L (98-107) 12/16/20 04:25 Carbon Dioxide 24.3 mmol/L (21-32) 12/16/20 04:25 BUN 36 mg/dL (7-18) H 12/16/20 04:25 Creatinine 0.99 mg/dL (0.70-1.30) 12/16/20 04:25 Est GFR (MDRD) Af Amer > 60 (>60) 12/16/20 04:25 Est GFR (MDRD) Non-Af > 60 (>60) 12/16/20 04:25 Glucose 241 mg/dL (65-99) H 12/16/20 04:25 POC Glucose (mg/dL) 275 mg/dL (65-99) H 12/15/20 20:31 Lactic Acid 2.0 mmol/L (0.4-2.0) 11/24/20 17:25 Calcium 8.8 mg/dL (8.5-10.1) 12/16/20 04:25 Corrected Calcium 9.8 mg/dL (8.5-10.1) 12/16/20 04:25 Magnesium 2.0 mg/dL (1.7-2.9) 12/09/20 05:13 Total Bilirubin 1.30 mg/dL (0.2-1.0) H 12/16/20 04:25 AST 48 Units/L (15-37) H 12/16/20 04:25 ALT 111 Units/L (12-78) H 12/16/20 04:25 Alkaline Phosphatase 125 Units/L (46-116) H 12/16/20 04:25 Creatine Kinase 79 Units/L (39-308) 11/24/20 17:25 CK-MB (CK-2) < 1.0 ng/mL (0-4.0) 11/24/20 17:25 CK/CKMB % Calc 1.3 % (<4) 11/24/20 17:25 Troponin I < 0.02 ng/mL (0-1.5) 11/24/20 17:25 C-Reactive Protein 12.80 mg/L (0-3.0) H 12/15/20 04:25 B-Natriuretic Peptide 103 pg/mL (0-79) H 12/15/20 04:25 Total Protein 6.9 g/dL (6.4-8.2) 12/16/20 04:25 Albumin 2.7 g/dL (3.4-5.0) L 12/16/20 04:25 Globulin 4.2 g/dL (2.5-4.5) 12/16/20 04:25 Albumin/Globulin Ratio 0.6 Ratio (1.1-2.1) L 12/16/20 04:25 Amylase 48 Units/L (25-115) 11/24/20 17:25 Lipase 220 Units/L (73-393) 11/24/20 17:25 Specimen Type Clean catch urine 11/24/20 18:16 Urine Color Yellow (YELLOW) 11/24/20 18:16 Urine Appearance Clear (CLEAR) 11/24/20 18:16 Urine pH 5.0 (5.0 - 8.0) 11/24/20 18:16 Ur Specific [place] 1.025 (1.000-1.030) 11/24/20 18:16 Urine Protein 3+ (NEGATIVE) 11/24/20 18:16 Urine Glucose (UA) 4+ (NEGATIVE) 11/24/20 18:16 Urine Ketones 1+ (NEGATIVE) 11/24/20 18:16 Urine Occult Blood Negative (NEGATIVE) 11/24/20 18:16 Urine Nitrite Negative (NEGATIVE) 11/24/20 18:16 Urine Bilirubin Negative (NEGATIVE) 11/24/20 18:16 Urine Urobilinogen Normal (NORMAL) 11/24/20 18:16 Ur Leukocyte Esterase Negative (NEGATIVE) 11/24/20 18:16 Urine RBC None seen /HPF (0-3) 11/24/20 18:16 Urine WBC None seen /HPF (0-5) 11/24/20 18:16 Ur Squamous Epith Cells Rare /HPF (NEGATIVE) 11/24/20 18:16 Urine Bacteria Negative /HPF (NEGATIVE) 11/24/20 18:16 Ur Culture Indicated? No/not indicated 11/24/20 18:16 Acetone, Semi-Quant Negative (NEGATIVE) 11/24/20 17:30 SARS-CoV-2 (PCR) Positive (NEGATIVE) A 11/24/20 20:17 Influenza Type A (PCR) Negative (NEGATIVE) 11/24/20 20:17 Influenza Type B (PCR) Negative (NEGATIVE) 11/24/20 20:17 RSV (PCR) Negative (NEGATIVE) 11/24/20 20:17 S. pyogenes (TEM-PCR) Not detected (NOT DETECT) 11/24/20 20:17 Plan (1) Oxygen dependent: Status: Acute (2) Acute respiratory failure with hypoxia: Status: Acute Plan: Improving slowly; wean oxygen as tolerated. (3) Pseudomonal pneumonia: Status: Acute Qualifiers: Laterality: bilateral Lung location: unspecified part of lung Qualif ied Code(s): J15.1 - Pneumonia due to Pseudomonas (4) COVID-19 virus infection: Status: Acute Plan: Still hypoxic and sob; unable to wean oxygen; repeat cxr; continue current mgmt. (5) Pulmonary edema: Status: Acute Qualifiers: Chronicity: chronic Qualified Code(s): J81.1 - Chronic pulmonary edema (6) HTN (hypertension): Status: Acute Qualifiers: Hypertension type: essential hypertension Qualified Code(s): I10 - Essential (primary) hypertension Plan: Remains elevated; increase apresoline and follow. (7) Hx of CABG: Status: Acute (8) Diabetes: Status: Acute Qualifiers: Diabetes mellitus complication status: without complication Diabetes mellitus alf insulin use: without alf use Diabetes mellitus type: type 2 Qualified Code(s): E11.9 - Type 2 diabetes mellitus without compl ications (9) FRANCIS (acute kidney injury): Status: Acute
[2020-12-16] MEDS: PULMICORT NEB TX 0.5 MG NEB SCH ×2 (09:41→21:42)
[2020-12-16] MEDS: DUONEB 0.5 MG/3 MG (3 mL) NEB SCH ×4 (09:41→21:42)
[2020-12-16] MEDS ORDERED: HumuLIN R ONE (12:27)
[2020-12-16] MEDS: SNACK - Diabetic Appropriate PO SCH (21:00)
[2020-12-16] MEDS: LIPITOR TAB 80 MG PO SCH (21:48)
[2020-12-17] MEDS: SOLU-Medrol 40 MG VIAL IVP SCH ×3 (05:58→21:15)
[2020-12-17] MEDS: APRESOLINE TAB 10 MG PO SCH ×3 (05:58→21:15)
[2020-12-17 06:02] LABS: BASOPHILS % (AUTO) 0.1 % (0.2-1.0); HEMATOCRIT 42.9 % (42.0-54.0); HEMOGLOBIN 14.7 g/dL (13.5-18.0); LYMPHOCYTES # (AUTO) 0.4 X10^3/uL (1.3-2.9); LYMPHOCYTES % (AUTO) 3.6 % (21.0-51.0); MEAN CORPUSCULAR HEMOGLOBIN 29.4 pg (27.0-34.0); MEAN CORPUSCULAR HGB CONC 34.1 g/dL (33.0-35.0); MEAN CORPUSCULAR VOLUME 86.2 fL (80.0-100.0); MEAN PLATELET VOLUME 8.5 fL (7.4-11.0); MONOCYTES # (AUTO) 0.4 x10^3/uL (0.3-0.8); MONOCYTES % (AUTO) 3.7 % (0.0-13.0); NEUTROPHILS # (AUTO) 9.7 x10^3/uL (2.2-4.8); NEUTROPHILS % (AUTO) 92.6 % (42.0-75.0); PLATELET COUNT 154 X10^3/uL (150.0-450.0); RED BLOOD COUNT 4.98 X10^6/uL (4.7-6.0); RED CELL DISTRIBUTION WIDTH 14.5 % (11.6-16.5); WHITE BLOOD COUNT 10.5 X10^3/uL (3.6-10.0)
[2020-12-17] MEDS: HumuLIN R SUBCUT PRN ×4 (06:19→21:16)
[2020-12-17 06:23] LABS: ALANINE AMINOTRANSFERASE 280 Units/L (12-78); ALBUMIN 2.6 g/dL (3.4-5.0); ALKALINE PHOSPHATASE 153 Units/L (46-116); ASPARTATE AMINO TRANSFERASE 109 Units/L (15-37); BLOOD UREA NITROGEN 39 mg/dL (7-18); CALCIUM 8.8 mg/dL (8.5-10.1); CARBON DIOXIDE 21.2 mmol/L (21-32); CHLORIDE 98 mmol/L (98-107); COR CA(FOR HYPOALB) 9.9 mg/dL (8.5-10.1); COR NA(FOR HYPERGLY) 139 mmol/L (136-145); CREATININE 1.08 mg/dL (0.70-1.30); SODIUM 132 mmol/L (136-145); TOTAL PROTEIN 6.4 g/dL (6.4-8.2); eGFR NON BLACK RACES > 60 (>60)
[2020-12-17 06:51] LABS: BAND NEUTROPHILS % 1 % (0-10); PLATELET MORPHOLOGY COMMENT NORMAL (NORMAL)
[2020-12-17] MEDS ORDERED: SOLU-Medrol 40 MG VIAL IVP SCH (08:00)
[2020-12-17] MEDS: PULMICORT NEB TX 0.5 MG NEB SCH ×2 (08:35→21:15)
[2020-12-17] MEDS: DUONEB 0.5 MG/3 MG (3 mL) NEB SCH ×4 (08:35→21:15)
[2020-12-17] MEDS: MUCOMYST 20% 200 MG/ML NEB SCH ×4 (08:35→21:15)
[2020-12-17] MEDS: INVOKANA PO SCH (09:31)
[2020-12-17] MEDS: ZINC SULFATE PO SCH ×2 (09:31→21:15)
[2020-12-17] MEDS: ROBITUSSIN DM PO SCH ×4 (09:31→21:15)
[2020-12-17] MEDS: COREG TAB 12.5 MG PO SCH ×2 (09:31→21:14)
[2020-12-17] MEDS: PEPCID TAB 40 MG PO SCH ×2 (09:31→21:14)
[2020-12-17] MEDS: COZAAR PO SCH (09:32)
[2020-12-17] MEDS: ZyrTEC TAB 10 MG PO SCH (09:32)
[2020-12-17] MEDS: ELIQUIS PO SCH ×2 (09:32→21:14)
[2020-12-17] MEDS: VITAMIN D3 125 mcg (5,000 UNITS) PO SCH (09:33)
[2020-12-17] MEDS: ISOSORBIDE MONONITRATE ER 24-HR PO SCH (09:33)
[2020-12-17] MEDS: PROTONIX TAB 40 MG PO SCH (09:33)
[2020-12-17] MEDS: VITAMIN C PO SCH (09:33)
[2020-12-17] MEDS: VSL#3 PO SCH (09:34)
[2020-12-17] MEDS: FLONASE NASAL SPRAY ENOSTRIL SCH (09:34)
[2020-12-17] MEDS: VITAMIN A PO SCH (09:34)
--- NOTE | 2020-12-17 10:23 | RAD ---
HISTORYFollow-up COVID-19STUDYChest AP [id number] is status post median sternotomy and CABG. Heart size is normal. Lungs remain hypoinflated. Bilateral interstitial and ground-glass infiltrates right greater than left are unchanged. No pleural effusions are identified. Bony thorax is unremarkable.IMPRESSIONN o significant change from the prior examinationElectronically signed by: HENNY BASURTO (Dec 17, 2020 10:20:24)
--- NOTE | 2020-12-17 15:46 | PCM.PROG ---
Progress Note Progress Note for Day of Date of Exam: 12/17/20 Subjective Subjective: Patient seen at bedside, no acute overnight events. He states he slept well. He is currently on the same FNC settings with sats in the high 80s to low 90s. Patient's sats do go down to 80-82% with talking and minimal exertion. He did alternate laying on both sides yesterday and use the smart vest. He continues to have dry cough but feels like it's stuck in his chest. He has been doing light stretches in bed. Labs: Hgb 14.7 WBC:10.5 BUN/Cr: 39/1.08 Glucose 380 ALT:280 AST: 109 CXR (12/16/20): stable bilateral pneumonia, no changes noted CXR (12/15/20): slight improvement on the left side AB.46/ sats 90% on FiO2 93% Plan: Follow CXR. Continue solumedrol 60mg q8hrs, Wean O2 as tolerated to keep sats > 88%. Continue smart vest as per RT. PT/OT as tolerated. Encouraged patient to ambulate between chair and bed. Will try prone positioning again to help improve aeration. Continue nebs, pulmicort and IS. Add mucomyist. Hold Lipitor, Pioglitazone and duloxetine due to transaminitis. No andreea beds available at [facility]. Patient not able to afford stay due to being self pay. Continue Eliquis. Continue vitamin support. Monitor AM labs and imaging. Time spent for clinical assessment, reviewing labs and imaging, physical exam, decision making and documentation greater than 75 mins. Past Medical Family Social History Past Med/Fam/Surg Hx: No changes since H&P Allergies: Allergies No Known Drug Allergies Allergy (Verified 11/24/20 20:28) Review of Systems ROS: No change since H&P Vital Signs and I&O's Vital Signs: Temperature 97.6 F Pulse Rate [Left] 67 Pulse Rate [Left Brachial] 60 Pulse Rate 75 Respiratory Rate 24 Blood Pressure [Right Arm] 140/63 Blood Pressure [Left Arm] 113/57 Blood Pressure 126/70 O2 Sat by Pulse Oximetry 88 Intake and Output: Intake & Output 12/14/20 12/15/20 12/16/20 12/17/20 23:59 23:59 23:59 23:59 Intake Total 2089 980 / 980 1408 / 1408 1174 / 1174 Output Total 1901 / 1901 1400 / 1400 2700 / 2700 1650 / 1650 Balance 189 / 189 -420 / -420 -1292 / -1292 -476 / -476 Physical Exam Oriented: Normal Eyes: Normal Ear: Normal Nose: Normal Throat: Normal Respiratory: Generalized, Diminished (improved air entry ) and Rales Cardiovascular: Normal; negative Edema Auscultation: Bowel Sounds: Normal Tenderness: Normal Skin: Normal Musculoskeletal: Normal Mood Description: Calm Affect: Normal Speech Pattern: Clear and Appropriate Laboratory and Diagnostics Result Diagrams: 12/17/20 05:00 12/17/20 05:00 Labs: 11/24/20 17:25 Blood Blood Culture - Final 11/24/20 17:25 Blood Blood Culture - Final 11/25/20 06:08 Sputum - Expectorated Sputum Sputum Culture - Final Pseudomonas Aeruginosa 11/25/20 06:08 Sputum - Expectorated Sputum - Final Laboratory WBC 10.5 X10^3/uL (3.6-10.0) H 12/17/20 05:00 RBC 4.98 X10^6/uL (4.7-6.0) 12/17/20 05:00 Hgb 14.7 g/dL (13.5-18.0) 12/17/20 05:00 Hct 42.9 % (42.0-54.0) 12/17/20 05:00 MCV 86.2 fL (80.0-100.0) 12/17/20 05:00 MCH 29.4 pg (27.0-34.0) 12/17/20 05:00 MCHC 34.1 g/dL (33.0-35.0) 12/17/20 05:00 RDW 14.5 % (11.6-16.5) 12/17/20 05:00 Plt Count 154 X10^3/uL (150.0-450.0) 12/17/20 05:00 Plt Count Comment Adequate (ADEQUATE) 12/17/20 05:00 MPV 8.5 fL (7.4-11.0) 12/17/20 05:00 Neut % (Auto) 92.6 % (42.0-75.0) H 12/17/20 05:00 Lymph % (Auto) 3.6 % (21.0-51.0) L 12/17/20 05:00 [place] % (Auto) 3.7 % (0.0-13.0) 12/17/20 05:00 Eos % (Auto) 0.0 % (0.9-2.9) L 12/17/20 05:00 Baso % (Auto) 0.1 % (0.2-1.0) L 12/17/20 05:00 Neut # (Auto) 9.7 x10^3/uL (2.2-4.8) H 12/17/20 05:00 Lymph # (Auto) 0.4 X10^3/uL (1.3-2.9) L 12/17/20 05:00 [place] # (Auto) 0.4 x10^3/uL (0.3-0.8) 12/17/20 05:00 Eos # (Auto) 0.0 x10^3/uL (0.0-0.2) 12/17/20 05:00 Baso # (Auto) 0.0 X10^3/uL (0.0-0.1) 12/17/20 05:00 Absolute Nucleated RBC 0.3 /100WBC 12/17/20 05:00 Total Counted 100 12/17/20 05:00 Neutrophils % (Manual) 93 % (39-76) H 12/17/20 05:00 Band Neutrophils % 1 % (0-10) 12/17/20 05:00 Lymphocytes % (Manual) 3 % (13-43) L 12/17/20 05:00 Monocytes % (Manual) 3 % (4-9) L 12/17/20 05:00 Plt Morphology Comment Normal (NORMAL) 12/17/20 05:00 RBC Morphology Normal (NORMAL) 12/17/20 05:00 D-Dimer 0.34 ug/ml (0.0-0.57) 12/15/20 04:25 Sample Site Rbra 12/16/20 05:52 ABG pH 7.460 (7.35-7.45) H 12/16/20 05:52 ABG pCO2 31.0 mmHg (35.0-45.0) L 12/16/20 05:52 ABG pO2 55.0 mmHg (80.0-100.0) L 12/16/20 05:52 ABG HCO3 22.0 mmol/L (22-26) 12/16/20 05:52 ABG O2 Saturation 90.0 % (90-100) 12/16/20 05:52 ABG Base Excess -1.1 mmol/L (-2.0-2.0) 12/16/20 05:52 Bernardo Test Na 12/16/20 05:52 A-a Gradient 569.0 mmHg 12/16/20 05:52 FiO2 93.0 12/16/20 05:52 Blood Gas Comments Kandy abg well-mtf 12/16/20 05:52 Sodium 132 mmol/L (136-145) L 12/17/20 05:00 Corrected Sodium 139 mmol/L (136-145) 12/17/20 05:00 Potassium 4.8 mmol/L (3.5-5.1) 12/17/20 05:00 Chloride 98 mmol/L (98-107) 12/17/20 05:00 Carbon Dioxide 21.2 mmol/L (21-32) 12/17/20 05:00 BUN 39 mg/dL (7-18) H 12/17/20 05:00 Creatinine 1.08 mg/dL (0.70-1.30) 12/17/20 05:00 Est GFR (MDRD) Af Amer > 60 (>60) 12/17/20 05:00 Est GFR (MDRD) Non-Af > 60 (>60) 12/17/20 05:00 Glucose 380 mg/dL (65-99) H 12/17/20 05:00 POC Glucose (mg/dL) 264 mg/dL (65-99) H 12/17/20 12:32 Lactic Acid 2.0 mmol/L (0.4-2.0) 11/24/20 17:25 Calcium 8.8 mg/dL (8.5-10.1) 12/17/20 05:00 Corrected Calcium 9.9 mg/dL (8.5-10.1) 12/17/20 05:00 Magnesium 2.0 mg/dL (1.7-2.9) 12/09/20 05:13 Total Bilirubin 1.10 mg/dL (0.2-1.0) H 12/17/20 05:00 AST 109 Units/L (15-37) H 12/17/20 05:00 ALT 280 Units/L (12-78) H 12/17/20 05:00 Alkaline Phosphatase 153 Units/L (46-116) H 12/17/20 05:00 Creatine Kinase 79 Units/L (39-308) 11/24/20 17:25 CK-MB (CK-2) < 1.0 ng/mL (0-4.0) 11/24/20 17:25 CK/CKMB % Calc 1.3 % (<4) 11/24/20 17:25 Troponin I < 0.02 ng/mL (0-1.5) 11/24/20 17:25 C-Reactive Protein 12.80 mg/L (0-3.0) H 12/15/20 04:25 B-Natriuretic Peptide 103 pg/mL (0-79) H 12/15/20 04:25 Total Protein 6.4 g/dL (6.4-8.2) 12/17/20 05:00 Albumin 2.6 g/dL (3.4-5.0) L 12/17/20 05:00 Globulin 3.8 g/dL (2.5-4.5) 12/17/20 05:00 Albumin/Globulin Ratio 0.7 Ratio (1.1-2.1) L 12/17/20 05:00 Amylase 48 Units/L (25-115) 11/24/20 17:25 Lipase 220 Units/L (73-393) 11/24/20 17:25 Specimen Type Clean catch urine 11/24/20 18:16 Urine Color Yellow (YELLOW) 11/24/20 18:16 Urine Appearance Clear (CLEAR) 11/24/20 18:16 Urine pH 5.0 (5.0 - 8.0) 11/24/20 18:16 Ur Specific [place] 1.025 (1.000-1.030) 11/24/20 18:16 Urine Protein 3+ (NEGATIVE) 11/24/20 18:16 Urine Glucose (UA) 4+ (NEGATIVE) 11/24/20 18:16 Urine Ketones 1+ (NEGATIVE) 11/24/20 18:16 Urine Occult Blood Negative (NEGATIVE) 11/24/20 18:16 Urine Nitrite Negative (NEGATIVE) 11/24/20 18:16 Urine Bilirubin Negative (NEGATIVE) 11/24/20 18:16 Urine Urobilinogen Normal (NORMAL) 11/24/20 18:16 Ur Leukocyte Esterase Negative (NEGATIVE) 11/24/20 18:16 Urine RBC None seen /HPF (0-3) 11/24/20 18:16 Urine WBC None seen /HPF (0-5) 11/24/20 18:16 Ur Squamous Epith Cells Rare /HPF (NEGATIVE) 11/24/20 18:16 Urine Bacteria Negative /HPF (NEGATIVE) 11/24/20 18:16 Ur Culture Indicated? No/not indicated 11/24/20 18:16 Acetone, Semi-Quant Negative (NEGATIVE) 11/24/20 17:30 SARS-CoV-2 (PCR) Positive (NEGATIVE) A 11/24/20 20:17 Influenza Type A (PCR) Negative (NEGATIVE) 11/24/20 20:17 Influenza Type B (PCR) Negative (NEGATIVE) 11/24/20 20:17 RSV (PCR) Negative (NEGATIVE) 11/24/20 20:17 S. pyogenes (TEM-PCR) Not detected (NOT DETECT) 11/24/20 20:17 Plan (1) Oxygen dependent: Status: Acute (2) Acute respiratory failure with hypoxia: Status: Acute Plan: Improving slowly; wean oxygen as tolerated. (3) Pseudomonal pneumonia: Status: Acute Qualifiers: Laterality: bilateral Lung location: unspecified part of lung Qualified Code(s): J15.1 - Pneumonia due to Pseudomonas (4) COVID-19 virus infection: Status: Acute Plan: Still hypoxic and sob; unable to wean oxygen; repeat cxr; continue current mgmt. (5) Pulmonary edema: Status: Acute Qualifiers: Chronicity: chronic Qualified Code(s): J81.1 - Chronic pulmonary edema (6) HTN (hypertension): Status: Acute Qualifiers: Hypertension type: essential hypertension Qualified Code(s): I10 - Essential (primary) hypertension Plan: Remains elevated; increase apresoline and follow. (7) Hx of CABG: Status: Acute (8) Diabetes: Status: Acute Qualifiers: Diabetes mellitus complication status: without complication Diabetes m ellitus terminal carman insulin use: without fci use Diabetes mellitus type: type 2 Qualified Code(s): E11.9 - Type 2 diabetes mellitus without complications (9) FRANCIS (acute kidney injury): Status: Acute
[2020-12-17] MEDS: ACTOS PO SCH (19:12)
[2020-12-17] MEDS: CYMBALTA PO SCH (19:14)
[2020-12-17] MEDS: SNACK - Diabetic Appropriate PO SCH (19:14)
[2020-12-17] MEDS: VISTARIL PO PRN (21:15)
[2020-12-17] MEDS: RESTORIL CAP 15 MG PO PRN (21:17)
[2020-12-18 06:01] LABS: BASOPHILS % (AUTO) 0.1 % (0.2-1.0); HEMATOCRIT 42.2 % (42.0-54.0); HEMOGLOBIN 14.6 g/dL (13.5-18.0); LYMPHOCYTES # (AUTO) 0.5 X10^3/uL (1.3-2.9); MEAN CORPUSCULAR HEMOGLOBIN 29.4 pg (27.0-34.0); MEAN CORPUSCULAR HGB CONC 34.5 g/dL (33.0-35.0); MEAN CORPUSCULAR VOLUME 85.2 fL (80.0-100.0); MEAN PLATELET VOLUME 8.2 fL (7.4-11.0); MONOCYTES # (AUTO) 0.6 x10^3/uL (0.3-0.8); MONOCYTES % (AUTO) 6.8 % (0.0-13.0); NEUTROPHILS # (AUTO) 7.2 x10^3/uL (2.2-4.8); NEUTROPHILS % (AUTO) 87.1 % (42.0-75.0); PLATELET COUNT 139 X10^3/uL (150.0-450.0); RED BLOOD COUNT 4.95 X10^6/uL (4.7-6.0); RED CELL DISTRIBUTION WIDTH 14.3 % (11.6-16.5); WHITE BLOOD COUNT 8.3 X10^3/uL (3.6-10.0)
[2020-12-18] MEDS: MUCOMYST 20% 200 MG/ML NEB SCH ×4 (06:22→20:28)
[2020-12-18] MEDS: APRESOLINE TAB 10 MG PO SCH ×4 (06:32→21:46)
[2020-12-18] MEDS: SOLU-Medrol 40 MG VIAL IVP SCH ×3 (06:32→21:46)
[2020-12-18] MEDS: HumuLIN R SUBCUT PRN ×4 (06:44→21:47)
[2020-12-18 07:13] LABS: ALANINE AMINOTRANSFERASE 258 Units/L (12-78); ALBUMIN 2.6 g/dL (3.4-5.0); ALKALINE PHOSPHATASE 135 Units/L (46-116); ASPARTATE AMINO TRANSFERASE 56 Units/L (15-37); BLOOD UREA NITROGEN 34 mg/dL (7-18); CALCIUM 8.3 mg/dL (8.5-10.1); CARBON DIOXIDE 24.1 mmol/L (21-32); CHLORIDE 102 mmol/L (98-107); COR CA(FOR HYPOALB) 9.4 mg/dL (8.5-10.1); COR NA(FOR HYPERGLY) 139 mmol/L (136-145); CREATININE 0.84 mg/dL (0.70-1.30); SODIUM 136 mmol/L (136-145); TOTAL PROTEIN 6.4 g/dL (6.4-8.2); eGFR NON BLACK RACES > 60 (>60)
[2020-12-18] MEDS: COREG TAB 12.5 MG PO SCH ×2 (08:27→21:45)
[2020-12-18] MEDS: FLONASE NASAL SPRAY ENOSTRIL SCH (08:28)
[2020-12-18] MEDS: ELIQUIS PO SCH ×2 (08:28→21:45)
[2020-12-18] MEDS: INVOKANA PO SCH (08:28)
[2020-12-18] MEDS: COZAAR PO SCH (08:28)
[2020-12-18] MEDS: PEPCID TAB 40 MG PO SCH ×2 (08:29→21:46)
[2020-12-18] MEDS: PROTONIX TAB 40 MG PO SCH (08:29)
[2020-12-18] MEDS: ISOSORBIDE MONONITRATE ER 24-HR PO SCH (08:29)
[2020-12-18] MEDS: ROBITUSSIN DM PO SCH ×4 (08:29→21:46)
[2020-12-18] MEDS: VITAMIN C PO SCH (08:30)
[2020-12-18] MEDS: VITAMIN D3 125 mcg (5,000 UNITS) PO SCH (08:30)
[2020-12-18] MEDS: VSL#3 PO SCH (08:30)
[2020-12-18] MEDS: ZINC SULFATE PO SCH ×2 (08:30→21:46)
[2020-12-18] MEDS: VITAMIN A PO SCH (08:34)
[2020-12-18] MEDS: ZyrTEC TAB 10 MG PO SCH (08:34)
[2020-12-18] MEDS: PULMICORT NEB TX 0.5 MG NEB SCH ×2 (08:59→20:28)
[2020-12-18] MEDS: DUONEB 0.5 MG/3 MG (3 mL) NEB SCH ×6 (08:59→20:28)
[2020-12-18 10:18] LABS: ABG BASE EXCESS 0.9 mmol/L (-2.0-2.0); ABG HCO3 23.8 mmol/L (22-26)
--- NOTE | 2020-12-18 12:01 | PCM.PROG ---
Progress Note Progress Note for Day of Date of Exam: 12/18/20 Subjective Subjective: Patient seen at bedside, no events overnight. He states he is feeling a little better this morning. He states he was able to cough up some mucus yesterday after the Mucomyst treatments. He is currently on the same HHFNC settings with FiO2 93%, sats between 88-92% at rest. He does have dyspnea with minimal exertion and sats go into the low 80s. He has been afebrile. He has normal appetite, no N/V/D. He continues to sit up straight and then alternate to left and right side to help with oxygenation. He has been using smart vest. Labs: Hgb 14.6 WBC:8.3 Plt 139 BUN/Cr: 34/0.84 Glucose 235 ALT:280 AST: 109 AST:56 ALT:258 CXR (12/17/20): stable bilateral pneumonia, no changes noted Plan: Repeat ABG this morning. Will consult tele-pulmonary for any further recommendations. Patient has completed course with Remdesivir, solumedrol and IV antibiotics including Zosyn, Fortaz and Ciprofloxacin. Patient has not been able to be weaned down on HHFNC. Continue current treatment. Wean O2 as tolerated to keep sats > 88%. Continue PT/OT as tolerated. Encouraged ambulation from chair t o bed. Continue nebs, pulmicort, mucomyst and IS. Continue to hold Lipitor, Pioglitazone and duloxetine due to transaminitis which is improving. No andreea beds available at [facility]. Patient not able to afford stay due to being self pay. Continue Eliquis. Continue vitamin support. Monitor AM labs and imaging. Time spent for clinical assessment, reviewing labs and imaging, physical exam, decision making and documentation greater than 75 mins. Past Medical Family Social History Past Med/Fam/Surg Hx: No changes since H&P Allergies: Allergies No Known Drug Allergies Allergy (Verified 11/24/20 20:28) Review of Systems ROS: No change since H&P Vital Signs and I&O's Vital Signs: Temperature 96.8 F Pulse Rate [Left] 65 Pulse Rate [Left Brachial] 60 Pulse Rate 61 Respiratory Rate 20 Blood Pressure [Right Arm] 138/63 Blood Pressure [Left Arm] 113/57 Blood Pressure 141/65 O2 Sat by Pulse Oximetry 90 Intake and Output: Intake & Output 12/15/20 12/16/20 12/17/20 12/18/20 23:59 23:59 23:59 23:59 Intake Total 980 / 980 1408 / 1408 3194 / 3194 400 / 400 Output Total 1400 / 1400 2700 / 2700 4300 / 4300 1600 / 1600 Balance -420 / -420 -1292 / -1292 -1106 / -1106 -1200 / -1200 Physical Exam Oriented: Normal Eyes: Normal Ear: Normal Nose: Normal Throat: Normal Respiratory: Generalized, Diminished (improved air entry ) and Rales Cardiovascular: Normal; negative Edema Auscultation: Bowel Sounds: Normal Tenderness: Normal Skin: Normal Musculoskeletal: Normal Mood Description: Calm Affect: Normal Speech Pattern: Clear and Appropriate Laboratory and Diagnostics Result Diagrams: 12/18/20 05:10 12/18/20 05:10 Labs: 11/24/20 17:25 Blood Blood Culture - Final 11/24/20 17:25 Blood Blood Culture - Final 11/25/20 06:08 Sputum - Expectorated Sputum Sputum Culture - Final Pseudomonas Aeruginosa 11/25/20 06:08 Sputum - Expectorated Sputum - Final Laboratory WBC 8.3 X10^3/uL (3.6-10.0) 12/18/20 05:10 RBC 4.95 X10^6/uL (4.7-6.0) 12/18/20 05:10 Hgb 14.6 g/dL (13.5-18.0) 12/18/20 05:10 Hct 42.2 % (42.0-54.0) 12/18/20 05:10 MCV 85.2 fL (80.0-100.0) 12/18/20 05:10 MCH 29.4 pg (27.0-34.0) 12/18/20 05:10 MCHC 34.5 g/dL (33.0-35.0) 12/18/20 05:10 RDW 14.3 % (11.6-16.5) 12/18/20 05:10 Plt Count 139 X10^3/uL (150.0-450.0) L 12/18/20 05:10 Plt Count Comment Adequate (ADEQUATE) 12/17/20 05:00 MPV 8.2 fL (7.4-11.0) 12/18/20 05:10 Neut % (Auto) 87.1 % (42.0-75.0) H 12/18/20 05:10 Lymph % (Auto) 6.0 % (21.0-51.0) L 12/18/20 05:10 [place] % (Auto) 6.8 % (0.0-13.0) 12/18/20 05:10 Eos % (Auto) 0.0 % (0.9-2.9) L 12/18/20 05:10 Baso % (Auto) 0.1 % (0.2-1.0) L 12/18/20 05:10 Neut # (Auto) 7.2 x10^3/uL (2.2-4.8) H 12/18/20 05:10 Lymph # (Auto) 0.5 X10^3/uL (1.3-2.9) L 12/18/20 05:10 [place] # (Auto) 0.6 x10^3/uL (0.3-0.8) 12/18/20 05:10 Eos # (Auto) 0.0 x10^3/uL (0.0-0.2) 12/18/20 05:10 Baso # (Auto) 0.0 X10^3/uL (0.0-0.1) 12/18/20 05:10 Absolute Nucleated RBC 0.0 /100WBC 12/18/20 05:10 Total Counted 100 12/17/20 05:00 Neutrophils % (Manual) 93 % (39-76) H 12/17/20 05:00 Band Neutrophils % 1 % (0-10) 12/17/20 05:00 Lymphocytes % (Manual) 3 % (13-43) L 12/17/20 05:00 Monocytes % (Manual) 3 % (4-9) L 12/17/20 05:00 Plt Morphology Comment Normal (NORMAL) 12/17/20 05:00 RBC Morphology Normal (NORMAL) 12/17/20 05:00 D-Dimer 0.34 ug/ml (0.0-0.57) 12/15/20 04:25 Sample Site Lb 12/18/20 10:15 ABG pH 7.480 (7.35-7.45) H 12/18/20 10:15 ABG pCO2 32.0 mmHg (35.0-45.0) L 12/18/20 10:15 ABG pO2 64.0 mmHg (80.0-100.0) L 12/18/20 10:15 ABG HCO3 23.8 mmol/L (22-26) 12/18/20 10:15 ABG O2 Saturation 94.0 % (90-100) 12/18/20 10:15 ABG Base Excess 0.9 mmol/L (-2.0-2.0) 12/18/20 10:15 Bernardo Test Na 12/18/20 10:15 A-a Gradient 559.0 mmHg 12/18/20 10:15 FiO2 93.0 12/18/20 10:15 Blood Gas Comments Pt [facility] 12/18/20 10:15 Sodium 136 mmol/L (136-145) 12/18/20 05:10 Corrected Sodium 139 mmol/L (136-145) 12/18/20 05:10 Potassium 4.7 mmol/L (3.5-5.1) 12/18/20 05:10 Chloride 102 mmol/L (98-107) 12/18/20 05:10 Carbon Dioxide 24.1 mmol/L (21-32) 12/18/20 05:10 BUN 34 mg/dL (7-18) H 12/18/20 05:10 Creatinine 0.84 mg/dL (0.70-1.30) 12/18/20 05:10 Est GFR (MDRD) Af Amer > 60 (>60) 12/18/20 05:10 Est GFR (MDRD) Non-Af > 60 (>60) 12/18/20 05:10 Glucose 235 mg/dL (65-99) H 12/18/20 05:10 POC Glucose (mg/dL) 207 mg/dL (65-99) H 12/18/20 11:46 Lactic Acid 2.0 mmol/L (0.4-2.0) 11/24/20 17:25 Calcium 8.3 mg/dL (8.5-10.1) L 12/18/20 05:10 Corrected Calcium 9.4 mg/dL (8.5-10.1) 12/18/20 05:10 Magnesium 2.0 mg/dL (1.7-2.9) 12/09/20 05:13 Total Bilirubin 1.10 mg/dL (0.2-1.0) H 12/18/20 05:10 AST 56 Units/L (15-37) H 12/18/20 05:10 ALT 258 Units/L (12-78) H 12/18/20 05:10 Alkaline Phosphatase 135 Units/L (46-116) H 12/18/20 05:10 Creatine Kinase 79 Units/L (39-308) 11/24/20 17:25 CK-MB (CK-2) < 1.0 ng/mL (0-4.0) 11/24/20 17:25 CK/CKMB % Calc 1.3 % (<4) 11/24/20 17:25 Troponin I < 0.02 ng/mL (0-1.5) 11/24/20 17:25 C-Reactive Protein 12.80 mg/L (0-3.0) H 12/15/20 04:25 B-Natriuretic Peptide 103 pg/mL (0-79) H 12/15/20 04:25 Total Protein 6.4 g/dL (6.4-8.2) 12/18/20 05:10 Albumin 2.6 g/dL (3.4-5.0) L 12/18/20 05:10 Globulin 3.8 g/dL (2.5-4.5) 12/18/20 05:10 Albumin/Globulin Ratio 0.7 Ratio (1.1-2.1) L 12/18/20 05:10 Amylase 48 Units/L (25-115) 11/24/20 17:25 Lipase 220 Units/L (73-393) 11/24/20 17:25 Specimen Type Clean catch urine 11/24/20 18:16 Urine Color Yellow (YELLOW) 11/24/20 18:16 Urine Appearance Clear (CLEAR) 11/24/20 18:16 Urine pH 5.0 (5.0 - 8.0) 11/24/20 18:16 Ur Specific [place] 1.025 (1.000-1.030) 11/24/20 18:16 Urine Protein 3+ (NEGATIVE) 11/24/20 18:16 Urine Glucose (UA) 4+ (NEGATIVE) 11/24/20 18:16 Urine Ketones 1+ (NEGATIVE) 11/24/20 18:16 Urine Occult Blood Negative (NEGATIVE) 11/24/20 18:16 Urine Nitrite Negative (NEGATIVE) 11/24/20 18:16 Urine Bilirubin Negative (NEGATIVE) 11/24/20 18:16 Urine Urobilinogen Normal (NORMAL) 11/24/20 18:16 Ur Leukocyte Esterase Negative (NEGATIVE) 11/24/20 18:16 Urine RBC None seen /HPF (0-3) 11/24/20 18:16 Urine WBC None seen /HPF (0-5) 11/24/20 18:16 Ur Squamous Epith Cells Rare /HPF (NEGATIVE) 11/24/20 18:16 Urine Bacteria Negative /HPF (NEGATIVE) 11/24/20 18:16 Ur Culture Indicated? No/not indicated 11/24/20 18:16 Acetone, Semi-Quant Negative (NEGATIVE) 11/24/20 17:30 SARS-CoV-2 (PCR) Positive (NEGATIVE) A 11/24/20 20:17 Influenza Type A (PCR) Negative (NEGATIVE) 11/24/20 20:17 Influenza Type B (PCR) Negative (NEGATIVE) 11/24/20 20:17 RSV (PCR) Negative (NEGATIVE) 11/24/20 20:17 S. pyogenes (TEM-PCR) Not detected (NOT DETECT) 11/24/20 20:17 Plan (1) Oxygen dependent: Status: Acute (2) Acute respiratory failure with hypoxia: Status: Acute (3) Pseudomonal pneumonia: Status: Acute Qualifiers: Laterality: bilateral Lung location: unspecified part of lung Qualified Code(s): J15.1 - Pneumonia due to Pseudomonas (4) COVID-19 virus infection: Status: Acute Plan: Still hypoxic and sob; unable to wean oxygen; repeat cxr; continue current mgmt. (5) Pulmonary edema: Status: Acute Qualifiers: Chronicity: chronic Qualified Code(s): J81.1 - Chronic pulmonary edema (6) HTN (hypertension): Status: Acute Qualifiers: Hypertension type: essential hypertension Qualified Code(s): I10 - Essential (primary) hypertension (7) Hx of CABG: Status: Acute (8) Diabetes: Status: Acute Qualifiers: Diabetes mellitus complication status: without complication Diabetes mellitus ferry terminal supervisor insulin use: without ferry terminal supervisor use Diabetes mellitus type: type 2 Qualified Code(s): E11.9 - Type 2 diabetes mellitus without complications (9) FRANCIS (acute kidney injury): Status: Acute
--- NOTE | 2020-12-18 12:35 | DR.CONSULT ---
CONSULT Consultation for Day of: Date: 12/18/20 Chief Complaint Chief Complaint: Patient with history of Covid pneumonia now on high flow oxygen. Pulmonary consultation is obtained to help with further management. Allergies Allergies Allergy/AdvReac Type Severity Reaction Status Date / Time No Known Drug Allergies Allergy Verified 11/24/20 20:28 History of Present Illness History of Present Illness: Patient is a 65-year-old gentleman diagnosed with Covid a few weeks ago. Patient is currently On high flow nasal cannula. He initially on presentation was doing well and was ready for discharge. However, over time his condition started deteriorating and he started requiring more oxygen. He is currently on 93% on high flow nasal cannula saturating in the low 90s. Patient reports doing well and not having any major complaints. He reports that he is able to eat and drink. He only gets short of breath with movement and exertion. Otherwise he is pretty comfortable. He denies any headaches, chest pain, or GI symptoms. Patient is reporting a new cough that just became productive after mucolytic's. He does not know the color of the sputum. No other reported issues otherwise. Past Medical History Past Medical History: COPD, Coronary Artery Disease, Diabetes, Hypertension and Sleep Apnea Past Surgical History Surgical History: CABG/Valve Surgery, Carotid Endarterectomy and Ortho Surgery Family History Family Medical History: Diabetes Mellitus and Cancer Social History Does patient currently use any type of tobacco product: No Have you used tobacco products in the last 12 months: No Type of Tobacco Use: None Does any household member use tobacco: No Alcohol Use: None Drug Use: None Medications Home Medications: No Known Drug Allergies Allergy (Verified 11/24/20 20:28) CONTINUE taking the following medications alpha lipoic acid 200 mg PO DAILY 11/24/20 [History] cholecalciferol (vitamin D3) [Vitamin D3] 50 mcg PO DAILY 11/24/20 [History] cinnamon bark [Cinnamon] 500 mg PO DAILY 11/24/20 [History] isosorbide mononitrate 60 mg PO QAM 11/24/20 [History] losartan 100 mg PO DAILY 11/24/20 [History] simvastatin 10 mg PO QHS 11/24/20 [History] New Prescriptions Dapagliflozin [Farxiga] 10 mg PO QAM 30 Days #30 tab 12/06/20 [Rx] albuterol sulfate 2 puff INHALATION Q4-6H PRN #6.7 g 12/06/20 [Rx] carvedilol 12.5 mg PO BID 30 Days #60 tab 12/06/20 [Rx] glipizide 5 mg PO BID 30 Days #60 tab 12/06/20 [Rx] hydralazine 25 mg PO TID 30 Days #90 tab 12/06/20 [Rx] ipratropium-albuterol 3 ml NEB QID 30 Days #30 vial 12/06/20 [Rx] Review of Systems Constitutional: No Symptoms Reported Eyes: No Symptoms Reported ENT: No Symptoms Reported Respiratory: SOB with Excertion Cardiovascular: No Symptoms Reported Gastrointestinal: No Symptoms Reported Genitourinary: No Symptoms Reported Musculoskeletal: No Symptoms Reported Skin: No Symptoms Reported Neurological: No Symptoms Reported Physical Exam Vital Signs: Temperature 96.8 F Pulse Rate [Left] 65 Pulse Rate [Left Brachial] 60 Pulse Rate 61 Respiratory Rate 20 Blood Pressure [Right Arm] 138/63 Blood Pressure [Left Arm] 113/57 Blood Pressure 141/65 O2 Sat by Pulse Oximetry 90 Patient was seen through video conferencing. No reported complaints. He is awake, oriented, and adequate. He speaking in full sentences. No apparent distress. No noted JVD. Obese abdomen. Dry skin and no noted edema of the lower extremities. Plan Plan: labs and ABGs were noted. Patient is in negative balance. Chest x-ray images were reviewed. There is diffuse bilateral patchy opacities more on the right side. Assessment: Respiratory failure, acute, hypoxemic COVID-19 Pneumonia ARDS Superimposed bacterial pneumonia Volume overload Hypertension History of CABG CAD DM with hyperglycemia Plan: Patient is currently being treated with bronchodilators, mucolytic's, and steroids. Consider tocilizumab if not already given. Diuresis as tolerated. Continue high flow nasal cannula as tolerated, patient seems relatively stable with that, continue to monitor. BiPAP could be an option for rescue if worsening respiratory status. Otherwise patient might need to be intubated. Continue treating bacterial pneumonia as per primary team. No indication for bronchoscopy at this point. Thank you for letting us be involved in this patient's care. Please call back if further concerns or questions.
[2020-12-18] MEDS ORDERED: ACTEMRA 400 MG in NS 100 ML IV 80 ML IV SCH (12:57)
[2020-12-18] MEDS ORDERED: ACTEMRA 400 MG in NS 100 ML IV 80 ML IV NR (14:00)
[2020-12-18] MEDS: BUTT CREAM (COMPOUND) TOP PRN (16:30)
[2020-12-18] MEDS: SNACK - Diabetic Appropriate PO SCH (19:20)
[2020-12-18] MEDS: COLACE CAP 100 MG PO SCH (21:45)
[2020-12-18] MEDS: MILK OF MAGNESIA PO SCH (21:46)
[2020-12-18] MEDS: VISTARIL PO PRN (21:47)
[2020-12-18] MEDS: RESTORIL CAP 15 MG PO PRN (21:48)
[2020-12-19] MEDS: MUCOMYST 20% 200 MG/ML NEB SCH ×5 (05:23→21:10)
[2020-12-19 05:31] LABS: BASOPHILS % (AUTO) 0.3 % (0.2-1.0); EOSINOPHILS % (AUTO) 0.1 % (0.9-2.9); HEMATOCRIT 42.7 % (42.0-54.0); HEMOGLOBIN 14.6 g/dL (13.5-18.0); LYMPHOCYTES # (AUTO) 0.4 X10^3/uL (1.3-2.9); LYMPHOCYTES % (AUTO) 8.3 % (21.0-51.0); MEAN CORPUSCULAR HGB CONC 34.3 g/dL (33.0-35.0); MEAN CORPUSCULAR VOLUME 84.6 fL (80.0-100.0); MEAN PLATELET VOLUME 8.3 fL (7.4-11.0); MONOCYTES # (AUTO) 0.5 x10^3/uL (0.3-0.8); MONOCYTES % (AUTO) 9.4 % (0.0-13.0); NEUTROPHILS # (AUTO) 4.4 x10^3/uL (2.2-4.8); NEUTROPHILS % (AUTO) 81.9 % (42.0-75.0); PLATELET COUNT 144 X10^3/uL (150.0-450.0); RED BLOOD COUNT 5.04 X10^6/uL (4.7-6.0); RED CELL DISTRIBUTION WIDTH 14.2 % (11.6-16.5); WHITE BLOOD COUNT 5.3 X10^3/uL (3.6-10.0)
[2020-12-19 05:45] LABS: ALANINE AMINOTRANSFERASE 203 Units/L (12-78); ALBUMIN 2.5 g/dL (3.4-5.0); ALKALINE PHOSPHATASE 124 Units/L (46-116); ASPARTATE AMINO TRANSFERASE 37 Units/L (15-37); BLOOD UREA NITROGEN 32 mg/dL (7-18); CALCIUM 8.3 mg/dL (8.5-10.1); CARBON DIOXIDE 21.6 mmol/L (21-32); CHLORIDE 102 mmol/L (98-107); COR CA(FOR HYPOALB) 9.5 mg/dL (8.5-10.1); COR NA(FOR HYPERGLY) 139 mmol/L (136-145); CREATININE 0.83 mg/dL (0.70-1.30); SODIUM 135 mmol/L (136-145); TOTAL PROTEIN 6.2 g/dL (6.4-8.2); eGFR NON BLACK RACES > 60 (>60)
[2020-12-19] MEDS: SOLU-Medrol 40 MG VIAL IVP SCH ×3 (06:16→21:00)
[2020-12-19] MEDS: APRESOLINE TAB 10 MG PO SCH ×3 (06:16→22:04)
[2020-12-19] MEDS: HumuLIN R SUBCUT PRN ×3 (06:17→20:14)
[2020-12-19] MEDS: PULMICORT NEB TX 0.5 MG NEB SCH ×2 (08:34→21:10)
[2020-12-19] MEDS: DUONEB 0.5 MG/3 MG (3 mL) NEB SCH ×4 (08:34→21:10)
--- NOTE | 2020-12-19 09:15 | PCM.PROG ---
Progress Note Progress Note for Day of Date of Exam: 12/19/20 Subjective Subjective: Patient seen at bedside, overnight he had to get up to have a BM and sats dropped to 69%. He states he did not feel good and took a while to recover. His sats at rest stay between 88-92% but drop fairly quickly with minimal exertion. He states otherwise he feels good. He did work with PT yesterday and states that felt good. His appetite is normal. He continues to use smart vest. He is coughing up clear mucus. He did have a tele consult with pulmonary yesterday. Recommended trying actemra but otherwise continue the same treatment. Patient was given one dose of Actemra yesterday 400 mg IV. Labs: Hgb 14.6 WBC:5.3 Plt 144 Glucose 277 AST: 37 ALT: 203 AB.48/32/64/23 sats 94% CXR (12/17/20): stable bilateral pneumonia, no changes noted Plan: Will give another dose of Actemra, 800 mg IV once, continue current treatment with aggressive pulmonary toilet including nebs, pulmicort, mucomyst, smart vest and IS. Patient has completed course with Remdesivir, and IV antibiotics including Zosyn, Fortaz and Ciprofloxacin. Continue solumedrol at current dose. Patient has not been able to be weaned down on HHFNC. Wean O2 as tolerated to keep sats > 88%. Continue PT/OT as tolerated. Encouraged ambulation from chair to bed. Continue to hold Lipitor, Pioglitazone and duloxetine due to transaminitis which is improving. No andreea beds available at [facility]. Patient not able to afford stay due to being self pay. Continue Eliquis. Continue vitamin support. Monitor AM labs and imaging. Time spent for clinical assessment, reviewing labs and imaging, physical exam, decision making and documentation greater than 75 mins. Past Medical Family Social History Past Med/Fam/Surg Hx: No changes since H&P Allergies: Allergies No Known Drug Allergies Allergy (Verified 11/24/20 20:28) Review of Systems ROS: No change since H&P Vital Signs and I&O's Vital Signs: Temperature 97.8 F Pulse Rate [Left] 65 Pulse Rate [Left Brachial] 60 Pulse Rate 63 Respiratory Rate 28 Blood Pressure [Right Arm] 138/63 Blood Pressure [Left Arm] 113/57 Blood Pressure 128/68 O2 Sat by Pulse Oximetry 93 Intake and Output: Intake & Output 12/16/20 12/17/20 12/18/20 12/19/20 23:59 23:59 23:59 23:59 Intake Total 1408 / 1408 3194 / 3194 1780 / 1780 420 / 420 Output Total 2700 / 2700 4300 / 4300 4093 / 4093 600 / 600 Balance -1292 / -1292 -1106 / -1106 -2313 / -2313 -180 / -180 Physical Exam Oriented: Normal Eyes: Normal Ear: Normal Nose: Normal Throat: Normal Respiratory: Generalized, Diminished (improved air entry ) and [place] Cardiovascular: Normal; negative Edema Auscultation: Bowel Sounds: Normal Tenderness: Normal Skin: Normal Musculoskeletal: Normal Mood Description: Calm Affect: Normal Speech Pattern: Clear and Appropriate Laboratory and Diagnostics Result Diagrams: 12/19/20 04:44 12/19/20 04:44 Labs: 11/24/20 17:25 Blood Blood Culture - Final 11/24/20 17:25 Blood Blood Culture - Final 11/25/20 06:08 Sputum - Expectorated Sputum Sputum Culture - Final Pseudomonas Aeruginosa 11/25/20 06:08 Sputum - Expectorated Sputum - Final Laboratory WBC 5.3 X10^3/uL (3.6-10.0) 12/19/20 04:44 RBC 5.04 X10^6/uL (4.7-6.0) 12/19/20 04:44 Hgb 14.6 g/dL (13.5-18.0) 12/19/20 04:44 Hct 42.7 % (42.0-54.0) 12/19/20 04:44 MCV 84.6 fL (80.0-100.0) 12/19/20 04:44 MCH 29.0 pg (27.0-34.0) 12/19/20 04:44 MCHC 34.3 g/dL (33.0-35.0) 12/19/20 04:44 RDW 14.2 % (11.6-16.5) 12/19/20 04:44 Plt Count 144 X10^3/uL (150.0-450.0) L 12/19/20 04:44 Plt Count Comment Adequate (ADEQUATE) 12/17/20 05:00 MPV 8.3 fL (7.4-11.0) 12/19/20 04:44 Neut % (Auto) 81.9 % (42.0-75.0) H 12/19/20 04:44 Lymph % (Auto) 8.3 % (21.0-51.0) L 12/19/20 04:44 [place] % (Auto) 9.4 % (0.0-13.0) 12/19/20 04:44 Eos % (Auto) 0.1 % (0.9-2.9) L 12/19/20 04:44 Baso % (Auto) 0.3 % (0.2-1.0) 12/19/20 04:44 Neut # (Auto) 4.4 x10^3/uL (2.2-4.8) 12/19/20 04:44 Lymph # (Auto) 0.4 X10^3/uL (1.3-2.9) L 12/19/20 04:44 [place] # (Auto) 0.5 x10^3/uL (0.3-0.8) 12/19/20 04:44 Eos # (Auto) 0.0 x10^3/uL (0.0-0.2) 12/19/20 04:44 Baso # (Auto) 0.0 X10^3/uL (0.0-0.1) 12/19/20 04:44 Absolute Nucleated RBC 0.0 /100WBC 12/19/20 04:44 Total Counted 100 12/17/20 05:00 Neutrophils % (Manual) 93 % (39-76) H 12/17/20 05:00 Band Neutrophils % 1 % (0-10) 12/17/20 05:00 Lymphocytes % (Manual) 3 % (13-43) L 12/17/20 05:00 Monocytes % (Manual) 3 % (4-9) L 12/17/20 05:00 Plt Morphology Comment Normal (NORMAL) 12/17/20 05:00 RBC Morphology Normal (NORMAL) 12/17/20 05:00 D-Dimer 0.34 ug/ml (0.0-0.57) 12/15/20 04:25 Sample Site Lb 12/18/20 10:15 ABG pH 7.480 (7.35-7.45) H 12/18/20 10:15 ABG pCO2 32.0 mmHg (35.0-45.0) L 12/18/20 10:15 ABG pO2 64.0 mmHg (80.0-100.0) L 12/18/20 10:15 ABG HCO3 23.8 mmol/L (22-26) 12/18/20 10:15 ABG O2 Saturation 94.0 % (90-100) 12/18/20 10:15 ABG Base Excess 0.9 mmol/L (-2.0-2.0) 12/18/20 10:15 Bernardo Test Na 12/18/20 10:15 A-a Gradient 559.0 mmHg 12/18/20 10:15 FiO2 93.0 12/18/20 10:15 Blood Gas Comments Pt galina [facility] 12/18/20 10:15 Sodium 135 mmol/L (136-145) L 12/19/20 04:44 Corrected Sodium 139 mmol/L (136-145) 12/19/20 04:44 Potassium 4.6 mmol/L (3.5-5.1) 12/19/20 04:44 Chloride 102 mmol/L (98-107) 12/19/20 04:44 Carbon Dioxide 21.6 mmol/L (21-32) 12/19/20 04:44 BUN 32 mg/dL (7-18) H 12/19/20 04:44 Creatinine 0.83 mg/dL (0.70-1.30) 12/19/20 04:44 Est GFR (MDRD) Af Amer > 60 (>60) 12/19/20 04:44 Est GFR (MDRD) Non-Af > 60 (>60) 12/19/20 04:44 Glucose 277 mg/dL (65-99) H 12/19/20 04:44 POC Glucose (mg/dL) 338 mg/dL (65-99) H 12/18/20 19:55 Lactic Acid 2.0 mmol/L (0.4-2.0) 11/24/20 17:25 Calcium 8.3 mg/dL (8.5-10.1) L 12/19/20 04:44 Corrected Calcium 9.5 mg/dL (8.5-10.1) 12/19/20 04:44 Magnesium 2.0 mg/dL (1.7-2.9) 12/09/20 05:13 Total Bilirubin 1.20 mg/dL (0.2-1.0) H 12/19/20 04:44 AST 37 Units/L (15-37) 12/19/20 04:44 ALT 203 Units/L (12-78) H 12/19/20 04:44 Alkaline Phosphatase 124 Units/L (46-116) H 12/19/20 04:44 Creatine Kinase 79 Units/L (39-308) 11/24/20 17:25 CK-MB (CK-2) < 1.0 ng/mL (0-4.0) 11/24/20 17:25 CK/CKMB % Calc 1.3 % (<4) 11/24/20 17:25 Troponin I < 0.02 ng/mL (0-1.5) 11/24/20 17:25 C-Reactive Protein 12.80 mg/L (0-3.0) H 12/15/20 04:25 B-Natriuretic Peptide 103 pg/mL (0-79) H 12/15/20 04:25 Total Protein 6.2 g/dL (6.4-8.2) L 12/19/20 04:44 Albumin 2.5 g/dL (3.4-5.0) L 12/19/20 04:44 Globulin 3.7 g/dL (2.5-4.5) 12/19/20 04:44 Albumin/Globulin Ratio 0.7 Ratio (1.1-2.1) L 12/19/20 04:44 Amylase 48 Units/L (25-115) 11/24/20 17:25 Lipase 220 Units/L (73-393) 11/24/20 17:25 Specimen Type Clean catch urine 11/24/20 18:16 Urine Color Yellow (YELLOW) 11/24/20 18:16 Urine Appearance Clear (CLEAR) 11/24/20 18:16 Urine pH 5.0 (5.0 - 8.0) 11/24/20 18:16 Ur Specific [place] 1.025 (1.000-1.030) 11/24/20 18:16 Urine Protein 3+ (NEGATIVE) 11/24/20 18:16 Urine Glucose (UA) 4+ (NEGATIVE) 11/24/20 18:16 Urine Ketones 1+ (NEGATIVE) 11/24/20 18:16 Urine Occult Blood Negative (NEGATIVE) 11/24/20 18:16 Urine Nitrite Negative (NEGATIVE) 11/24/20 18:16 Urine Bilirubin Negative (NEGATIVE) 11/24/20 18:16 Urine Urobilinogen Normal (NORMAL) 11/24/20 18:16 Ur Leukocyte Esterase Negative (NEGATIVE) 11/24/20 18:16 Urine RBC None seen /HPF (0-3) 11/24/20 18:16 Urine WBC None seen /HPF (0-5) 11/24/20 18:16 Ur Squamous Epith Cells Rare /HPF (NEGATIVE) 11/24/20 18:16 Urine Bacteria Negative /HPF (NEGATIVE) 11/24/20 18:16 Ur Culture Indicated? No/not indicated 11/24/20 18:16 Acetone, Semi-Quant Negative (NEGATIVE) 11/24/20 17:30 SARS-CoV-2 (PCR) Positive (NEGATIVE) A 11/24/20 20:17 Influenza Type A (PCR) Negative (NEGATIVE) 11/24/20 20:17 Influenza Type B (PCR) Negative (NEGATIVE) 11/24/20 20:17 RSV (PCR) Negative (NEGATIVE) 11/24/20 20:17 S. pyogenes (TEM-PCR) Not detected (NOT DETECT) 11/24/20 20:17 Plan (1) Oxygen dependent: Status: Acute (2) Acute respiratory failure with hypoxia: Status: Acute Plan: Improving slowly; wean oxygen as tolerated. (3) Pseudomonal pneumonia: Status: Acute Qualifiers: Laterality: bilateral Lung location: unspecified part of lung Qualified Code(s): J15.1 - Pneumonia due to Pseudomonas (4) COVID-19 virus infection: Status: Acute Plan: Still hypoxic and sob; unable to wean oxygen; repeat cxr; continue current mgmt. (5) Pulmonary edema: Status: Acute Qualifiers: Chronicity: chronic Qualified Code(s): J81.1 - Chronic pulmonary edema (6) HTN (hypertension): Status: Acute Qualifiers: Hypertension type: essential hypertension Qualified Code(s): I10 - Essential (primary) hypertension Plan: Remains elevated; increase apresoline and follow. (7) Hx of CABG: Status: Acute (8) Diabetes: Status: Acute Qualifiers: Diabetes mellitus complication status: without complication Diabetes mellitus termite exterminator helper insulin use: without termite exterminator helper use Diabetes mellitus type: type 2 Qualified Code(s): E11.9 - Type 2 diabetes mellitus without complications (9) FRANCIS (acute kidney injury): Status: Acute
[2020-12-19] MEDS: FLONASE NASAL SPRAY ENOSTRIL SCH (10:14)
[2020-12-19] MEDS: COREG TAB 12.5 MG PO SCH ×2 (10:14→20:07)
[2020-12-19] MEDS: COZAAR PO SCH (10:14)
[2020-12-19] MEDS: ELIQUIS PO SCH ×2 (10:14→20:07)
[2020-12-19] MEDS: INVOKANA PO SCH (10:14)
[2020-12-19] MEDS: ROBITUSSIN DM PO SCH ×4 (10:15→20:07)
[2020-12-19] MEDS: PEPCID TAB 40 MG PO SCH ×2 (10:15→20:04)
[2020-12-19] MEDS: VITAMIN C PO SCH (10:15)
[2020-12-19] MEDS: PROTONIX TAB 40 MG PO SCH (10:15)
[2020-12-19] MEDS: ISOSORBIDE MONONITRATE ER 24-HR PO SCH (10:15)
[2020-12-19] MEDS: VITAMIN A PO SCH (10:15)
[2020-12-19] MEDS: ZINC SULFATE PO SCH ×2 (10:16→20:04)
[2020-12-19] MEDS: VITAMIN D3 125 mcg (5,000 UNITS) PO SCH (10:16)
[2020-12-19] MEDS: VSL#3 PO SCH (10:16)
[2020-12-19] MEDS: VISTARIL PO PRN ×3 (10:17→22:41)
[2020-12-19] MEDS: ZyrTEC TAB 10 MG PO SCH (10:17)
[2020-12-19] MEDS ORDERED: NS IV ONE (15:00)
[2020-12-19] MEDS ORDERED: ACTEMRA IV ONE (15:00)
[2020-12-19] MEDS: RESTORIL CAP 15 MG PO PRN (19:49)
[2020-12-19] MEDS: COLACE CAP 100 MG PO SCH (20:04)
[2020-12-19] MEDS: MILK OF MAGNESIA PO SCH (20:05)
[2020-12-19] MEDS: SNACK - Diabetic Appropriate PO SCH (20:15)
[2020-12-19] MEDS: TUSSIONEX PENNKINETIC SUSP PO PRN (22:41)
[2020-12-20] MEDS: APRESOLINE TAB 10 MG PO SCH ×3 (06:22→22:00)
[2020-12-20] MEDS: SOLU-Medrol 40 MG VIAL IVP SCH ×3 (06:22→22:00)
[2020-12-20] MEDS: HumuLIN R SUBCUT PRN ×4 (06:27→22:00)
[2020-12-20] MEDS: PULMICORT NEB TX 0.5 MG NEB SCH ×2 (08:16→20:39)
[2020-12-20] MEDS: MUCOMYST 20% 200 MG/ML NEB SCH ×4 (08:16→20:39)
[2020-12-20] MEDS: DUONEB 0.5 MG/3 MG (3 mL) NEB SCH ×4 (08:16→20:39)
[2020-12-20] MEDS: COREG TAB 12.5 MG PO SCH ×2 (08:19→20:20)
[2020-12-20] MEDS: ELIQUIS PO SCH ×2 (08:19→20:20)
[2020-12-20] MEDS: INVOKANA PO SCH (08:19)
[2020-12-20] MEDS: FLONASE NASAL SPRAY ENOSTRIL SCH (08:19)
[2020-12-20] MEDS: COZAAR PO SCH (08:19)
[2020-12-20] MEDS: ROBITUSSIN DM PO SCH ×4 (08:20→20:21)
[2020-12-20] MEDS: VITAMIN C PO SCH (08:20)
[2020-12-20] MEDS: VITAMIN A PO SCH (08:20)
[2020-12-20] MEDS: PROTONIX TAB 40 MG PO SCH (08:20)
[2020-12-20] MEDS: ISOSORBIDE MONONITRATE ER 24-HR PO SCH (08:20)
[2020-12-20] MEDS: PEPCID TAB 40 MG PO SCH ×2 (08:20→20:20)
[2020-12-20] MEDS: VSL#3 PO SCH (08:21)
[2020-12-20] MEDS: VITAMIN D3 125 mcg (5,000 UNITS) PO SCH (08:21)
[2020-12-20] MEDS: VISTARIL PO PRN ×2 (08:21→20:21)
[2020-12-20] MEDS: ZyrTEC TAB 10 MG PO SCH (08:21)
[2020-12-20] MEDS: ZINC SULFATE PO SCH ×2 (08:21→20:21)
--- NOTE | 2020-12-20 11:29 | PCM.PROG ---
Progress Note Progress Note for Day of Date of Exam: 12/20/20 Subjective Subjective: Patient seen at bedside. He was moved to a different room in ICU/Step down out of isolation. He was able to be weaned down to FiO2 85% but overnight it was increased back up to 93%. Patient states his sats remained in low to mid 90s overnight. He feels good today. He has been afebrile. He did get the second dose of Actemra yesterday. He did work with PT and has also been doing exercises in bed. Plan: Continue current treatment with aggressive pulmonary toilet including nebs, pulmicort, mucomyst, smart vest and IS. Patient has completed course with Remdesivir, and IV antibiotics including Zosyn, Fortaz and Ciprofloxacin. Continue solumedrol at current dose. Wean O2 as tolerated to keep sats > 88%. Continue PT/OT as tolerated. Encouraged ambulation from chair to bed. Continue to hold Lipitor, Pioglitazone and duloxetine due to transaminitis which is improving. No andreea beds available at [facility]. Patient not able to afford stay due to being self pay. Continue Eliquis. Continue vitamin support. Monitor AM labs and imaging. Time spent for clinical assessment, reviewing labs and imaging, physical exam, decision making and documentation greater than 75 mins. Past Medical Family Social History Past Med/Fam/Surg Hx: No changes since H&P Allergies: Allergies No Known Drug Allergies Allergy (Verified 11/24/20 20:28) Review of Systems ROS: No change since H&P Vital Signs and I&O's Vital Signs: Temperature 98.0 F Pulse Rate [Left] 65 Pulse Rate [Left Brachial] 60 Pulse Rate 67 Respiratory Rate 36 Blood Pressure [Right Arm] 138/63 Blood Pressure [Left Arm] 113/57 Blood Pressure 145/70 O2 Sat by Pulse Oximetry 86 Intake and Output: Intake & Output 12/17/20 12/18/20 12/19/20 12/20/20 23:59 23:59 23:59 23:59 Intake Total 3194 / 3194 1780 / 1780 1999 / 1999 480 / 480 Output Total 4300 / 4300 4093 / 4093 3275 / 3275 475 / 475 Balance -1106 / -1106 -2313 / -2313 -1275 / -1275 5 / 5 Physical Exam Oriented: Normal Eyes: Normal Ear: Normal Nose: Normal Throat: Normal Respiratory: Generalized and Diminished (improved air entry ) Cardiovascular: Normal; negative Edema Auscultation: Bowel Sounds: Normal Tenderness: Normal Skin: Normal Musculoskeletal: Normal Mood Description: Calm Affect: Normal Speech Pattern: Clear and Appropriate Laboratory and Diagnostics Result Diagrams: 12/19/20 04:44 12/19/20 20:08 Labs: 11/24/20 17:25 Blood Blood Culture - Final 11/24/20 17:25 Blood Blood Culture - Final 11/25/20 06:08 Sputum - Expectorated Sputum Sputum Culture - Final Pseudomonas Aeruginosa 11/25/20 06:08 Sputum - Expectorated Sputum - Final Laboratory WBC 5.3 X10^3/uL (3.6-10.0) 12/19/20 04:44 RBC 5.04 X10^6/uL (4.7-6.0) 12/19/20 04:44 Hgb 14.6 g/dL (13.5-18.0) 12/19/20 04:44 Hct 42.7 % (42.0-54.0) 12/19/20 04:44 MCV 84.6 fL (80.0-100.0) 12/19/20 04:44 MCH 29.0 pg (27.0-34.0) 12/19/20 04:44 MCHC 34.3 g/dL (33.0-35.0) 12/19/20 04:44 RDW 14.2 % (11.6-16.5) 12/19/20 04:44 Plt Count 144 X10^3/uL (150.0-450.0) L 12/19/20 04:44 Plt Count Comment Adequate (ADEQUATE) 12/17/20 05:00 MPV 8.3 fL (7.4-11.0) 12/19/20 04:44 Neut % (Auto) 81.9 % (42.0-75.0) H 12/19/20 04:44 Lymph % (Auto) 8.3 % (21.0-51.0) L 12/19/20 04:44 [place] % (Auto) 9.4 % (0.0-13.0) 12/19/20 04:44 Eos % (Auto) 0.1 % (0.9-2.9) L 12/19/20 04:44 Baso % (Auto) 0.3 % (0.2-1.0) 12/19/20 04:44 Neut # (Auto) 4.4 x10^3/uL (2.2-4.8) 12/19/20 04:44 Lymph # (Auto) 0.4 X10^3/uL (1.3-2.9) L 12/19/20 04:44 [place] # (Auto) 0.5 x10^3/uL (0.3-0.8) 12/19/20 04:44 Eos # (Auto) 0.0 x10^3/uL (0.0-0.2) 12/19/20 04:44 Baso # (Auto) 0.0 X10^3/uL (0.0-0.1) 12/19/20 04:44 Absolute Nucleated RBC 0.0 /100WBC 12/19/20 04:44 Total Counted 100 12/17/20 05:00 Neutrophils % (Manual) 93 % (39-76) H 12/17/20 05:00 Band Neutrophils % 1 % (0-10) 12/17/20 05:00 Lymphocytes % (Manual) 3 % (13-43) L 12/17/20 05:00 Monocytes % (Manual) 3 % (4-9) L 12/17/20 05:00 Plt Morphology Comment Normal (NORMAL) 12/17/20 05:00 RBC Morphology Normal (NORMAL) 12/17/20 05:00 D-Dimer 0.34 ug/ml (0.0-0.57) 12/15/20 04:25 Sample Site Lb 12/18/20 10:15 ABG pH 7.480 (7.35-7.45) H 12/18/20 10:15 ABG pCO2 32.0 mmHg (35.0-45.0) L 12/18/20 10:15 ABG pO2 64.0 mmHg (80.0-100.0) L 12/18/20 10:15 ABG HCO3 23.8 mmol/L (22-26) 12/18/20 10:15 ABG O2 Saturation 94.0 % (90-100) 12/18/20 10:15 ABG Base Excess 0.9 mmol/L (-2.0-2.0) 12/18/20 10:15 Bernardo Test Na 12/18/20 10:15 A-a Gradient 559.0 mmHg 12/18/20 10:15 FiO2 93.0 12/18/20 10:15 Blood Gas Comments Pt galina well[facility] 12/18/20 10:15 Sodium 135 mmol/L (136-145) L 12/19/20 04:44 Corrected Sodium 139 mmol/L (136-145) 12/19/20 04:44 Potassium 4.6 mmol/L (3.5-5.1) 12/19/20 04:44 Chloride 102 mmol/L (98-107) 12/19/20 04:44 Carbon Dioxide 21.6 mmol/L (21-32) 12/19/20 04:44 BUN 32 mg/dL (7-18) H 12/19/20 04:44 Creatinine 0.83 mg/dL (0.70-1.30) 12/19/20 04:44 Est GFR (MDRD) Af Amer > 60 (>60) 12/19/20 04:44 Est GFR (MDRD) Non-Af > 60 (>60) 12/19/20 04:44 Glucose 275 mg/dL (65-99) H 12/19/20 20:08 POC Glucose (mg/dL) 213 mg/dL (65-99) H 12/20/20 05:53 Lactic Acid 2.0 mmol/L (0.4-2.0) 11/24/20 17:25 Calcium 8.3 mg/dL (8.5-10.1) L 12/19/20 04:44 Corrected Calcium 9.5 mg/dL (8.5-10.1) 12/19/20 04:44 Magnesium 2.0 mg/dL (1.7-2.9) 12/09/20 05:13 Total Bilirubin 1.20 mg/dL (0.2-1.0) H 12/19/20 04:44 AST 37 Units/L (15-37) 12/19/20 04:44 ALT 203 Units/L (12-78) H 12/19/20 04:44 Alkaline Phosphatase 124 Units/L (46-116) H 12/19/20 04:44 Creatine Kinase 79 Units/L (39-308) 11/24/20 17:25 CK-MB (CK-2) < 1.0 ng/mL (0-4.0) 11/24/20 17:25 CK/CKMB % Calc 1.3 % (<4) 11/24/20 17:25 Troponin I < 0.02 ng/mL (0-1.5) 11/24/20 17:25 C-Reactive Protein 12.80 mg/L (0-3.0) H 12/15/20 04:25 B-Natriuretic Peptide 103 pg/mL (0-79) H 12/15/20 04:25 Total Protein 6.2 g/dL (6.4-8.2) L 12/19/20 04:44 Albumin 2.5 g/dL (3.4-5.0) L 12/19/20 04:44 Globulin 3.7 g/dL (2.5-4.5) 12/19/20 04:44 Albumin/Globulin Ratio 0.7 Ratio (1.1-2.1) L 12/19/20 04:44 Amylase 48 Units/L (25-115) 11/24/20 17:25 Lipase 220 Units/L (73-393) 11/24/20 17:25 Specimen Type Clean catch urine 11/24/20 18:16 Urine Color Yellow (YELLOW) 11/24/20 18:16 Urine Appearance Clear (CLEAR) 11/24/20 18:16 Urine pH 5.0 (5.0 - 8.0) 11/24/20 18:16 Ur Specific [place] 1.025 (1.000-1.030) 11/24/20 18:16 Urine Protein 3+ (NEGATIVE) 11/24/20 18:16 Urine Glucose (UA) 4+ (NEGATIVE) 11/24/20 18:16 Urine Ketones 1+ (NEGATIVE) 11/24/20 18:16 Urine Occult Blood Negative (NEGATIVE) 11/24/20 18:16 Urine Nitrite Negative (NEGATIVE) 11/24/20 18:16 Urine Bilirubin Negative (NEGATIVE) 11/24/20 18:16 Urine Urobilinogen Normal (NORMAL) 11/24/20 18:16 Ur Leukocyte Esterase Negative (NEGATIVE) 11/24/20 18:16 Urine RBC None seen /HPF (0-3) 11/24/20 18:16 Urine WBC None seen /HPF (0-5) 11/24/20 18:16 Ur Squamous Epith Cells Rare /HPF (NEGATIVE) 11/24/20 18:16 Urine Bacteria Negative /HPF (NEGATIVE) 11/24/20 18:16 Ur Culture Indicated? No/not indicated 11/24/20 18:16 Acetone, Semi-Quant Negative (NEGATIVE) 11/24/20 17:30 SARS-CoV-2 (PCR) Positive (NEGATIVE) A 11/24/20 20:17 Influenza Type A (PCR) Negative (NEGATIVE) 11/24/20 20:17 Influenza Type B (PCR) Negative (NEGATIVE) 11/24/20 20:17 RSV (PCR) Negative (NEGATIVE) 11/24/20 20:17 S. pyogenes (TEM-PCR) Not detected (NOT DETECT) 11/24/20 20:17 Plan (1) Oxygen dependent: Status: Acute (2) Acute respiratory failure with hypoxia: Status: Acute Plan: Improving slowly; wean oxygen as tolerated. (3) Pseudomonal pneumonia: Status: Acute Qualifiers: Laterality: bilateral Lung location: unspecified part of lung Qualified Code(s): J15.1 - Pneumonia due to Pseudomonas (4) COVID-19 virus infection: Status: Acute Plan: Still hypoxic and sob; unable to wean oxygen; repeat cxr; continue current mgmt. (5) Pulmonary edema: Status: Acute Qualifiers: Chronicity: chronic Qualified Code(s): J81.1 - Chronic pulmonary edema (6) HTN (hypertension): Status: Acute Qualifiers: Hypertension type: essential hypertension Qualified Code(s): I10 - Essential (primary) hypertension Plan: Remains elevated; increase apresoline and follow. (7) Hx of CABG: Status: Acute (8) Diabetes: Status: Acute Qualifiers: Diabetes mellitus complication status: without complication Diabetes mellitus chcf insulin use: without termite treater helper use Diabetes mellitus type: type 2 Qualified Code(s): E11.9 - Type 2 diabetes mellitus without complications (9) FRANCIS (acute kidney injury): Status: Acute
[2020-12-20] MEDS: COLACE CAP 100 MG PO SCH (20:20)
[2020-12-20] MEDS: RESTORIL CAP 15 MG PO PRN (20:21)
[2020-12-20] MEDS: SNACK - Diabetic Appropriate PO SCH (20:22)
[2020-12-20] MEDS: MILK OF MAGNESIA PO SCH (22:00)
[2020-12-21] MEDS: TUSSIONEX PENNKINETIC SUSP PO PRN ×2 (01:58→20:48)
[2020-12-21] MEDS: HumuLIN R SUBCUT PRN ×4 (06:18→21:29)
[2020-12-21] MEDS: SOLU-Medrol 40 MG VIAL IVP SCH ×2 (06:18→20:46)
[2020-12-21] MEDS: APRESOLINE TAB 10 MG PO SCH ×3 (06:18→21:00)
[2020-12-21] MEDS: COREG TAB 12.5 MG PO SCH ×2 (08:23→20:45)
[2020-12-21] MEDS: ISOSORBIDE MONONITRATE ER 24-HR PO SCH (08:24)
[2020-12-21] MEDS: INVOKANA PO SCH (08:24)
[2020-12-21] MEDS: FLONASE NASAL SPRAY ENOSTRIL SCH (08:24)
[2020-12-21] MEDS: COZAAR PO SCH (08:24)
[2020-12-21] MEDS: ELIQUIS PO SCH ×2 (08:24→20:45)
[2020-12-21] MEDS: PROTONIX TAB 40 MG PO SCH (08:25)
[2020-12-21] MEDS: PEPCID TAB 40 MG PO SCH ×2 (08:25→20:45)
[2020-12-21] MEDS: VITAMIN A PO SCH (08:25)
[2020-12-21] MEDS: VITAMIN D3 125 mcg (5,000 UNITS) PO SCH (08:25)
[2020-12-21] MEDS: VITAMIN C PO SCH (08:25)
[2020-12-21] MEDS: ROBITUSSIN DM PO SCH ×4 (08:25→20:45)
[2020-12-21] MEDS: ZINC SULFATE PO SCH ×2 (08:26→20:46)
[2020-12-21] MEDS: VSL#3 PO SCH (08:26)
[2020-12-21] MEDS: ZyrTEC TAB 10 MG PO SCH (08:26)
[2020-12-21] MEDS: PULMICORT NEB TX 0.5 MG NEB SCH ×2 (08:28→20:50)
[2020-12-21] MEDS: DUONEB 0.5 MG/3 MG (3 mL) NEB SCH ×4 (08:28→20:50)
[2020-12-21] MEDS: MUCOMYST 20% 200 MG/ML NEB SCH ×4 (08:29→20:50)
[2020-12-21 10:30] LABS: BASOPHILS % (AUTO) 0.4 % (0.2-1.0); EOSINOPHILS % (AUTO) 0.2 % (0.9-2.9); HEMATOCRIT 45.8 % (42.0-54.0); HEMOGLOBIN 15.7 g/dL (13.5-18.0); LYMPHOCYTES # (AUTO) 0.6 X10^3/uL (1.3-2.9); LYMPHOCYTES % (AUTO) 8.4 % (21.0-51.0); MEAN CORPUSCULAR HEMOGLOBIN 29.3 pg (27.0-34.0); MEAN CORPUSCULAR HGB CONC 34.3 g/dL (33.0-35.0); MEAN CORPUSCULAR VOLUME 85.6 fL (80.0-100.0); MEAN PLATELET VOLUME 8.4 fL (7.4-11.0); MONOCYTES # (AUTO) 0.4 x10^3/uL (0.3-0.8); NEUTROPHILS # (AUTO) 6.2 x10^3/uL (2.2-4.8); PLATELET COUNT 196 X10^3/uL (150.0-450.0); RED BLOOD COUNT 5.35 X10^6/uL (4.7-6.0); RED CELL DISTRIBUTION WIDTH 14.3 % (11.6-16.5); WHITE BLOOD COUNT 7.2 X10^3/uL (3.6-10.0)
[2020-12-21 10:39] LABS: ALANINE AMINOTRANSFERASE 214 Units/L (12-78); ALBUMIN 2.8 g/dL (3.4-5.0); ALKALINE PHOSPHATASE 145 Units/L (46-116); ASPARTATE AMINO TRANSFERASE 39 Units/L (15-37); BLOOD UREA NITROGEN 27 mg/dL (7-18); CALCIUM 8.5 mg/dL (8.5-10.1); CARBON DIOXIDE 27.6 mmol/L (21-32); CHLORIDE 99 mmol/L (98-107); COR CA(FOR HYPOALB) 9.5 mg/dL (8.5-10.1); COR NA(FOR HYPERGLY) 140 mmol/L (136-145); CREATININE 1.05 mg/dL (0.70-1.30); SODIUM 135 mmol/L (136-145); TOTAL PROTEIN 6.3 g/dL (6.4-8.2); eGFR NON BLACK RACES > 60 (>60)
--- NOTE | 2020-12-21 12:12 | PCM.PROG ---
Progress Note Progress Note for Day of Date of Exam: 12/21/20 Subjective Subjective: Patient seen at bedside. No acute events overnight. He feels good this morning. He remains on the same HHFNC at FiO2 93%. His sats continue to drop with minimal exertion to the low 80s. He does tend to recover faster than before. He is in no respiratory distress. he continues to have dry cough. He has been working with PT. He did sit on the side of the bed. Labs: WBC 7.2 Hgb 15.7 BUN/Cr: 27/1.05 AST: 39 ALT 214 CRP <0.50 CXR pending Plan: Follow up CXR. Continue current treatment with aggressive pulmonary toilet including nebs, pulmicort, mucomyst, smart vest and IS. Patient has completed course with Remdesivir, and IV antibiotics including Zosyn, Fortaz and Ciprofloxacin. Continue solumedrol at 60 mg q12hrs. Wean O2 as tolerated to keep sats > 88%. Continue PT/OT as tolerated. Encouraged ambulation from chair to bed. Continue to hold Lipitor, Pioglitazone and duloxetine due to transaminitis which is improving. No andreea beds available at [facility]. Patient not able to af baxter stay due to being self pay. Continue Eliquis. Continue vitamin support. Monitor AM labs and imaging. Time spent for clinical assessment, reviewing labs and imaging, physical exam, decision making and documentation greater than 75 mins. Past Medical Family Social History Past Med/Fam/Surg Hx: No changes since H&P Allergies: Allergies No Known Drug Allergies Allergy (Verified 11/24/20 20:28) Review of Systems ROS: No change since H&P Vital Signs and I&O's Vital Signs: Temperature 97.9 F Pulse Rate [Left] 65 Pulse Rate [Left Brachial] 60 Pulse Rate 70 Respiratory Rate 24 Blood Pressure [Right Arm] 138/63 Blood Pressure [Left Arm] 113/57 Blood Pressure 137/68 O2 Sat by Pulse Oximetry 91 Intake and Output: Intake & Output 12/18/20 12/19/20 12/20/20 12/21/20 23:59 23:59 23:59 23:59 Intake Total 1780 / 1780 1999 / 1999 1772 / 1772 360 / 360 Output Total 4093 / 4093 3275 / 3275 3475 / 3475 700 / 700 Balance -2313 / -2313 -1275 / -1275 -1703 / -1703 -340 / -340 Physical Exam Oriented: Normal Eyes: Normal Ear: Normal Nose: Normal Throat: Normal Respiratory: Generalized and Diminished (improved air entry ) Cardiovascular: Normal; negative Edema Auscultation: Bowel Sounds: Normal Tenderness: Normal Skin: Normal Musculoskeletal: Normal Mood Description: Calm Affect: Normal Speech Pattern: Clear and Appropriate Laboratory and Diagnostics Result Diagrams: 12/21/20 09:49 12/21/20 09:49 Labs: 11/24/20 17:25 Blood Blood Culture - Final 11/24/20 17:25 Blood Blood Culture - Final 11/25/20 06:08 Sputum - Expectorated Sputum Sputum Culture - Final Pseudomonas Aeruginosa 11/25/20 06:08 Sputum - Expectorated Sputum - Final Laboratory WBC 7.2 X10^3/uL (3.6-10.0) 12/21/20 09:49 RBC 5.35 X10^6/uL (4.7-6.0) 12/21/20 09:49 Hgb 15.7 g/dL (13.5-18.0) 12/21/20 09:49 Hct 45.8 % (42.0-54.0) 12/21/20 09:49 MCV 85.6 fL (80.0-100.0) 12/21/20 09:49 MCH 29.3 pg (27.0-34.0) 12/21/20 09:49 MCHC 34.3 g/dL (33.0-35.0) 12/21/20 09:49 RDW 14.3 % (11.6-16.5) 12/21/20 09:49 Plt Count 196 X10^3/uL (150.0-450.0) 12/21/20 09:49 Plt Count Comment Adequate (ADEQUATE) 12/17/20 05:00 MPV 8.4 fL (7.4-11.0) 12/21/20 09:49 Neut % (Auto) 85.0 % (42.0-75.0) H 12/21/20 09:49 Lymph % (Auto) 8.4 % (21.0-51.0) L 12/21/20 09:49 [place] % (Auto) 6.0 % (0.0-13.0) 12/21/20 09:49 Eos % (Auto) 0.2 % (0.9-2.9) L 12/21/20 09:49 Baso % (Auto) 0.4 % (0.2-1.0) 12/21/20 09:49 Neut # (Auto) 6.2 x10^3/uL (2.2-4.8) H 12/21/20 09:49 Lymph # (Auto) 0.6 X10^3/uL (1.3-2.9) L 12/21/20 09:49 [place] # (Auto) 0.4 x10^3/uL (0.3-0.8) 12/21/20 09:49 Eos # (Auto) 0.0 x10^3/uL (0.0-0.2) 12/21/20 09:49 Baso # (Auto) 0.0 X10^3/uL (0.0-0.1) 12/21/20 09:49 Absolute Nucleated RBC 0.1 /100WBC 12/21/20 09:49 Total Counted 100 12/17/20 05:00 Neutrophils % (Manual) 93 % (39-76) H 12/17/20 05:00 Band Neutrophils % 1 % (0-10) 12/17/20 05:00 Lymphocytes % (Manual) 3 % (13-43) L 12/17/20 05:00 Monocytes % (Manual) 3 % (4-9) L 12/17/20 05:00 Plt Morphology Comment Normal (NORMAL) 12/17/20 05:00 RBC Morphology Normal (NORMAL) 12/17/20 05:00 D-Dimer 0.34 ug/ml (0.0-0.57) 12/15/20 04:25 Sample Site Lb 12/18/20 10:15 ABG pH 7.480 (7.35-7.45) H 12/18/20 10:15 ABG pCO2 32.0 mmHg (35.0-45.0) L 12/18/20 10:15 ABG pO2 64.0 mmHg (80.0-100.0) L 12/18/20 10:15 ABG HCO3 23.8 mmol/L (22-26) 12/18/20 10:15 ABG O2 Saturation 94.0 % (90-100) 12/18/20 10:15 ABG Base Excess 0.9 mmol/L (-2.0-2.0) 12/18/20 10:15 Bernardo Test Na 12/18/20 10:15 A-a Gradient 559.0 mmHg 12/18/20 10:15 FiO2 93.0 12/18/20 10:15 Blood Gas Comments Pt galina well.cdn 12/18/20 10:15 Sodium 135 mmol/L (136-145) L 12/21/20 09:49 Corrected Sodium 140 mmol/L (136-145) 12/21/20 09:49 Potassium 4.7 mmol/L (3.5-5.1) 12/21/20 09:49 Chloride 99 mmol/L (98-107) 12/21/20 09:49 Carbon Dioxide 27.6 mmol/L (21-32) 12/21/20 09:49 BUN 27 mg/dL (7-18) H 12/21/20 09:49 Creatinine 1.05 mg/dL (0.70-1.30) 12/21/20 09:49 Est GFR (MDRD) Af Amer > 60 (>60) 12/21/20 09:49 Est GFR (MDRD) Non-Af > 60 (>60) 12/21/20 09:49 Glucose 290 mg/dL (65-99) H 12/21/20 09:49 POC Glucose (mg/dL) 240 mg/dL (65-99) H 12/21/20 11:39 Lactic Acid 2.0 mmol/L (0.4-2.0) 11/24/20 17:25 Calcium 8.5 mg/dL (8.5-10.1) 12/21/20 09:49 Corrected Calcium 9.5 mg/dL (8.5-10.1) 12/21/20 09:49 Magnesium 2.0 mg/dL (1.7-2.9) 12/09/20 05:13 Total Bilirubin 1.20 mg/dL (0.2-1.0) H 12/21/20 09:49 AST 39 Units/L (15-37) H 12/21/20 09:49 ALT 214 Units/L (12-78) H 12/21/20 09:49 Alkaline Phosphatase 145 Units/L (46-116) H 12/21/20 09:49 Creatine Kinase 79 Units/L (39-308) 11/24/20 17:25 CK-MB (CK-2) < 1.0 ng/mL (0-4.0) 11/24/20 17:25 CK/CKMB % Calc 1.3 % (<4) 11/24/20 17:25 Troponin I < 0.02 ng/mL (0-1.5) 11/24/20 17:25 C-Reactive Protein < 0.50 mg/L (0-3.0) 12/21/20 09:49 B-Natriuretic Peptide 103 pg/mL (0-79) H 12/15/20 04:25 Total Protein 6.3 g/dL (6.4-8.2) L 12/21/20 09:49 Albumin 2.8 g/dL (3.4-5.0) L 12/21/20 09:49 Globulin 3.5 g/dL (2.5-4.5) 12/21/20 09:49 Albumin/Globulin Ratio 0.8 Ratio (1.1-2.1) L 12/21/20 09:49 Amylase 48 Units/L (25-115) 11/24/20 17:25 Lipase 220 Units/L (73-393) 11/24/20 17:25 Specimen Type Clean catch urine 11/24/20 18:16 Urine Color Yellow (YELLOW) 11/24/20 18:16 Urine Appearance Clear (CLEAR) 11/24/20 18:16 Urine pH 5.0 (5.0 - 8.0) 11/24/20 18:16 Ur Specific [place] 1.025 (1.000-1.030) 11/24/20 18:16 Urine Protein 3+ (NEGATIVE) 11/24/20 18:16 Urine Glucose (UA) 4+ (NEGATIVE) 11/24/20 18:16 Urine Ketones 1+ (NEGATIVE) 11/24/20 18:16 Urine Occult Blood Negative (NEGATIVE) 11/24/20 18:16 Urine Nitrite Negative (NEGATIVE) 11/24/20 18:16 Urine Bilirubin Negative (NEGATIVE) 11/24/20 18:16 Urine Urobilinogen Normal (NORMAL) 11/24/20 18:16 Ur Leukocyte Esterase Negative (NEGATIVE) 11/24/20 18:16 Urine RBC None seen /HPF (0-3) 11/24/20 18:16 Urine WBC None seen /HPF (0-5) 11/24/20 18:16 Ur Squamous Epith Cells Rare /HPF (NEGATIVE) 11/24/20 18:16 Urine Bacteria Negative /HPF (NEGATIVE) 11/24/20 18:16 Ur Culture Indicated? No/not indicated 11/24/20 18:16 Acetone, Semi-Quant Negative (NEGATIVE) 11/24/20 17:30 SARS-CoV-2 (PCR) Positive (NEGATIVE) A 11/24/20 20:17 Influenza Type A (PCR) Negative (NEGATIVE) 11/24/20 20:17 Influenza Type B (PCR) Negative (NEGATIVE) 11/24/20 20:17 RSV (PCR) Negative (NEGATIVE) 11/24/20 20:17 S. pyogenes (TEM-PCR) Not detected (NOT DETECT) 11/24/20 20:17 Plan (1) Oxygen dependent: Status: Acute (2) Acute respiratory failure with hypoxia: Status: Acute (3) Pseudomonal pneumonia: Status: Acute Qualifiers: Laterality: bilateral Lung location: unspecified part of lung Qualified Code(s): J15.1 - Pneumonia due to Pseudomonas (4) COVID-19 virus infection: Status: Acute (5) Pulmonary edema: Status: Acute Qualifiers: Chronicity: chronic Qualified Code(s): J81.1 - Chronic pulmonary edema (6) HTN (hypertension): Status: Acute Qualifiers: Hypertension type: essential hypertension Qualified Code(s): I10 - Essential (primary) hypertension (7) Hx of CABG: Status: Acute (8) Diabetes: Status: Acute Qualifiers: Diabetes mellitus complication status: without complication Diabetes mellitus long term care social worker insulin use: without long term care social worker use Diabetes mellitus type: type 2 Qualified Code(s): E11.9 - Type 2 diabetes mellitus without complicati ons (9) FRANCIS (acute kidney injury): Status: Acute
--- NOTE | 2020-12-21 12:53 | RAD ---
HISTORYcovid pneumoniaSTUDYCHEST, 1 VIEWCOMPARISONJuly 2020TECHNIQUEPortable chest x-rayFINDINGSLow lung volumes observed. Cardiac silhouette is mildly enlarged and probably is magnified to some degree by portable acquisition and suboptimal inspiration. Postoperative changes of coronary bypass surgery are observed. Coarsened interstitial lung opacities, coalescent peribronchial opacities and subpleural ground-glass changes are again demonstrated, consistent with an atypical pneumonia pattern. Accounting for differences in technique, there is no significant overall change. No pneumothorax or pleural fluid collections identified.IMPRESSIONLow lung volumes and features of atypical pneumonia pattern, with incomplete resolution.Electronically signed by: CHATA CLARK (Dec 21, 2020 12:54:57)
[2020-12-21] MEDS: LEVSIN/MAALOX/LIDOC VISC PO PRN (17:20)
[2020-12-21] MEDS: SNACK - Diabetic Appropriate PO SCH (20:44)
[2020-12-21] MEDS: COLACE CAP 100 MG PO SCH (20:44)
[2020-12-21] MEDS: MILK OF MAGNESIA PO SCH (20:45)
[2020-12-21] MEDS: VISTARIL PO PRN (20:48)
[2020-12-21] MEDS: RESTORIL CAP 15 MG PO PRN (20:48)
[2020-12-22] MEDS: MUCOMYST 20% 200 MG/ML NEB SCH ×5 (06:13→21:00)
[2020-12-22] MEDS: APRESOLINE TAB 10 MG PO SCH ×3 (06:18→21:00)
[2020-12-22] MEDS: HumuLIN R SUBCUT PRN ×4 (06:48→22:25)
[2020-12-22] MEDS: DUONEB 0.5 MG/3 MG (3 mL) NEB SCH ×5 (08:30→21:00)
[2020-12-22] MEDS: PULMICORT NEB TX 0.5 MG NEB SCH ×2 (08:30→21:00)
[2020-12-22] MEDS: INVOKANA PO SCH (09:10)
[2020-12-22] MEDS: COREG TAB 12.5 MG PO SCH ×2 (09:10→20:59)
[2020-12-22] MEDS: VSL#3 PO SCH (09:11)
[2020-12-22] MEDS: ZINC SULFATE PO SCH ×2 (09:11→21:00)
[2020-12-22] MEDS: ELIQUIS PO SCH ×2 (09:12→20:59)
[2020-12-22] MEDS: VITAMIN C PO SCH (09:12)
[2020-12-22] MEDS: ZyrTEC TAB 10 MG PO SCH (09:12)
[2020-12-22] MEDS: ROBITUSSIN DM PO SCH ×4 (09:13→21:03)
[2020-12-22] MEDS: PROTONIX TAB 40 MG PO SCH (09:13)
[2020-12-22] MEDS: VITAMIN D3 125 mcg (5,000 UNITS) PO SCH (09:13)
[2020-12-22] MEDS: VITAMIN A PO SCH (09:13)
[2020-12-22] MEDS: PEPCID TAB 40 MG PO SCH ×2 (09:14→21:00)
[2020-12-22] MEDS: COZAAR PO SCH (09:14)
[2020-12-22] MEDS: ISOSORBIDE MONONITRATE ER 24-HR PO SCH (09:14)
[2020-12-22] MEDS: FLONASE NASAL SPRAY ENOSTRIL SCH (09:15)
[2020-12-22] MEDS: SOLU-Medrol 40 MG VIAL IVP SCH ×2 (09:30→21:00)
[2020-12-22] MEDS: LEVSIN/MAALOX/LIDOC VISC PO PRN (10:58)
--- NOTE | 2020-12-22 11:30 | PCM.PROG ---
Progress Note Progress Note for Day of Date of Exam: 12/22/20 Subjective Subjective: Patient seen at bedside. No acute events overnight. He feels good this morning. He was weaned down to 75% FiO2 yesterday and now he is on 69%. His sats remain in the high 80s - low 90s, do drop with minimal exertion to low 80s but patient tends to recover quickly. He continues to have intermittent dry cough. He did work with PT yesterday and states he felt better. He has been trying to lay on the side to help with oxygenation. Labs: WBC 7.2 Hgb 15.7 BUN/Cr: 27/1.05 AST: 39 ALT 214 CRP <0.50 CXR suggestive of atypical pneumonia Plan: Continue current treatment with aggressive pulmonary toilet including nebs, pulmicort, mucomyst, smart vest and IS. Patient has completed course with Remdesivir, and IV antibiotics including Zosyn, Fortaz and Ciprofloxacin. Continue solumedrol at 60 mg q12hrs. Wean O2 as tolerated to keep sats > 88%. Continue PT/OT as tolerated. Encouraged ambulation from chair to bed as tolerated. Continue to hold Lipitor, Pioglitazone and duloxetine due to transaminitis which is improving. No andreea beds available at [facility]. Patient not able to afford stay due to being self pay. Continue Eliquis. Continue vitamin support. Monitor AM labs and imaging. Time spent for clinical assessment, reviewing labs and imaging, physical exam, decision making and documentation greater than 75 mins. Past Medical Family Social History Past Med/Fam/Surg Hx: No changes since H&P Allergies: Allergies No Known Drug Allergies Allergy (Verified 11/24/20 20:28) Review of Systems ROS: No change since H&P Vital Signs and I&O's Vital Signs: Temperature 97.5 F Pulse Rate [Left] 65 Pulse Rate [Left Brachial] 60 Pulse Rate 67 Respiratory Rate 20 Blood Pressure [Right Arm] 138/63 Blood Pressure [Left Arm] 113/57 Blood Pressure 152/77 O2 Sat by Pulse Oximetry 86 Intake and Output: Intake & Output 12/19/20 12/20/20 12/21/20 12/22/20 23:59 23:59 23:59 23:59 Intake Total 1999 / 1999 1772 / 1772 1620 / 1620 480 / 480 Output Total 3275 / 3275 3475 / 3475 2750 / 2750 275 / 275 Balance -1275 / -1275 -1703 / -1703 -1130 / -1130 205 / 205 Physical Exam Oriented: Normal Eyes: Normal Ear: Normal Nose: Normal Throat: Normal Respiratory: Generalized and Diminished (improved air entry ) Cardiovascular: Normal; negative Edema Auscultation: Bowel Sounds: Normal Tenderness: Normal Skin: Normal Musculoskeletal: Normal Mood Description: Calm Affect: Normal Speech Pattern: Clear and Appropriate Laboratory and Diagnostics Result Diagrams: 12/21/20 09:49 12/21/20 09:49 Labs: 11/24/20 17:25 Blood Blood Culture - Final 11/24/20 17:25 Blood Blood Culture - Final 11/25/20 06:08 Sputum - Expectorated Sputum Sputum Culture - Final Pseudomonas Aeruginosa 11/25/20 06:08 Sputum - Expectorated Sputum - Final Laboratory WBC 7.2 X10^3/uL (3.6-10.0) 12/21/20 09:49 RBC 5.35 X10^6/uL (4.7-6.0) 12/21/20 09:49 Hgb 15.7 g/dL (13.5-18.0) 12/21/20 09:49 Hct 45.8 % (42.0-54.0) 12/21/20 09:49 MCV 85.6 fL (80.0-100.0) 12/21/20 09:49 MCH 29.3 pg (27.0-34.0) 12/21/20 09:49 MCHC 34.3 g/dL (33.0-35.0) 12/21/20 09:49 RDW 14.3 % (11.6-16.5) 12/21/20 09:49 Plt Count 196 X10^3/uL (150.0-450.0) 12/21/20 09:49 Plt Count Comment Adequate (ADEQUATE) 12/17/20 05:00 MPV 8.4 fL (7.4-11.0) 12/21/20 09:49 Neut % (Auto) 85.0 % (42.0-75.0) H 12/21/20 09:49 Lymph % (Auto) 8.4 % (21.0-51.0) L 12/21/20 09:49 [place] % (Auto) 6.0 % (0.0-13.0) 12/21/20 09:49 Eos % (Auto) 0.2 % (0.9-2.9) L 12/21/20 09:49 Baso % (Auto) 0.4 % (0.2-1.0) 12/21/20 09:49 Neut # (Auto) 6.2 x10^3/uL (2.2-4.8) H 12/21/20 09:49 Lymph # (Auto) 0.6 X10^3/uL (1.3-2.9) L 12/21/20 09:49 [place] # (Auto) 0.4 x10^3/uL (0.3-0.8) 12/21/20 09:49 Eos # (Auto) 0.0 x10^3/uL (0.0-0.2) 12/21/20 09:49 Baso # (Auto) 0.0 X10^3/uL (0.0-0.1) 12/21/20 09:49 Absolute Nucleated RBC 0.1 /100WBC 12/21/20 09:49 Total Counted 100 12/17/20 05:00 Neutrophils % (Manual) 93 % (39-76) H 12/17/20 05:00 Band Neutrophils % 1 % (0-10) 12/17/20 05:00 Lymphocytes % (Manual) 3 % (13-43) L 12/17/20 05:00 Monocytes % (Manual) 3 % (4-9) L 12/17/20 05:00 Plt Morphology Comment Normal (NORMAL) 12/17/20 05:00 RBC Morphology Normal (NORMAL) 12/17/20 05:00 D-Dimer 0.34 ug/ml (0.0-0.57) 12/15/20 04:25 Sample Site Lb 12/18/20 10:15 ABG pH 7.480 (7.35-7.45) H 12/18/20 10:15 ABG pCO2 32.0 mmHg (35.0-45.0) L 12/18/20 10:15 ABG pO2 64.0 mmHg (80.0-100.0) L 12/18/20 10:15 ABG HCO3 23.8 mmol/L (22-26) 12/18/20 10:15 ABG O2 Saturation 94.0 % (90-100) 12/18/20 10:15 ABG Base Excess 0.9 mmol/L (-2.0-2.0) 12/18/20 10:15 Bernardo Test Na 12/18/20 10:15 A-a Gradient 559.0 mmHg 12/18/20 10:15 FiO2 93.0 12/18/20 10:15 Blood Gas Comments Pt galina well.cdn 12/18/20 10:15 Sodium 135 mmol/L (136-145) L 12/21/20 09:49 Corrected Sodium 140 mmol/L (136-145) 12/21/20 09:49 Potassium 4.7 mmol/L (3.5-5.1) 12/21/20 09:49 Chloride 99 mmol/L (98-107) 12/21/20 09:49 Carbon Dioxide 27.6 mmol/L (21-32) 12/21/20 09:49 BUN 27 mg/dL (7-18) H 12/21/20 09:49 Creatinine 1.05 mg/dL (0.70-1.30) 12/21/20 09:49 Est GFR (MDRD) Af Amer > 60 (>60) 12/21/20 09:49 Est GFR (MDRD) Non-Af > 60 (>60) 12/21/20 09:49 Glucose 290 mg/dL (65-99) H 12/21/20 09:49 POC Glucose (mg/dL) 217 mg/dL (65-99) H 12/22/20 11:10 Lactic Acid 2.0 mmol/L (0.4-2.0) 11/24/20 17:25 Calcium 8.5 mg/dL (8.5-10.1) 12/21/20 09:49 Corrected Calcium 9.5 mg/dL (8.5-10.1) 12/21/20 09:49 Magnesium 2.0 mg/dL (1.7-2.9) 12/09/20 05:13 Total Bilirubin 1.20 mg/dL (0.2-1.0) H 12/21/20 09:49 AST 39 Units/L (15-37) H 12/21/20 09:49 ALT 214 Units/L (12-78) H 12/21/20 09:49 Alkaline Phosphatase 145 Units/L (46-116) H 12/21/20 09:49 Creatine Kinase 79 Units/L (39-308) 11/24/20 17:25 CK-MB (CK-2) < 1.0 ng/mL (0-4.0) 11/24/20 17:25 CK/CKMB % Calc 1.3 % (<4) 11/24/20 17:25 Troponin I < 0.02 ng/mL (0-1.5) 11/24/20 17:25 C-Reactive Protein < 0.50 mg/L (0-3.0) 12/21/20 09:49 B-Natriuretic Peptide 103 pg/mL (0-79) H 12/15/20 04:25 Total Protein 6.3 g/dL (6.4-8.2) L 12/21/20 09:49 Albumin 2.8 g/dL (3.4-5.0) L 12/21/20 09:49 Globulin 3.5 g/dL (2.5-4.5) 12/21/20 09:49 Albumin/Globulin Ratio 0.8 Ratio (1.1-2.1) L 12/21/20 09:49 Amylase 48 Units/L (25-115) 11/24/20 17:25 Lipase 220 Units/L (73-393) 11/24/20 17:25 Specimen Type Clean catch urine 11/24/20 18:16 Urine Color Yellow (YELLOW) 11/24/20 18:16 Urine Appearance Clear (CLEAR) 11/24/20 18:16 Urine pH 5.0 (5.0 - 8.0) 11/24/20 18:16 Ur Specific [place] 1.025 (1.000-1.030) 11/24/20 18:16 Urine Protein 3+ (NEGATIVE) 11/24/20 18:16 Urine Glucose (UA) 4+ (NEGATIVE) 11/24/20 18:16 Urine Ketones 1+ (NEGATIVE) 11/24/20 18:16 Urine Occult Blood Negative (NEGATIVE) 11/24/20 18:16 Urine Nitrite Negative (NEGATIVE) 11/24/20 18:16 Urine Bilirubin Negative (NEGATIVE) 11/24/20 18:16 Urine Urobilinogen Normal (NORMAL) 11/24/20 18:16 Ur Leukocyte Esterase Negative (NEGATIVE) 11/24/20 18:16 Urine RBC None seen /HPF (0-3) 11/24/20 18:16 Urine WBC None seen /HPF (0-5) 11/24/20 18:16 Ur Squamous Epith Cells Rare /HPF (NEGATIVE) 11/24/20 18:16 Urine Bacteria Negative /HPF (NEGATIVE) 11/24/20 18:16 Ur Culture Indicated? No/not indicated 11/24/20 18:16 Acetone, Semi-Quant Negative (NEGATIVE) 11/24/20 17:30 SARS-CoV-2 (PCR) Positive (NEGATIVE) A 11/24/20 20:17 Influenza Type A (PCR) Negative (NEGATIVE) 11/24/20 20:17 Influenza Type B (PCR) Negative (NEGATIVE) 11/24/20 20:17 RSV (PCR) Negative (NEGATIVE) 11/24/20 20:17 S. pyogenes (TEM-PCR) Not detected (NOT DETECT) 11/24/20 20:17 Plan (1) Oxygen dependent: Status: Acute (2) Acute respiratory failure with hypoxia: Status: Acute (3) Pseudomonal pneumonia: Status: Acute Qualifiers: Laterality: bilateral Lung location: unspecified part of lung Qualified Code(s): J15.1 - Pneumonia due to Pseudomonas (4) COVID-19 virus infection: Status: Acute (5) Pulmonary edema: Status: Acute Qualifiers: Chronicity: chronic Qualified Code(s): J81.1 - Chronic pulmonary edema (6) HTN (hypertension): Status: Acute Qualifiers: Hypertension type: essential hypertension Qualified Code(s): I10 - Essential (primary) hypertension (7) Hx of CABG: Status: Acute (8) Diabetes: Status: Acute Qualifiers: Diabetes mellitus complication status: without complication Diabetes mellitus halfway insulin use: without oysterman use Diabetes mellitus type: type 2 Qualified Code(s): E11.9 - Type 2 diabetes mellitus without complications (9) FRANCIS (acute kidney injury): Status: Acute
[2020-12-22] MEDS: SNACK - Diabetic Appropriate PO SCH (20:41)
[2020-12-22] MEDS: MILK OF MAGNESIA PO SCH (20:59)
[2020-12-22] MEDS: COLACE CAP 100 MG PO SCH (20:59)
[2020-12-22] MEDS: RESTORIL CAP 15 MG PO PRN (21:02)
[2020-12-22] MEDS: VISTARIL PO PRN (21:03)
[2020-12-23] MEDS: APRESOLINE TAB 10 MG PO SCH ×3 (06:08→21:36)
[2020-12-23] MEDS: HumuLIN R SUBCUT PRN ×2 (06:18→21:36)
[2020-12-23 08:30] LABS: BASOPHILS # (AUTO) 0.1 X10^3/uL (0.0-0.1); BASOPHILS % (AUTO) 0.7 % (0.2-1.0); EOSINOPHILS # (AUTO) 0.1 x10^3/uL (0.0-0.2); EOSINOPHILS % (AUTO) 0.5 % (0.9-2.9); HEMATOCRIT 44.9 % (42.0-54.0); HEMOGLOBIN 15.3 g/dL (13.5-18.0); LYMPHOCYTES # (AUTO) 1.5 X10^3/uL (1.3-2.9); MEAN CORPUSCULAR HEMOGLOBIN 29.1 pg (27.0-34.0); MEAN CORPUSCULAR HGB CONC 34.1 g/dL (33.0-35.0); MEAN CORPUSCULAR VOLUME 85.5 fL (80.0-100.0); MEAN PLATELET VOLUME 7.9 fL (7.4-11.0); MONOCYTES # (AUTO) 0.8 x10^3/uL (0.3-0.8); MONOCYTES % (AUTO) 6.7 % (0.0-13.0); NEUTROPHILS # (AUTO) 9.2 x10^3/uL (2.2-4.8); NEUTROPHILS % (AUTO) 79.1 % (42.0-75.0); PLATELET COUNT 276 X10^3/uL (150.0-450.0); RED BLOOD COUNT 5.25 X10^6/uL (4.7-6.0); RED CELL DISTRIBUTION WIDTH 14.4 % (11.6-16.5); WHITE BLOOD COUNT 11.6 X10^3/uL (3.6-10.0)
[2020-12-23] MEDS: PULMICORT NEB TX 0.5 MG NEB SCH ×2 (08:40→20:20)
[2020-12-23] MEDS: MUCOMYST 20% 200 MG/ML NEB SCH ×2 (08:40→12:20)
[2020-12-23] MEDS: DUONEB 0.5 MG/3 MG (3 mL) NEB SCH ×4 (08:40→20:20)
[2020-12-23 08:48] LABS: ALANINE AMINOTRANSFERASE 290 Units/L (12-78); ALBUMIN 2.8 g/dL (3.4-5.0); ALKALINE PHOSPHATASE 126 Units/L (46-116); ASPARTATE AMINO TRANSFERASE 60 Units/L (15-37); BLOOD UREA NITROGEN 28 mg/dL (7-18); CALCIUM 8.5 mg/dL (8.5-10.1); CARBON DIOXIDE 27.6 mmol/L (21-32); CHLORIDE 100 mmol/L (98-107); COR CA(FOR HYPOALB) 9.5 mg/dL (8.5-10.1); COR NA(FOR HYPERGLY) 139 mmol/L (136-145); CREATININE 0.88 mg/dL (0.70-1.30); SODIUM 136 mmol/L (136-145); TOTAL PROTEIN 5.8 g/dL (6.4-8.2); eGFR NON BLACK RACES > 60 (>60)
[2020-12-23] MEDS: COZAAR PO SCH (08:53)
[2020-12-23] MEDS: PROTONIX TAB 40 MG PO SCH (08:54)
[2020-12-23] MEDS: ROBITUSSIN DM PO SCH ×4 (08:54→20:27)
[2020-12-23] MEDS: VITAMIN D3 125 mcg (5,000 UNITS) PO SCH (08:55)
[2020-12-23] MEDS: ISOSORBIDE MONONITRATE ER 24-HR PO SCH (08:55)
[2020-12-23] MEDS: ZINC SULFATE PO SCH ×2 (08:56→20:28)
[2020-12-23] MEDS: INVOKANA PO SCH (08:56)
[2020-12-23] MEDS: VITAMIN C PO SCH (08:56)
[2020-12-23] MEDS: COREG TAB 12.5 MG PO SCH ×2 (08:57→20:27)
[2020-12-23] MEDS: ZyrTEC TAB 10 MG PO SCH (08:57)
[2020-12-23] MEDS: PEPCID TAB 40 MG PO SCH ×2 (08:58→20:26)
[2020-12-23] MEDS: ELIQUIS PO SCH ×2 (08:58→20:27)
[2020-12-23] MEDS: VSL#3 PO SCH (08:59)
[2020-12-23] MEDS: VITAMIN A PO SCH (08:59)
[2020-12-23] MEDS: FLONASE NASAL SPRAY ENOSTRIL SCH (09:00)
[2020-12-23 09:05] LABS: BAND NEUTROPHILS % 5 % (0-10)
[2020-12-23 09:06] LABS: PLATELET MORPHOLOGY COMMENT NORMAL (NORMAL)
[2020-12-23] MEDS: SOLU-Medrol 40 MG VIAL IVP SCH ×2 (09:24→20:27)
--- NOTE | 2020-12-23 11:14 | PCM.PROG ---
Progress Note Progress Note for Day of Date of Exam: 12/23/20 Subjective Subjective: Patient seen at bedside. No acute events overnight. He feels good this morning. He remains on HHFNC with FiO2 69%. He sats remain mostly in mid 80s but he denies any respiratory distress. If he doesn't talk or move then the sats go up to low 90s. He has intermittent dry cough. He did lay on sides and stomach yesterday for bit and states it helped. He is planning to try it again today. Labs: WBC 11.6 Hgb 15.3 BUN/Cr: 28/0.88 AST: 60 ALT: 290 Plan: Due to transaminitis, will order abdominal U/S to assess the liver. Patient denies any complaints including abdominal pain, N/V/D. Continue current treatment with aggressive pulmonary toilet including nebs, pulmicort, mucomyst, smart vest and IS. Patient has completed course with Remdesivir, and IV antibiotics including Zosyn, Fortaz and Ciprofloxacin. Continue solumedrol at 60 mg q12hrs. Wean O2 as tolerated to keep sats > 88%. Continue PT/OT as tolerated. Encouraged ambulation from chair to bed as tolerated. Continue to hold Lipitor, Pioglitazone and duloxetine due to elevated LFTs. No andreea beds available at [facility]. Patient not able to afford stay due to being self pay. Continue Eliquis. Continue vitamin support. Monitor AM labs and imaging. Time spent for clinical assessment, reviewing labs and imaging, physical exam, decision making and documentation greater than 75 mins. Past Medical Family Social History Past Med/Fam/Surg Hx: No changes since H&P Allergies: Allergies No Known Drug Allergies Allergy (Verified 11/24/20 20:28) Review of Systems ROS: No change since H&P Vital Signs and I&O's Vital Signs: Temperature 97.6 F Pulse Rate [Left] 65 Pulse Rate [Left Brachial] 60 Pulse Rate 77 Respiratory Rate 30 Blood Pressure [Right Arm] 138/63 Blood Pressure [Left Arm] 113/57 Blood Pressure 128/68 O2 Sat by Pulse Oximetry 89 Intake and Output: Intake & Output 12/20/20 12/21/20 12/22/20 12/23/20 23:59 23:59 23:59 23:59 Intake Total 1772 / 1772 1620 / 1620 1590 / 1590 300 / 300 Output Total 3475 / 3475 2750 / 2750 2225 / 2225 800 / 800 Balance -1703 / -1703 -1130 / -1130 -635 / -635 -500 / -500 Physical Exam Oriented: Normal Eyes: Normal Ear: Normal Nose: Normal Throat: Normal Respiratory: Generalized, Diminished and [place] Cardiovascular: Normal; negative Edema Auscultation: Bowel Sounds: Normal Tenderness: Normal Skin: Normal Musculoskeletal: Normal Psychiatric: Normal Mood Description: Calm Affect: Normal Speech Pattern: Clear and Appropriate Laboratory and Diagnostics Result Diagrams: 12/23/20 07:59 12/23/20 07:59 Labs: 11/24/20 17:25 Blood Blood Culture - Final 11/24/20 17:25 Blood Blood Culture - Final 11/25/20 06:08 Sputum - Expectorated Sputum Sputum Culture - Final Pseudomonas Aeruginosa 11/25/20 06:08 Sputum - Expectorated Sputum - Final Laboratory WBC 11.6 X10^3/uL (3.6-10.0) H 12/23/20 07:59 RBC 5.25 X10^6/uL (4.7-6.0) 12/23/20 07:59 Hgb 15.3 g/dL (13.5-18.0) 12/23/20 07:59 Hct 44.9 % (42.0-54.0) 12/23/20 07:59 MCV 85.5 fL (80.0-100.0) 12/23/20 07:59 MCH 29.1 pg (27.0-34.0) 12/23/20 07:59 MCHC 34.1 g/dL (33.0-35.0) 12/23/20 07:59 RDW 14.4 % (11.6-16.5) 12/23/20 07:59 Plt Count 276 X10^3/uL (150.0-450.0) 12/23/20 07:59 Plt Count Comment Adequate (ADEQUATE) 12/23/20 07:59 MPV 7.9 fL (7.4-11.0) 12/23/20 07:59 Neut % (Auto) 79.1 % (42.0-75.0) H 12/23/20 07:59 Lymph % (Auto) 13.0 % (21.0-51.0) L 12/23/20 07:59 [place] % (Auto) 6.7 % (0.0-13.0) 12/23/20 07:59 Eos % (Auto) 0.5 % (0.9-2.9) L 12/23/20 07:59 Baso % (Auto) 0.7 % (0.2-1.0) 12/23/20 07:59 Neut # (Auto) 9.2 x10^3/uL (2.2-4.8) H 12/23/20 07:59 Lymph # (Auto) 1.5 X10^3/uL (1.3-2.9) 12/23/20 07:59 [place] # (Auto) 0.8 x10^3/uL (0.3-0.8) 12/23/20 07:59 Eos # (Auto) 0.1 x10^3/uL (0.0-0.2) 12/23/20 07:59 Baso # (Auto) 0.1 X10^3/uL (0.0-0.1) 12/23/20 07:59 Absolute Nucleated RBC 0.1 /100WBC 12/23/20 07:59 Total Counted 100 12/23/20 07:59 Neutrophils % (Manual) 76 % (39-76) 12/23/20 07:59 Band Neutrophils % 5 % (0-10) 12/23/20 07:59 Lymphocytes % (Manual) 12 % (13-43) L 12/23/20 07:59 Monocytes % (Manual) 7 % (4-9) 12/23/20 07:59 Plt Morphology Comment Normal (NORMAL) 12/23/20 07:59 RBC Morphology Normal (NORMAL) 12/23/20 07:59 D-Dimer 0.34 ug/ml (0.0-0.57) 12/15/20 04:25 Sample Site Lb 12/18/20 10:15 ABG pH 7.480 (7.35-7.45) H 12/18/20 10:15 ABG pCO2 32.0 mmHg (35.0-45.0) L 12/18/20 10:15 ABG pO2 64.0 mmHg (80.0-100.0) L 12/18/20 10:15 ABG HCO3 23.8 mmol/L (22-26) 12/18/20 10:15 ABG O2 Saturation 94.0 % (90-100) 12/18/20 10:15 ABG Base Excess 0.9 mmol/L (-2.0-2.0) 12/18/20 10:15 Brenardo Test Na 12/18/20 10:15 A-a Gradient 559.0 mmHg 12/18/20 10:15 FiO2 93.0 12/18/20 10:15 Blood Gas Comments Pt galina well[facility] 12/18/20 10:15 Sodium 136 mmol/L (136-145) 12/23/20 07:59 Corrected Sodium 139 mmol/L (136-145) 12/23/20 07:59 Potassium 4.6 mmol/L (3.5-5.1) 12/23/20 07:59 Chloride 100 mmol/L (98-107) 12/23/20 07:59 Carbon Dioxide 27.6 mmol/L (21-32) 12/23/20 07:59 BUN 28 mg/dL (7-18) H 12/23/20 07:59 Creatinine 0.88 mg/dL (0.70-1.30) 12/23/20 07:59 Est GFR (MDRD) Af Amer > 60 (>60) 12/23/20 07:59 Est GFR (MDRD) Non-Af > 60 (>60) 12/23/20 07:59 Glucose 217 mg/dL (65-99) H 12/23/20 07:59 POC Glucose (mg/dL) 245 mg/dL (65-99) H 12/23/20 06:06 Lactic Acid 2.0 mmol/L (0.4-2.0) 11/24/20 17:25 Calcium 8.5 mg/dL (8.5-10.1) 12/23/20 07:59 Corrected Calcium 9.5 mg/dL (8.5-10.1) 12/23/20 07:59 Magnesium 2.0 mg/dL (1.7-2.9) 12/09/20 05:13 Total Bilirubin 1.10 mg/dL (0.2-1.0) H 12/23/20 07:59 AST 60 Units/L (15-37) H 12/23/20 07:59 ALT 290 Units/L (12-78) H 12/23/20 07:59 Alkaline Phosphatase 126 Units/L (46-116) H 12/23/20 07:59 Creatine Kinase 79 Units/L (39-308) 11/24/20 17:25 CK-MB (CK-2) < 1.0 ng/mL (0-4.0) 11/24/20 17:25 CK/CKMB % Calc 1.3 % (<4) 11/24/20 17:25 Troponin I < 0.02 ng/mL (0-1.5) 11/24/20 17:25 C-Reactive Protein < 0.50 mg/L (0-3.0) 12/21/20 09:49 B-Natriuretic Peptide 103 pg/mL (0-79) H 12/15/20 04:25 Total Protein 5.8 g/dL (6.4-8.2) L 12/23/20 07:59 Albumin 2.8 g/dL (3.4-5.0) L 12/23/20 07:59 Globulin 3.0 g/dL (2.5-4.5) 12/23/20 07:59 Albumin/Globulin Ratio 0.9 Ratio (1.1-2.1) L 12/23/20 07:59 Amylase 48 Units/L (25-115) 11/24/20 17:25 Lipase 220 Units/L (73-393) 11/24/20 17:25 Specimen Type Clean catch urine 11/24/20 18:16 Urine Color Yellow (YELLOW) 11/24/20 18:16 Urine Appearance Clear (CLEAR) 11/24/20 18:16 Urine pH 5.0 (5.0 - 8.0) 11/24/20 18:16 Ur Specific [place] 1.025 (1.000-1.030) 11/24/20 18:16 Urine Protein 3+ (NEGATIVE) 11/24/20 18:16 Urine Glucose (UA) 4+ (NEGATIVE) 11/24/20 18:16 Urine Ketones 1+ (NEGATIVE) 11/24/20 18:16 Urine Occult Blood Negative (NEGATIVE) 11/24/20 18:16 Urine Nitrite Negative (NEGATIVE) 11/24/20 18:16 Urine Bilirubin Negative (NEGATIVE) 11/24/20 18:16 Urine Urobilinogen Normal (NORMAL) 11/24/20 18:16 Ur Leukocyte Esterase Negative (NEGATIVE) 11/24/20 18:16 Urine RBC None seen /HPF (0-3) 11/24/20 18:16 Urine WBC None seen /HPF (0-5) 11/24/20 18:16 Ur Squamous Epith Cells Rare /HPF (NEGATIVE) 11/24/20 18:16 Urine Bacteria Negative /HPF (NEGATIVE) 11/24/20 18:16 Ur Culture Indicated? No/not indicated 11/24/20 18:16 Acetone, Semi-Quant Negative (NEGATIVE) 11/24/20 17:30 SARS-CoV-2 (PCR) Positive (NEGATIVE) A 11/24/20 20:17 Influenza Type A (PCR) Negative (NEGATIVE) 11/24/20 20:17 Influenza Type B (PCR) Negative (NEGATIVE) 11/24/20 20:17 RSV (PCR) Negative (NEGATIVE) 11/24/20 20:17 S. pyogenes (TEM-PCR) Not detected (NOT DETECT) 11/24/20 20:17 Plan (1) Transaminitis: Status: Acute (2) Oxygen dependent: Status: Acute (3) Acute respiratory failure with hypoxia: Status: Acute Plan: Improving slowly; wean oxygen as tolerated. (4) Pseudomonal pneumonia: Status: Acute Qualifiers: Laterality: bilateral Lung location: unspecified part of lung Qualified Code(s): J15.1 - Pneumonia due to Pseudomonas (5) COVID-19 virus infection: Status: Acute Plan: Still hypoxic and sob; unable to wean oxygen; repeat cxr; continue current mgmt. (6) Pulmonary edema: Status: Acute Qualifiers: Chronicity: chronic Qualified Code(s): J81.1 - Chronic pulmonary edema (7) HTN (hypertension): Status: Acute Qualifiers: Hypertension type: essential hypertension Qualified Code(s): I10 - Essential (primary) hypertension Plan: Remains elevated; increase apresoline and follow. (8) Hx of CABG: Status: Acute (9) Diabetes: Status: Acute Qualifiers: Diabetes mellitus complication status: without complication Diabetes mellitus parts counterman insulin use: without parts counterman use Diabetes mellitus type: type 2 Qualified Code(s): E11.9 - Type 2 diabetes mellitus without complications
[2020-12-23] MEDS: LEVSIN/MAALOX/LIDOC VISC PO PRN (15:49)
[2020-12-23] MEDS: SNACK - Diabetic Appropriate PO SCH (20:26)
[2020-12-23] MEDS: COLACE CAP 100 MG PO SCH (20:26)
[2020-12-23] MEDS: MILK OF MAGNESIA PO SCH (20:27)
[2020-12-23] MEDS: RESTORIL CAP 15 MG PO PRN (20:28)
[2020-12-23] MEDS: VISTARIL PO PRN (20:29)
[2020-12-24] MEDS: APRESOLINE TAB 10 MG PO SCH ×3 (05:30→21:40)
--- NOTE | 2020-12-24 07:36 | US ---
HISTORYElevated liver function testsSTUDYHepatic sonogramTechnique: Multiple grayscale sonographic images were obtained.COMPARISONNoneFINDINGSThe liver is normal in size and configuration and without cyst, mass, or biliary ductal dilatation. Limited Doppler evaluation was normal. Patient is status post cholecystectomy. The common duct measures 3.4 mm. The right kidney measures 11 cm in length. Cortical thickness and cortical echogenicity were normal. No solid masses, hydronephrosis, stones, or perinephric fluid collections were identified. There is a benign cyst present. The pancreas was obscured by overlying bowel gas.IMPRESSIONNo significant abnormality identifiedElectronically signed by: HENNY BASURTO (Dec 24, 2020 07:35:17)
[2020-12-24] MEDS: DUONEB 0.5 MG/3 MG (3 mL) NEB SCH ×4 (09:22→20:40)
[2020-12-24] MEDS: PULMICORT NEB TX 0.5 MG NEB SCH ×2 (09:22→20:40)
[2020-12-24] MEDS: FLONASE NASAL SPRAY ENOSTRIL SCH (10:00)
--- NOTE | 2020-12-24 11:27 | PCM.PROG ---
Progress Note Progress Note for Day of Date of Exam: 12/24/20 Subjective Subjective: Patient seen at bedside. No acute events overnight. He was resting this morning, sats 91% on same HHFNC at FiO2 68%. Patient's sats dropped to 77% with talking and moving around for exam. He also tends to drop when anxious while coughing. He was also coughing at the time. He reports dry cough. He denied being in any distress. He did have abdominal U/S this morning. He did work a little with PT but he could do as much as he wanted to due to his sats dropping. Abdominal U/S: no liver disease, normal Plan: Will add Buspar for anxiety. Continue current treatment with aggressive p ulmonary toilet including nebs, pulmicort, mucomyst, smart vest and IS. Patient has completed course with Remdesivir, and IV antibiotics including Zosyn, Fortaz and Ciprofloxacin. Continue solumedrol at 60 mg q12hrs. Wean O2 as tolerated to keep sats > 88%. Continue PT/OT as tolerated. Encouraged ambulation from chair to bed as tolerated. No andreea beds available at [facility]. Patient not able to affo rd stay due to being self pay. Continue Eliquis. Continue vitamin support. Monitor AM labs and imaging. Time spent for clinical assessment, reviewing labs and imaging, physical exam, decision making and documentation greater than 75 mins. Past Medical Family Social History Past Med/Fam/Surg Hx: No changes since H&P Allergies: Allergies No Known Drug Allergies Allergy (Verified 11/24/20 20:28) Review of Systems ROS: No change since H&P Vital Signs and I&O's Vital Signs: Temperature 98.2 F Pulse Rate [Left] 65 Pulse Rate [Left Brachial] 60 Pulse Rate 79 Respiratory Rate 24 Blood Pressure [Right Arm] 138/63 Blood Pressure [Left Arm] 113/57 Blood Pressure 163/77 O2 Sat by Pulse Oximetry 82 Intake and Output: Intake & Output 12/21/20 12/22/20 12/23/20 12/24/20 23:59 23:59 23:59 23:59 Intake Total 1620 / 1620 1590 / 1590 1500 / 1500 Output Total 2750 / 2750 2225 / 2225 3850 / 3850 625 / 625 Balance -1130 / -1130 -635 / -635 -2350 / -2350 -625 / -625 Physical Exam Oriented: Normal Eyes: Normal Ear: Normal Nose: Normal Throat: Normal Respiratory: Generalized and Diminished Cardiovascular: Normal; negative Edema Auscultation: Bowel Sounds: Normal Tenderness: Normal Skin: Normal Musculoskeletal: Normal Psychiatric: Normal Mood Description: Calm Affect: Normal Speech Pattern: Clear and Appropriate Laboratory and Diagnostics Result Diagrams: 12/23/20 07:59 12/24/20 05:33 Labs: 11/24/20 17:25 Blood Blood Culture - Final 11/24/20 17:25 Blood Blood Culture - Final 11/25/20 06:08 Sputum - Expectorated Sputum Sputum Culture - Final Pseudomonas Aeruginosa 11/25/20 06:08 Sputum - Expectorated Sputum - Final Laboratory WBC 11.6 X10^3/uL (3.6-10.0) H 12/23/20 07:59 RBC 5.25 X10^6/uL (4.7-6.0) 12/23/20 07:59 Hgb 15.3 g/dL (13.5-18.0) 12/23/20 07:59 Hct 44.9 % (42.0-54.0) 12/23/20 07:59 MCV 85.5 fL (80.0-100.0) 12/23/20 07:59 MCH 29.1 pg (27.0-34.0) 12/23/20 07:59 MCHC 34.1 g/dL (33.0-35.0) 12/23/20 07:59 RDW 14.4 % (11.6-16.5) 12/23/20 07:59 Plt Count 276 X10^3/uL (150.0-450.0) 12/23/20 07:59 Plt Count Comment Adequate (ADEQUATE) 12/23/20 07:59 MPV 7.9 fL (7.4-11.0) 12/23/20 07:59 Neut % (Auto) 79.1 % (42.0-75.0) H 12/23/20 07:59 Lymph % (Auto) 13.0 % (21.0-51.0) L 12/23/20 07:59 [place] % (Auto) 6.7 % (0.0-13.0) 12/23/20 07:59 Eos % (Auto) 0.5 % (0.9-2.9) L 12/23/20 07:59 Baso % (Auto) 0.7 % (0.2-1.0) 12/23/20 07:59 Neut # (Auto) 9.2 x10^3/uL (2.2-4.8) H 12/23/20 07:59 Lymph # (Auto) 1.5 X10^3/uL (1.3-2.9) 12/23/20 07:59 [place] # (Auto) 0.8 x10^3/uL (0.3-0.8) 12/23/20 07:59 Eos # (Auto) 0.1 x10^3/uL (0.0-0.2) 12/23/20 07:59 Baso # (Auto) 0.1 X10^3/uL (0.0-0.1) 12/23/20 07:59 Absolute Nucleated RBC 0.1 /100WBC 12/23/20 07:59 Total Counted 100 12/23/20 07:59 Neutrophils % (Manual) 76 % (39-76) 12/23/20 07:59 Band Neutrophils % 5 % (0-10) 12/23/20 07:59 Lymphocytes % (Manual) 12 % (13-43) L 12/23/20 07:59 Monocytes % (Manual) 7 % (4-9) 12/23/20 07:59 Plt Morphology Comment Normal (NORMAL) 12/23/20 07:59 RBC Morphology Normal (NORMAL) 12/23/20 07:59 D-Dimer 0.34 ug/ml (0.0-0.57) 12/15/20 04:25 Sample Site Lb 12/18/20 10:15 ABG pH 7.480 (7.35-7.45) H 12/18/20 10:15 ABG pCO2 32.0 mmHg (35.0-45.0) L 12/18/20 10:15 ABG pO2 64.0 mmHg (80.0-100.0) L 12/18/20 10:15 ABG HCO3 23.8 mmol/L (22-26) 12/18/20 10:15 ABG O2 Saturation 94.0 % (90-100) 12/18/20 10:15 ABG Base Excess 0.9 mmol/L (-2.0-2.0) 12/18/20 10:15 Bernardo Test Na 12/18/20 10:15 A-a Gradient 559.0 mmHg 12/18/20 10:15 FiO2 93.0 12/18/20 10:15 Blood Gas Comments Pt galina well[facility] 12/18/20 10:15 Sodium 136 mmol/L (136-145) 12/23/20 07:59 Corrected Sodium 139 mmol/L (136-145) 12/23/20 07:59 Potassium 4.6 mmol/L (3.5-5.1) 12/23/20 07:59 Chloride 100 mmol/L (98-107) 12/23/20 07:59 Carbon Dioxide 27.6 mmol/L (21-32) 12/23/20 07:59 BUN 28 mg/dL (7-18) H 12/23/20 07:59 Creatinine 0.88 mg/dL (0.70-1.30) 12/23/20 07:59 Est GFR (MDRD) Af Amer > 60 (>60) 12/23/20 07:59 Est GFR (MDRD) Non-Af > 60 (>60) 12/23/20 07:59 Glucose 246 mg/dL (65-99) H 12/24/20 05:33 POC Glucose (mg/dL) 456 mg/dL (65-99) H 12/24/20 05:26 Lactic Acid 2.0 mmol/L (0.4-2.0) 11/24/20 17:25 Calcium 8.5 mg/dL (8.5-10.1) 12/23/20 07:59 Corrected Calcium 9.5 mg/dL (8.5-10.1) 12/23/20 07:59 Magnesium 2.0 mg/dL (1.7-2.9) 12/09/20 05:13 Total Bilirubin 1.10 mg/dL (0.2-1.0) H 12/23/20 07:59 AST 60 Units/L (15-37) H 12/23/20 07:59 ALT 290 Units/L (12-78) H 12/23/20 07:59 Alkaline Phosphatase 126 Units/L (46-116) H 12/23/20 07:59 Creatine Kinase 79 Units/L (39-308) 11/24/20 17:25 CK-MB (CK-2) < 1.0 ng/mL (0-4.0) 11/24/20 17:25 CK/CKMB % Calc 1.3 % (<4) 11/24/20 17:25 Troponin I < 0.02 ng/mL (0-1.5) 11/24/20 17:25 C-Reactive Protein < 0.50 mg/L (0-3.0) 12/21/20 09:49 B-Natriuretic Peptide 103 pg/mL (0-79) H 12/15/20 04:25 Total Protein 5.8 g/dL (6.4-8.2) L 12/23/20 07:59 Albumin 2.8 g/dL (3.4-5.0) L 12/23/20 07:59 Globulin 3.0 g/dL (2.5-4.5) 12/23/20 07:59 Albumin/Globulin Ratio 0.9 Ratio (1.1-2.1) L 12/23/20 07:59 Amylase 48 Units/L (25-115) 11/24/20 17:25 Lipase 220 Units/L (73-393) 11/24/20 17:25 Specimen Type Clean catch urine 11/24/20 18:16 Urine Color Yellow (YELLOW) 11/24/20 18:16 Urine Appearance Clear (CLEAR) 11/24/20 18:16 Urine pH 5.0 (5.0 - 8.0) 11/24/20 18:16 Ur Specific [place] 1.025 (1.000-1.030) 11/24/20 18:16 Urine Protein 3+ (NEGATIVE) 11/24/20 18:16 Urine Glucose (UA) 4+ (NEGATIVE) 11/24/20 18:16 Urine Ketones 1+ (NEGATIVE) 11/24/20 18:16 Urine Occult Blood Negative (NEGATIVE) 11/24/20 18:16 Urine Nitrite Negative (NEGATIVE) 11/24/20 18:16 Urine Bilirubin Negative (NEGATIVE) 11/24/20 18:16 Urine Urobilinogen Normal (NORMAL) 11/24/20 18:16 Ur Leukocyte Esterase Negative (NEGATIVE) 11/24/20 18:16 Urine RBC None seen /HPF (0-3) 11/24/20 18:16 Urine WBC None seen /HPF (0-5) 11/24/20 18:16 Ur Squamous Epith Cells Rare /HPF (NEGATIVE) 11/24/20 18:16 Urine Bacteria Negative /HPF (NEGATIVE) 11/24/20 18:16 Ur Culture Indicated? No/not indicated 11/24/20 18:16 Acetone, Semi-Quant Negative (NEGATIVE) 11/24/20 17:30 SARS-CoV-2 (PCR) Positive (NEGATIVE) A 11/24/20 20:17 Influenza Type A (PCR) Negative (NEGATIVE) 11/24/20 20:17 Influenza Type B (PCR) Negative (NEGATIVE) 11/24/20 20:17 RSV (PCR) Negative (NEGATIVE) 11/24/20 20:17 S. pyogenes (TEM-PCR) Not detected (NOT DETECT) 11/24/20 20:17 Plan (1) Transaminitis: Status: Acute (2) Oxygen dependent: Status: Acute (3) Acute respiratory failure with hypoxia: Status: Acute Plan: Improving slowly; wean oxygen as tolerated. (4) Pseudomonal pneumonia: Status: Acute Qualifiers: Laterality: bilateral Lung location: unspecified part of lung [place] lified Code(s): J15.1 - Pneumonia due to Pseudomonas (5) COVID-19 virus infection: Status: Acute Plan: Still hypoxic and sob; unable to wean oxygen; repeat cxr; continue current mgmt. (6) Pulmonary edema: Status: Acute Qualifiers: Chronicity: chronic Qualified Code(s): J81.1 - Chronic pulmonary edema (7) HTN (hypertension): Status: Acute Qualifiers: Hypertension type: essential hypertension Qualified Code(s): I10 - Essential (primary) hypertension Plan: Remains elevated; increase apresoline and follow. (8) Hx of CABG: Status: Acute (9) Diabetes: Status: Acute Qualifiers: Diabetes mellitus complication status: without complication Diabetes mellitus keno terminal operator insulin use: without keno terminal operator use Diabetes mellitus type: type 2 Qualified Code(s): E11.9 - Type 2 diabetes mellitus without co mplications (10) Anxiety: Status: Acute
[2020-12-24] MEDS: ROBITUSSIN DM PO SCH ×4 (11:29→21:34)
[2020-12-24] MEDS: INVOKANA PO SCH (11:29)
[2020-12-24] MEDS: ZINC SULFATE PO SCH ×2 (11:29→21:35)
[2020-12-24] MEDS: ISOSORBIDE MONONITRATE ER 24-HR PO SCH (11:30)
[2020-12-24] MEDS: VITAMIN C PO SCH (11:30)
[2020-12-24] MEDS: PROTONIX TAB 40 MG PO SCH (11:31)
[2020-12-24] MEDS: ZyrTEC TAB 10 MG PO SCH (11:31)
[2020-12-24] MEDS: ELIQUIS PO SCH ×2 (11:32→21:34)
[2020-12-24] MEDS: COREG TAB 12.5 MG PO SCH ×2 (11:32→21:34)
[2020-12-24] MEDS: PEPCID TAB 40 MG PO SCH ×2 (11:32→21:34)
[2020-12-24] MEDS: COZAAR PO SCH (11:33)
[2020-12-24] MEDS: VITAMIN D3 125 mcg (5,000 UNITS) PO SCH (11:33)
[2020-12-24] MEDS: VITAMIN A PO SCH (11:34)
[2020-12-24] MEDS: VSL#3 PO SCH (11:34)
[2020-12-24] MEDS: BUSPAR PO SCH ×2 (11:45→21:33)
[2020-12-24] MEDS: SOLU-Medrol 40 MG VIAL IVP SCH ×2 (12:18→21:34)
[2020-12-24] MEDS: SNACK - Diabetic Appropriate PO SCH (21:12)
[2020-12-24] MEDS: COLACE CAP 100 MG PO SCH (21:33)
[2020-12-24] MEDS: MILK OF MAGNESIA PO SCH (21:34)
[2020-12-24] MEDS: RESTORIL CAP 15 MG PO PRN (21:35)
[2020-12-24] MEDS: HumuLIN R SUBCUT PRN (21:40)
[2020-12-25] MEDS: APRESOLINE TAB 10 MG PO SCH ×3 (05:50→21:06)
[2020-12-25] MEDS: HumuLIN R SUBCUT PRN ×3 (06:28→21:09)
[2020-12-25] MEDS: DUONEB 0.5 MG/3 MG (3 mL) NEB SCH ×4 (09:09→20:20)
[2020-12-25] MEDS: PULMICORT NEB TX 0.5 MG NEB SCH ×2 (09:09→20:20)
[2020-12-25] MEDS: VITAMIN A PO SCH (10:00)
[2020-12-25] MEDS: VSL#3 PO SCH (10:00)
[2020-12-25] MEDS: SOLU-Medrol 40 MG VIAL IVP SCH ×3 (10:00→21:06)
[2020-12-25] MEDS: MILK OF MAGNESIA PO SCH (10:22)
[2020-12-25] MEDS: PEPCID TAB 40 MG PO SCH ×2 (10:22→21:05)
[2020-12-25] MEDS: ROBITUSSIN DM PO SCH ×4 (10:22→21:06)
[2020-12-25] MEDS: ZINC SULFATE PO SCH ×2 (10:23→21:04)
[2020-12-25] MEDS: VITAMIN D3 125 mcg (5,000 UNITS) PO SCH (10:23)
[2020-12-25] MEDS: ELIQUIS PO SCH ×2 (10:23→21:02)
[2020-12-25] MEDS: COZAAR PO SCH (10:24)
[2020-12-25] MEDS: COREG TAB 12.5 MG PO SCH ×2 (10:24→21:04)
[2020-12-25] MEDS: ISOSORBIDE MONONITRATE ER 24-HR PO SCH (10:24)
[2020-12-25] MEDS: PROTONIX TAB 40 MG PO SCH (10:25)
[2020-12-25] MEDS: INVOKANA PO SCH (10:25)
[2020-12-25] MEDS: VITAMIN C PO SCH (10:25)
[2020-12-25] MEDS: ZyrTEC TAB 10 MG PO SCH (10:26)
[2020-12-25] MEDS: BUSPAR PO SCH ×2 (10:26→21:11)
[2020-12-25] MEDS: FLONASE NASAL SPRAY ENOSTRIL SCH (10:27)
--- NOTE | 2020-12-25 14:26 | RAD ---
CHEST, 1 VIEWHISTORY: COVID PNEUMONIAStudy: Single view of the chest.Comparison:December 21, 2020Findings:The cardiomediastinal silhouette is normal. No change in the appearance of bilateral insterstitial and airspace opacities. Again lungs are hypoinflated. No change in positioning of cardiopulmonary support devices. Osseous structures demonstrate no acute abnormality.IMPRESSION:1. No change from prior. Bilateral interstitial and subtle airspace opacities are again present.Electronically signed by: ZAY CAMERON (Dec 25, 2020 14:25:20)
[2020-12-25] MEDS: SNACK - Diabetic Appropriate PO SCH (21:01)
[2020-12-25] MEDS: RESTORIL CAP 15 MG PO PRN (21:02)
[2020-12-25] MEDS: BUTT CREAM (COMPOUND) TOP PRN (21:02)
[2020-12-25] MEDS: COLACE CAP 100 MG PO SCH (21:03)
[2020-12-25] MEDS: LEVSIN/MAALOX/LIDOC VISC PO PRN (21:09)
[2020-12-26 05:23] LABS: BASOPHILS % (AUTO) 0.2 % (0.2-1.0); EOSINOPHILS % (AUTO) 0.2 % (0.9-2.9); HEMATOCRIT 47.3 % (42.0-54.0); HEMOGLOBIN 16.2 g/dL (13.5-18.0); LYMPHOCYTES # (AUTO) 1.2 X10^3/uL (1.3-2.9); LYMPHOCYTES % (AUTO) 8.6 % (21.0-51.0); MEAN CORPUSCULAR HEMOGLOBIN 28.8 pg (27.0-34.0); MEAN CORPUSCULAR HGB CONC 34.2 g/dL (33.0-35.0); MEAN PLATELET VOLUME 7.9 fL (7.4-11.0); MONOCYTES # (AUTO) 0.4 x10^3/uL (0.3-0.8); MONOCYTES % (AUTO) 2.5 % (0.0-13.0); NEUTROPHILS # (AUTO) 12.5 x10^3/uL (2.2-4.8); NEUTROPHILS % (AUTO) 88.5 % (42.0-75.0); PLATELET COUNT 242 X10^3/uL (150.0-450.0); RED BLOOD COUNT 5.63 X10^6/uL (4.7-6.0); RED CELL DISTRIBUTION WIDTH 14.6 % (11.6-16.5); WHITE BLOOD COUNT 14.1 X10^3/uL (3.6-10.0)
[2020-12-26 05:36] LABS: ALANINE AMINOTRANSFERASE 270 Units/L (12-78); ALBUMIN 3.1 g/dL (3.4-5.0); ALKALINE PHOSPHATASE 121 Units/L (46-116); ASPARTATE AMINO TRANSFERASE 37 Units/L (15-37); BLOOD UREA NITROGEN 32 mg/dL (7-18); CALCIUM 8.4 mg/dL (8.5-10.1); CARBON DIOXIDE 25.4 mmol/L (21-32); CHLORIDE 101 mmol/L (98-107); COR CA(FOR HYPOALB) 9.1 mg/dL (8.5-10.1); COR NA(FOR HYPERGLY) 139 mmol/L (136-145); CREATININE 0.81 mg/dL (0.70-1.30); SODIUM 135 mmol/L (136-145); TOTAL PROTEIN 6.1 g/dL (6.4-8.2); eGFR NON BLACK RACES > 60 (>60)
[2020-12-26] MEDS: APRESOLINE TAB 10 MG PO SCH ×3 (06:36→22:18)
[2020-12-26] MEDS: SOLU-Medrol 40 MG VIAL IVP SCH ×3 (06:40→22:19)
[2020-12-26] MEDS: HumuLIN R SUBCUT PRN ×3 (06:41→17:02)
--- NOTE | 2020-12-26 08:10 | PCM.PROG ---
Progress Note Progress Note for Day of Date of Exam: 12/25/20 Subjective Subjective: Patient seen at bedside, no acute events overnight. He remains on same setting of [facility]. His sats this morning seem to be in low to mid 80s. He is not able to recover as quickly. He still has non-productive cough. He states he feels bloated and a lot of pressure in his abdomen due to not having a BM. Denies nausea or vomiting. Plan: Will get CXR. Continue colace BID, give Milk of magnesia now, if not consider enema. Will try CPAP at bedtime. Continue current treatment with aggressive pulmonary toilet including nebs, pulmicort, mucomyst, smart vest and IS. Patient has completed course with Remdesivir, and IV antibiotics including Zosyn, Fortaz and Ciprofloxacin. Continue solumedrol at 60 mg q12hrs. Wean O2 as tolerated to keep sats > 88%. Continue PT/OT as tolerated. Encouraged ambulation from chair to bed as tolerated. No andreea beds available at [facility]. Patient not able to afford stay due to being self pay. Continue Eliquis. Continue vitamin support. Monitor AM labs and imaging. Time spent for clinical assessment, reviewing labs and imaging, physical exam, decision making and documentation greater than 75 mins. Past Medical Family Social History Past Med/Fam/Surg Hx: No changes since H&P Allergies: Allergies No Known Drug Allergies Allergy (Verified 11/24/20 20:28) Review of Systems ROS: No change since H&P Vital Signs and I&O's Vital Signs: Temperature 97.6 F Pulse Rate [Left] 65 Pulse Rate [Left Brachial] 60 Pulse Rate 81 Respiratory Rate 37 Blood Pressure [Right Arm] 138/63 Blood Pressure [Left Arm] 113/57 Blood Pressure 154/93 O2 Sat by Pulse Oximetry 83 Intake and Output: Intake & Output 12/23/20 12/24/20 12/25/20 12/26/20 23:59 23:59 23:59 23:59 Intake Total 1500 / 1500 830 / 830 1200 / 1200 360 / 360 Output Total 3850 / 3850 3550 / 3550 2500 / 2500 700 / 700 Balance -2350 / -2350 -2720 / -2720 -1300 / -1300 -340 / -340 Physical Exam Oriented: Normal Eyes: Normal Ear: Normal Nose: Normal Throat: Normal Respiratory: Generalized and Diminished Cardiovascular: Normal; negative Edema Auscultation: Bowel Sounds: Normal Tenderness: Normal Skin: Normal Musculoskeletal: Normal Psychiatric: Normal Mood Description: Calm Affect: Normal Speech Pattern: Clear and Appropriate Laboratory and Diagnostics Result Diagrams: 12/26/20 04:36 12/26/20 04:36 Labs: 11/24/20 17:25 Blood Blood Culture - Final 11/24/20 17:25 Blood Blood Culture - Final 11/25/20 06:08 Sputum - Expectorated Sputum Sputum Culture - Final Pseudomonas Aeruginosa 11/25/20 06:08 Sputum - Expectorated Sputum - Final Laboratory WBC 14.1 X10^3/uL (3.6-10.0) H 12/26/20 04:36 RBC 5.63 X10^6/uL (4.7-6.0) 12/26/20 04:36 Hgb 16.2 g/dL (13.5-18.0) 12/26/20 04:36 Hct 47.3 % (42.0-54.0) 12/26/20 04:36 MCV 84.0 fL (80.0-100.0) 12/26/20 04:36 MCH 28.8 pg (27.0-34.0) 12/26/20 04:36 MCHC 34.2 g/dL (33.0-35.0) 12/26/20 04:36 RDW 14.6 % (11.6-16.5) 12/26/20 04:36 Plt Count 242 X10^3/uL (150.0-450.0) 12/26/20 04:36 Plt Count Comment Adequate (ADEQUATE) 12/23/20 07:59 MPV 7.9 fL (7.4-11.0) 12/26/20 04:36 Neut % (Auto) 88.5 % (42.0-75.0) H 12/26/20 04:36 Lymph % (Auto) 8.6 % (21.0-51.0) L 12/26/20 04:36 [place] % (Auto) 2.5 % (0.0-13.0) 12/26/20 04:36 Eos % (Auto) 0.2 % (0.9-2.9) L 12/26/20 04:36 Baso % (Auto) 0.2 % (0.2-1.0) 12/26/20 04:36 Neut # (Auto) 12.5 x10^3/uL (2.2-4.8) H 12/26/20 04:36 Lymph # (Auto) 1.2 X10^3/uL (1.3-2.9) L 12/26/20 04:36 [place] # (Auto) 0.4 x10^3/uL (0.3-0.8) 12/26/20 04:36 Eos # (Auto) 0.0 x10^3/uL (0.0-0.2) 12/26/20 04:36 Baso # (Auto) 0.0 X10^3/uL (0.0-0.1) 12/26/20 04:36 Absolute Nucleated RBC 0.1 /100WBC 12/26/20 04:36 Total Counted 100 12/23/20 07:59 Neutrophils % (Manual) 76 % (39-76) 12/23/20 07:59 Band Neutrophils % 5 % (0-10) 12/23/20 07:59 Lymphocytes % (Manual) 12 % (13-43) L 12/23/20 07:59 Monocytes % (Manual) 7 % (4-9) 12/23/20 07:59 Plt Morphology Comment Normal (NORMAL) 12/23/20 07:59 RBC Morphology Normal (NORMAL) 12/23/20 07:59 D-Dimer 0.34 ug/ml (0.0-0.57) 12/15/20 04:25 Sample Site Lb 12/18/20 10:15 ABG pH 7.480 (7.35-7.45) H 12/18/20 10:15 ABG pCO2 32.0 mmHg (35.0-45.0) L 12/18/20 10:15 ABG pO2 64.0 mmHg (80.0-100.0) L 12/18/20 10:15 ABG HCO3 23.8 mmol/L (22-26) 12/18/20 10:15 ABG O2 Saturation 94.0 % (90-100) 12/18/20 10:15 ABG Base Excess 0.9 mmol/L (-2.0-2.0) 12/18/20 10:15 Bernardo Test Na 12/18/20 10:15 A-a Gradient 559.0 mmHg 12/18/20 10:15 FiO2 93.0 12/18/20 10:15 Blood Gas Comments Pt galina well[facility]cdn 12/18/20 10:15 Sodium 135 mmol/L (136-145) L 12/26/20 04:36 Corrected Sodium 139 mmol/L (136-145) 12/26/20 04:36 Potassium 4.5 mmol/L (3.5-5.1) 12/26/20 04:36 Chloride 101 mmol/L (98-107) 12/26/20 04:36 Carbon Dioxide 25.4 mmol/L (21-32) 12/26/20 04:36 BUN 32 mg/dL (7-18) H 12/26/20 04:36 Creatinine 0.81 mg/dL (0.70-1.30) 12/26/20 04:36 Est GFR (MDRD) Af Amer > 60 (>60) 12/26/20 04:36 Est GFR (MDRD) Non-Af > 60 (>60) 12/26/20 04:36 Glucose 258 mg/dL (65-99) H 12/26/20 04:36 POC Glucose (mg/dL) 261 mg/dL (65-99) H 12/25/20 19:19 Lactic Acid 2.0 mmol/L (0.4-2.0) 11/24/20 17:25 Calcium 8.4 mg/dL (8.5-10.1) L 12/26/20 04:36 Corrected Calcium 9.1 mg/dL (8.5-10.1) 12/26/20 04:36 Magnesium 2.0 mg/dL (1.7-2.9) 12/09/20 05:13 Total Bilirubin 1.40 mg/dL (0.2-1.0) H 12/26/20 04:36 AST 37 Units/L (15-37) 12/26/20 04:36 ALT 270 Units/L (12-78) H 12/26/20 04:36 Alkaline Phosphatase 121 Units/L (46-116) H 12/26/20 04:36 Creatine Kinase 79 Units/L (39-308) 11/24/20 17:25 CK-MB (CK-2) < 1.0 ng/mL (0-4.0) 11/24/20 17:25 CK/CKMB % Calc 1.3 % (<4) 11/24/20 17:25 Troponin I < 0.02 ng/mL (0-1.5) 11/24/20 17:25 C-Reactive Protein 0.60 mg/L (0-3.0) 12/26/20 04:36 B-Natriuretic Peptide 103 pg/mL (0-79) H 12/15/20 04:25 Total Protein 6.1 g/dL (6.4-8.2) L 12/26/20 04:36 Albumin 3.1 g/dL (3.4-5.0) L 12/26/20 04:36 Globulin 3.0 g/dL (2.5-4.5) 12/26/20 04:36 Albumin/Globulin Ratio 1.0 Ratio (1.1-2.1) L 12/26/20 04:36 Amylase 48 Units/L (25-115) 11/24/20 17:25 Lipase 220 Units/L (73-393) 11/24/20 17:25 Specimen Type Clean catch urine 11/24/20 18:16 Urine Color Yellow (YELLOW) 11/24/20 18:16 Urine Appearance Clear (CLEAR) 11/24/20 18:16 Urine pH 5.0 (5.0 - 8.0) 11/24/20 18:16 Ur Specific [place] 1.025 (1.000-1.030) 11/24/20 18:16 Urine Protein 3+ (NEGATIVE) 11/24/20 18:16 Urine Glucose (UA) 4+ (NEGATIVE) 11/24/20 18:16 Urine Ketones 1+ (NEGATIVE) 11/24/20 18:16 Urine Occult Blood Negative (NEGATIVE) 11/24/20 18:16 Urine Nitrite Negative (NEGATIVE) 11/24/20 18:16 Urine Bilirubin Negative (NEGATIVE) 11/24/20 18:16 Urine Urobilinogen Normal (NORMAL) 11/24/20 18:16 Ur Leukocyte Esterase Negative (NEGATIVE) 11/24/20 18:16 Urine RBC None seen /HPF (0-3) 11/24/20 18:16 Urine WBC None seen /HPF (0-5) 11/24/20 18:16 Ur Squamous Epith Cells Rare /HPF (NEGATIVE) 11/24/20 18:16 Urine Bacteria Negative /HPF (NEGATIVE) 11/24/20 18:16 Ur Culture Indicated? No/not indicated 11/24/20 18:16 Acetone, Semi-Quant Negative (NEGATIVE) 11/24/20 17:30 SARS-CoV-2 (PCR) Positive (NEGATIVE) A 11/24/20 20:17 Influenza Type A (PCR) Negative (NEGATIVE) 11/24/20 20:17 Influenza Type B (PCR) Negative (NEGATIVE) 11/24/20 20:17 RSV (PCR) Negative (NEGATIVE) 11/24/20 20:17 S. pyogenes (TEM-PCR) Not detected (NOT DETECT) 11/24/20 20:17 Plan (1) Transaminitis: Status: Acute (2) Oxygen dependent: Status: Acute (3) Acute respiratory failure with hypoxia: Status: Acute Plan: Improving slowly; wean oxygen as tolerated. (4) Pseudomonal pneumonia: Status: Acute Qualifiers: Laterality: bilateral Lung location: unspecified part of lung Qualified Code(s): J15.1 - Pneumonia due to Pseudomonas (5) COVID-19 virus infection: Status: Acute Plan: Still hypoxic and sob; unable to wean oxygen; repeat cxr; continue current mgmt. (6) Pulmonary edema: Status: Acute Qualifiers: Chronicity: chronic Qualified Code(s): J81.1 - Chronic pulmonary edema (7) HTN (hypertension): Status: Acute Qualifiers: Hypertension type: essential hypertension Qualified Code(s): I10 - Essential (primary) hypertension Plan: Remains elevated; increase apresoline and follow. (8) Hx of CABG: Status: Chronic (9) Diabetes: Status: Chronic Qualifiers: Diabetes mellitus complication status: without complication Diabetes mellitus care home insulin use: without care home use Diabetes mellitus type: type 2 Qualified Code(s): E11.9 - Type 2 diabetes mellitus without complications (10) Anxiety: Status: Acute
[2020-12-26] MEDS: DUONEB 0.5 MG/3 MG (3 mL) NEB SCH ×4 (08:45→20:20)
[2020-12-26] MEDS: PULMICORT NEB TX 0.5 MG NEB SCH ×2 (08:45→20:20)
[2020-12-26] MEDS: BUSPAR PO SCH ×2 (09:35→20:40)
[2020-12-26] MEDS: COZAAR PO SCH (09:36)
[2020-12-26] MEDS: COREG TAB 12.5 MG PO SCH ×2 (09:36→20:40)
[2020-12-26] MEDS: FLONASE NASAL SPRAY ENOSTRIL SCH (09:37)
[2020-12-26] MEDS: INVOKANA PO SCH (09:37)
[2020-12-26] MEDS: ELIQUIS PO SCH ×2 (09:37→20:41)
[2020-12-26] MEDS: PEPCID TAB 40 MG PO SCH ×2 (09:38→20:41)
[2020-12-26] MEDS: ISOSORBIDE MONONITRATE ER 24-HR PO SCH (09:38)
[2020-12-26] MEDS: MILK OF MAGNESIA PO SCH (09:38)
[2020-12-26] MEDS: VITAMIN D3 125 mcg (5,000 UNITS) PO SCH (09:39)
[2020-12-26] MEDS: PROTONIX TAB 40 MG PO SCH (09:39)
[2020-12-26] MEDS: ROBITUSSIN DM PO SCH ×4 (09:39→20:41)
[2020-12-26] MEDS: VITAMIN C PO SCH (09:39)
[2020-12-26] MEDS: VSL#3 PO SCH (09:40)
[2020-12-26] MEDS: VITAMIN A PO SCH (09:40)
[2020-12-26] MEDS: ZINC SULFATE PO SCH ×2 (09:40→20:41)
[2020-12-26] MEDS: ZyrTEC TAB 10 MG PO SCH (09:40)
--- NOTE | 2020-12-26 09:46 | PCM.PROG ---
Progress Note Progress Note for Day of Date of Exam: 12/26/20 Subjective Subjective: Patient seen at bedside, reports no overnight events. He did wear CPAP all night, he states the mask was not comfortable and felt some leak but he did wear it as much as possible. He states he feels like his lungs were expanding with CPAP. He is back on HHFNC this morning. He states it did take him a while to get comfortable with the switch as his sats dropped to 70s. He has some dry cough. He did get the enema and had a BM, feels a lot better. He does have some wheezing this morning and slightly improved air flow. Labs: WBC: 14.1 Hgb 16.2 Plt 242 BUN/Cr: 32/0.81 Glucose 258 AST: 37 ALT:270 CXR: similar bilateral interstitial disease Plan: will increase solumedrol to q8Hrs, continue CPAP at bedtime as tolerated. After viewing the CXR from yesterday and one prior, there seems to be some improvement bilaterally. Wean HHFNC to keep sats > 88%. Continue current treatment with aggressive pulmonary toilet including nebs, pulmicort, mucomyst, smart vest and IS. Patient has completed course with Remdesivir, and IV antibiotics including Zosyn, Fortaz and Ciprofloxacin. Continue PT/OT as tolerated. Encouraged ambulation from chair to bed as tolerated. No andreea beds available at [facility]. Patient not able to afford stay due to being self pay. Continue Eliquis. Continue vitamin support. Monitor AM labs and imaging. Time spent for clinical assessment, reviewing labs and imaging, physical exam, decision making and documentation greater than 75 mins. Past Medical Family Social History Past Med/Fam/Surg Hx: No changes since H&P Allergies: Allergies No Known Drug Allergies Allergy (Verified 11/24/20 20:28) Review of Systems ROS: No change since H&P Vital Signs and I&O's Vital Signs: Temperature 97.6 F Pulse Rate [Left] 65 Pulse Rate [Left Brachial] 60 Pulse Rate 72 Respiratory Rate 28 Blood Pressure [Right Arm] 138/63 Blood Pressure [Left Arm] 113/57 Blood Pressure 140/70 O2 Sat by Pulse Oximetry 85 Intake and Output: Intake & Output 12/23/20 12/24/20 12/25/20 12/26/20 23:59 23:59 23:59 23:59 Intake Total 1500 / 1500 830 / 830 1200 / 1200 360 / 360 Output Total 3850 / 3850 3550 / 3550 2500 / 2500 700 / 700 Balance -2350 / -2350 -2720 / -2720 -1300 / -1300 -340 / -340 Physical Exam Oriented: Normal Eyes: Normal Ear: Normal Nose: Normal Throat: Normal Respiratory: Right, Generalized, Diminished and Wheezes Cardiovascular: Normal; negative Edema Auscultation: Bowel Sounds: Normal Tenderness: Normal Skin: Normal Musculoskeletal: Normal Psychiatric: Normal Mood Description: Calm Affect: Normal Speech Pattern: Clear and Appropriate Laboratory and Diagnostics Result Diagrams: 12/26/20 04:36 12/26/20 04:36 Labs: 11/24/20 17:25 Blood Blood Culture - Final 11/24/20 17:25 Blood Blood Culture - Final 11/25/20 06:08 Sputum - Expectorated Sputum Sputum Culture - Final Pseudomonas Aeruginosa 11/25/20 06:08 Sputum - Expectorated Sputum - Final Laboratory WBC 14.1 X10^3/uL (3.6-10.0) H 12/26/20 04:36 RBC 5.63 X10^6/uL (4.7-6.0) 12/26/20 04:36 Hgb 16.2 g/dL (13.5-18.0) 12/26/20 04:36 Hct 47.3 % (42.0-54.0) 12/26/20 04:36 MCV 84.0 fL (80.0-100.0) 12/26/20 04:36 MCH 28.8 pg (27.0-34.0) 12/26/20 04:36 MCHC 34.2 g/dL (33.0-35.0) 12/26/20 04:36 RDW 14.6 % (11.6-16.5) 12/26/20 04:36 Plt Count 242 X10^3/uL (150.0-450.0) 12/26/20 04:36 Plt Count Comment Adequate (ADEQUATE) 12/23/20 07:59 MPV 7.9 fL (7.4-11.0) 12/26/20 04:36 Neut % (Auto) 88.5 % (42.0-75.0) H 12/26/20 04:36 Lymph % (Auto) 8.6 % (21.0-51.0) L 12/26/20 04:36 [place] % (Auto) 2.5 % (0.0-13.0) 12/26/20 04:36 Eos % (Auto) 0.2 % (0.9-2.9) L 12/26/20 04:36 Baso % (Auto) 0.2 % (0.2-1.0) 12/26/20 04:36 Neut # (Auto) 12.5 x10^3/uL (2.2-4.8) H 12/26/20 04:36 Lymph # (Auto) 1.2 X10^3/uL (1.3-2.9) L 12/26/20 04:36 [place] # (Auto) 0.4 x10^3/uL (0.3-0.8) 12/26/20 04:36 Eos # (Auto) 0.0 x10^3/uL (0.0-0.2) 12/26/20 04:36 Baso # (Auto) 0.0 X10^3/uL (0.0-0.1) 12/26/20 04:36 Absolute Nucleated RBC 0.1 /100WBC 12/26/20 04:36 Total Counted 100 12/23/20 07:59 Neutrophils % (Manual) 76 % (39-76) 12/23/20 07:59 Band Neutrophils % 5 % (0-10) 12/23/20 07:59 Lymphocytes % (Manual) 12 % (13-43) L 12/23/20 07:59 Monocytes % (Manual) 7 % (4-9) 12/23/20 07:59 Plt Morphology Comment Normal (NORMAL) 12/23/20 07:59 RBC Morphology Normal (NORMAL) 12/23/20 07:59 D-Dimer 0.34 ug/ml (0.0-0.57) 12/15/20 04:25 Sample Site Lb 12/18/20 10:15 ABG pH 7.480 (7.35-7.45) H 12/18/20 10:15 ABG pCO2 32.0 mmHg (35.0-45.0) L 12/18/20 10:15 ABG pO2 64.0 mmHg (80.0-100.0) L 12/18/20 10:15 ABG HCO3 23.8 mmol/L (22-26) 12/18/20 10:15 ABG O2 Saturation 94.0 % (90-100) 12/18/20 10:15 ABG Base Excess 0.9 mmol/L (-2.0-2.0) 12/18/20 10:15 Bernardo Test Na 12/18/20 10:15 A-a Gradient 559.0 mmHg 12/18/20 10:15 FiO2 93.0 12/18/20 10:15 Blood Gas Comments Pt galina well[facility] 12/18/20 10:15 Sodium 135 mmol/L (136-145) L 12/26/20 04:36 Corrected Sodium 139 mmol/L (136-145) 12/26/20 04:36 Potassium 4.5 mmol/L (3.5-5.1) 12/26/20 04:36 Chloride 101 mmol/L (98-107) 12/26/20 04:36 Carbon Dioxide 25.4 mmol/L (21-32) 12/26/20 04:36 BUN 32 mg/dL (7-18) H 12/26/20 04:36 Creatinine 0.81 mg/dL (0.70-1.30) 12/26/20 04:36 Est GFR (MDRD) Af Amer > 60 (>60) 12/26/20 04:36 Est GFR (MDRD) Non-Af > 60 (>60) 12/26/20 04:36 Glucose 258 mg/dL (65-99) H 12/26/20 04:36 POC Glucose (mg/dL) 261 mg/dL (65-99) H 12/25/20 19:19 Lactic Acid 2.0 mmol/L (0.4-2.0) 11/24/20 17:25 Calcium 8.4 mg/dL (8.5-10.1) L 12/26/20 04:36 Corrected Calcium 9.1 mg/dL (8.5-10.1) 12/26/20 04:36 Magnesium 2.0 mg/dL (1.7-2.9) 12/09/20 05:13 Total Bilirubin 1.40 mg/dL (0.2-1.0) H 12/26/20 04:36 AST 37 Units/L (15-37) 12/26/20 04:36 ALT 270 Units/L (12-78) H 12/26/20 04:36 Alkaline Phosphatase 121 Units/L (46-116) H 12/26/20 04:36 Creatine Kinase 79 Units/L (39-308) 11/24/20 17:25 CK-MB (CK-2) < 1.0 ng/mL (0-4.0) 11/24/20 17:25 CK/CKMB % Calc 1.3 % (<4) 11/24/20 17:25 Troponin I < 0.02 ng/mL (0-1.5) 11/24/20 17:25 C-Reactive Protein 0.60 mg/L (0-3.0) 12/26/20 04:36 B-Natriuretic Peptide 103 pg/mL (0-79) H 12/15/20 04:25 Total Protein 6.1 g/dL (6.4-8.2) L 12/26/20 04:36 Albumin 3.1 g/dL (3.4-5.0) L 12/26/20 04:36 Globulin 3.0 g/dL (2.5-4.5) 12/26/20 04:36 Albumin/Globulin Ratio 1.0 Ratio (1.1-2.1) L 12/26/20 04:36 Amylase 48 Units/L (25-115) 11/24/20 17:25 Lipase 220 Units/L (73-393) 11/24/20 17:25 Specimen Type Clean catch urine 11/24/20 18:16 Urine Color Yellow (YELLOW) 11/24/20 18:16 Urine Appearance Clear (CLEAR) 11/24/20 18:16 Urine pH 5.0 (5.0 - 8.0) 11/24/20 18:16 Ur Specific [place] 1.025 (1.000-1.030) 11/24/20 18:16 Urine Protein 3+ (NEGATIVE) 11/24/20 18:16 Urine Glucose (UA) 4+ (NEGATIVE) 11/24/20 18:16 Urine Ketones 1+ (NEGATIVE) 11/24/20 18:16 Urine Occult Blood Negative (NEGATIVE) 11/24/20 18:16 Urine Nitrite Negative (NEGATIVE) 11/24/20 18:16 Urine Bilirubin Negative (NEGATIVE) 11/24/20 18:16 Urine Urobilinogen Normal (NORMAL) 11/24/20 18:16 Ur Leukocyte Esterase Negative (NEGATIVE) 11/24/20 18:16 Urine RBC None seen /HPF (0-3) 11/24/20 18:16 Urine WBC None seen /HPF (0-5) 11/24/20 18:16 Ur Squamous Epith Cells Rare /HPF (NEGATIVE) 11/24/20 18:16 Urine Bacteria Negative /HPF (NEGATIVE) 11/24/20 18:16 Ur Culture Indicated? No/not indicated 11/24/20 18:16 Acetone, Semi-Quant Negative (NEGATIVE) 11/24/20 17:30 SARS-CoV-2 (PCR) Positive (NEGATIVE) A 11/24/20 20:17 Influenza Type A (PCR) Negative (NEGATIVE) 11/24/20 20:17 Influenza Type B (PCR) Negative (NEGATIVE) 11/24/20 20:17 RSV (PCR) Negative (NEGATIVE) 11/24/20 20:17 S. pyogenes (TEM-PCR) Not detected (NOT DETECT) 11/24/20 20:17 Plan (1) Transaminitis: Status: Acute (2) Oxygen dependent: Status: Acute (3) Acute respiratory failure with hypoxia: Status: Acute (4) Pseudomonal pneumonia: Status: Acute Qualifiers: Laterality: bilateral Lung location: unspecified part of lung Qualified Code(s): J15.1 - Pneumonia due to Pseudomonas (5) COVID-19 virus infection: Status: Acute (6) Pulmonary edema: Status: Acute Qualifiers: Chronicity: chronic Qualified Code(s): J81.1 - Chronic pulmonary edema (7) HTN (hypertension): Status: Acute Qualifiers: Hypertension type: essential hypertension Qualified Code(s): I10 - Essential (primary) hypertension (8) Hx of CABG: Status: Chronic (9) Diabetes: Status: Chronic Qualifiers: Diabetes mellitus complication status: without complication Diabetes mellitus senior care insulin use: without tank terminal gauger use Diabetes mellitus type: type 2 Qualified Code(s): E11.9 - Type 2 diabetes mellitus without complications (10) Anxiety: Status: Acute
[2020-12-26] MEDS: TUSSIONEX PENNKINETIC SUSP PO PRN (17:16)
[2020-12-26] MEDS: SNACK - Diabetic Appropriate PO SCH (20:40)
[2020-12-26] MEDS: COLACE CAP 100 MG PO SCH (20:40)
[2020-12-27] MEDS: TUSSIONEX PENNKINETIC SUSP PO PRN ×2 (01:15→22:01)
[2020-12-27] MEDS: RESTORIL CAP 15 MG PO PRN ×2 (01:15→22:03)
[2020-12-27] MEDS: HumuLIN R SUBCUT PRN ×4 (05:30→22:33)
[2020-12-27] MEDS: SOLU-Medrol 40 MG VIAL IVP SCH ×3 (05:45→22:00)
[2020-12-27] MEDS: APRESOLINE TAB 10 MG PO SCH (06:09)
[2020-12-27] MEDS: PULMICORT NEB TX 0.5 MG NEB SCH ×2 (09:13→20:25)
[2020-12-27] MEDS: DUONEB 0.5 MG/3 MG (3 mL) NEB SCH ×4 (09:13→20:25)
[2020-12-27] MEDS: FLONASE NASAL SPRAY ENOSTRIL SCH (09:22)
[2020-12-27] MEDS: ELIQUIS PO SCH ×2 (09:22→22:03)
[2020-12-27] MEDS: INVOKANA PO SCH (09:22)
[2020-12-27] MEDS: COZAAR PO SCH (09:22)
[2020-12-27] MEDS: BUSPAR PO SCH ×2 (09:22→22:02)
[2020-12-27] MEDS: COREG TAB 12.5 MG PO SCH ×2 (09:22→22:02)
[2020-12-27] MEDS: VITAMIN C PO SCH (09:23)
[2020-12-27] MEDS: PEPCID TAB 40 MG PO SCH ×2 (09:23→22:02)
[2020-12-27] MEDS: VITAMIN A PO SCH (09:23)
[2020-12-27] MEDS: PROTONIX TAB 40 MG PO SCH (09:23)
[2020-12-27] MEDS: MILK OF MAGNESIA PO SCH (09:23)
[2020-12-27] MEDS: ROBITUSSIN DM PO SCH ×4 (09:23→22:01)
[2020-12-27] MEDS: ISOSORBIDE MONONITRATE ER 24-HR PO SCH (09:23)
[2020-12-27] MEDS: ZyrTEC TAB 10 MG PO SCH (09:24)
[2020-12-27] MEDS: ZINC SULFATE PO SCH ×2 (09:24→22:03)
[2020-12-27] MEDS: VITAMIN D3 125 mcg (5,000 UNITS) PO SCH (09:24)
[2020-12-27] MEDS: VSL#3 PO SCH (09:24)
[2020-12-27] MEDS: ATIVAN TAB 0.5 MG PO PRN (09:26)
--- NOTE | 2020-12-27 11:46 | PCM.PROG ---
Progress Note Progress Note for Day of Date of Exam: 12/27/20 Subjective Subjective: Patient seen at bedside, no acute events overnight. Patient wore the CPAP for a little bit. He states he had an episode of increased anxiety last night where he felt worse. He did work with PT/OT yesterday and did several exercises for both upper and lower ext while in bed. He was not able to sit on the EOB or in the recliner due to sats dropping into the 70s. He reports cough loosening up a bit today. He feels better with using CPAP at night. He is currently on HHFNC FiO2 90%, sats were 92% as I walked in with patient asleep and dropped to mid 80s with exam and conversation. Plan: Continue Buspar for anxiety, will add ativan prn for panic episode as needed. Discussed to sit in the recliner today, patient's bed can be adjusted as a recliner. Continue PT/OT as tolerated. Continue CPAP at bedtime. Wean HHFNC as tolerated to keep sats above 88%. Continue solumedrol. Continue current treatment with aggressive pulmonary toilet including nebs, pulmicort, mucomyst, smart vest and IS. Patient has completed course with Remdesivir, IV antibiotics including Zosyn, Fortaz and Cipr ofloxacin. He also received 2 doses of Actemra. Continue Encouraged ambulation from chair to bed as tolerated. No andreea beds available at [facility]. Patient not able to afford stay due to being self pay. Continue Eliquis. Continue vitamin support. Monitor AM labs and imaging. Time spent for clinical assessment, reviewing labs and imaging, physical exam, decision making and documentation greater than 75 mins. Past Medical Family Social History Past Med/Fam/Surg Hx: No changes since H&P Allergies: Allergies No Known Drug Allergies Allergy (Verified 11/24/20 20:28) Review of Systems ROS: No change since H&P Vital Signs and I&O's Vital Signs: Temperature 98.2 F Pulse Rate [Left] 65 Pulse Rate [Left Brachial] 60 Pulse Rate 93 Respiratory Rate 25 Blood Pressure [Right Arm] 138/63 Blood Pressure [Left Arm] 113/57 Blood Pressure 130/71 O2 Sat by Pulse Oximetry 85 Intake and Output: Intake & Output 12/24/20 12/25/20 12/26/20 12/27/20 23:59 23:59 23:59 23:59 Intake Total 830 / 830 1200 / 1200 1255 / 1255 Output Total 3550 / 3550 2500 / 2500 2074 / 2074 375 / 375 Balance -2720 / -2720 -1300 / -1300 -820 / -820 -375 / -375 Physical Exam Oriented: Normal Eyes: Normal Ear: Normal Nose: Normal Throat: Normal Respiratory: Generalized and Diminished Cardiovascular: Normal; negative Edema Auscultation: Bowel Sounds: Normal Tenderness: Normal Skin: Normal Musculoskeletal: Normal Psychiatric: Normal Mood Description: Calm Affect: Normal Speech Pattern: Clear and Appropriate Laboratory and Diagnostics Result Diagrams: 12/26/20 04:36 12/26/20 04:36 Labs: 11/24/20 17:25 Blood Blood Culture - Final 11/24/20 17:25 Blood Blood Culture - Final 11/25/20 06:08 Sputum - Expectorated Sputum Sputum Culture - Final Pseudomonas Aeruginosa 11/25/20 06:08 Sputum - Expectorated Sputum - Final Laboratory WBC 14.1 X10^3/uL (3.6-10.0) H 12/26/20 04:36 RBC 5.63 X10^6/uL (4.7-6.0) 12/26/20 04:36 Hgb 16.2 g/dL (13.5-18.0) 12/26/20 04:36 Hct 47.3 % (42.0-54.0) 12/26/20 04:36 MCV 84.0 fL (80.0-100.0) 12/26/20 04:36 MCH 28.8 pg (27.0-34.0) 12/26/20 04:36 MCHC 34.2 g/dL (33.0-35.0) 12/26/20 04:36 RDW 14.6 % (11.6-16.5) 12/26/20 04:36 Plt Count 242 X10^3/uL (150.0-450.0) 12/26/20 04:36 Plt Count Comment Adequate (ADEQUATE) 12/23/20 07:59 MPV 7.9 fL (7.4-11.0) 12/26/20 04:36 Neut % (Auto) 88.5 % (42.0-75.0) H 12/26/20 04:36 Lymph % (Auto) 8.6 % (21.0-51.0) L 12/26/20 04:36 [place] % (Auto) 2.5 % (0.0-13.0) 12/26/20 04:36 Eos % (Auto) 0.2 % (0.9-2.9) L 12/26/20 04:36 Baso % (Auto) 0.2 % (0.2-1.0) 12/26/20 04:36 Neut # (Auto) 12.5 x10^3/uL (2.2-4.8) H 12/26/20 04:36 Lymph # (Auto) 1.2 X10^3/uL (1.3-2.9) L 12/26/20 04:36 [place] # (Auto) 0.4 x10^3/uL (0.3-0.8) 12/26/20 04:36 Eos # (Auto) 0.0 x10^3/uL (0.0-0.2) 12/26/20 04:36 Baso # (Auto) 0.0 X10^3/uL (0.0-0.1) 12/26/20 04:36 Absolute Nucleated RBC 0.1 /100WBC 12/26/20 04:36 Total Counted 100 12/23/20 07:59 Neutrophils % (Manual) 76 % (39-76) 12/23/20 07:59 Band Neutrophils % 5 % (0-10) 12/23/20 07:59 Lymphocytes % (Manual) 12 % (13-43) L 12/23/20 07:59 Monocytes % (Manual) 7 % (4-9) 12/23/20 07:59 Plt Morphology Comment Normal (NORMAL) 12/23/20 07:59 RBC Morphology Normal (NORMAL) 12/23/20 07:59 D-Dimer 0.34 ug/ml (0.0-0.57) 12/15/20 04:25 Sample Site Lb 12/18/20 10:15 ABG pH 7.480 (7.35-7.45) H 12/18/20 10:15 ABG pCO2 32.0 mmHg (35.0-45.0) L 12/18/20 10:15 ABG pO2 64.0 mmHg (80.0-100.0) L 12/18/20 10:15 ABG HCO3 23.8 mmol/L (22-26) 12/18/20 10:15 ABG O2 Saturation 94.0 % (90-100) 12/18/20 10:15 ABG Base Excess 0.9 mmol/L (-2.0-2.0) 12/18/20 10:15 Bernardo Test Na 12/18/20 10:15 A-a Gradient 559.0 mmHg 12/18/20 10:15 FiO2 93.0 12/18/20 10:15 Blood Gas Comments Pt [facility] 12/18/20 10:15 Sodium 135 mmol/L (136-145) L 12/26/20 04:36 Corrected Sodium 139 mmol/L (136-145) 12/26/20 04:36 Potassium 4.5 mmol/L (3.5-5.1) 12/26/20 04:36 Chloride 101 mmol/L (98-107) 12/26/20 04:36 Carbon Dioxide 25.4 mmol/L (21-32) 12/26/20 04:36 BUN 32 mg/dL (7-18) H 12/26/20 04:36 Creatinine 0.81 mg/dL (0.70-1.30) 12/26/20 04:36 Est GFR (MDRD) Af Amer > 60 (>60) 12/26/20 04:36 Est GFR (MDRD) Non-Af > 60 (>60) 12/26/20 04:36 Glucose 258 mg/dL (65-99) H 12/26/20 04:36 POC Glucose (mg/dL) 252 mg/dL (65-99) H 12/27/20 11:37 Lactic Acid 2.0 mmol/L (0.4-2.0) 11/24/20 17:25 Calcium 8.4 mg/dL (8.5-10.1) L 12/26/20 04:36 Corrected Calcium 9.1 mg/dL (8.5-10.1) 12/26/20 04:36 Magnesium 2.0 mg/dL (1.7-2.9) 12/09/20 05:13 Total Bilirubin 1.40 mg/dL (0.2-1.0) H 12/26/20 04:36 AST 37 Units/L (15-37) 12/26/20 04:36 ALT 270 Units/L (12-78) H 12/26/20 04:36 Alkaline Phosphatase 121 Units/L (46-116) H 12/26/20 04:36 Creatine Kinase 79 Units/L (39-308) 11/24/20 17:25 CK-MB (CK-2) < 1.0 ng/mL (0-4.0) 11/24/20 17:25 CK/CKMB % Calc 1.3 % (<4) 11/24/20 17:25 Troponin I < 0.02 ng/mL (0-1.5) 11/24/20 17:25 C-Reactive Protein 0.60 mg/L (0-3.0) 12/26/20 04:36 B-Natriuretic Peptide 103 pg/mL (0-79) H 12/15/20 04:25 Total Protein 6.1 g/dL (6.4-8.2) L 12/26/20 04:36 Albumin 3.1 g/dL (3.4-5.0) L 12/26/20 04:36 Globulin 3.0 g/dL (2.5-4.5) 12/26/20 04:36 Albumin/Globulin Ratio 1.0 Ratio (1.1-2.1) L 12/26/20 04:36 Amylase 48 Units/L (25-115) 11/24/20 17:25 Lipase 220 Units/L (73-393) 11/24/20 17:25 Specimen Type Clean catch urine 11/24/20 18:16 Urine Color Yellow (YELLOW) 11/24/20 18:16 Urine Appearance Clear (CLEAR) 11/24/20 18:16 Urine pH 5.0 (5.0 - 8.0) 11/24/20 18:16 Ur Specific [place] 1.025 (1.000-1.030) 11/24/20 18:16 Urine Protein 3+ (NEGATIVE) 11/24/20 18:16 Urine Glucose (UA) 4+ (NEGATIVE) 11/24/20 18:16 Urine Ketones 1+ (NEGATIVE) 11/24/20 18:16 Urine Occult Blood Negative (NEGATIVE) 11/24/20 18:16 Urine Nitrite Negative (NEGATIVE) 11/24/20 18:16 Urine Bilirubin Negative (NEGATIVE) 11/24/20 18:16 Urine Urobilinogen Normal (NORMAL) 11/24/20 18:16 Ur Leukocyte Esterase Negative (NEGATIVE) 11/24/20 18:16 Urine RBC None seen /HPF (0-3) 11/24/20 18:16 Urine WBC None seen /HPF (0-5) 11/24/20 18:16 Ur Squamous Epith Cells Rare /HPF (NEGATIVE) 11/24/20 18:16 Urine Bacteria Negative /HPF (NEGATIVE) 11/24/20 18:16 Ur Culture Indicated? No/not indicated 11/24/20 18:16 Acetone, Semi-Quant Negative (NEGATIVE) 11/24/20 17:30 SARS-CoV-2 (PCR) Positive (NEGATIVE) A 11/24/20 20:17 Influenza Type A (PCR) Negative (NEGATIVE) 11/24/20 20:17 Influenza Type B (PCR) Negative (NEGATIVE) 11/24/20 20:17 RSV (PCR) Negative (NEGATIVE) 11/24/20 20:17 S. pyogenes (TEM-PCR) Not detected (NOT DETECT) 11/24/20 20:17 Plan (1) Transaminitis: Status: Acute (2) Oxygen dependent: Status: Acute (3) Acute respiratory failure with hypoxia: Status: Acute (4) Pseudomonal pneumonia: Status: Acute Qualifiers: Laterality: bilateral Lung location: unspecified part of lung Qualified Code(s): J15.1 - Pneumonia due to Pseudomonas (5) COVID-19 virus infection: Status: Acute (6) Pulmonary edema: Status: Acute Qualifiers: Chronicity: chronic Qualified Code(s): J81.1 - Chronic pulmonary edema (7) HTN (hypertension): Status: Acute Qualifiers: Hypertension type: essential hypertension Qualified Code(s): I10 - Essential (primary) hypertension (8) Hx of CABG: Status: Chronic (9) Diabetes: Status: Chronic Qualifiers: Diabetes mellitus complication status: without complication Diabetes mellitus emt intermediate insulin use: without fci use Diabetes mellitus type: type 2 Qualified Code(s): E11.9 - Type 2 diabetes mellitus without complications (10) Anxiety: Status: Acute
[2020-12-27] MEDS: SNACK - Diabetic Appropriate PO SCH (19:38)
[2020-12-27] MEDS: COLACE CAP 100 MG PO SCH (22:02)
[2020-12-28 05:16] LABS: ABG BASE EXCESS -1.4 mmol/L (-2.0-2.0); ABG HCO3 22.8 mmol/L (22-26)
[2020-12-28 05:17] LABS: ABG ALLEN TEST POS
[2020-12-28 06:17] LABS: BASOPHILS % (AUTO) 0.2 % (0.2-1.0); EOSINOPHILS % (AUTO) 0.1 % (0.9-2.9); HEMOGLOBIN 15.2 g/dL (13.5-18.0); LYMPHOCYTES # (AUTO) 0.9 X10^3/uL (1.3-2.9); LYMPHOCYTES % (AUTO) 5.7 % (21.0-51.0); MEAN CORPUSCULAR HEMOGLOBIN 28.8 pg (27.0-34.0); MEAN CORPUSCULAR HGB CONC 33.7 g/dL (33.0-35.0); MEAN CORPUSCULAR VOLUME 85.6 fL (80.0-100.0); MONOCYTES # (AUTO) 0.4 x10^3/uL (0.3-0.8); MONOCYTES % (AUTO) 2.3 % (0.0-13.0); NEUTROPHILS # (AUTO) 14.4 x10^3/uL (2.2-4.8); NEUTROPHILS % (AUTO) 91.7 % (42.0-75.0); PLATELET COUNT 178 X10^3/uL (150.0-450.0); RED BLOOD COUNT 5.26 X10^6/uL (4.7-6.0); RED CELL DISTRIBUTION WIDTH 14.4 % (11.6-16.5); WHITE BLOOD COUNT 15.7 X10^3/uL (3.6-10.0)
[2020-12-28 06:20] LABS: ALANINE AMINOTRANSFERASE 476 Units/L (12-78); ALBUMIN 2.9 g/dL (3.4-5.0); ALKALINE PHOSPHATASE 123 Units/L (46-116); ASPARTATE AMINO TRANSFERASE 109 Units/L (15-37); BLOOD UREA NITROGEN 42 mg/dL (7-18); CHLORIDE 100 mmol/L (98-107); COR CA(FOR HYPOALB) 8.9 mg/dL (8.5-10.1); COR NA(FOR HYPERGLY) 138 mmol/L (136-145); CREATININE 0.78 mg/dL (0.70-1.30); SODIUM 134 mmol/L (136-145); TOTAL PROTEIN 5.6 g/dL (6.4-8.2); eGFR NON BLACK RACES > 60 (>60)
[2020-12-28] MEDS: SOLU-Medrol 40 MG VIAL IVP SCH ×3 (06:38→21:04)
[2020-12-28] MEDS: HumuLIN R SUBCUT PRN ×4 (06:39→20:55)
[2020-12-28 07:28] LABS: BAND NEUTROPHILS % 7 % (0-10)
[2020-12-28 07:29] LABS: PLATELET MORPHOLOGY COMMENT NORMAL (NORMAL)
[2020-12-28] MEDS: PULMICORT NEB TX 0.5 MG NEB SCH ×2 (09:17→20:50)
[2020-12-28] MEDS: DUONEB 0.5 MG/3 MG (3 mL) NEB SCH ×4 (09:17→20:50)
[2020-12-28] MEDS: BUSPAR PO SCH ×2 (10:54→20:51)
[2020-12-28] MEDS: COREG TAB 12.5 MG PO SCH ×2 (10:54→20:53)
[2020-12-28] MEDS: COZAAR PO SCH (10:55)
[2020-12-28] MEDS: ELIQUIS PO SCH ×2 (10:55→20:53)
[2020-12-28] MEDS: FLONASE NASAL SPRAY ENOSTRIL SCH (10:55)
[2020-12-28] MEDS: INVOKANA PO SCH (10:55)
[2020-12-28] MEDS: ISOSORBIDE MONONITRATE ER 24-HR PO SCH (10:55)
[2020-12-28] MEDS: PEPCID TAB 40 MG PO SCH ×2 (10:56→20:54)
[2020-12-28] MEDS: MILK OF MAGNESIA PO SCH (10:56)
[2020-12-28] MEDS: ROBITUSSIN DM PO SCH ×4 (10:56→20:54)
[2020-12-28] MEDS: VITAMIN A PO SCH (10:56)
[2020-12-28] MEDS: PROTONIX TAB 40 MG PO SCH (10:56)
[2020-12-28] MEDS: VITAMIN D3 125 mcg (5,000 UNITS) PO SCH (10:57)
[2020-12-28] MEDS: VSL#3 PO SCH (10:57)
[2020-12-28] MEDS: VITAMIN C PO SCH (10:57)
[2020-12-28] MEDS: ZINC SULFATE PO SCH ×2 (10:57→20:54)
[2020-12-28] MEDS: ZyrTEC TAB 10 MG PO SCH (10:57)
--- NOTE | 2020-12-28 12:17 | RAD ---
HISTORYFollow-up COVID-19STUDYChest AP [id number] is status post median sternotomy and CABG. Hypo inflation accentuates the heart size. It is likely normal. Interstitial infiltrates are again identified bilat erally. Peripheral ground-glass infiltrates are present in the right upper lobe no pleural effusions are identified. Bony thorax is unremarkable.IMPRESSIONNo change bilateral interstitial infiltratesNo change hypo inflationNo change peripheral ground-glass infiltrates right upper lobeElectronically sig juvencio by: HENNY BASURTO (Dec 28, 2020 12:15:59)
[2020-12-28] MEDS: SNACK - Diabetic Appropriate PO SCH (20:48)
[2020-12-28] MEDS: COLACE CAP 100 MG PO SCH (20:53)
[2020-12-28] MEDS: RESTORIL CAP 15 MG PO PRN (20:55)
[2020-12-28] MEDS: TUSSIONEX PENNKINETIC SUSP PO PRN (20:55)
[2020-12-29 05:00] LABS: BASOPHILS # (AUTO) 0.1 X10^3/uL (0.0-0.1); BASOPHILS % (AUTO) 0.9 % (0.2-1.0); EOSINOPHILS % (AUTO) 0.1 % (0.9-2.9); HEMATOCRIT 43.7 % (42.0-54.0); LYMPHOCYTES # (AUTO) 0.9 X10^3/uL (1.3-2.9); LYMPHOCYTES % (AUTO) 6.8 % (21.0-51.0); MEAN CORPUSCULAR HGB CONC 34.2 g/dL (33.0-35.0); MEAN CORPUSCULAR VOLUME 84.8 fL (80.0-100.0); MONOCYTES # (AUTO) 0.3 x10^3/uL (0.3-0.8); MONOCYTES % (AUTO) 1.9 % (0.0-13.0); NEUTROPHILS # (AUTO) 12.2 x10^3/uL (2.2-4.8); NEUTROPHILS % (AUTO) 90.3 % (42.0-75.0); PLATELET COUNT 151 X10^3/uL (150.0-450.0); RED BLOOD COUNT 5.16 X10^6/uL (4.7-6.0); RED CELL DISTRIBUTION WIDTH 14.3 % (11.6-16.5); WHITE BLOOD COUNT 13.5 X10^3/uL (3.6-10.0)
[2020-12-29 05:17] LABS: ALANINE AMINOTRANSFERASE 504 Units/L (12-78); ALKALINE PHOSPHATASE 123 Units/L (46-116); ASPARTATE AMINO TRANSFERASE 81 Units/L (15-37); BLOOD UREA NITROGEN 35 mg/dL (7-18); CALCIUM 8.1 mg/dL (8.5-10.1); CARBON DIOXIDE 25.9 mmol/L (21-32); CHLORIDE 100 mmol/L (98-107); COR CA(FOR HYPOALB) 8.9 mg/dL (8.5-10.1); COR NA(FOR HYPERGLY) 136 mmol/L (136-145); CREATININE 0.71 mg/dL (0.70-1.30); SODIUM 134 mmol/L (136-145); TOTAL PROTEIN 5.7 g/dL (6.4-8.2); eGFR NON BLACK RACES > 60 (>60)
[2020-12-29 05:25] LABS: PLATELET MORPHOLOGY COMMENT NORMAL (NORMAL)
[2020-12-29] MEDS: HumuLIN R SUBCUT PRN ×4 (06:33→21:00)
[2020-12-29] MEDS: SOLU-Medrol 40 MG VIAL IVP SCH ×3 (06:33→21:00)
[2020-12-29] MEDS: BUSPAR PO SCH ×2 (08:34→21:00)
[2020-12-29] MEDS: COZAAR PO SCH (08:34)
[2020-12-29] MEDS: ELIQUIS PO SCH ×2 (08:34→21:00)
[2020-12-29] MEDS: COREG TAB 12.5 MG PO SCH ×2 (08:34→21:00)
[2020-12-29] MEDS: FLONASE NASAL SPRAY ENOSTRIL SCH (08:35)
[2020-12-29] MEDS: MILK OF MAGNESIA PO SCH (08:35)
[2020-12-29] MEDS: INVOKANA PO SCH (08:35)
[2020-12-29] MEDS: ISOSORBIDE MONONITRATE ER 24-HR PO SCH (08:35)
[2020-12-29] MEDS: VITAMIN C PO SCH (08:36)
[2020-12-29] MEDS: PROTONIX TAB 40 MG PO SCH (08:36)
[2020-12-29] MEDS: VITAMIN D3 125 mcg (5,000 UNITS) PO SCH (08:36)
[2020-12-29] MEDS: PEPCID TAB 40 MG PO SCH ×2 (08:36→21:00)
[2020-12-29] MEDS: VITAMIN A PO SCH (08:36)
[2020-12-29] MEDS: VSL#3 PO SCH (08:36)
[2020-12-29] MEDS: ROBITUSSIN DM PO SCH ×3 (08:36→17:26)
[2020-12-29] MEDS: ZyrTEC TAB 10 MG PO SCH (08:37)
[2020-12-29] MEDS: ZINC SULFATE PO SCH ×2 (08:37→21:00)
[2020-12-29] MEDS: DUONEB 0.5 MG/3 MG (3 mL) NEB SCH ×4 (08:51→21:10)
[2020-12-29] MEDS: PULMICORT NEB TX 0.5 MG NEB SCH ×2 (08:51→21:10)
[2020-12-29] MEDS: TUSSIONEX PENNKINETIC SUSP PO PRN (09:00)
[2020-12-29] MEDS: SNACK - Diabetic Appropriate PO SCH (20:00)
[2020-12-29] MEDS: COLACE CAP 100 MG PO SCH (21:00)
[2020-12-30] MEDS ORDERED: TYLENOL 325 MG TAB PO PRN (00:01)
[2020-12-30] MEDS ORDERED: TYLENOL 325 MG TAB PO ONE (00:15)
[2020-12-30] MEDS: SOLU-Medrol 40 MG VIAL IVP SCH ×3 (06:09→21:00)
[2020-12-30] MEDS: HumuLIN R SUBCUT PRN ×4 (06:10→21:00)
[2020-12-30] MEDS: PULMICORT NEB TX 0.5 MG NEB SCH ×2 (08:51→20:37)
[2020-12-30] MEDS: DUONEB 0.5 MG/3 MG (3 mL) NEB SCH ×4 (08:51→20:37)
[2020-12-30] MEDS: TUSSIONEX PENNKINETIC SUSP PO PRN ×2 (09:00→21:00)
--- NOTE | 2020-12-30 09:23 | PCM.PROG ---
Progress Note Progress Note for Day of Date of Exam: 12/30/20 Subjective Subjective: Patient seen at bedside, no acute events overnight. Patient states he did not sleep well last night. His son called him last night and told his his dog had so patient was up all night. he states he did feel better over the weekend. He worked with PT and has been doing more and more each day. He did sit on the side of the bed for a couple mins but his sats dropped. He remains on HHFNC at 87%. His CXR is stable with no changes. His ABG did show improved pO2. He still has dry cough. He has been using the smart vest and IS. He did not wear CPAP for the last few nights. His appetite is normal, denies N/V/D or abdominal pain. Labs: Hgb 15 WBC 13.5 AST:81 ALT:504 Plan: Continue Buspar for anxiety, ativan prn for panic episode as needed. Discussed to sit in the recliner today. Continue PT/OT as tolerated. Continue CPAP at bedtime. Wean HHFNC as tolerated to keep sats above 88%.Continue solumedrol. Continue current treatment with aggressive pulmonary toilet includi ng nebs, pulmicort, mucomyst, smart vest and IS. Patient has completed course with Remdesivir, IV antibiotics including Zosyn, Fortaz and Ciprofloxacin. He also received 2 doses of Actemra. Continue Encouraged ambulation from chair to bed as tolerated. No andreea beds available at [facility]. Patient not able to afford stay due to being self pay. Continue Eliquis. Continue vitamin support. Monitor AM labs and imaging. Time spent for clinical assessment, reviewing labs and imaging, physical exam, d ecision making and documentation greater than 75 mins. Past Medical Family Social History Past Med/Fam/Surg Hx: No changes since H&P Allergies: Allergies No Known Drug Allergies Allergy (Verified 11/24/20 20:28) Review of Systems ROS: No change since H&P Vital Signs and I&O's Vital Signs: Temperature 97.0 F Pulse Rate [Left] 65 Pulse Rate [Left Brachial] 60 Pulse Rate 65 Respiratory Rate 27 Blood Pressure [Right Arm] 138/63 Blood Pressure [Left Arm] 113/57 Blood Pressure 130/59 O2 Sat by Pulse Oximetry 89 Intake and Output: Intake & Output 12/27/20 12/28/20 12/29/20 12/30/20 23:59 23:59 23:59 23:59 Intake Total 1270 / 1270 2180 / 2180 2830 / 2830 490 / 490 Output Total 2775 / 2775 2425 / 2425 3125 / 3125 850 / 850 Balance -1505 / -1505 -245 / -245 -295 / -295 -360 / -360 Physical Exam Oriented: Normal Eyes: Normal Ear: Normal Nose: Normal Throat: Normal Respiratory: Generalized and Diminished Cardiovascular: Normal; negative Edema Auscultation: Bowel Sounds: Normal Tenderness: Normal Skin: Normal Musculoskeletal: Normal Psychiatric: Normal Mood Description: Calm Affect: Normal Speech Pattern: Clear and Appropriate Laboratory and Diagnostics Result Diagrams: 12/29/20 04:30 12/29/20 04:30 Labs: 11/24/20 17:25 Blood Blood Culture - Final 11/24/20 17:25 Blood Blood Culture - Final 11/25/20 06:08 Sputum - Expectorated Sputum Sputum Culture - Final Pseudomonas Aeruginosa 11/25/20 06:08 Sputum - Expectorated Sputum - Final Laboratory WBC 13.5 X10^3/uL (3.6-10.0) H 12/29/20 04:30 RBC 5.16 X10^6/uL (4.7-6.0) 12/29/20 04:30 Hgb 15.0 g/dL (13.5-18.0) 12/29/20 04:30 Hct 43.7 % (42.0-54.0) 12/29/20 04:30 MCV 84.8 fL (80.0-100.0) 12/29/20 04:30 MCH 29.0 pg (27.0-34.0) 12/29/20 04:30 MCHC 34.2 g/dL (33.0-35.0) 12/29/20 04:30 RDW 14.3 % (11.6-16.5) 12/29/20 04:30 Plt Count 151 X10^3/uL (150.0-450.0) 12/29/20 04:30 Plt Count Comment Adequate (ADEQUATE) 12/29/20 04:30 MPV 8.0 fL (7.4-11.0) 12/29/20 04:30 Neut % (Auto) 90.3 % (42.0-75.0) H 12/29/20 04:30 Lymph % (Auto) 6.8 % (21.0-51.0) L 12/29/20 04:30 [place] % (Auto) 1.9 % (0.0-13.0) 12/29/20 04:30 Eos % (Auto) 0.1 % (0.9-2.9) L 12/29/20 04:30 Baso % (Auto) 0.9 % (0.2-1.0) 12/29/20 04:30 Neut # (Auto) 12.2 x10^3/uL (2.2-4.8) H 12/29/20 04:30 Lymph # (Auto) 0.9 X10^3/uL (1.3-2.9) L 12/29/20 04:30 [place] # (Auto) 0.3 x10^3/uL (0.3-0.8) 12/29/20 04:30 Eos # (Auto) 0.0 x10^3/uL (0.0-0.2) 12/29/20 04:30 Baso # (Auto) 0.1 X10^3/uL (0.0-0.1) 12/29/20 04:30 Absolute Nucleated RBC 0.0 /100WBC 12/29/20 04:30 Total Counted 100 12/29/20 04:30 Neutrophils % (Manual) 92 % (39-76) H 12/29/20 04:30 Band Neutrophils % 7 % (0-10) 12/28/20 04:45 Lymphocytes % (Manual) 7 % (13-43) L 12/29/20 04:30 Monocytes % (Manual) 1 % (4-9) L 12/29/20 04:30 Plt Morphology Comment Normal (NORMAL) 12/29/20 04:30 RBC Morphology Normal (NORMAL) 12/29/20 04:30 D-Dimer 0.34 ug/ml (0.0-0.57) 12/15/20 04:25 Sample Site Lr 12/28/20 05:10 ABG pH 7.410 (7.35-7.45) 12/28/20 05:10 ABG pCO2 36.0 mmHg (35.0-45.0) 12/28/20 05:10 ABG pO2 66.0 mmHg (80.0-100.0) L 12/28/20 05:10 ABG HCO3 22.8 mmol/L (22-26) 12/28/20 05:10 ABG O2 Saturation 93.0 % (90-100) 12/28/20 05:10 ABG Base Excess -1.4 mmol/L (-2.0-2.0) 12/28/20 05:10 Bernardo Test Pos 12/28/20 05:10 A-a Gradient 516.0 mmHg 12/28/20 05:10 FiO2 88.0 12/28/20 05:10 Blood Gas Comments Kandy well ae 12/28/20 05:10 Sodium 134 mmol/L (136-145) L 12/29/20 04:30 Corrected Sodium 136 mmol/L (136-145) 12/29/20 04:30 Potassium 4.9 mmol/L (3.5-5.1) 12/29/20 04:30 Chloride 100 mmol/L (98-107) 12/29/20 04:30 Carbon Dioxide 25.9 mmol/L (21-32) 12/29/20 04:30 BUN 35 mg/dL (7-18) H 12/29/20 04:30 Creatinine 0.71 mg/dL (0.70-1.30) 12/29/20 04:30 Est GFR (MDRD) Af Amer > 60 (>60) 12/29/20 04:30 Est GFR (MDRD) Non-Af > 60 (>60) 12/29/20 04:30 Glucose 202 mg/dL (65-99) H 12/29/20 04:30 POC Glucose (mg/dL) 232 mg/dL (65-99) H 12/30/20 05:36 Lactic Acid 2.0 mmol/L (0.4-2.0) 11/24/20 17:25 Calcium 8.1 mg/dL (8.5-10.1) L 12/29/20 04:30 Corrected Calcium 8.9 mg/dL (8.5-10.1) 12/29/20 04:30 Magnesium 2.0 mg/dL (1.7-2.9) 12/09/20 05:13 Total Bilirubin 1.50 mg/dL (0.2-1.0) H 12/29/20 04:30 AST 81 Units/L (15-37) H 12/29/20 04:30 ALT 504 Units/L (12-78) H 12/29/20 04:30 Alkaline Phosphatase 123 Units/L (46-116) H 12/29/20 04:30 Creatine Kinase 79 Units/L (39-308) 11/24/20 17:25 CK-MB (CK-2) < 1.0 ng/mL (0-4.0) 11/24/20 17:25 CK/CKMB % Calc 1.3 % (<4) 11/24/20 17:25 Troponin I < 0.02 ng/mL (0-1.5) 11/24/20 17:25 C-Reactive Protein 0.60 mg/L (0-3.0) 12/26/20 04:36 B-Natriuretic Peptide 103 pg/mL (0-79) H 12/15/20 04:25 Total Protein 5.7 g/dL (6.4-8.2) L 12/29/20 04:30 Albumin 3.0 g/dL (3.4-5.0) L 12/29/20 04:30 Globulin 2.7 g/dL (2.5-4.5) 12/29/20 04:30 Albumin/Globulin Ratio 1.1 Ratio (1.1-2.1) 12/29/20 04:30 Amylase 48 Units/L (25-115) 11/24/20 17:25 Lipase 220 Units/L (73-393) 11/24/20 17:25 Specimen Type Clean catch urine 11/24/20 18:16 Urine Color Yellow (YELLOW) 11/24/20 18:16 Urine Appearance Clear (CLEAR) 11/24/20 18:16 Urine pH 5.0 (5.0 - 8.0) 11/24/20 18:16 Ur Specific [place] 1.025 (1.000-1.030) 11/24/20 18:16 Urine Protein 3+ (NEGATIVE) 11/24/20 18:16 Urine Glucose (UA) 4+ (NEGATIVE) 11/24/20 18:16 Urine Ketones 1+ (NEGATIVE) 11/24/20 18:16 Urine Occult Blood Negative (NEGATIVE) 11/24/20 18:16 Urine Nitrite Negative (NEGATIVE) 11/24/20 18:16 Urine Bilirubin Negative (NEGATIVE) 11/24/20 18:16 Urine Urobilinogen Normal (NORMAL) 11/24/20 18:16 Ur Leukocyte Esterase Negative (NEGATIVE) 11/24/20 18:16 Urine RBC None seen /HPF (0-3) 11/24/20 18:16 Urine WBC None seen /HPF (0-5) 11/24/20 18:16 Ur Squamous Epith Cells Rare /HPF (NEGATIVE) 11/24/20 18:16 Urine Bacteria Negative /HPF (NEGATIVE) 11/24/20 18:16 Ur Culture Indicated? No/not indicated 11/24/20 18:16 Acetone, Semi-Quant Negative (NEGATIVE) 11/24/20 17:30 SARS-CoV-2 (PCR) Positive (NEGATIVE) A 11/24/20 20:17 Influenza Type A (PCR) Negative (NEGATIVE) 11/24/20 20:17 Influenza Type B (PCR) Negative (NEGATIVE) 11/24/20 20:17 RSV (PCR) Negative (NEGATIVE) 11/24/20 20:17 S. pyogenes (TEM-PCR) Not detected (NOT DETECT) 11/24/20 20:17 Plan (1) Acute respiratory failure with hypoxia: Status: Acute Plan: Improving slowly; wean oxygen as tolerated. (2) Transaminitis: Status: Acute (3) Oxygen dependent: Status: Acute (4) Pseudomonal pneumonia: Status: Acute Qualifiers: Laterality: bilateral Lung location: unspecified part of lung Qualified Code(s): J15.1 - Pneumonia due to Pseudomonas (5) COVID-19 virus infection: Status: Acute Plan: Still hypoxic and sob; unable to wean oxygen; repeat cxr; continue current mgmt. (6) Pulmonary edema: Status: Acute Qualifiers: Chronicity: chronic Qualified Code(s): J81.1 - Chronic pulmonary edema (7) HTN (hypertension): Status: Acute Qualifiers: Hypertension type: essential hypertension Qualified Code(s): I10 - Essential (primary) hypertension Plan: Remains elevated; increase apresoline and follow. (8) Hx of CABG: Status: Chronic (9) Diabetes: Status: Chronic Qualifiers: Diabetes mellitus complication status: without complication Diabetes mellitus bed bug exterminator insulin use: without bed bug exterminator use Diabetes mellitus type: type 2 Qualified Code(s): E11.9 - Type 2 diabetes mellitus without complications (10) Anxiety: Status: Acute
[2020-12-30] MEDS: ELIQUIS PO SCH ×2 (09:34→21:00)
[2020-12-30] MEDS: FLONASE NASAL SPRAY ENOSTRIL SCH (09:34)
[2020-12-30] MEDS: COZAAR PO SCH (09:34)
[2020-12-30] MEDS: COREG TAB 12.5 MG PO SCH ×2 (09:34→21:00)
[2020-12-30] MEDS: BUSPAR PO SCH ×2 (09:34→21:00)
[2020-12-30] MEDS: PROTONIX TAB 40 MG PO SCH (09:35)
[2020-12-30] MEDS: PEPCID TAB 40 MG PO SCH ×2 (09:35→21:00)
[2020-12-30] MEDS: MILK OF MAGNESIA PO SCH (09:35)
[2020-12-30] MEDS: ISOSORBIDE MONONITRATE ER 24-HR PO SCH (09:35)
[2020-12-30] MEDS: INVOKANA PO SCH (09:35)
[2020-12-30] MEDS: ROBITUSSIN DM PO SCH ×4 (09:36→21:00)
[2020-12-30] MEDS: VITAMIN C PO SCH (09:36)
[2020-12-30] MEDS: VSL#3 PO SCH (09:36)
[2020-12-30] MEDS: VITAMIN D3 125 mcg (5,000 UNITS) PO SCH (09:36)
[2020-12-30] MEDS: VITAMIN A PO SCH (09:36)
[2020-12-30] MEDS: ZINC SULFATE PO SCH ×2 (09:36→21:00)
[2020-12-30] MEDS: ZyrTEC TAB 10 MG PO SCH (09:37)
[2020-12-30] MEDS: SNACK - Diabetic Appropriate PO SCH (20:00)
[2020-12-30] MEDS: COLACE CAP 100 MG PO SCH (21:00)
[2020-12-30] MEDS: RESTORIL CAP 15 MG PO PRN (21:00)
[2020-12-31] MEDS: SOLU-Medrol 40 MG VIAL IVP SCH ×3 (06:12→21:00)
[2020-12-31] MEDS: HumuLIN R SUBCUT PRN ×4 (06:13→21:00)
[2020-12-31] MEDS: DUONEB 0.5 MG/3 MG (3 mL) NEB SCH ×4 (08:30→20:40)
[2020-12-31] MEDS: PULMICORT NEB TX 0.5 MG NEB SCH ×2 (08:30→20:40)
[2020-12-31] MEDS: VITAMIN A PO SCH (09:50)
[2020-12-31] MEDS: VITAMIN D3 125 mcg (5,000 UNITS) PO SCH (09:51)
[2020-12-31] MEDS: COZAAR PO SCH (09:51)
[2020-12-31] MEDS: ISOSORBIDE MONONITRATE ER 24-HR PO SCH (09:51)
[2020-12-31] MEDS: ROBITUSSIN DM PO SCH ×4 (09:52→21:00)
[2020-12-31] MEDS: PROTONIX TAB 40 MG PO SCH (09:52)
[2020-12-31] MEDS: ZyrTEC TAB 10 MG PO SCH (09:52)
[2020-12-31] MEDS: PEPCID TAB 40 MG PO SCH ×2 (09:52→21:00)
[2020-12-31] MEDS: INVOKANA PO SCH (09:52)
[2020-12-31] MEDS: ZINC SULFATE PO SCH ×2 (09:52→21:00)
[2020-12-31] MEDS: VSL#3 PO SCH (09:53)
[2020-12-31] MEDS: BUSPAR PO SCH ×2 (09:54→21:00)
[2020-12-31] MEDS: VITAMIN C PO SCH (09:54)
[2020-12-31] MEDS: COREG TAB 12.5 MG PO SCH ×2 (09:54→21:00)
[2020-12-31] MEDS: ELIQUIS PO SCH ×2 (09:54→21:00)
[2020-12-31] MEDS: FLONASE NASAL SPRAY ENOSTRIL SCH (09:55)
[2020-12-31] MEDS: MILK OF MAGNESIA PO SCH (09:55)
[2020-12-31] MEDS: TUSSIONEX PENNKINETIC SUSP PO PRN ×2 (10:16→21:00)
--- NOTE | 2020-12-31 13:03 | PCM.PROG ---
Progress Note Progress Note for Day of Date of Exam: 12/31/20 Subjective Subjective: Patient seen at bedside, no events overnight. He states he slept well. He states he feels like his breathing is slightly better. He did work with PT/OT and was able to sit on the side of the bed for a short time and then had to be moved back to supine position due to sats dropping. He has intermittent non productive cough. He is currently on HHFNC FiO2 86% with sats in the mid 80s to low 90s at rest. He reports normal appetite. Labs: Hgb 15 WBC 13.5 AST:81 ALT:504 Plan: Patient continues to recover very slowly. He still desaturates easily with minimal exertion. He appears in no respiratory distress and is able to recover quickly. Continue Buspar for anxiety, ativan prn for panic episode as needed. Continue PT/OT as tolerated. Wean HHFNC as tolerated to keep sats above 88% .Continue solumedrol at current dose. Continue current treatment with aggressive pulmonary toilet including nebs, pulmicort, mucomyst, smart vest and IS. Patient has completed course with Remdesivir, IV antibiotics including Zosyn, Fortaz and Ciprofloxacin. He also received 2 doses of Actemra. Continue Encouraged ambulation from chair to bed as tolerated. No andreea beds available at [facility]. Patient not able to afford stay due to being self pay. Continue Eliquis. Continue vitamin support. Monitor AM labs and imaging. Time spent for clinical assessment, reviewing labs and imaging, physical exam, decision making and documentation greater than 75 mins. Past Medical Family Social History Past Med/Fam/Surg Hx: No changes since H&P Allergies: Allergies No Known Drug Allergies Allergy (Verified 11/24/20 20:28) Review of Systems ROS: No change since H&P Vital Signs and I&O's Vital Signs: Temperature 97.4 F Pulse Rate [Left] 65 Pulse Rate [Left Brachial] 60 Pulse Rate 76 Respiratory Rate 26 Blood Pressure [Right Arm] 138/63 Blood Pressure [Left Arm] 113/57 Blood Pressure 132/71 O2 Sat by Pulse Oximetry 87 Intake and Output: Intake & Output 12/28/20 12/29/20 12/30/20 12/31/20 23:59 23:59 23:59 23:59 Intake Total 2180 / 2180 2830 / 2830 2460 / 2460 260 / 260 Output Total 2425 / 2425 3125 / 3125 2875 / 2875 1750 / 1750 Balance -245 / -245 -295 / -295 -415 / -415 -1490 / -1490 Physical Exam Oriented: Normal Eyes: Normal Ear: Normal Nose: Normal Throat: Normal Respiratory: Generalized and Diminished Cardiovascular: Normal; negative Edema Auscultation: Bowel Sounds: Normal Tenderness: Normal Skin: Normal Musculoskeletal: Normal Psychiatric: Normal Mood Description: Calm Affect: Normal Speech Pattern: Clear and Appropriate Laboratory and Diagnostics Result Diagrams: 12/29/20 04:30 12/31/20 12:03 Labs: 11/24/20 17:25 Blood Blood Culture - Final 11/24/20 17:25 Blood Blood Culture - Final 11/25/20 06:08 Sputum - Expectorated Sputum Sputum Culture - Final Pseudomonas Aeruginosa 11/25/20 06:08 Sputum - Expectorated Sputum - Final Laboratory WBC 13.5 X10^3/uL (3.6-10.0) H 12/29/20 04:30 RBC 5.16 X10^6/uL (4.7-6.0) 12/29/20 04:30 Hgb 15.0 g/dL (13.5-18.0) 12/29/20 04:30 Hct 43.7 % (42.0-54.0) 12/29/20 04:30 MCV 84.8 fL (80.0-100.0) 12/29/20 04:30 MCH 29.0 pg (27.0-34.0) 12/29/20 04:30 MCHC 34.2 g/dL (33.0-35.0) 12/29/20 04:30 RDW 14.3 % (11.6-16.5) 12/29/20 04:30 Plt Count 151 X10^3/uL (150.0-450.0) 12/29/20 04:30 Plt Count Comment Adequate (ADEQUATE) 12/29/20 04:30 MPV 8.0 fL (7.4-11.0) 12/29/20 04:30 Neut % (Auto) 90.3 % (42.0-75.0) H 12/29/20 04:30 Lymph % (Auto) 6.8 % (21.0-51.0) L 12/29/20 04:30 [place] % (Auto) 1.9 % (0.0-13.0) 12/29/20 04:30 Eos % (Auto) 0.1 % (0.9-2.9) L 12/29/20 04:30 Baso % (Auto) 0.9 % (0.2-1.0) 12/29/20 04:30 Neut # (Auto) 12.2 x10^3/uL (2.2-4.8) H 12/29/20 04:30 Lymph # (Auto) 0.9 X10^3/uL (1.3-2.9) L 12/29/20 04:30 [place] # (Auto) 0.3 x10^3/uL (0.3-0.8) 12/29/20 04:30 Eos # (Auto) 0.0 x10^3/uL (0.0-0.2) 12/29/20 04:30 Baso # (Auto) 0.1 X10^3/uL (0.0-0.1) 12/29/20 04:30 Absolute Nucleated RBC 0.0 /100WBC 12/29/20 04:30 Total Counted 100 12/29/20 04:30 Neutrophils % (Manual) 92 % (39-76) H 12/29/20 04:30 Band Neutrophils % 7 % (0-10) 12/28/20 04:45 Lymphocytes % (Manual) 7 % (13-43) L 12/29/20 04:30 Monocytes % (Manual) 1 % (4-9) L 12/29/20 04:30 Plt Morphology Comment Normal (NORMAL) 12/29/20 04:30 RBC Morphology Normal (NORMAL) 12/29/20 04:30 D-Dimer 0.34 ug/ml (0.0-0.57) 12/15/20 04:25 Sample Site Lr 12/28/20 05:10 ABG pH 7.410 (7.35-7.45) 12/28/20 05:10 ABG pCO2 36.0 mmHg (35.0-45.0) 12/28/20 05:10 ABG pO2 66.0 mmHg (80.0-100.0) L 12/28/20 05:10 ABG HCO3 22.8 mmol/L (22-26) 12/28/20 05:10 ABG O2 Saturation 93.0 % (90-100) 12/28/20 05:10 ABG Base Excess -1.4 mmol/L (-2.0-2.0) 12/28/20 05:10 Bernardo Test Pos 12/28/20 05:10 A-a Gradient 516.0 mmHg 12/28/20 05:10 FiO2 88.0 12/28/20 05:10 Blood Gas Comments Kandy well ae 12/28/20 05:10 Sodium 134 mmol/L (136-145) L 12/29/20 04:30 Corrected Sodium 136 mmol/L (136-145) 12/29/20 04:30 Potassium 4.9 mmol/L (3.5-5.1) 12/29/20 04:30 Chloride 100 mmol/L (98-107) 12/29/20 04:30 Carbon Dioxide 25.9 mmol/L (21-32) 12/29/20 04:30 BUN 35 mg/dL (7-18) H 12/29/20 04:30 Creatinine 0.71 mg/dL (0.70-1.30) 12/29/20 04:30 Est GFR (MDRD) Af Amer > 60 (>60) 12/29/20 04:30 Est GFR (MDRD) Non-Af > 60 (>60) 12/29/20 04:30 Glucose 338 mg/dL (65-99) H 12/31/20 12:03 POC Glucose (mg/dL) 426 mg/dL (65-99) H 12/31/20 11:40 Lactic Acid 2.0 mmol/L (0.4-2.0) 11/24/20 17:25 Calcium 8.1 mg/dL (8.5-10.1) L 12/29/20 04:30 Corrected Calcium 8.9 mg/dL (8.5-10.1) 12/29/20 04:30 Magnesium 2.0 mg/dL (1.7-2.9) 12/09/20 05:13 Total Bilirubin 1.50 mg/dL (0.2-1.0) H 12/29/20 04:30 AST 81 Units/L (15-37) H 12/29/20 04:30 ALT 504 Units/L (12-78) H 12/29/20 04:30 Alkaline Phosphatase 123 Units/L (46-116) H 12/29/20 04:30 Creatine Kinase 79 Units/L (39-308) 11/24/20 17:25 CK-MB (CK-2) < 1.0 ng/mL (0-4.0) 11/24/20 17:25 CK/CKMB % Calc 1.3 % (<4) 11/24/20 17:25 Troponin I < 0.02 ng/mL (0-1.5) 11/24/20 17:25 C-Reactive Protein 0.60 mg/L (0-3.0) 12/26/20 04:36 B-Natriuretic Peptide 103 pg/mL (0-79) H 12/15/20 04:25 Total Protein 5.7 g/dL (6.4-8.2) L 12/29/20 04:30 Albumin 3.0 g/dL (3.4-5.0) L 12/29/20 04:30 Globulin 2.7 g/dL (2.5-4.5) 12/29/20 04:30 Albumin/Globulin Ratio 1.1 Ratio (1.1-2.1) 12/29/20 04:30 Amylase 48 Units/L (25-115) 11/24/20 17:25 Lipase 220 Units/L (73-393) 11/24/20 17:25 Specimen Type Clean catch urine 11/24/20 18:16 Urine Color Yellow (YELLOW) 11/24/20 18:16 Urine Appearance Clear (CLEAR) 11/24/20 18:16 Urine pH 5.0 (5.0 - 8.0) 11/24/20 18:16 Ur Specific [place] 1.025 (1.000-1.030) 11/24/20 18:16 Urine Protein 3+ (NEGATIVE) 11/24/20 18:16 Urine Glucose (UA) 4+ (NEGATIVE) 11/24/20 18:16 Urine Ketones 1+ (NEGATIVE) 11/24/20 18:16 Urine Occult Blood Negative (NEGATIVE) 11/24/20 18:16 Urine Nitrite Negative (NEGATIVE) 11/24/20 18:16 Urine Bilirubin Negative (NEGATIVE) 11/24/20 18:16 Urine Urobilinogen Normal (NORMAL) 11/24/20 18:16 Ur Leukocyte Esterase Negative (NEGATIVE) 11/24/20 18:16 Urine RBC None seen /HPF (0-3) 11/24/20 18:16 Urine WBC None seen /HPF (0-5) 11/24/20 18:16 Ur Squamous Epith Cells Rare /HPF (NEGATIVE) 11/24/20 18:16 Urine Bacteria Negative /HPF (NEGATIVE) 11/24/20 18:16 Ur Culture Indicated? No/not indicated 11/24/20 18:16 Acetone, Semi-Quant Negative (NEGATIVE) 11/24/20 17:30 SARS-CoV-2 (PCR) Positive (NEGATIVE) A 11/24/20 20:17 Influenza Type A (PCR) Negative (NEGATIVE) 11/24/20 20:17 Influenza Type B (PCR) Negative (NEGATIVE) 11/24/20 20:17 RSV (PCR) Negative (NEGATIVE) 11/24/20 20:17 S. pyogenes (TEM-PCR) Not detected (NOT DETECT) 11/24/20 20:17 Plan (1) Acute respiratory failure with hypoxia: Status: Acute (2) Transaminitis: Status: Acute (3) Oxygen dependent: Status: Acute (4) Pseudomonal pneumonia: Status: Acute Qualifiers: Laterality: bilateral Lung location: unspecified part of lung Qualified Code(s): J15.1 - Pneumonia due to Pseudomonas (5) COVID-19 virus infection: Status: Acute (6) Pulmonary edema: Status: Acute Qualifiers: Chronicity: chronic Qualified Code(s): J81.1 - Chronic pulmonary edema (7) HTN (hypertension): Status: Acute Qualifiers: Hypertension type: essential hypertension Qualified Code(s): I10 - Essential (primary) hypertension (8) Hx of CABG: Status: Chronic (9) Diabetes: Status: Chronic Qualifiers: Diabetes mellitus complication status: without complication Diabetes mellitus senior living insulin use: without senior living use Diabetes mellitus type: type 2 Qualified Code(s): E11.9 - Type 2 diabetes mellitus without complications (10) Anxiety: Status: Acute
[2020-12-31] MEDS: SNACK - Diabetic Appropriate PO SCH (20:00)
[2020-12-31] MEDS: COLACE CAP 100 MG PO SCH (21:00)
[2020-12-31] MEDS: ATIVAN TAB 0.5 MG PO PRN (21:00)
[2021-01-01] MEDS: SOLU-Medrol 40 MG VIAL IVP SCH ×2 (06:28→13:41)
[2021-01-01] MEDS: HumuLIN R SUBCUT PRN ×4 (06:30→21:00)
[2021-01-01] MEDS: DUONEB 0.5 MG/3 MG (3 mL) NEB SCH ×4 (08:40→21:10)
[2021-01-01] MEDS: PULMICORT NEB TX 0.5 MG NEB SCH ×2 (08:40→21:10)
[2021-01-01] MEDS: PEPCID TAB 40 MG PO SCH (08:44)
[2021-01-01] MEDS: VITAMIN D3 125 mcg (5,000 UNITS) PO SCH (08:45)
[2021-01-01] MEDS: VSL#3 PO SCH (08:45)
[2021-01-01] MEDS: ROBITUSSIN DM PO SCH ×4 (08:45→21:00)
[2021-01-01] MEDS: VITAMIN A PO SCH (08:45)
[2021-01-01] MEDS: MILK OF MAGNESIA PO SCH (08:45)
[2021-01-01] MEDS: INVOKANA PO SCH (08:46)
[2021-01-01] MEDS: ELIQUIS PO SCH (08:46)
[2021-01-01] MEDS: VITAMIN C PO SCH (08:46)
[2021-01-01] MEDS: ZINC SULFATE PO SCH (08:46)
[2021-01-01] MEDS: COZAAR PO SCH (08:46)
[2021-01-01] MEDS: ISOSORBIDE MONONITRATE ER 24-HR PO SCH (08:46)
[2021-01-01] MEDS: BUSPAR PO SCH (08:47)
[2021-01-01] MEDS: ZyrTEC TAB 10 MG PO SCH (08:47)
[2021-01-01] MEDS: FLONASE NASAL SPRAY ENOSTRIL SCH (08:47)
[2021-01-01] MEDS: COREG TAB 12.5 MG PO SCH (08:47)
[2021-01-01] MEDS: PROTONIX TAB 40 MG PO SCH (08:47)
[2021-01-01] MEDS: TUSSIONEX PENNKINETIC SUSP PO PRN (08:48)
[2021-01-01 08:54] LABS: BASOPHILS % (AUTO) 0.1 % (0.2-1.0); EOSINOPHILS % (AUTO) 0.1 % (0.9-2.9); HEMATOCRIT 46.2 % (42.0-54.0); HEMOGLOBIN 15.7 g/dL (13.5-18.0); LYMPHOCYTES # (AUTO) 0.9 X10^3/uL (1.3-2.9); LYMPHOCYTES % (AUTO) 5.8 % (21.0-51.0); MEAN CORPUSCULAR HEMOGLOBIN 29.1 pg (27.0-34.0); MEAN CORPUSCULAR VOLUME 85.6 fL (80.0-100.0); MEAN PLATELET VOLUME 8.3 fL (7.4-11.0); MONOCYTES # (AUTO) 0.3 x10^3/uL (0.3-0.8); MONOCYTES % (AUTO) 2.2 % (0.0-13.0); NEUTROPHILS # (AUTO) 13.7 x10^3/uL (2.2-4.8); NEUTROPHILS % (AUTO) 91.8 % (42.0-75.0); PLATELET COUNT 93 X10^3/uL (150.0-450.0); RED CELL DISTRIBUTION WIDTH 14.4 % (11.6-16.5); WHITE BLOOD COUNT 14.9 X10^3/uL (3.6-10.0)
[2021-01-01 09:11] LABS: BAND NEUTROPHILS % 3 % (0-10)
[2021-01-01 09:12] LABS: PLATELET MORPHOLOGY COMMENT NORMAL (NORMAL)
[2021-01-01 09:23] LABS: ALANINE AMINOTRANSFERASE 694 Units/L (12-78); ALBUMIN 3.2 g/dL (3.4-5.0); ALKALINE PHOSPHATASE 157 Units/L (46-116); ASPARTATE AMINO TRANSFERASE 73 Units/L (15-37); BLOOD UREA NITROGEN 32 mg/dL (7-18); CALCIUM 8.3 mg/dL (8.5-10.1); CARBON DIOXIDE 26.6 mmol/L (21-32); CHLORIDE 99 mmol/L (98-107); COR CA(FOR HYPOALB) 8.9 mg/dL (8.5-10.1); COR NA(FOR HYPERGLY) 135 mmol/L (136-145); CREATININE 0.62 mg/dL (0.70-1.30); MAGNESIUM 2.4 mg/dL (1.7-2.9); SODIUM 132 mmol/L (136-145); TOTAL PROTEIN 5.8 g/dL (6.4-8.2); eGFR NON BLACK RACES > 60 (>60)
--- NOTE | 2021-01-01 10:52 | RAD ---
HISTORYCOVID, HYPOXIASTUDYCHEST x-ray, 1 VIEWCOMPARISONX-ray 12/28/2020FINDINGSPeripheral lung infiltrates from COVID-19 pneumonia are unchanged. Patient has had prior cardiac surgery. Borderline cardiomegaly is seen. No pneumothorax or pleural effusion is seen.IMPRESSIONAppearance of the chest is unchanged.Electronically signed by: Stephane Gonzalez (Jan 01, 2021 10:50:03)
--- NOTE | 2021-01-01 13:58 | PCM.PROG ---
Progress Note Progress Note for Day of Date of Exam: 01/01/21 Subjective Subjective: Patient seen at bedside, no events overnight. He states yesterday was a slow day for him. He did not feel as active. He worked with PT for a little bit but felt tired to do much. He remains on the same settings HHFNC FiO2 86%. He denies N/V/D or abdominal pain. He reports dry cough. He has been using smart vest and IS. Plan: Follow up on morning labs and CXR. Patient continues to recover very slowly. He still desaturates easily with minimal exertion. He appears in no respiratory distress and is able to recover. CM to work on LTAC placement for pulmonary rehab. Continue Buspar for anxiety, ativan prn for panic episode as needed. Continue PT/OT as tolerated. Wean HHFNC as tolerated to keep sats above 88%.Continue solumedrol at current dose. Continue current treatment with aggr essive pulmonary toilet including nebs, pulmicort, mucomyst, smart vest and IS. Patient has completed course with Remdesivir, IV antibiotics including Zosyn, Fortaz and Ciprofloxacin. He also received 2 doses of Actemra. Continue Encouraged ambulation from chair to bed as tolerated. No andreea beds available at LT[facility]. Patient not able to afford stay due to being self pay. Continue Eliquis. Continue vitamin support. Monitor AM labs and imaging. Time spent for clinical assessment, reviewing labs and imaging, physical exam, decision making and documentation greater than 75 mins. Past Medical Family Social History Past Med/Fam/Surg Hx: No changes since H&P Allergies: Allergies No Known Drug Allergies Allergy (Verified 11/24/20 20:28) Review of Systems ROS: No change since H&P Vital Signs and I&O's Vital Signs: Temperature 97.0 F Pulse Rate [Left] 65 Pulse Rate [Left Brachial] 60 Pulse Rate 72 Respiratory Rate 16 Blood Pressure [Right Arm] 138/63 Blood Pressure [Left Arm] 113/57 Blood Pressure 122/64 O2 Sat by Pulse Oximetry 89 Intake and Output: Intake & Output 12/29/20 12/30/20 12/31/20 01/01/21 23:59 23:59 23:59 23:59 Intake Total 2830 / 2830 2460 / 2460 1810 / 1810 600 / 600 Output Total 3125 / 3125 2875 / 2875 4225 / 4225 1575 / 1575 Balance -295 / -295 -415 / -415 -2415 / -2415 -975 / -975 Physical Exam Oriented: Normal Eyes: Normal Ear: Normal Nose: Normal Throat: Normal Respiratory: Generalized and Diminished Cardiovascular: Normal; negative Edema Auscultation: Bowel Sounds: Normal Tenderness: Normal Skin: Normal Musculoskeletal: Normal Psychiatric: Normal Mood Description: Calm Affect: Normal Speech Pattern: Clear and Appropriate Laboratory and Diagnostics Result Diagrams: 01/01/21 08:24 01/01/21 08:24 Labs: 11/24/20 17:25 Blood Blood Culture - Final 11/24/20 17:25 Blood Blood Culture - Final 11/25/20 06:08 Sputum - Expectorated Sputum Sputum Culture - Final Pseudomonas Aeruginosa 11/25/20 06:08 Sputum - Expectorated Sputum - Final Laboratory WBC 14.9 X10^3/uL (3.6-10.0) H 01/01/21 08:24 RBC 5.40 X10^6/uL (4.7-6.0) 01/01/21 08:24 Hgb 15.7 g/dL (13.5-18.0) 01/01/21 08:24 Hct 46.2 % (42.0-54.0) 01/01/21 08:24 MCV 85.6 fL (80.0-100.0) 01/01/21 08:24 MCH 29.1 pg (27.0-34.0) 01/01/21 08:24 MCHC 34.0 g/dL (33.0-35.0) 01/01/21 08:24 RDW 14.4 % (11.6-16.5) 01/01/21 08:24 Plt Count 93 X10^3/uL (150.0-450.0) L 01/01/21 08:24 Plt Count Comment Decreased (ADEQUATE) 01/01/21 08:24 MPV 8.3 fL (7.4-11.0) 01/01/21 08:24 Neut % (Auto) 91.8 % (42.0-75.0) H 01/01/21 08:24 Lymph % (Auto) 5.8 % (21.0-51.0) L 01/01/21 08:24 [place] % (Auto) 2.2 % (0.0-13.0) 01/01/21 08:24 Eos % (Auto) 0.1 % (0.9-2.9) L 01/01/21 08:24 Baso % (Auto) 0.1 % (0.2-1.0) L 01/01/21 08:24 Neut # (Auto) 13.7 x10^3/uL (2.2-4.8) H 01/01/21 08:24 Lymph # (Auto) 0.9 X10^3/uL (1.3-2.9) L 01/01/21 08:24 [place] # (Auto) 0.3 x10^3/uL (0.3-0.8) 01/01/21 08:24 Eos # (Auto) 0.0 x10^3/uL (0.0-0.2) 01/01/21 08:24 Baso # (Auto) 0.0 X10^3/uL (0.0-0.1) 01/01/21 08:24 Absolute Nucleated RBC 0.4 /100WBC 01/01/21 08:24 Total Counted 100 01/01/21 08:24 Neutrophils % (Manual) 90 % (39-76) H 01/01/21 08:24 Band Neutrophils % 3 % (0-10) 01/01/21 08:24 Lymphocytes % (Manual) 4 % (13-43) L 01/01/21 08:24 Monocytes % (Manual) 3 % (4-9) L 01/01/21 08:24 Plt Morphology Comment Normal (NORMAL) 01/01/21 08:24 RBC Morphology Normal (NORMAL) 01/01/21 08:24 D-Dimer 0.34 ug/ml (0.0-0.57) 12/15/20 04:25 Sample Site Lr 12/28/20 05:10 ABG pH 7.410 (7.35-7.45) 12/28/20 05:10 ABG pCO2 36.0 mmHg (35.0-45.0) 12/28/20 05:10 ABG pO2 66.0 mmHg (80.0-100.0) L 12/28/20 05:10 ABG HCO3 22.8 mmol/L (22-26) 12/28/20 05:10 ABG O2 Saturation 93.0 % (90-100) 12/28/20 05:10 ABG Base Excess -1.4 mmol/L (-2.0-2.0) 12/28/20 05:10 Bernardo Test Pos 12/28/20 05:10 A-a Gradient 516.0 mmHg 12/28/20 05:10 FiO2 88.0 12/28/20 05:10 Blood Gas Comments Kandy well ae 12/28/20 05:10 Sodium 132 mmol/L (136-145) L 01/01/21 08:24 Corrected Sodium 135 mmol/L (136-145) L 01/01/21 08:24 Potassium 5.2 mmol/L (3.5-5.1) H 01/01/21 08:24 Chloride 99 mmol/L (98-107) 01/01/21 08:24 Carbon Dioxide 26.6 mmol/L (21-32) 01/01/21 08:24 BUN 32 mg/dL (7-18) H 01/01/21 08:24 Creatinine 0.62 mg/dL (0.70-1.30) L 01/01/21 08:24 Est GFR (MDRD) Af Amer > 60 (>60) 01/01/21 08:24 Est GFR (MDRD) Non-Af > 60 (>60) 01/01/21 08:24 Glucose 236 mg/dL (65-99) H 01/01/21 08:24 POC Glucose (mg/dL) 285 mg/dL (65-99) H 01/01/21 11:08 Lactic Acid 2.0 mmol/L (0.4-2.0) 11/24/20 17:25 Calcium 8.3 mg/dL (8.5-10.1) L 01/01/21 08:24 Corrected Calcium 8.9 mg/dL (8.5-10.1) 01/01/21 08:24 Magnesium 2.4 mg/dL (1.7-2.9) 01/01/21 08:24 Total Bilirubin 2.00 mg/dL (0.2-1.0) H 01/01/21 08:24 AST 73 Units/L (15-37) H 01/01/21 08:24 ALT 694 Units/L (12-78) H 01/01/21 08:24 Alkaline Phosphatase 157 Units/L (46-116) H 01/01/21 08:24 Creatine Kinase 79 Units/L (39-308) 11/24/20 17:25 CK-MB (CK-2) < 1.0 ng/mL (0-4.0) 11/24/20 17:25 CK/CKMB % Calc 1.3 % (<4) 11/24/20 17:25 Troponin I < 0.02 ng/mL (0-1.5) 11/24/20 17:25 C-Reactive Protein < 0.50 mg/L (0-3.0) 01/01/21 08:24 B-Natriuretic Peptide 103 pg/mL (0-79) H 12/15/20 04:25 Total Protein 5.8 g/dL (6.4-8.2) L 01/01/21 08:24 Albumin 3.2 g/dL (3.4-5.0) L 01/01/21 08:24 Globulin 2.6 g/dL (2.5-4.5) 01/01/21 08:24 Albumin/Globulin Ratio 1.2 Ratio (1.1-2.1) 01/01/21 08:24 Amylase 48 Units/L (25-115) 11/24/20 17:25 Lipase 220 Units/L (73-393) 11/24/20 17:25 Specimen Type Clean catch urine 11/24/20 18:16 Urine Color Yellow (YELLOW) 11/24/20 18:16 Urine Appearance Clear (CLEAR) 11/24/20 18:16 Urine pH 5.0 (5.0 - 8.0) 11/24/20 18:16 Ur Specific [place] 1.025 (1.000-1.030) 11/24/20 18:16 Urine Protein 3+ (NEGATIVE) 11/24/20 18:16 Urine Glucose (UA) 4+ (NEGATIVE) 11/24/20 18:16 Urine Ketones 1+ (NEGATIVE) 11/24/20 18:16 Urine Occult Blood Negative (NEGATIVE) 11/24/20 18:16 Urine Nitrite Negative (NEGATIVE) 11/24/20 18:16 Urine Bilirubin Negative (NEGATIVE) 11/24/20 18:16 Urine Urobilinogen Normal (NORMAL) 11/24/20 18:16 Ur Leukocyte Esterase Negative (NEGATIVE) 11/24/20 18:16 Urine RBC None seen /HPF (0-3) 11/24/20 18:16 Urine WBC None seen /HPF (0-5) 11/24/20 18:16 Ur Squamous Epith Cells Rare /HPF (NEGATIVE) 11/24/20 18:16 Urine Bacteria Negative /HPF (NEGATIVE) 11/24/20 18:16 Ur Culture Indicated? No/not indicated 11/24/20 18:16 Acetone, Semi-Quant Negative (NEGATIVE) 11/24/20 17:30 SARS-CoV-2 (PCR) Positive (NEGATIVE) A 11/24/20 20:17 Influenza Type A (PCR) Negative (NEGATIVE) 11/24/20 20:17 Influenza Type B (PCR) Negative (NEGATIVE) 11/24/20 20:17 RSV (PCR) Negative (NEGATIVE) 11/24/20 20:17 S. pyogenes (TEM-PCR) Not detected (NOT DETECT) 11/24/20 20:17 Plan (1) Acute respiratory failure with hypoxia: Status: Acute (2) Transaminitis: Status: Acute (3) Oxygen dependent: Status: Acute (4) Pseudomonal pneumonia: Status: Acute Qualifiers: Laterality: bilateral Lung location: unspecified part of lung Qualified Code(s): J15.1 - Pneumonia due to Pseudomonas (5) COVID-19 virus infection: Status: Acute (6) Pulmonary edema: Status: Acute Qualifiers: Chronicity: chronic Qualified Code(s): J81.1 - Chronic pulmonary edema (7) HTN (hypertension): Status: Acute Qualifiers: Hypertension type: essential hypertension Qualified Code(s): I10 - Essential (primary) hypertension (8) Hx of CABG: Status: Chronic (9) Diabetes: Status: Chronic Qualifiers: Diabetes mellitus complication status: without complication Diabetes mellitus long term acute care registered nurse insulin use: without detention use Diabetes mellitus type: type 2 Qualified Code(s): E11.9 - Type 2 diabetes mellitus without complications (10) Anxiety: Status: Acute
[2021-01-01] MEDS ORDERED: KAYEXALATE SUSP PO NR (14:00)
[2021-01-01] MEDS: ATIVAN TAB 0.5 MG PO PRN (14:07)
[2021-01-01] MEDS ORDERED: ATIVAN TAB 0.5 MG PO ONE (17:15)
[2021-01-01] MEDS ORDERED: ATIVAN TAB 1 MG PO PRN (17:16)
[2021-01-01] MEDS: SNACK - Diabetic Appropriate PO SCH (20:00)
[2021-01-02] MEDS: BUSPAR PO SCH ×2 (00:28→00:29)
[2021-01-02] MEDS: COREG TAB 12.5 MG PO SCH ×3 (00:29→22:46)
[2021-01-02] MEDS: COLACE CAP 100 MG PO SCH ×2 (00:29→22:46)
[2021-01-02] MEDS: ELIQUIS PO SCH ×3 (00:30→22:46)
[2021-01-02] MEDS: PEPCID TAB 40 MG PO SCH ×2 (00:30→11:13)
[2021-01-02] MEDS: ZINC SULFATE PO SCH ×3 (00:30→22:47)
[2021-01-02 07:53] LABS: BASOPHILS # (AUTO) 0.1 X10^3/uL (0.0-0.1); BASOPHILS % (AUTO) 0.6 % (0.2-1.0); EOSINOPHILS # (AUTO) 0.1 x10^3/uL (0.0-0.2); EOSINOPHILS % (AUTO) 0.8 % (0.9-2.9); HEMATOCRIT 48.4 % (42.0-54.0); HEMOGLOBIN 16.6 g/dL (13.5-18.0); LYMPHOCYTES # (AUTO) 1.3 X10^3/uL (1.3-2.9); LYMPHOCYTES % (AUTO) 11.7 % (21.0-51.0); MEAN CORPUSCULAR HEMOGLOBIN 29.1 pg (27.0-34.0); MEAN CORPUSCULAR HGB CONC 34.3 g/dL (33.0-35.0); MONOCYTES # (AUTO) 0.3 x10^3/uL (0.3-0.8); MONOCYTES % (AUTO) 2.4 % (0.0-13.0); NEUTROPHILS # (AUTO) 9.3 x10^3/uL (2.2-4.8); NEUTROPHILS % (AUTO) 84.5 % (42.0-75.0); PLATELET COUNT 89 X10^3/uL (150.0-450.0); RED CELL DISTRIBUTION WIDTH 14.5 % (11.6-16.5)
[2021-01-02 08:11] LABS: BLOOD UREA NITROGEN 35 mg/dL (7-18); CALCIUM 8.2 mg/dL (8.5-10.1); CARBON DIOXIDE 26.2 mmol/L (21-32); CHLORIDE 100 mmol/L (98-107); COR NA(FOR HYPERGLY) 138 mmol/L (136-145); CREATININE 0.55 mg/dL (0.70-1.30); SODIUM 136 mmol/L (136-145); eGFR NON BLACK RACES > 60 (>60)
--- NOTE | 2021-01-02 08:47 | PCM.PROG ---
Progress Note Progress Note for Day of Date of Exam: 01/02/21 Subjective Subjective: Patient seen at bedside. Yesterday evening, patient was more agitated and anxious so he received extra dose of ativan. Patient seems to be irritable this morning. He states he didn't like the way that medicine made him feel. He is alert and oriented. He states it made him really sleepy. He continue to be on HHFNC at 89% FiO2 with sats in the mid 80s-90%. He does not appear to be in any respiratory distress. He has occasional dry cough. He has been afebrile. He did not eat much yesterday and felt down. Labs: WBC 14.9 Hgb 15.7 Plt 93 BUN/Cr: 32/0.62 K: 5.2 Glucose 167 CXR: similar appearance of bilateral infiltrates, no change Plan: Repeat labs this morning. Stop ativan, buspar and steroids. Patient has been on Solumedrol for an extended period of time and could be causing him to be irritable. Patient continues to recover very slowly. He still desaturates easily with minimal exertion. He appears in no respiratory distress and is able to recover. CM to work on LTAC placement for pulmonary rehab. Referral has been sent to LTAC in [place]. Continue PT/OT as tolerated. Wean HHFNC as tolerated to keep sats above 88%. Continue current treatment with aggressive pulmonary toilet including nebs, pulmicort, mucomyst, smart vest and IS. Patient has completed course with Remdesivir, IV antibiotics including Zosyn, Fortaz and Ciprofloxacin. He also received 2 doses of Actemra. Continue Encouraged ambulation from chair to bed as tolerated. No [facility] beds available at LTAC. Patient not able to afford stay due to being self pay. Continue Eliquis. Continue vitamin support. Monitor AM labs and imaging. Time spent for clinical assessment, reviewing labs and imaging, physical exam, decision making and documentation greater than 75 mins. Past Medical Family Social History Past Med/Fam/Surg Hx: No changes since H&P Allergies: Allergies No Known Drug Allergies Allergy (Verified 11/24/20 20:28) Review of Systems ROS: No change since H&P Vital Signs and I&O's Vital Signs: Temperature 97.0 F Pulse Rate [Left] 65 Pulse Rate [Left Brachial] 60 Pulse Rate 78 Respiratory Rate 24 Blood Pressure [Right Arm] 138/63 Blood Pressure [Left Arm] 113/57 Blood Pressure 163/87 O2 Sat by Pulse Oximetry 87 Intake and Output: Intake & Output 12/30/20 12/31/20 01/01/21 01/02/21 23:59 23:59 23:59 23:59 Intake Total 2460 / 2460 1810 / 1810 1080 / 1080 200 / 200 Output Total 2875 / 2875 4225 / 4225 2625 / 2625 825 / 825 Balance -415 / -415 -2415 / -2415 -1545 / -1545 -625 / -625 Physical Exam Oriented: Normal Eyes: Normal Ear: Normal Nose: Normal Throat: Normal Respiratory: Generalized and Diminished Cardiovascular: Normal; negative Edema Auscultation: Bowel Sounds: Normal Tenderness: Normal Skin: Normal Musculoskeletal: Normal Psychiatric: Normal Mood Description: Calm Affect: Normal Speech Pattern: Clear and Appropriate Laboratory and Diagnostics Result Diagrams: 01/02/21 07:38 01/02/21 07:38 Labs: 11/24/20 17:25 Blood Blood Culture - Final 11/24/20 17:25 Blood Blood Culture - Final 11/25/20 06:08 Sputum - Expectorated Sputum Sputum Culture - Final Pseudomonas Aeruginosa 11/25/20 06:08 Sputum - Expectorated Sputum - Final Laboratory WBC 11.0 X10^3/uL (3.6-10.0) H 01/02/21 07:38 RBC 5.70 X10^6/uL (4.7-6.0) 01/02/21 07:38 Hgb 16.6 g/dL (13.5-18.0) 01/02/21 07:38 Hct 48.4 % (42.0-54.0) 01/02/21 07:38 MCV 85.0 fL (80.0-100.0) 01/02/21 07:38 MCH 29.1 pg (27.0-34.0) 01/02/21 07:38 MCHC 34.3 g/dL (33.0-35.0) 01/02/21 07:38 RDW 14.5 % (11.6-16.5) 01/02/21 07:38 Plt Count 89 X10^3/uL (150.0-450.0) L 01/02/21 07:38 Plt Count Comment Decreased (ADEQUATE) 01/01/21 08:24 MPV 8.0 fL (7.4-11.0) 01/02/21 07:38 Neut % (Auto) 84.5 % (42.0-75.0) H 01/02/21 07:38 Lymph % (Auto) 11.7 % (21.0-51.0) L 01/02/21 07:38 [place] % (Auto) 2.4 % (0.0-13.0) 01/02/21 07:38 Eos % (Auto) 0.8 % (0.9-2.9) L 01/02/21 07:38 Baso % (Auto) 0.6 % (0.2-1.0) 01/02/21 07:38 Neut # (Auto) 9.3 x10^3/uL (2.2-4.8) H 01/02/21 07:38 Lymph # (Auto) 1.3 X10^3/uL (1.3-2.9) 01/02/21 07:38 [place] # (Auto) 0.3 x10^3/uL (0.3-0.8) 01/02/21 07:38 Eos # (Auto) 0.1 x10^3/uL (0.0-0.2) 01/02/21 07:38 Baso # (Auto) 0.1 X10^3/uL (0.0-0.1) 01/02/21 07:38 Absolute Nucleated RBC 0.1 /100WBC 01/02/21 07:38 Total Counted 100 01/01/21 08:24 Neutrophils % (Manual) 90 % (39-76) H 01/01/21 08:24 Band Neutrophils % 3 % (0-10) 01/01/21 08:24 Lymphocytes % (Manual) 4 % (13-43) L 01/01/21 08:24 Monocytes % (Manual) 3 % (4-9) L 01/01/21 08:24 Plt Morphology Comment Normal (NORMAL) 01/01/21 08:24 RBC Morphology Normal (NORMAL) 01/01/21 08:24 D-Dimer 0.34 ug/ml (0.0-0.57) 12/15/20 04:25 Sample Site Lr 12/28/20 05:10 ABG pH 7.410 (7.35-7.45) 12/28/20 05:10 ABG pCO2 36.0 mmHg (35.0-45.0) 12/28/20 05:10 ABG pO2 66.0 mmHg (80.0-100.0) L 12/28/20 05:10 ABG HCO3 22.8 mmol/L (22-26) 12/28/20 05:10 ABG O2 Saturation 93.0 % (90-100) 12/28/20 05:10 ABG Base Excess -1.4 mmol/L (-2.0-2.0) 12/28/20 05:10 Bernardo Test Pos 12/28/20 05:10 A-a Gradient 516.0 mmHg 12/28/20 05:10 FiO2 88.0 12/28/20 05:10 Blood Gas Comments Kandy well ae 12/28/20 05:10 Sodium 136 mmol/L (136-145) 01/02/21 07:38 Corrected Sodium 138 mmol/L (136-145) 01/02/21 07:38 Potassium 4.4 mmol/L (3.5-5.1) 01/02/21 07:38 Chloride 100 mmol/L (98-107) 01/02/21 07:38 Carbon Dioxide 26.2 mmol/L (21-32) 01/02/21 07:38 BUN 35 mg/dL (7-18) H 01/02/21 07:38 Creatinine 0.55 mg/dL (0.70-1.30) L 01/02/21 07:38 Est GFR (MDRD) Af Amer > 60 (>60) 01/02/21 07:38 Est GFR (MDRD) Non-Af > 60 (>60) 01/02/21 07:38 Glucose 167 mg/dL (65-99) H 01/02/21 07:38 POC Glucose (mg/dL) 170 mg/dL (65-99) H 01/02/21 05:29 Lactic Acid 2.0 mmol/L (0.4-2.0) 11/24/20 17:25 Calcium 8.2 mg/dL (8.5-10.1) L 01/02/21 07:38 Corrected Calcium 8.9 mg/dL (8.5-10.1) 01/01/21 08:24 Magnesium 2.4 mg/dL (1.7-2.9) 01/01/21 08:24 Total Bilirubin 2.00 mg/dL (0.2-1.0) H 01/01/21 08:24 AST 73 Units/L (15-37) H 01/01/21 08:24 ALT 694 Units/L (12-78) H 01/01/21 08:24 Alkaline Phosphatase 157 Units/L (46-116) H 01/01/21 08:24 Creatine Kinase 79 Units/L (39-308) 11/24/20 17:25 CK-MB (CK-2) < 1.0 ng/mL (0-4.0) 11/24/20 17:25 CK/CKMB % Calc 1.3 % (<4) 11/24/20 17:25 Troponin I < 0.02 ng/mL (0-1.5) 11/24/20 17:25 C-Reactive Protein < 0.50 mg/L (0-3.0) 01/01/21 08:24 B-Natriuretic Peptide 103 pg/mL (0-79) H 12/15/20 04:25 Total Protein 5.8 g/dL (6.4-8.2) L 01/01/21 08:24 Albumin 3.2 g/dL (3.4-5.0) L 01/01/21 08:24 Globulin 2.6 g/dL (2.5-4.5) 01/01/21 08:24 Albumin/Globulin Ratio 1.2 Ratio (1.1-2.1) 01/01/21 08:24 Amylase 48 Units/L (25-115) 11/24/20 17:25 Lipase 220 Units/L (73-393) 11/24/20 17:25 Specimen Type Clean catch urine 11/24/20 18:16 Urine Color Yellow (YELLOW) 11/24/20 18:16 Urine Appearance Clear (CLEAR) 11/24/20 18:16 Urine pH 5.0 (5.0 - 8.0) 11/24/20 18:16 Ur Specific [place] 1.025 (1.000-1.030) 11/24/20 18:16 Urine Protein 3+ (NEGATIVE) 11/24/20 18:16 Urine Glucose (UA) 4+ (NEGATIVE) 11/24/20 18:16 Urine Ketones 1+ (NEGATIVE) 11/24/20 18:16 Urine Occult Blood Negative (NEGATIVE) 11/24/20 18:16 Urine Nitrite Negative (NEGATIVE) 11/24/20 18:16 Urine Bilirubin Negative (NEGATIVE) 11/24/20 18:16 Urine Urobilinogen Normal (NORMAL) 11/24/20 18:16 Ur Leukocyte Esterase Negative (NEGATIVE) 11/24/20 18:16 Urine RBC None seen /HPF (0-3) 11/24/20 18:16 Urine WBC None seen /HPF (0-5) 11/24/20 18:16 Ur Squamous Epith Cells Rare /HPF (NEGATIVE) 11/24/20 18:16 Urine Bacteria Negative /HPF (NEGATIVE) 11/24/20 18:16 Ur Culture Indicated? No/not indicated 11/24/20 18:16 Acetone, Semi-Quant Negative (NEGATIVE) 11/24/20 17:30 SARS-CoV-2 (PCR) Positive (NEGATIVE) A 11/24/20 20:17 Influenza Type A (PCR) Negative (NEGATIVE) 11/24/20 20:17 Influenza Type B (PCR) Negative (NEGATIVE) 11/24/20 20:17 RSV (PCR) Negative (NEGATIVE) 11/24/20 20:17 S. pyogenes (TEM-PCR) Not detected (NOT DETECT) 11/24/20 20:17 Plan (1) Acute respiratory failure with hypoxia: Status: Acute (2) Transaminitis: Status: Acute (3) Oxygen dependent: Status: Acute (4) Pseudomonal pneumonia: Status: Acute Qualifiers: Laterality: bilateral Lung location: unspecified part of lung Qualified Code(s): J15.1 - Pneumonia due to Pseudomonas (5) COVID-19 virus infection: Status: Acute (6) Pulmonary edema: Status: Acute Qualifiers: Chronicity: chronic Qualified Code(s): J81.1 - Chronic pulmonary edema (7) HTN (hypertension): Status: Acute Qualifiers: Hypertension type: essential hypertension Qualified Code(s): I10 - Essential (primary) hypertension (8) Hx of CABG: Status: Chronic (9) Diabetes: Status: Chronic Qualifiers: Diabetes mellitus complication status: without complication Diabetes mellitus custodial insulin use: without custodial use Diabetes mellitus type: type 2 Qualified Code(s): E11.9 - Type 2 diabetes mellitus without complications (10) Anxiety: Status: Acute
[2021-01-02] MEDS: DUONEB 0.5 MG/3 MG (3 mL) NEB SCH ×4 (08:49→21:09)
[2021-01-02] MEDS: PULMICORT NEB TX 0.5 MG NEB SCH ×2 (08:49→21:09)
[2021-01-02] MEDS ORDERED: SOLU-Medrol 40 MG VIAL IVP SCH (09:00)
[2021-01-02] MEDS ORDERED: TYLENOL 325 MG TAB PO ONE (10:33)
[2021-01-02] MEDS: COZAAR PO SCH (11:10)
[2021-01-02] MEDS: FLONASE NASAL SPRAY ENOSTRIL SCH (11:11)
[2021-01-02] MEDS: INVOKANA PO SCH (11:12)
[2021-01-02] MEDS: MILK OF MAGNESIA PO SCH (11:12)
[2021-01-02] MEDS: ISOSORBIDE MONONITRATE ER 24-HR PO SCH (11:12)
[2021-01-02] MEDS: PROTONIX TAB 40 MG PO SCH (11:13)
[2021-01-02] MEDS: ROBITUSSIN DM PO SCH ×4 (11:14→22:47)
[2021-01-02] MEDS: VITAMIN C PO SCH (11:14)
[2021-01-02] MEDS: VITAMIN A PO SCH (11:14)
[2021-01-02] MEDS: ZyrTEC TAB 10 MG PO SCH (11:15)
[2021-01-02] MEDS: VITAMIN D3 125 mcg (5,000 UNITS) PO SCH (11:15)
[2021-01-02] MEDS: VSL#3 PO SCH (11:16)
[2021-01-02 12:25] LABS: ABG BASE EXCESS 2.1 mmol/L (-2.0-2.0); ABG HCO3 25.3 mmol/L (22-26)
[2021-01-02] MEDS ORDERED: MORPHINE SULFATE INJ 2 MG INJ IVP ONE (16:10)
[2021-01-02 16:42] LABS: ABG BASE EXCESS -10.5 mmol/L (-2.0-2.0)
[2021-01-02 16:43] LABS: ABG HCO3 14.9 mmol/L (22-26)
[2021-01-02] MEDS ORDERED: DIPRIVAN VIAL 20 ML ONE (17:02)
[2021-01-02] MEDS ORDERED: QUELICIN (OR ANECTINE) ONE (17:03)
[2021-01-02] MEDS ORDERED: NS 1000 ML 1,000 ML ONE (17:14)
[2021-01-02] MEDS ORDERED: DOPAMINE IV PREMIX 400 MG/250 ML 400 MG/250 ML BAG IV PRN (17:28)
[2021-01-02] MEDS ORDERED: DIPRIVAN PREMIX 500 MG IV 500 MG/50 ML VIAL IV ONE (17:28)
[2021-01-02] MEDS ORDERED: DIPRIVAN PREMIX 1 GRAM IV 1,000 MG/100 ML VIAL ONE (17:39)
[2021-01-02] MEDS ORDERED: VERSED IV PREMIX 100 MG/100 ML IV.SOLN IV ONE (17:39)
[2021-01-02] MEDS ORDERED: DIPRIVAN VIAL IV ONE (17:43)
[2021-01-02 18:05] LABS: BASOPHILS # (AUTO) 0.1 X10^3/uL (0.0-0.1); BASOPHILS % (AUTO) 0.7 % (0.2-1.0); EOSINOPHILS # (AUTO) 0.2 x10^3/uL (0.0-0.2); EOSINOPHILS % (AUTO) 1.5 % (0.9-2.9); HEMOGLOBIN 15.9 g/dL (13.5-18.0); LYMPHOCYTES # (AUTO) 2.7 X10^3/uL (1.3-2.9); LYMPHOCYTES % (AUTO) 16.9 % (21.0-51.0); MEAN CORPUSCULAR HEMOGLOBIN 29.1 pg (27.0-34.0); MEAN PLATELET VOLUME 8.8 fL (7.4-11.0); MONOCYTES # (AUTO) 0.1 x10^3/uL (0.3-0.8); MONOCYTES % (AUTO) 0.9 % (0.0-13.0); NEUTROPHILS # (AUTO) 12.7 x10^3/uL (2.2-4.8); PLATELET COUNT 131 X10^3/uL (150.0-450.0); RED BLOOD COUNT 5.46 X10^6/uL (4.7-6.0); RED CELL DISTRIBUTION WIDTH 14.7 % (11.6-16.5); WHITE BLOOD COUNT 15.9 X10^3/uL (3.6-10.0)
[2021-01-02 18:18] LABS: ABG BASE EXCESS -10.3 mmol/L (-2.0-2.0)
[2021-01-02 18:19] LABS: ABG HCO3 17.9 mmol/L (22-26)
--- NOTE | 2021-01-02 18:26 | RAD ---
EXAM: CHEST X-RAYHISTORY: ET tube placement verification.TECHNIQUE: AP chest x-ray dated January 02, 2021 at 5:12 PM.COMPARISON: CXR dated January 01, 2021.FINDINGS:An endotracheal tube is noted in situ with the distal tip approximately 1.9 cm above the anna. Partial withdrawal approximately 1 to 2 cm may be beneficial for safekeeping.There is evidence for cardiomegaly. Status post median sternotomy, presumably for CABG.There are moderately severe and diffuse bilateral lung parenchymal infiltrates, with significant interval progression compared with the previous exam, consistent with moderate to severe CHF or volume overload in the appropriate clinical setting; DDx includes (but is not limited to) interstitial pneumonia in the appropriate clinical setting.There is no gross focal lung consolidation, pleural effusion, or pneumothorax seen. The visualized bony structures are within normal limits.IMPRESSION:1. ET tube in situ with the distal tip approximately 1.9 cm above the anna. Partial withdrawal approximately 1 to 2 cm may be beneficial for safekeeping.2. Moderately severe and diffuse bilateral lung parenchymal infiltrates, with significant interval progression compared with the previous exam, consistent with moderate to severe CHF or volume overload in the appropriate clinical setting; DDx includes (but is not limited to) interstitial pneumonia in the appropriate clinical setting.3. Recommend clinical correlation and appropriate follow-up CXR evaluation to ensure interval clearance as clinically warranted.4. Consider follow-up noncontrast chest CT to rule out Covid pneumonia if clinically warranted.Electronically signed by: Mauro Esparza (Jan 02, 2021 18:25:00)
--- NOTE | 2021-01-02 18:28 | RAD ---
HISTORYNG TUBE PLACEMENTSTUDYKUBCOMPARISONNoneFINDINGSThe enteric tube is in the upper left abdomen. At this locatio n, it is most likely in the stomach.Gas is present in nondilated bowel. No bowel obstruction or free air.Median sternotomy wires are present. Surgical clips are present in the right upper abdomen, proba lia from a cholecystectomy. Right groin catheter probably in the right external iliac.IMPRESSION1. En teric tube in the stomachElectronically signed by: Sudhir Edwards (Jan 02, 2021 18:26:44)
[2021-01-02] MEDS ORDERED: LEVOPHED INJ ONE ×2 (18:30→22:19)
[2021-01-02 18:53] LABS: ALANINE AMINOTRANSFERASE 473 Units/L (12-78); ALBUMIN 2.9 g/dL (3.4-5.0); ALKALINE PHOSPHATASE 170 Units/L (46-116); ASPARTATE AMINO TRANSFERASE 99 Units/L (15-37); BLOOD UREA NITROGEN 44 mg/dL (7-18); CALCIUM 7.3 mg/dL (8.5-10.1); CARBON DIOXIDE 20.7 mmol/L (21-32); CHLORIDE 98 mmol/L (98-107); CKMB % 7.5 % (<4); COR CA(FOR HYPOALB) 8.2 mg/dL (8.5-10.1); COR NA(FOR HYPERGLY) 141 mmol/L (136-145); CREATINE KINASE 85 Units/L (39-308); CREATININE 1.03 mg/dL (0.70-1.30); SODIUM 134 mmol/L (136-145); TOTAL PROTEIN 5.2 g/dL (6.4-8.2); TROPONIN I 0.17 ng/mL (0-1.5); eGFR NON BLACK RACES > 60 (>60)
[2021-01-02 18:54] LABS: CREATINE KINASE MB 6.4 ng/mL (0-4.0)
[2021-01-02] MEDS: LEVOPHED INJ 8 MG in D5W 250 ML IV 242 ML IV PRN (19:00)
[2021-01-02] MEDS: VERSED IV PREMIX 100 MG/100 ML IV.SOLN IV PRN (19:00)
[2021-01-02] MEDS ORDERED: NORCURON INJ 10 MG VIAL ONE (19:03)
[2021-01-02] MEDS: PRECEDEX 400 MCG/100 ML PREMIX 400 MCG/100 ML INFUS..BTL IV PRN (19:05)
[2021-01-02 19:29] LABS: ABG BASE EXCESS -7.7 mmol/L (-2.0-2.0); ABG HCO3 18.8 mmol/L (22-26)
[2021-01-02 19:31] LABS: ABG ALLEN TEST POS
[2021-01-02] MEDS ORDERED: VASOSTRICT INJ 20 UNITS VIAL 40 UNITS in NS 100 ML IV 100 ML IV PRN (19:57)
[2021-01-02] MEDS: DIPRIVAN PREMIX 1 GRAM IV 1,000 MG/100 ML VIAL IV PRN (20:00)
[2021-01-02] MEDS ORDERED: LASIX IVP ONE (20:58)
[2021-01-02] MEDS: NORCURON INJ 10 MG VIAL 50 MG in NS 50 ML IV 50 ML IV PRN (21:10)
[2021-01-02 21:13] LABS: ABG ALLEN TEST POS; ABG BASE EXCESS -7.5 mmol/L (-2.0-2.0); ABG HCO3 19.3 mmol/L (22-26)
[2021-01-02] MEDS ORDERED: NS 250 ML IV 250 ML IV ONE (22:20)
[2021-01-02] MEDS: SNACK - Diabetic Appropriate PO SCH (22:34)
[2021-01-02 23:27] LABS: CKMB % 5.1 % (<4); TROPONIN I 0.52 ng/mL (0-1.5)
[2021-01-02 23:29] LABS: CREATINE KINASE MB 8.7 ng/mL (0-4.0)
[2021-01-03] MEDS: DIPRIVAN PREMIX 1 GRAM IV 1,000 MG/100 ML VIAL IV PRN (00:05)
[2021-01-03] MEDS: LEVOPHED INJ 8 MG in D5W 250 ML IV 242 ML IV PRN ×3 (00:05→10:02)
[2021-01-03] MEDS: PRECEDEX 400 MCG/100 ML PREMIX 400 MCG/100 ML INFUS..BTL IV PRN ×2 (00:06→03:54)
[2021-01-03] MEDS: HumuLIN R SUBCUT PRN ×2 (01:04→07:05)
[2021-01-03] MEDS: BUTT CREAM (COMPOUND) TOP PRN (01:04)
[2021-01-03] MEDS ORDERED: LASIX IVP ONE (01:09)
[2021-01-03 01:18] LABS: ABG BASE EXCESS -7.2 mmol/L (-2.0-2.0); ABG HCO3 19.7 mmol/L (22-26)
[2021-01-03 01:19] LABS: ABG ALLEN TEST POS
[2021-01-03] MEDS: VERSED IV PREMIX 100 MG/100 ML IV.SOLN IV PRN (02:11)
[2021-01-03] MEDS: NORCURON INJ 10 MG VIAL 50 MG in NS 50 ML IV 50 ML IV PRN (02:11)
--- NOTE | 2021-01-03 04:49 | DR.PBODFLE ---
HPI Time seen Time Seen by Provider: 11/24/20 17:16 PCP Primary Care Physician: LYNNE ALDRIDGE Complaint/Symptoms Chief Complaint:: Pt c/o fever, general weakness and decreased appetite since Wednesday. Pt denies pain but states " I am hungry." He states his temp max at home was 100.1f. COVID-19 Coronavirus risk:travel/contact w/high risk person: No Has patient experienced Coronavirus symptoms: No Coronavirus symptoms experienced: Fever, Coughing and Shortness of Breath Source History Provided: Patient Mode of arrival Mode of Arrival: Wheelchair Timing Onset of Chief Complaint: 11/18/20 PMH Past Surgical History Past Surgical History: Yes Family History History of Family Medical Conditions: Yes Social Does patient currently use any type of tobacco product: No Have you used tobacco products in the last 12 months: No Type of Tobacco Use: None Does any household member use tobacco: No Alcohol Use: None Drug Use: None Vaccines Hx Measles, Mumps, Rubella Vaccination: No Hx Varicella Vaccination: No Yearly Influenza Vaccine: No Pneumococcal Vaccine Every 5 Yrs: No Hx Meningococcal Vaccination: No infectious screening In the last 2 months have you had wt loss of >10#?: NO Have you had fever, night sweats or hemotysis?: No Have you traveled outside the country in the last 6 months?: No Isolation: Standard PE Vitals Vital Signs: Temp Pulse Resp BP BP Pulse Ox 11/24/20 20:27 149/71 11/24/20 19:15 69 26 H 90 L 11/24/20 19:01 74 27 H 126/70 90 L 11/24/20 19:00 75 27 H 89 L 11/24/20 18:45 70 28 H 11/24/20 18:31 70 29 H 108/55 11/24/20 18:30 71 29 H 11/24/20 18:15 71 26 H 11/24/20 18:00 72 30 H 126/64 90 L 11/24/20 17:45 72 32 H 91 L 11/24/20 17:31 73 31 H 114/67 90 L 11/24/20 17:30 72 31 H 91 L 11/24/20 17:15 72 28 H 92 L 11/24/20 17:14 72 28 H 128/60 91 L 11/24/20 17:11 98.7 F 72 29 H 128/60 92 L ROR Labs Reviewed Result Diagrams: 01/02/21 17:49 01/02/21 23:34 Laboratory: 11/24/20 17:25 Blood Blood Culture - Final 11/24/20 17:25 Blood Blood Culture - Final WBC 4.3 X10^3/uL (3.6-10.0) 11/24/20 17:25 RBC 5.34 X10^6/uL (4.7-6.0) 11/24/20 17:25 Hgb 15.7 g/dL (13.5-18.0) 11/24/20 17:25 Hct 46.1 % (42.0-54.0) 11/24/20 17:25 MCV 86.2 fL (80.0-100.0) 11/24/20 17:25 MCH 29.4 pg (27.0-34.0) 11/24/20 17:25 MCHC 34.1 g/dL (33.0-35.0) 11/24/20 17:25 RDW 14.3 % (11.6-16.5) 11/24/20 17:25 Plt Count 144 X10^3/uL (150.0-450.0) L 11/24/20 17:25 MPV 8.6 fL (7.4-11.0) 11/24/20 17:25 Neut % (Auto) 73.5 % (42.0-75.0) 11/24/20 17:25 Lymph % (Auto) 14.7 % (21.0-51.0) L 11/24/20 17:25 [place] % (Auto) 11.4 % (0.0-13.0) 11/24/20 17:25 Eos % (Auto) 0.0 % (0.9-2.9) L 11/24/20 17:25 Baso % (Auto) 0.4 % (0.2-1.0) 11/24/20 17:25 Neut # (Auto) 3.2 x10^3/uL (2.2-4.8) 11/24/20 17:25 Lymph # (Auto) 0.6 X10^3/uL (1.3-2.9) L 11/24/20 17:25 [place] # (Auto) 0.5 x10^3/uL (0.3-0.8) 11/24/20 17:25 Eos # (Auto) 0.0 x10^3/uL (0.0-0.2) 11/24/20 17:25 Baso # (Auto) 0.0 X10^3/uL (0.0-0.1) 11/24/20 17:25 Absolute Nucleated RBC 0.1 /100WBC 11/24/20 17:25 Sample Site Rr 11/24/20 20:45 ABG pH 7.420 (7.35-7.45) 11/24/20 20:45 ABG pCO2 30.0 mmHg (35.0-45.0) L 11/24/20 20:45 ABG pO2 54.0 mmHg (80.0-100.0) L 11/24/20 20:45 ABG HCO3 19.5 mmol/L (22-26) L 11/24/20 20:45 ABG O2 Saturation 88.0 % (90-100) L 11/24/20 20:45 ABG Base Excess -4.0 mmol/L (-2.0-2.0) L 11/24/20 20:45 Bernardo Test Pos 11/24/20 20:45 A-a Gradient 108.0 mmHg 11/24/20 20:45 FiO2 28.0 11/24/20 20:45 Blood Gas Comments Kandy well sw 11/24/20 20:45 Sodium 133 mmol/L (136-145) L 11/24/20 17:25 Corrected Sodium 136 mmol/L (136-145) 11/24/20 17:25 Potassium 4.7 mmol/L (3.5-5.1) 11/24/20 17:25 Chloride 97 mmol/L (98-107) L 11/24/20 17:25 Carbon Dioxide 22.7 mmol/L (21-32) 11/24/20 17:25 BUN 26 mg/dL (7-18) H 11/24/20 17:25 Creatinine 1.58 mg/dL (0.70-1.30) H 11/24/20 17:25 Est GFR (MDRD) Af Amer 57 (>60) L 11/24/20 17:25 Est GFR (MDRD) Non-Af 47 (>60) L 11/24/20 17:25 Glucose 226 mg/dL (65-99) H 11/24/20 17:25 Lactic Acid 2.0 mmol/L (0.4-2.0) 11/24/20 17:25 Calcium 8.7 mg/dL (8.5-10.1) 11/24/20 17:25 Corrected Calcium TNP 11/24/20 17:25 Total Bilirubin 0.90 mg/dL (0.2-1.0) 11/24/20 17:25 AST 198 Units/L (15-37) H 11/24/20 17:25 ALT 148 Units/L (12-78) H 11/24/20 17:25 Alkaline Phosphatase 88 Units/L (46-116) 11/24/20 17:25 Creatine Kinase 79 Units/L (39-308) 11/24/20 17:25 CK-MB (CK-2) < 1.0 ng/mL (0-4.0) 11/24/20 17:25 CK/CKMB % Calc 1.3 % (<4) 11/24/20 17:25 Troponin I < 0.02 ng/mL (0-1.5) 11/24/20 17:25 Total Protein 7.9 g/dL (6.4-8.2) 11/24/20 17:25 Albumin 3.6 g/dL (3.4-5.0) 11/24/20 17:25 Globulin 4.3 g/dL (2.5-4.5) 11/24/20 17:25 Albumin/Globulin Ratio 0.8 Ratio (1.1-2.1) L 11/24/20 17:25 Amylase 48 Units/L (25-115) 11/24/20 17:25 Lipase 220 Units/L (73-393) 11/24/20 17:25 Specimen Type Clean catch urine 11/24/20 18:16 Urine Color Yellow (YELLOW) 11/24/20 18:16 Urine Appearance Clear (CLEAR) 11/24/20 18:16 Urine pH 5.0 (5.0 - 8.0) 11/24/20 18:16 Ur Specific [place] 1.025 (1.000-1.030) 11/24/20 18:16 Urine Protein 3+ (NEGATIVE) 11/24/20 18:16 Urine Glucose (UA) 4+ (NEGATIVE) 11/24/20 18:16 Urine Ketones 1+ (NEGATIVE) 11/24/20 18:16 Urine Occult Blood Negative (NEGATIVE) 11/24/20 18:16 Urine Nitrite Negative (NEGATIVE) 11/24/20 18:16 Urine Bilirubin Negative (NEGATIVE) 11/24/20 18:16 Urine Urobilinogen Normal (NORMAL) 11/24/20 18:16 Ur Leukocyte Esterase Negative (NEGATIVE) 11/24/20 18:16 Urine RBC None seen /HPF (0-3) 11/24/20 18:16 Urine WBC None seen /HPF (0-5) 11/24/20 18:16 Ur Squamous Epith Cells Rare /HPF (NEGATIVE) 11/24/20 18:16 Urine Bacteria Negative /HPF (NEGATIVE) 11/24/20 18:16 Ur Culture Indicated? No/not indicated 11/24/20 18:16 Acetone, Semi-Quant Negative (NEGATIVE) 11/24/20 17:30 SARS-CoV-2 (PCR) Positive (NEGATIVE) A 11/24/20 20:17 Influenza Type A (PCR) Negative (NEGATIVE) 11/24/20 20:17 Influenza Type B (PCR) Negative (NEGATIVE) 11/24/20 20:17 RSV (PCR) Negative (NEGATIVE) 11/24/20 20:17 S. pyogenes (TEM-PCR) Not detected (NOT DETECT) 11/24/20 20:17 Opioid Opioid Risk Tool Age (Saravanan box if 16-45): No History of Preadolescent Sexual Abuse: No Total: 0 Total Score Risk Category: Low Risk Copyright: [facility] predicting aberrant behaviors Diagnosis Discharge Problem: Suspected COVID-19 virus infection, Hypoxia, Generalized weakness Pneumonia Qualifiers: Pneumonia type: due to unspecified organism Laterality: right Lung location: upper lobe of lung Qualified Code(s): J18.9 - Pneumonia, unspecified organism Instructions Instructions: Viral Respiratory Infection, Cugu-St-Ddlc Home Oxygen Use, Adult Hand Washing, Zwuh-nd-Dvpa Form - Daily Diabetes Record Type 2 Diabetes Mellitus, Self Care, Adult, Atey-eb-Hgpp Droplet Precautions, Hkle-kd-Sexs Contact Precautions, Uzox-mh-Gjno How to Use a Nebulizer, Adult Hypertension, Xpmm-bp-Rbap Blood Glucose Monitoring, Adult Community-Acquired Pneumonia, Adult, Audv-ls-Qmri Forms: Precautions for COVID19 Patient Portal Social Distancing ADDITIONAL NOTES Additional Notes Additional Notes: (This chart was accessed by me in error, was attempting to document a procedure note for this patient - Dr Adrián Hernández)
[2021-01-03 05:37] LABS: BASOPHILS # (AUTO) 0.2 X10^3/uL (0.0-0.1); EOSINOPHILS # (AUTO) 0.1 x10^3/uL (0.0-0.2); EOSINOPHILS % (AUTO) 0.7 % (0.9-2.9); HEMATOCRIT 53.1 % (42.0-54.0); HEMOGLOBIN 17.5 g/dL (13.5-18.0); LYMPHOCYTES # (AUTO) 2.8 X10^3/uL (1.3-2.9); LYMPHOCYTES % (AUTO) 15.6 % (21.0-51.0); MEAN CORPUSCULAR HEMOGLOBIN 28.8 pg (27.0-34.0); MEAN CORPUSCULAR VOLUME 87.4 fL (80.0-100.0); MEAN PLATELET VOLUME 9.3 fL (7.4-11.0); MONOCYTES # (AUTO) 0.5 x10^3/uL (0.3-0.8); MONOCYTES % (AUTO) 2.8 % (0.0-13.0); NEUTROPHILS # (AUTO) 14.5 x10^3/uL (2.2-4.8); NEUTROPHILS % (AUTO) 79.9 % (42.0-75.0); PLATELET COUNT 104 X10^3/uL (150.0-450.0); RED BLOOD COUNT 6.08 X10^6/uL (4.7-6.0); RED CELL DISTRIBUTION WIDTH 14.4 % (11.6-16.5); WHITE BLOOD COUNT 18.1 X10^3/uL (3.6-10.0)
[2021-01-03 06:10] LABS: BAND NEUTROPHILS % 13 % (0-10); PLATELET MORPHOLOGY COMMENT NORMAL (NORMAL)
[2021-01-03 06:15] LABS: ABG BASE EXCESS -4.3 mmol/L (-2.0-2.0); ABG HCO3 21.6 mmol/L (22-26)
[2021-01-03 06:16] LABS: ABG ALLEN TEST POS
[2021-01-03 06:20] LABS: ALANINE AMINOTRANSFERASE 550 Units/L (12-78); ALBUMIN 3.3 g/dL (3.4-5.0); ALKALINE PHOSPHATASE 204 Units/L (46-116); ASPARTATE AMINO TRANSFERASE 102 Units/L (15-37); BLOOD UREA NITROGEN 43 mg/dL (7-18); CHLORIDE 98 mmol/L (98-107); COR CA(FOR HYPOALB) 8.6 mg/dL (8.5-10.1); COR NA(FOR HYPERGLY) 139 mmol/L (136-145); CREATINE KINASE 134 Units/L (39-308); CREATININE 0.85 mg/dL (0.70-1.30); SODIUM 133 mmol/L (136-145); TOTAL PROTEIN 6.2 g/dL (6.4-8.2); eGFR NON BLACK RACES > 60 (>60)
[2021-01-03 07:04] LABS: CKMB % 6.8 % (<4); CREATINE KINASE MB 9.1 ng/mL (0-4.0)
[2021-01-03] MEDS ORDERED: ZOSYN VIAL 3.375 GRAMS 3.375 G in NS 100 ML IV + SPIKE MINIBAG* 100 ML IV SCH (07:29)
[2021-01-03] MEDS ORDERED: PHARMACY CONSULT - VANCOMYCIN XX SCH (08:00)
[2021-01-03] MEDS ORDERED: D50W ABBOJECT SYR IV ONE (08:40)
[2021-01-03] MEDS ORDERED: HumuLIN R IV ONE (08:41)
--- NOTE | 2021-01-03 08:52 | PCM.PROG ---
Progress Note Progress Note for Day of Date of Exam: 01/03/21 Subjective Subjective: Patient seen at bedside. Patient had to be intubated yesterday evening due to worsening respiratory failure. He remains on the vent at FiO2 100%. He was not able to be sedated with Propofol and Versed, Precedex and Norcuron were added which helped sedate the patient and improved his O2 sats to above 90%. He remains on Levophed for hypotension. He also did have a fever last night Tmax 101, blood cultures were collected. Right femoral central line was placed along with NGT by Dr. Rust'shahab at [facility] was contacted for transfer but patient remained too unstable for transfer. Patient's family including sisters and children are aware of the patient's critical condition. They are all agreeable with DNR code status. Labs: WBC 18.1 Hgb 17.5 Plt 104 Na: 139 K: 5.9 BUN/Cr: 43/0.85 Glucose 385 AST 102 ALT 550 Trop 0.17, 0.52, 1 CMKB: 6.4, 8.7, 9.1 CXR: worsening bilateral opacities, concerning for pulmonary edema, volume overload and viral pneumonia. Plan: Discuss goals of care with family, continue current management for now. Continue mechanical ventilation, RT to adjust settings as needed. Wean FiO2 as tolerated to keep sats > 92%. Follow up CXR and EKG. DC all PO medications. Start Vancomycin and Zosyn. Will start heparin drip. Continue IV Pepcid. Titrate Levophed to keep MAP > 65. Give IV regular insulin 10 units + D50 for hyperkalemia. Family would like to change patient's status to DNR as per his wishes. Monitor labs/imaging. Patient remains in critical condition. Time spent for clinical assessment, reviewing labs and imaging, physical exam, decision making and documentation greater than 75 mins. Past Medical Family Social History Past Med/Fam/Surg Hx: Changes noted (describe) (see above ) Allergies: Allergies lorazepam [From Ativan] Adverse Reaction (Severe, Verified 01/02/21 12:34) CONFUSION Review of Systems ROS: No change since H&P Vital Signs and I&O's Vital Signs: Temperature 99.1 F Pulse Rate [Left] 65 Pulse Rate [Left Brachial] 60 Pulse Rate 96 Respiratory Rate 16 Blood Pressure [Right Arm] 138/63 Blood Pressure [Left Arm] 113/57 Blood Pressure 125/83 O2 Sat by Pulse Oximetry 94 Intake and Output: Intake & Output 12/31/20 01/01/21 01/02/21 01/03/21 23:59 23:59 23:59 23:59 Intake Total 1810 / 1810 1080 / 1080 1783 / 1783 1863 / 1863 Output Total 4225 / 4225 2625 / 2625 1850 / 1850 1600 / 1600 Balance -2415 / -2415 -1545 / -1545 -67 / -67 263 / 263 Physical Exam Oriented: Other (sedated and paralyzed) Eyes: Other (closed ) Ear: Normal Nose: Normal Throat: Other (ET tube present ) Respiratory: Generalized and Diminished Cardiovascular: Normal; negative Edema : Other (right femoral central line intact ) Auscultation: Bowel Sounds: Normal Palpation: Other Tenderness: Normal Skin: Decreased Turgur and Other (cold to touch ) Psychiatric: Other (sedated) Mood Description: Calm Speech Pattern: Artificially Ventilated Laboratory and Diagnostics Result Diagrams: 01/03/21 04:20 01/03/21 04:20 Labs: 11/24/20 17:25 Blood Blood Culture - Final 11/24/20 17:25 Blood Blood Culture - Final 11/25/20 06:08 Sputum - Expectorated Sputum Sputum Culture - Final Pseudomonas Aeruginosa 11/25/20 06:08 Sputum - Expectorated Sputum - Final Laboratory WBC 18.1 X10^3/uL (3.6-10.0) H 01/03/21 04:20 RBC 6.08 X10^6/uL (4.7-6.0) H 01/03/21 04:20 Hgb 17.5 g/dL (13.5-18.0) 01/03/21 04:20 Hct 53.1 % (42.0-54.0) 01/03/21 04:20 MCV 87.4 fL (80.0-100.0) 01/03/21 04:20 MCH 28.8 pg (27.0-34.0) 01/03/21 04:20 MCHC 33.0 g/dL (33.0-35.0) 01/03/21 04:20 RDW 14.4 % (11.6-16.5) 01/03/21 04:20 Plt Count 104 X10^3/uL (150.0-450.0) L 01/03/21 04:20 Plt Count Comment Decreased (ADEQUATE) 01/03/21 04:20 MPV 9.3 fL (7.4-11.0) 01/03/21 04:20 Neut % (Auto) 79.9 % (42.0-75.0) H 01/03/21 04:20 Lymph % (Auto) 15.6 % (21.0-51.0) L 01/03/21 04:20 [place] % (Auto) 2.8 % (0.0-13.0) 01/03/21 04:20 Eos % (Auto) 0.7 % (0.9-2.9) L 01/03/21 04:20 Baso % (Auto) 1.0 % (0.2-1.0) 01/03/21 04:20 Neut # (Auto) 14.5 x10^3/uL (2.2-4.8) H 01/03/21 04:20 Lymph # (Auto) 2.8 X10^3/uL (1.3-2.9) 01/03/21 04:20 [place] # (Auto) 0.5 x10^3/uL (0.3-0.8) 01/03/21 04:20 Eos # (Auto) 0.1 x10^3/uL (0.0-0.2) 01/03/21 04:20 Baso # (Auto) 0.2 X10^3/uL (0.0-0.1) H 01/03/21 04:20 Absolute Nucleated RBC 0.2 /100WBC 01/03/21 04:20 Total Counted 100 01/03/21 04:20 Neutrophils % (Manual) 70 % (39-76) 01/03/21 04:20 Band Neutrophils % 13 % (0-10) H 01/03/21 04:20 Lymphocytes % (Manual) 12 % (13-43) L 01/03/21 04:20 Monocytes % (Manual) 5 % (4-9) 01/03/21 04:20 Plt Morphology Comment Normal (NORMAL) 01/03/21 04:20 RBC Morphology Normal (NORMAL) 01/03/21 04:20 PT 16.6 SECONDS (11.8-14.3) 01/02/21 17:49 INR Target Range - 01/02/21 17:49 INR 1.42 (0.8-1.3) H 01/02/21 17:49 APTT 22.2 SECONDS (22.9-36.5) L 01/02/21 17:49 PTT Comment - 01/02/21 17:49 D-Dimer 0.34 ug/ml (0.0-0.57) 12/15/20 04:25 Sample Site Rrad 01/03/21 06:13 ABG pH 7.320 (7.35-7.45) L 01/03/21 06:13 ABG pCO2 42.0 mmHg (35.0-45.0) 01/03/21 06:13 ABG pO2 83.0 mmHg (80.0-100.0) 01/03/21 06:13 ABG HCO3 21.6 mmol/L (22-26) L 01/03/21 06:13 ABG O2 Saturation 95.0 % (90-100) 01/03/21 06:13 ABG Base Excess -4.3 mmol/L (-2.0-2.0) L 01/03/21 06:13 Bernardo Test Pos 01/03/21 06:13 A-a Gradient 578.0 mmHg 01/03/21 06:13 FiO2 100.0 01/03/21 06:13 Blood Gas Comments Kandy abg well-mtf 01/03/21 06:13 Sodium 133 mmol/L (136-145) L 01/03/21 04:20 Corrected Sodium 139 mmol/L (136-145) 01/03/21 04:20 Potassium 5.9 mmol/L (3.5-5.1) H 01/03/21 04:20 Chloride 98 mmol/L (98-107) 01/03/21 04:20 Carbon Dioxide 21.0 mmol/L (21-32) 01/03/21 04:20 BUN 43 mg/dL (7-18) H 01/03/21 04:20 Creatinine 0.85 mg/dL (0.70-1.30) 01/03/21 04:20 Est GFR (MDRD) Af Amer > 60 (>60) 01/03/21 04:20 Est GFR (MDRD) Non-Af > 60 (>60) 01/03/21 04:20 Glucose 340 mg/dL (65-99) H 01/03/21 04:20 POC Glucose (mg/dL) 368 mg/dL (65-99) H 01/03/21 07:01 Lactic Acid 2.0 mmol/L (0.4-2.0) 11/24/20 17:25 Calcium 8.0 mg/dL (8.5-10.1) L 01/03/21 04:20 Corrected Calcium 8.6 mg/dL (8.5-10.1) 01/03/21 04:20 Magnesium 2.4 mg/dL (1.7-2.9) 01/01/21 08:24 Total Bilirubin 2.00 mg/dL (0.2-1.0) H 01/03/21 04:20 AST 102 Units/L (15-37) H 01/03/21 04:20 ALT 550 Units/L (12-78) H 01/03/21 04:20 Alkaline Phosphatase 204 Units/L (46-116) H 01/03/21 04:20 Creatine Kinase 134 Units/L (39-308) 01/03/21 04:20 CK-MB (CK-2) 9.1 ng/mL (0-4.0) H* 01/03/21 04:20 CK/CKMB % Calc 6.8 % (<4) 01/03/21 04:20 Troponin I 1.00 ng/mL (0-1.5) 01/03/21 04:20 C-Reactive Protein < 0.50 mg/L (0-3.0) 01/01/21 08:24 B-Natriuretic Peptide 103 pg/mL (0-79) H 12/15/20 04:25 Total Protein 6.2 g/dL (6.4-8.2) L 01/03/21 04:20 Albumin 3.3 g/dL (3.4-5.0) L 01/03/21 04:20 Globulin 2.9 g/dL (2.5-4.5) 01/03/21 04:20 Albumin/Globulin Ratio 1.1 Ratio (1.1-2.1) 01/03/21 04:20 Amylase 48 Units/L (25-115) 11/24/20 17:25 Lipase 220 Units/L (73-393) 11/24/20 17:25 Specimen Type Clean catch urine 11/24/20 18:16 Urine Color Yellow (YELLOW) 11/24/20 18:16 Urine Appearance Clear (CLEAR) 11/24/20 18:16 Urine pH 5.0 (5.0 - 8.0) 11/24/20 18:16 Ur Specific [place] 1.025 (1.000-1.030) 11/24/20 18:16 Urine Protein 3+ (NEGATIVE) 11/24/20 18:16 Urine Glucose (UA) 4+ (NEGATIVE) 11/24/20 18:16 Urine Ketones 1+ (NEGATIVE) 11/24/20 18:16 Urine Occult Blood Negative (NEGATIVE) 11/24/20 18:16 Urine Nitrite Negative (NEGATIVE) 11/24/20 18:16 Urine Bilirubin Negative (NEGATIVE) 11/24/20 18:16 Urine Urobilinogen Normal (NORMAL) 11/24/20 18:16 Ur Leukocyte Esterase Negative (NEGATIVE) 11/24/20 18:16 Urine RBC None seen /HPF (0-3) 11/24/20 18:16 Urine WBC None seen /HPF (0-5) 11/24/20 18:16 Ur Squamous Epith Cells Rare /HPF (NEGATIVE) 11/24/20 18:16 Urine Bacteria Negative /HPF (NEGATIVE) 11/24/20 18:16 Ur Culture Indicated? No/not indicated 11/24/20 18:16 Acetone, Semi-Quant Negative (NEGATIVE) 11/24/20 17:30 SARS-CoV-2 (PCR) Positive (NEGATIVE) A 11/24/20 20:17 Influenza Type A (PCR) Negative (NEGATIVE) 11/24/20 20:17 Influenza Type B (PCR) Negative (NEGATIVE) 11/24/20 20:17 RSV (PCR) Negative (NEGATIVE) 11/24/20 20:17 SARS CoV-2 RNA Rapid TONY Positive (NEGATIVE) A 01/02/21 17:15 S. pyogenes (TEM-PCR) Not detected (NOT DETECT) 11/24/20 20:17 Plan (1) On mechanically assisted ventilation: Status: Acute (2) Hypotension: Status: Acute Qualifiers: Hypotension type: other hypotension type Qualified Code(s): I95.89 - Other hypotension (3) Hyperkalemia: Status: Acute (4) Required emergency intubation: Status: Acute (5) Acute respiratory failure with hypoxia: Status: Acute (6) Transaminitis: Status: Acute (7) Oxygen dependent: Status: Acute (8) Pseudomonal pneumonia: Status: Acute Qualifiers: Laterality: bilateral Lung location: unspecified part of lung Qualified Code(s): J15.1 - Pneumonia due to Pseudomonas (9) COVID-19 virus infection: Status: Acute (10) Pulmonary edema: Status: Acute Qualifiers: Chronicity: chronic Qualified Code(s): J81.1 - Chronic pulmonary edema (11) HTN (hypertension): Status: Acute Qualifiers: Hypertension type: essential hypertension Qualified Code(s): I10 - Essential (primary) hypertension (12) Hx of CABG: Status: Chronic (13) Diabetes: Status: Chronic Qualifiers: Diabetes mellitus complication status: without complication Diabetes mellitus terminal gauger insulin use: without terminal gauger use Diabetes mellitus type: type 2 Qualified Code(s): E11.9 - Type 2 diabetes mellitus without complications (14) Anxiety: Status: Acute
[2021-01-03] MEDS ORDERED: PEPCID 20 MG IV PREMIX* 20 MG/50 ML BAG IV SCH (09:00)
[2021-01-03] MEDS ORDERED: LOVENOX INJ 40 MG SYR SC SCH (09:00)
--- NOTE | 2021-01-03 09:00 | MD.NOTE ---
Provider Note Note Note: 01/02/21 Critical care note Patient's respiratory status declined this afternoon. He was initially on HHFNC but sats remained in the 70-80s. Patient refused BiPAP. His HHFNC was maxed out and sats still remained low. He was tachypneic, diaphoretic with tachycardia. Patient's ABG continued to worsen with pO2 32. Patient's sister was notified about the change of status and she was on her way to the hospital. It was discussed with the patient that if he is not able to wear the BiPAP then the next option is vent and patient agreed to be intubated. ER physician intubated the patient without any complications. He was started on Levophed, Propofol and versed. Dr Hill was consulted for central line. Stat labs and CXR were ordered. [facility] was contacted regarding patient transfer. Patient's repeat covid swab came back positive. Patient was not able to be sedated and sats remained in the 80s while on 100% FiO2. Precedex and Norcuron were added and patient's sats improved and he appeared to be comfortable. Due to patient being unstable, patient was not accepted for transfer. Patient's sister was at bedside during intubation and she was updated about patient's sudden change. I discussed patient's current status and critical condition in detail. Sister stated that patient did not want to be resuscitated with CPR or shock. She states he had expressed this before and he did not want to be kept alive with machines. Sister states patient's wishes were DNR and she would like to change his status to DNR and does not want any CPR or shock if he goes into cardiac arrest. She is ok with the current treatment plan and wants us to continue current care. She has also notified patient's on in [place] about the change in condition. Plan: continue vent management, change code status to DNR. Monitor AM labs and imaging. Patient remains in critical condition. Time spent for clinical assessment, reviewing labs/imaging, physical exam, decision making and documentation greater than 75 mins.
[2021-01-03] MEDS ORDERED: NS 1000 ML 1,000 ML ONE (09:04)
[2021-01-03] MEDS: PULMICORT NEB TX 0.5 MG NEB SCH (09:55)
[2021-01-03] MEDS: DUONEB 0.5 MG/3 MG (3 mL) NEB SCH ×2 (09:55→12:27)
[2021-01-03] MEDS ORDERED: D5W 250 ML IV 250 ML IV ONE (09:57)
[2021-01-03] MEDS ORDERED: VANCOMYCIN IV *PREMIX 1 G/200 ML BAG 1 G/200 ML PIGGYBACK IV SCH (10:00)
--- NOTE | 2021-01-03 11:07 | RAD ---
HISTORYCOVID 19 PNEUMONIASTUDYCHEST x-ray, 1 VIEWCOMPARISONX-ray 01/02/2021FINDINGSEndotracheal tube terminates 4.3 cm above the anna. Enteric tube tip and side hole appear to be in the fundus of the stomach. Heart is normal in size.Bilateral pneumonia is improved from prior study. Continued x-ray follow-up is recommended.IMPRESSIONImprovement of bilateral pneumonia but involvement of the lungs remains moderate to prominent in degree.Electronically signed by: Stephane Gonzalez (Jan 03, 2021 11:05:38)
[2021-01-03 13:07] VITALS: BP 131/83
--- NOTE | 2021-01-03 13:46 | MD.NOTE ---
Provider Note Note Note: Contacted by RN that patient has no pulse. Patient seen and examined at bedside, sister also present. Physical exam performed, no heart or lung sounds, no pulse, fixed pupils. Patient asystole on the monitor. Patient code status DNR. Patient pronounced at 1300. Condolences given to the family, all questions and concerns answered.
--- NOTE | 2021-01-03 13:47 | DR.DECEASE ---
FORM Admission Diagnosis Problems (Updated 01/03/21 @ 12:29 by Peggy Hopson) On mechanically assisted ventilation (Acute) Z99.11 Hyperkalemia (Acute) E87.5 Hypotension (Acute) I95.9 Required emergency intubation (Acute) Z98.890 Generalized weakness (Acute) R53.1 Hypoxia (Acute) R09.02 Anxiety (Acute) F41.9 Transaminitis (Acute) R74.01 Pseudomonal pneumonia (Acute) J15.1 Oxygen dependent (Acute) Z99.81 Pulmonary edema (Acute) J81.1 Thrombocytopenia (Acute) D69.6 Diabetes (Chronic) E11.9 Hx of CABG (Chronic) Z95.1 HTN (hypertension) (Acute) I10 Acute respiratory failure with hypoxia (Acute) J96.01 COVID-19 virus infection (Acute) U07.1 Pneumonia (Acute) J18.9 Discharge Diagnosis Current Active Problems Problem Status Onset Generalized weakness Hypoxia Pneumonia Labs Result Diagrams: 01/03/21 04:20 01/03/21 04:20 Home Medications Home Medications Medication Instructions Recorded Type alpha lipoic acid 200 mg PO DAILY 11/24/20 History cholecalciferol (vitamin D3) 50 mcg PO DAILY 11/24/20 History [Vitamin D3] cinnamon bark [Cinnamon] 500 mg PO DAILY 11/24/20 History isosorbide mononitrate 60 mg PO QAM 11/24/20 History losartan 100 mg PO DAILY 11/24/20 History simvastatin 10 mg PO QHS 11/24/20 History Dapagliflozin [Farxiga] 10 mg PO QAM 30 Days #30 tab 12/06/20 Rx albuterol sulfate 2 puff INHALATION Q4-6H PRN #6.7 g 12/06/20 Rx carvedilol 12.5 mg PO BID 30 Days #60 tab 12/06/20 Rx glipizide 5 mg PO BID 30 Days #60 tab 12/06/20 Rx hydralazine 25 mg PO TID 30 Days #90 tab 12/06/20 Rx ipratropium-albuterol 3 ml NEB QID 30 Days #30 vial 12/06/20 Rx Hospital Course Hospital Course: Mr Mcclure was a 65y/o male with a PMH of HTN, Type 2 DM, HLD and CABG presented with worsening dyspnea, cough and weakness. He was found to have COVID-19 pneumonia on admission. Patient was admitted to ICU with COVID 19 protocol. He was started on supplemental O2 along with IV antibiotics, R emdesvir, solumedrol and vitamin support. He was also given Actemra. His O2 sats remained below 88% so he was transitioned to HHFNC. Patient remains on HHFNC for majority of his stay. PT/OT was also consulted and worked with patient as he tolerated. RT used to do aggressive therapy including smart vest, IS, nebs and mucomyst. Patient's sputum Cx grew Pseudomonas which was treated with antibiotics. His labs were monitored regularly and electrolytes replaced as needed. Patient remained on HHFNC and was unable to be weaned off to nasa canula. Tele critical care was also consulted, Dr Morales and he did not have any further recommendations except to continue with current aggressive pulmonary toilet. [facility] in [place] was contacted but did not have any [facility]a beds since patient had no insurance and was not able to afford the daily cost. Patient continue to be admitted in the ICU and remained on HHFNC FiO2 between 70-86%. His sats would remain in the mid 80s on average and would improve to low 90s during sleep. He did drop to 70s with minimal exertion but was able to recover quickly and was not in any respiratory distress. His vitals remained stable. Patient did havea hx of anxiety and was started on buspar and ativan prn. On the morning of 01/02/21, patient was noted to be restless and somewhat confused. He had received an extra dose of ativan the night prior due to agitation. He stated he did not like how the medicine made him feel. His respiratory status started to decline later that day and his sats remained in the low 80s even on HHFNC FiO2 100%. He was told the next step is BiPAP but he refused to wear BiPAP. Patient's ABG and CXR worsened and he was declining quick so it was discussed with the patient that he would need to be put on the vent. Patient agreed and he was intubated by the ER physician with success. Patient's sister was updated about the change in status and patient's critical condition. Patient had a cardiac event with slight elevation in troponin and CKMB. Patient's condition continued to decline further and he was requiring pressors and high dose of sedation. His FiO2 on the vent was at 100%. Patient's sister expressed that patient did not want to be resuscitated and also would not have wanted to stay on life support measures. Patient's code status was changed to DNR. Family decided on comfort measures and patient was terminally extubated. Patient and was pronounced at 1300 on 01/03/21. Patient's sister remained at bedside. Expiration Expiration Date: 01/03/21 Expiration Time: 13:00 Pronounced by: Dr. Hopson Preliminary Cause of : Covid Pneumonia Acute respiratory failure
[2021-01-04] MEDS ORDERED: PHARMACY COMMENT IV ONE (13:30)
== END 2021-01-03 14:45 | disposition expired | DRG 208 ==
LOC: ER 17:11 → ICU 22:37
PROVIDERS: ADMIT Emergency Medicine; ATTEND Internal Medicine
DX: R19.7 Diarrhea, unspecified; J12.82 Pneumonia due to coronavirus disease 2019; Z66 Do not resuscitate; E87.5 Hyperkalemia; J44.9 Chronic obstructive pulmonary disease, unspecified; Z95.1 Presence of aortocoronary bypass graft; R74.01 Elevation of levels of liver transaminase levels; R42 Dizziness and giddiness; R26.2 Difficulty in walking, not elsewhere classified; I87.2 Venous insufficiency (chronic) (peripheral); D69.6 Thrombocytopenia, unspecified; I27.20 Pulmonary hypertension, unspecified; J15.1 Pneumonia due to Pseudomonas; D68.9 Coagulation defect, unspecified; F41.9 Anxiety disorder, unspecified; Z99.81 Dependence on supplemental oxygen; J96.00 Acute respiratory failure, unspecified whether with hypoxia or hypercapnia; E11.65 Type 2 diabetes mellitus with hyperglycemia; N17.9 Acute kidney failure, unspecified; U07.1 COVID-19